=== PATIENT | male | born 1950 | race Caucasian/White ===

== ENCOUNTER 2022-02-10 10:23 | Outpatient (RCR) | payer MEDICARE, BC, SELFPAY ==
--- NOTE | 2022-02-08 10:00 | ONC.NURNOTE ---
Authorization: User: Carmen Dalton Date: 07/07/21 15:19 Type: Eligibility Determination Note... Received request for Trastuzumab (J9355), Cisplatin (J9060), Pembrolizumab (J9271), Aloxi (J2469) and Emend (J1453). Pt has Medicare and [place]. Prior authorization is not required as services are based on medical necessity and follow Medicare guidelines.
[2022-02-10 10:31] VITALS: BP 123/61; PULSE 59; RESP 16; TEMP 36.5; O2SAT 100
[2022-02-10 10:53] LABS: Basophils Absolute Auto 0.02 K/uL (0.00-0.30); Basophils Percent Auto 0.3 % (0.0-3.0); Eosinophils Absolute Auto 0.16 K/uL (0.00-0.50); Eosinophils Percent Auto 2.4 % (0.0-7.0); Hematocrit 27.7 % (37.0-53.0); Hemoglobin* 9.4 gm/dL (13.5-17.5); Immature Granulocytes Abs Auto 0.04 K/uL (0.00-0.30); Lymphocytes Percent Auto 17.6 % (20-44); Mean Corpuscular HGB Conc 34 gm/dL (32-36); Mean Corpuscular Hemoglobin 37 pg (26-34); Mean Corpuscular Volume 110 fL (80-100); Monocytes Percent Auto 10.3 % (0.0-11.0); Neutrophils Absolute Auto 4.56 K/uL (1.7-7.0); Neutrophils Percent Auto 68.8 % (42.0-72.0); Platelet Count* 191 K/uL (140-440); RDW Coefficient of Variation % 15.5 % (11.5-15.5); Red Blood Count 2.52 m/uL (4.30-5.90); White Blood Count* 6.63 K/uL (4.50-11.00)
[2022-02-10 11:15] LABS: Slide Review Reflex No
[2022-02-10 11:16] LABS: Albumin* 3.5 g/dL (3.3-5.0); Chloride* 109 mmol/L (96-114); Potassium* 4.3 mmol/L (3.6-5.1); Sodium* 138 mmol/L (135-149)
[2022-02-10 11:18] LABS: Bilirubin Total* 1.1 mg/dL (0.1-1.5); Est. Creatinine Clearance* 65.79; Estimated Glomerular Filt Rate 79.47
[2022-02-10 11:19] LABS: Alanine Aminotransferase* 20 U/L (4-50); Alkaline Phosphatase* 87 U/L (40-150); Aspartate Amino Transferase* 31 U/L (12-35); Blood Urea Nitrogen* 21 mg/dL (7-30); Calcium* 8.4 mg/dL (8.4-10.6); Carbon Dioxide* 23 mmol/L (20-32); Glucose* 158 mg/dL (60-115); Total Protein* 5.7 g/dL (6.0-8.3)
[2022-02-10 13:21] LABS: Magnesium* 1.8 mg/dL (1.5-2.6)
--- NOTE | 2022-02-10 16:00 | ONC.NURNOTE ---
left message for pt to stop taking his magnesium at home. and we will recheck him in 3 weeks. per Gwendolyn Lee APRN
[2022-02-10] MEDS: HEPARIN 500 UNIT/5 ML SYRINGE IVF (16:09)
[2022-02-10] MEDS: 0.9 % SODIUM CHLORIDE 250 ml IV (16:09)
[2022-02-10] MEDS: SODIUM CHLORIDE 0.9 % (FLUSH) 10 ML SYRINGE IVF (16:10)
== END 2022-02-28 23:59 | disposition home or self-care (01) ==
LOC: CCIC 10:23
PROVIDERS: Visit Provider Clinical Nurse Specialist
DX: C16.0 Malignant neoplasm of cardia (principal); E87.1 Hypo-osmolality and hyponatremia; G62.89 Other specified polyneuropathies; Z92.21 Personal history of antineoplastic chemotherapy; L27.1 Localized skin eruption due to drugs and medicaments taken internally; E83.42 Hypomagnesemia; M21.371 Foot drop, right foot; E87.6 Hypokalemia; D64.81 Anemia due to antineoplastic chemotherapy; T45.1X5A Adverse effect of antineoplastic and immunosuppressive drugs, initial encounter
CPT/HCPCS: 36415; 36591; 80053; 83735; 85025; 96413; 99212; 99215; J1642; J7050; J9355

== ENCOUNTER 2022-02-17 14:39 | Outpatient (CLI) | payer MEDICARE, BC, SELFPAY | END 2022-02-17 14:40 | disposition home or self-care (01) | LOC: RAD 14:40 | PROVIDERS: Visit Provider Clinical Nurse Specialist | DX: Z51.81 Encounter for therapeutic drug level monitoring (principal); I51.7 Cardiomegaly; I34.0 Nonrheumatic mitral (valve) insufficiency; Z79.899 Other long term (current) drug therapy; Z92.21 Personal history of antineoplastic chemotherapy | CPT/HCPCS: 93306 ==

== ENCOUNTER 2022-03-18 08:30 | Outpatient (RCR) | payer MEDICARE, BC, SELFPAY ==
--- NOTE | 2022-02-25 16:49 | PT.OPEX ---
PT [place] Outpatient Eval PT [facility] Outpatient Eval Start: 02/25/22 08:35 Freq: Status: Active Protocol: Document 02/25/22 08:42 [facility] (Rec: 02/25/22 09:16 [facility] [id number]) E-Signed By Lenny Bautista, PT Physical Therapy Outpatient Evaluation Insurance Information Insurance Name Medicare B,Blue Cross/Blue Shield Medical Diagnosis Right foot drop Treating Diagnosis Muscle weakness Difficulty walking Referring MD Gwendolyn Allen APRN Subjective Subjective Patient comes in with right ankle weakness following chemotherapy treatment since 2019. Weakness started a couple months ago. He is unstable on uneven surfaces and foot clops. Both feet are numb. He currently gets chemo every three weeks and also takes pills. Pain Comments No pain Current Work Status [employer] Preferred Name works as a [employer] still Precautions Weight Bearing Status Full Weight Bearing Therapy Limitations/Systems Review Not Limited Objective Sensation/Reflexes Intact L/T bilateral LEs Other/Pertinent Objective Ankle: Left/ Right PF: heel raises 10x/ 10x DF: 5 / 3 Inversion: 5 / 4+ Eversion: 5 / 2- SLS: Left: 12 sec Right: 3 sec Ambulates with slightly less right foot clearance on swing through Functional Test Performed & Score SLS: Right: 3 seconds and increased wobble Left: 12 seconds Assessment Assessment/Impression 71 year old male with right ankle eversion and dorsiflexion weakness as a side effect of chemotherapy treatments in recent months. He reports feeling less stable when walking on uneven surfaces, which he does often in his work as a [employer]. Patient does have some antigravity DF and eversion strength so do not recommend a rigid AFO at this time, however, he would benefit from an ASO for medial/lateral ankle stability and for strengthening exercises to optimize the strength he does have. He will also benefit from balance exercises as well . Recommend a few more follow up visits with skilled PT to progress a HEP for ankle strength and balance. Primary Functional Limitations Ambulation, especially on uneven surfaces and work as a [employer] Plan of Care Rehabilitation Potential Good Physical Therapy Goals In 3-4 weeks, patient will: 1) Be able to ambulate [place] with ASO (or tall work boot) with improved stability right ankle /not afraid of falling 2) Ambulate short community distances in right ASL with good right foot clearance consistently 3) I with HEP to improve right ankle strength and balance Coordination/Communication With Referral Source Treatment Plan/Direct Interventions Neuromuscular Re-ed,Orthotics/ Braces,Self-Care/Home Management,Therapeutic Activities,Therapeutic Exercises Direct Interventions Clarification ASO right ankle recommended Comments Frequency/Duration ~1x/week for 3-4 visits Patient Will Be Discharged From Therapy Independent w/HEP, Independently Progressing Evaluation Billing Untimed Code Treatment Minutes 25 Complexity Low Certification Information Initial Certification Date 02/25/22 Ending Certification Date 04/28/22
== END 2022-05-12 14:19 | disposition home or self-care (01) ==
PROVIDERS: Visit Provider Clinical Nurse Specialist
DX: M62.81 Muscle weakness (generalized) (principal); Z51.89 Encounter for other specified aftercare
CPT/HCPCS: 97110; 97112; 97161; 97535

== ENCOUNTER 2022-05-21 07:56 | Outpatient (CLI) | payer MEDICARE, BC, SELFPAY | END 2022-05-21 07:57 | disposition home or self-care (01) | LOC: RAD 07:56 | PROVIDERS: PCP Physician Assistant Medical; Visit Provider Clinical Nurse Specialist | DX: I51.7 Cardiomegaly (principal); I35.1 Nonrheumatic aortic (valve) insufficiency; I34.0 Nonrheumatic mitral (valve) insufficiency; I07.1 Rheumatic tricuspid insufficiency; T45.1X5A Adverse effect of antineoplastic and immunosuppressive drugs, initial encounter | CPT/HCPCS: 93306 ==

== ENCOUNTER 2022-07-07 09:00 | Outpatient (RCR) | payer MEDICARE, BC, SELFPAY ==
[2022-03-03 08:30] VITALS: BP 123/67; PULSE 62; RESP 16; TEMP 36.8; O2SAT 99
[2022-03-03 08:46] LABS: Basophils Absolute Auto 0.02 K/uL (0.00-0.30); Basophils Percent Auto 0.3 % (0.0-3.0); Eosinophils Absolute Auto 0.19 K/uL (0.00-0.50); Eosinophils Percent Auto 2.8 % (0.0-7.0); Hematocrit 28.8 % (37.0-53.0); Hemoglobin* 9.8 gm/dL (13.5-17.5); Immature Granulocytes Abs Auto 0.02 K/uL (0.00-0.30); Lymphocytes Percent Auto 12.9 % (20-44); Mean Corpuscular HGB Conc 34 gm/dL (32-36); Mean Corpuscular Hemoglobin 38 pg (26-34); Mean Corpuscular Volume 111 fL (80-100); Monocytes Percent Auto 14.2 % (0.0-11.0); Neutrophils Absolute Auto 4.73 K/uL (1.7-7.0); Neutrophils Percent Auto 69.5 % (42.0-72.0); Platelet Count* 185 K/uL (140-440); RDW Coefficient of Variation % 15.3 % (11.5-15.5); Red Blood Count 2.59 m/uL (4.30-5.90); White Blood Count* 6.81 K/uL (4.50-11.00)
[2022-03-03 08:49] LABS: Slide Review Reflex No
[2022-03-03 08:57] LABS: Albumin* 3.6 g/dL (3.3-5.0); Chloride* 111 mmol/L (96-114)
[2022-03-03 08:58] LABS: Potassium* 4.3 mmol/L (3.6-5.1); Sodium* 138 mmol/L (135-149)
[2022-03-03 09:00] LABS: Alanine Aminotransferase* 17 U/L (4-50); Alkaline Phosphatase* 87 U/L (40-150); Aspartate Amino Transferase* 27 U/L (12-35); Bilirubin Total* 1.2 mg/dL (0.1-1.5); Blood Urea Nitrogen* 22 mg/dL (7-30); Carbon Dioxide* 22 mmol/L (20-32); Estimated Glomerular Filt Rate 79 ml/min; Total Protein* 6.4 g/dL (6.0-8.3)
[2022-03-03 09:01] LABS: Calcium* 8.7 mg/dL (8.4-10.6); Glucose* 75 mg/dL (60-115)
[2022-03-03] MEDS: HEPARIN 500 UNIT/5 ML SYRINGE IVF (12:07)
[2022-03-03] MEDS: SODIUM CHLORIDE 0.9 % (FLUSH) 10 ML SYRINGE IVF (12:07)
--- NOTE | 2022-03-11 15:53 | ONC.NURNOTE ---
Pt scheduled for PET scan at [facility] on Apr 09 at 1400. [employer] set up port access for pt in the [facility] to be done prior to the scan that day.
[2022-03-24 08:30] VITALS: BP 129/79; PULSE 55; RESP 16; TEMP 37; O2SAT 97
[2022-03-24 08:51] LABS: Basophils Absolute Auto 0.01 K/uL (0.00-0.30); Basophils Percent Auto 0.2 % (0.0-3.0); Eosinophils Absolute Auto 0.15 K/uL (0.00-0.50); Eosinophils Percent Auto 2.5 % (0.0-7.0); Hematocrit 27.7 % (37.0-53.0); Hemoglobin* 9.4 gm/dL (13.5-17.5); Immature Granulocytes Abs Auto 0.01 K/uL (0.00-0.30); Mean Corpuscular HGB Conc 34 gm/dL (32-36); Mean Corpuscular Hemoglobin 38 pg (26-34); Mean Corpuscular Volume 111 fL (80-100); Monocytes Percent Auto 12.3 % (0.0-11.0); Neutrophils Absolute Auto 4.28 K/uL (1.7-7.0); Neutrophils Percent Auto 69.8 % (42.0-72.0); Platelet Count* 192 K/uL (140-440); White Blood Count* 6.12 K/uL (4.50-11.00)
[2022-03-24 08:52] LABS: Slide Review Reflex No
[2022-03-24 09:07] LABS: Albumin* 3.5 g/dL (3.3-5.0); Chloride* 107 mmol/L (96-114); Potassium* 4.4 mmol/L (3.6-5.1); Sodium* 138 mmol/L (135-149)
--- NOTE | 2022-03-24 09:09 | ONC.NURNOTE ---
Patient stated that he went to his mechatronics technologist and she prescribed antibiotic gtts 2 weeks ago and patient has had a lot of improvement. No complaints on them today.
[2022-03-24 09:10] LABS: Alanine Aminotransferase* 16 U/L (4-50); Alkaline Phosphatase* 90 U/L (40-150); Aspartate Amino Transferase* 23 U/L (12-35); Bilirubin Total* 1.2 mg/dL (0.1-1.5); Blood Urea Nitrogen* 23 mg/dL (7-30); Calcium* 8.7 mg/dL (8.4-10.6); Carbon Dioxide* 23 mmol/L (20-32); Glucose* 104 mg/dL (60-115); Total Protein* 6.2 g/dL (6.0-8.3)
[2022-03-24] MEDS: SODIUM CHLORIDE 0.9 % (FLUSH) 10 ML SYRINGE IVF ×2 (09:12→10:46)
[2022-03-24] MEDS: 0.9 % SODIUM CHLORIDE 250 ml IV (09:12)
[2022-03-24 09:34] LABS: Estimated Glomerular Filt Rate 79 ml/min
[2022-03-24] MEDS: HEPARIN 500 UNIT/5 ML SYRINGE IVF (10:46)
[2022-04-14 08:23] LABS: Basophils Absolute Auto 0.02 K/uL (0.00-0.30); Basophils Percent Auto 0.3 % (0.0-3.0); Eosinophils Absolute Auto 0.29 K/uL (0.00-0.50); Eosinophils Percent Auto 4.2 % (0.0-7.0); Hematocrit 31.4 % (37.0-53.0); Hemoglobin* 10.6 gm/dL (13.5-17.5); Immature Granulocytes Abs Auto 0.02 K/uL (0.00-0.30); Lymphocytes Percent Auto 11.7 % (20-44); Mean Corpuscular HGB Conc 34 gm/dL (32-36); Mean Corpuscular Hemoglobin 38 pg (26-34); Mean Corpuscular Volume 112 fL (80-100); Monocytes Percent Auto 20.7 % (0.0-11.0); Neutrophils Absolute Auto 4.34 K/uL (1.7-7.0); Neutrophils Percent Auto 62.8 % (42.0-72.0); Platelet Count* 182 K/uL (140-440); RDW Coefficient of Variation % 14.4 % (11.5-15.5); Red Blood Count 2.81 m/uL (4.30-5.90); White Blood Count* 6.91 K/uL (4.50-11.00)
[2022-04-14 08:26] LABS: Slide Review Reflex No
[2022-04-14 08:45] LABS: Chloride* 107 mmol/L (96-114)
[2022-04-14 08:46] LABS: Potassium* 4.5 mmol/L (3.6-5.1); Sodium* 136 mmol/L (135-149)
[2022-04-14 08:48] LABS: Aspartate Amino Transferase* 25 U/L (12-35); Bilirubin Total* 1.1 mg/dL (0.1-1.5); Carbon Dioxide* 23 mmol/L (20-32); Creatinine* 1.2 mg/dL (0.5-1.5); Estimated Glomerular Filt Rate 64 ml/min
[2022-04-14 08:49] LABS: Alanine Aminotransferase* 17 U/L (4-50); Alkaline Phosphatase* 88 U/L (40-150); Blood Urea Nitrogen* 19 mg/dL (7-30); Calcium* 8.7 mg/dL (8.4-10.6); Glucose* 99 mg/dL (60-115); Total Protein* 6.7 g/dL (6.0-8.3)
[2022-04-14] MEDS: 0.9 % SODIUM CHLORIDE 250 ml IV (10:18)
[2022-04-14] MEDS: HEPARIN 500 UNIT/5 ML SYRINGE IVF (10:54)
[2022-04-14] MEDS: SODIUM CHLORIDE 0.9 % (FLUSH) 10 ML SYRINGE IVF (10:54)
[2022-05-05 08:25] VITALS: BP 139/77; PULSE 58; RESP 16; TEMP 36.3; O2SAT 100
[2022-05-05 08:50] LABS: Basophils Absolute Auto 0.01 K/uL (0.00-0.30); Basophils Percent Auto 0.2 % (0.0-3.0); Eosinophils Absolute Auto 0.17 K/uL (0.00-0.50); Eosinophils Percent Auto 2.8 % (0.0-7.0); Hematocrit 30.8 % (37.0-53.0); Hemoglobin* 10.4 gm/dL (13.5-17.5); Immature Granulocytes Abs Auto 0.01 K/uL (0.00-0.30); Mean Corpuscular HGB Conc 34 gm/dL (32-36); Mean Corpuscular Hemoglobin 37 pg (26-34); Mean Corpuscular Volume 111 fL (80-100); Neutrophils Percent Auto 66.8 % (42.0-72.0); Platelet Count* 199 K/uL (140-440); RDW Coefficient of Variation % 14.3 % (11.5-15.5); Red Blood Count 2.78 m/uL (4.30-5.90); White Blood Count* 6.13 K/uL (4.50-11.00)
[2022-05-05 08:51] LABS: Slide Review Reflex No
[2022-05-05 09:07] LABS: Chloride* 104 mmol/L (96-114); Potassium* 4.2 mmol/L (3.6-5.1); Sodium* 136 mmol/L (135-149)
[2022-05-05 09:09] LABS: Creatinine* 1.3 mg/dL (0.5-1.5); Estimated Glomerular Filt Rate 58 ml/min
[2022-05-05 09:10] LABS: Alanine Aminotransferase* 22 U/L (4-50); Alkaline Phosphatase* 93 U/L (40-150); Aspartate Amino Transferase* 30 U/L (12-35); Bilirubin Total* 1.3 mg/dL (0.1-1.5); Blood Urea Nitrogen* 27 mg/dL (7-30); Carbon Dioxide* 23 mmol/L (20-32); Glucose* 107 mg/dL (60-115); Total Protein* 6.4 g/dL (6.0-8.3)
[2022-05-05 09:11] LABS: Calcium* 8.9 mg/dL (8.4-10.6)
[2022-05-05] MEDS: SODIUM CHLORIDE 0.9 % (FLUSH) 10 ML SYRINGE IVF (09:48)
[2022-05-05] MEDS: 0.9 % SODIUM CHLORIDE 250 ml IV (09:49)
--- NOTE | 2022-05-18 14:44 | ONC.NURNOTE ---
Addendum entered by Renetta James RN 05/19/22 11:53: Pt called back stating his hands are better, no redness, no cracking of skin. Pt is using udder cream and aquaphor and wearing gloves when working. Pt did start his xeloda this am. Pt did mention he has been on his feet a lot this past week, averaging 13,000 steps/day. Pt feels that both feet are sore on the side of his foot, same area. His has examined his feet and there is no redness or sore in those areas. Pt will continue to monitor these spots, underwriter did recommend they could be pressure points from his shoes. Recommended having pt pad those areas with gauze for protection. Pt verbalized understanding of recommendations. Pt will call if symptoms worsen. Original Note: Left message with pt to call [facility] with update on how his hands are doing since seeing Dr. Quinteros yestday.
[2022-05-26 08:39] VITALS: BP 116/59; PULSE 63; RESP 16; O2SAT 97
[2022-05-26 08:55] LABS: Basophils Absolute Auto 0.01 K/uL (0.00-0.30); Basophils Percent Auto 0.2 % (0.0-3.0); Eosinophils Absolute Auto 0.13 K/uL (0.00-0.50); Eosinophils Percent Auto 2.3 % (0.0-7.0); Hematocrit 32.4 % (37.0-53.0); Hemoglobin* 10.8 gm/dL (13.5-17.5); Lymphocytes Percent Auto 16.3 % (20-44); Mean Corpuscular HGB Conc 33 gm/dL (32-36); Mean Corpuscular Hemoglobin 37 pg (26-34); Mean Corpuscular Volume 111 fL (80-100); Monocytes Percent Auto 14.3 % (0.0-11.0); Neutrophils Absolute Auto 3.75 K/uL (1.7-7.0); Neutrophils Percent Auto 66.9 % (42.0-72.0); Platelet Count* 219 K/uL (140-440); RDW Coefficient of Variation % 14.4 % (11.5-15.5); Red Blood Count 2.91 m/uL (4.30-5.90)
[2022-05-26 08:58] LABS: Slide Review Reflex No
[2022-05-26 09:06] LABS: Albumin* 3.9 g/dL (3.3-5.0)
[2022-05-26 09:07] LABS: Chloride* 106 mmol/L (96-114); Potassium* 4.6 mmol/L (3.6-5.1); Sodium* 137 mmol/L (135-149)
[2022-05-26 09:09] LABS: Bilirubin Total* 1.1 mg/dL (0.1-1.5); Carbon Dioxide* 24 mmol/L (20-32); Creatinine* 1.1 mg/dL (0.5-1.5); Estimated Glomerular Filt Rate 71 ml/min
[2022-05-26 09:10] LABS: Alanine Aminotransferase* 26 U/L (4-50); Alkaline Phosphatase* 91 U/L (40-150); Aspartate Amino Transferase* 33 U/L (12-35); Blood Urea Nitrogen* 29 mg/dL (7-30); Calcium* 8.8 mg/dL (8.4-10.6); Glucose* 82 mg/dL (60-115); Total Protein* 6.4 g/dL (6.0-8.3)
[2022-05-26 10:00] VITALS: TEMP 36.9
[2022-06-14] MEDS: HEPARIN 500 UNIT/5 ML SYRINGE IVF (09:56)
[2022-06-14] MEDS: SODIUM CHLORIDE 0.9 % (FLUSH) 10 ML SYRINGE IVF (09:56)
[2022-06-16 08:39] LABS: Basophils Absolute Auto 0.02 K/uL (0.00-0.30); Basophils Percent Auto 0.3 % (0.0-3.0); Eosinophils Absolute Auto 0.22 K/uL (0.00-0.50); Eosinophils Percent Auto 2.9 % (0.0-7.0); Hematocrit 32.4 % (37.0-53.0); Hemoglobin* 10.9 gm/dL (13.5-17.5); Immature Granulocytes Abs Auto 0.02 K/uL (0.00-0.30); Immature Granulocytes Pct Auto 0.3 %; Lymphocytes Percent Auto 14.9 % (20-44); Mean Corpuscular HGB Conc 34 gm/dL (32-36); Mean Corpuscular Hemoglobin 37 pg (26-34); Mean Corpuscular Volume 111 fL (80-100); Neutrophils Absolute Auto 5.05 K/uL (1.7-7.0); Neutrophils Percent Auto 66.6 % (42.0-72.0); Platelet Count* 196 K/uL (140-440); RDW Coefficient of Variation % 15.1 % (11.5-15.5); Red Blood Count 2.92 m/uL (4.30-5.90); White Blood Count* 7.58 K/uL (4.50-11.00)
[2022-06-16 08:40] LABS: Slide Review Reflex No
[2022-06-16 08:53] LABS: Albumin* 3.8 g/dL (3.3-5.0); Chloride* 111 mmol/L (96-114); Sodium* 138 mmol/L (135-149)
[2022-06-16 08:54] LABS: Potassium* 4.5 mmol/L (3.6-5.1)
[2022-06-16 08:56] LABS: Alanine Aminotransferase* 23 U/L (4-50); Alkaline Phosphatase* 90 U/L (40-150); Aspartate Amino Transferase* 27 U/L (12-35); Bilirubin Total* 1.1 mg/dL (0.1-1.5); Blood Urea Nitrogen* 28 mg/dL (7-30); Carbon Dioxide* 22 mmol/L (20-32); Creatinine* 1.2 mg/dL (0.5-1.5); Estimated Glomerular Filt Rate 64 ml/min; Glucose* 97 mg/dL (60-115); Total Protein* 6.4 g/dL (6.0-8.3)
[2022-06-16 08:57] LABS: Calcium* 8.8 mg/dL (8.4-10.6)
[2022-06-16] MEDS: 0.9 % SODIUM CHLORIDE 250 ml IV (09:34)
[2022-06-16] MEDS: SODIUM CHLORIDE 0.9 % (FLUSH) 10 ML SYRINGE IVF (09:35)
--- NOTE | 2022-06-17 13:24 | ONC.NURNOTE ---
Per [employer] Patient [facility] Te continues to receive Xeloda via [employer] patient Foundation enrollment is current and active through the end of 2022 when the program will be discountinued
--- NOTE | 2022-06-28 14:23 | ONC.NURNOTE ---
Oncology transfer: Patient would like to stay at the [facility] in [place], he is fine switching to [place].
--- NOTE | 2022-07-05 14:50 | URNOTE ---
Request received for authorization for Herceptin ([id number]). Prior authorization is not required as services are based on medical necessity and follow Medicare guidelines.
[2022-07-07 09:08] LABS: Basophils Absolute Auto 0.02 K/uL (0.00-0.30); Basophils Percent Auto 0.4 % (0.0-3.0); Eosinophils Absolute Auto 0.14 K/uL (0.00-0.50); Eosinophils Percent Auto 2.5 % (0.0-7.0); Hematocrit 31.4 % (37.0-53.0); Hemoglobin* 10.5 gm/dL (13.5-17.5); Immature Granulocytes Abs Auto 0.01 K/uL (0.00-0.30); Immature Granulocytes Pct Auto 0.2 %; Lymphocytes Percent Auto 16.8 % (20-44); Mean Corpuscular HGB Conc 33 gm/dL (32-36); Mean Corpuscular Hemoglobin 37 pg (26-34); Mean Corpuscular Volume 111 fL (80-100); Neutrophils Percent Auto 66.1 % (42.0-72.0); Platelet Count* 207 K/uL (140-440); RDW Coefficient of Variation % 14.8 % (11.5-15.5); Red Blood Count 2.84 m/uL (4.30-5.90); White Blood Count* 5.59 K/uL (4.50-11.00)
[2022-07-07 09:21] LABS: Slide Review Reflex No
[2022-07-07 09:24] LABS: Albumin* 3.7 g/dL (3.3-5.0); Chloride* 107 mmol/L (96-114); Potassium* 4.4 mmol/L (3.6-5.1); Sodium* 137 mmol/L (135-149)
[2022-07-07 09:26] LABS: Bilirubin Total* 0.7 mg/dL (0.1-1.5); Estimated Glomerular Filt Rate 79 ml/min
[2022-07-07 09:27] LABS: Alanine Aminotransferase* 20 U/L (4-50); Alkaline Phosphatase* 88 U/L (40-150); Aspartate Amino Transferase* 23 U/L (12-35); Blood Urea Nitrogen* 23 mg/dL (7-30); Carbon Dioxide* 26 mmol/L (20-32); Glucose* 103 mg/dL (60-115); Total Protein* 6.3 g/dL (6.0-8.3)
[2022-07-07 09:28] LABS: Calcium* 8.8 mg/dL (8.4-10.6)
[2022-07-07] MEDS: SODIUM CHLORIDE 0.9 % (FLUSH) 10 ML SYRINGE IVF (10:00)
[2022-07-07] MEDS: 0.9 % SODIUM CHLORIDE 250 ml IV (10:00)
[2022-07-07] MEDS: HEPARIN 500 UNIT/5 ML SYRINGE IVF (10:00)
--- NOTE | 2022-07-07 15:54 | ONC.NURNOTE ---
hand skin a bit tight. states finger discomfort is improving . states buddhist monk is improving. dry pink botton of feet . with few cracks. none deep or anh or pussy looking. none bleeding . enc pt to keep them lotioned with a nonfrag. non alcohol lotion. enc pt when in [place] not to go barefoot and whyy.
== END 2022-08-30 23:59 | disposition home or self-care (01) ==
LOC: CCIC 09:00
PROVIDERS: Clinical Nurse Specialist; Visit Provider Internal Medicine Hematology & Oncology
DX: C16.0 Malignant neoplasm of cardia (principal); G62.89 Other specified polyneuropathies
CPT/HCPCS: 36415; 36591; 80053; 85025; 93005; 96413; 99212; 99213; 99214; 99215; J1642; J7050; J9355

== ENCOUNTER 2022-09-10 12:27 | Outpatient (CLI) | payer MEDICARE, BC, SELFPAY | END 2022-09-10 12:28 | disposition home or self-care (01) | PROVIDERS: PCP Physician Assistant Medical; Visit Provider Internal Medicine Hematology & Oncology | DX: I42.7 Cardiomyopathy due to drug and external agent (principal); Z51.11 Encounter for antineoplastic chemotherapy | CPT/HCPCS: 93306 ==

== ENCOUNTER 2023-03-10 09:19 | Outpatient (RCR) | payer MEDICARE, BC, SELFPAY ==
--- NOTE | 2022-09-03 10:46 | ONC.NURNOTE ---
Looking through chart it appears that patient was treated in [place] over the last couple of months. Request was made on Tuesday for records, and resent again today. Patient to be placed onto [employer]'s schedule to determine if able to treat. Last ECHO was completed in May per our records.
[2022-09-14 09:11] LABS: Basophils Absolute Auto 0.03 K/uL (0.00-0.30); Basophils Percent Auto 0.3 % (0.0-3.0); Eosinophils Absolute Auto 0.37 K/uL (0.00-0.50); Hemoglobin* 11.2 gm/dL (13.5-17.5); Immature Granulocytes Abs Auto 0.08 K/uL (0.00-0.30); Immature Granulocytes Pct Auto 0.9 %; Mean Corpuscular HGB Conc 34 gm/dL (32-36); Mean Corpuscular Hemoglobin 37 pg (26-34); Mean Corpuscular Volume 110 fL (80-100); Monocytes Percent Auto 15.4 % (0.0-11.0); Neutrophils Absolute Auto 6.18 K/uL (1.7-7.0); Neutrophils Percent Auto 66.4 % (42.0-72.0); Platelet Count* 229 K/uL (140-440); RDW Coefficient of Variation % 14.5 % (11.5-15.5); Red Blood Count 3.01 m/uL (4.30-5.90)
[2022-09-14 09:17] LABS: Slide Review Reflex No
[2022-09-14 09:28] LABS: Albumin* 3.5 g/dL (3.3-5.0); Chloride* 111 mmol/L (96-114); Potassium* 4.3 mmol/L (3.6-5.1); Sodium* 138 mmol/L (135-149)
[2022-09-14 09:30] LABS: Creatinine* 0.9 mg/dL (0.5-1.5); Estimated Glomerular Filt Rate 90 ml/min
[2022-09-14 09:31] LABS: Alanine Aminotransferase* 25 U/L (4-50); Alkaline Phosphatase* 79 U/L (40-150); Aspartate Amino Transferase* 26 U/L (12-35); Bilirubin Total* 0.9 mg/dL (0.1-1.5); Blood Urea Nitrogen* 26 mg/dL (7-30); Calcium* 8.6 mg/dL (8.4-10.6); Carbon Dioxide* 21 mmol/L (20-32); Glucose* 102 mg/dL (60-115); Total Protein* 6.2 g/dL (6.0-8.3)
[2022-09-14] MEDS: 0.9 % SODIUM CHLORIDE 250 ml IV (12:00)
[2022-09-14] MEDS: SODIUM CHLORIDE 0.9 % (FLUSH) 10 ML SYRINGE IVF (12:51)
[2022-09-14] MEDS: HEPARIN 500 UNIT/5 ML SYRINGE IVF (12:51)
[2022-09-20 08:33] VITALS: BP 135/78; PULSE 65; RESP 16; TEMP 36.2; O2SAT 100
[2022-10-04 08:23] LABS: Basophils Absolute Auto 0.02 K/uL (0.00-0.30); Basophils Percent Auto 0.2 % (0.0-3.0); Eosinophils Absolute Auto 0.23 K/uL (0.00-0.50); Eosinophils Percent Auto 2.7 % (0.0-7.0); Hematocrit 35.7 % (37.0-53.0); Hemoglobin* 11.8 gm/dL (13.5-17.5); Immature Granulocytes Abs Auto 0.02 K/uL (0.00-0.30); Immature Granulocytes Pct Auto 0.2 %; Lymphocytes Percent Auto 14.5 % (20-44); Mean Corpuscular HGB Conc 33 gm/dL (32-36); Mean Corpuscular Hemoglobin 36 pg (26-34); Mean Corpuscular Volume 110 fL (80-100); Monocytes Percent Auto 14.8 % (0.0-11.0); Neutrophils Absolute Auto 5.69 K/uL (1.7-7.0); Neutrophils Percent Auto 67.6 % (42.0-72.0); Platelet Count* 247 K/uL (140-440); RDW Coefficient of Variation % 13.6 % (11.5-15.5); Red Blood Count 3.26 m/uL (4.30-5.90); White Blood Count* 8.43 K/uL (4.50-11.00)
[2022-10-04 08:29] LABS: Slide Review Reflex No
[2022-10-04 08:40] LABS: Albumin* 3.8 g/dL (3.3-5.0)
[2022-10-04 08:41] LABS: Chloride* 107 mmol/L (96-114); Potassium* 4.2 mmol/L (3.6-5.1); Sodium* 137 mmol/L (135-149)
[2022-10-04 08:43] LABS: Bilirubin Total* 0.8 mg/dL (0.1-1.5); Carbon Dioxide* 24 mmol/L (20-32); Creatinine* 0.9 mg/dL (0.5-1.5); Estimated Glomerular Filt Rate 90 ml/min
[2022-10-04 08:44] LABS: Alanine Aminotransferase* 31 U/L (4-50); Alkaline Phosphatase* 85 U/L (40-150); Aspartate Amino Transferase* 34 U/L (12-35); Blood Urea Nitrogen* 22 mg/dL (7-30); Calcium* 8.9 mg/dL (8.4-10.6); Glucose* 86 mg/dL (60-115); Total Protein* 6.5 g/dL (6.0-8.3)
[2022-10-04] MEDS: 0.9 % SODIUM CHLORIDE 250 ml IV (10:36)
[2022-10-04] MEDS: SODIUM CHLORIDE 0.9 % (FLUSH) 10 ML SYRINGE IVF (11:12)
[2022-10-04] MEDS: HEPARIN 500 UNIT/5 ML SYRINGE IVF (11:12)
[2022-10-26 08:10] VITALS: BP 133/76; PULSE 63; RESP 16; TEMP 36.9; O2SAT 99
[2022-10-26 08:12] LABS: Basophils Absolute Auto 0.04 K/uL (0.00-0.30); Basophils Percent Auto 0.6 % (0.0-3.0); Eosinophils Absolute Auto 0.27 K/uL (0.00-0.50); Eosinophils Percent Auto 3.9 % (0.0-7.0); Hematocrit 37.1 % (37.0-53.0); Hemoglobin* 12.3 gm/dL (13.5-17.5); Immature Granulocytes Abs Auto 0.04 K/uL (0.00-0.30); Immature Granulocytes Pct Auto 0.6 %; Lymphocytes Percent Auto 16.8 % (20-44); Mean Corpuscular HGB Conc 33 gm/dL (32-36); Mean Corpuscular Hemoglobin 36 pg (26-34); Mean Corpuscular Volume 108 fL (80-100); Monocytes Percent Auto 13.2 % (0.0-11.0); Neutrophils Absolute Auto 4.54 K/uL (1.7-7.0); Neutrophils Percent Auto 64.9 % (42.0-72.0); Platelet Count* 240 K/uL (140-440); Red Blood Count 3.44 m/uL (4.30-5.90); White Blood Count* 6.98 K/uL (4.50-11.00)
[2022-10-26 08:17] LABS: Slide Review Reflex No
[2022-10-26 08:41] LABS: Albumin* 3.7 g/dL (3.3-5.0); Chloride* 109 mmol/L (96-114); Potassium* 4.4 mmol/L (3.6-5.1); Sodium* 137 mmol/L (135-149)
[2022-10-26 08:43] LABS: Bilirubin Total* 0.9 mg/dL (0.1-1.5); Creatinine* 1.2 mg/dL (0.5-1.5); Estimated Glomerular Filt Rate 64 ml/min
[2022-10-26 08:44] LABS: Alanine Aminotransferase* 31 U/L (4-50); Alkaline Phosphatase* 90 U/L (40-150); Aspartate Amino Transferase* 31 U/L (12-35); Blood Urea Nitrogen* 24 mg/dL (7-30); Calcium* 8.8 mg/dL (8.4-10.6); Carbon Dioxide* 25 mmol/L (20-32); Glucose* 85 mg/dL (60-115); Total Protein* 6.5 g/dL (6.0-8.3)
[2022-10-26] MEDS: SODIUM CHLORIDE 0.9 % (FLUSH) 10 ML SYRINGE IVF ×2 (09:16→09:56)
[2022-10-26] MEDS: 0.9 % SODIUM CHLORIDE 250 ml IV (09:16)
[2022-10-26] MEDS: HEPARIN 500 UNIT/5 ML SYRINGE IVF (09:56)
[2022-11-15 10:00] LABS: Basophils Absolute Auto 0.01 K/uL (0.00-0.30); Basophils Percent Auto 0.1 % (0.0-3.0); Eosinophils Absolute Auto 0.15 K/uL (0.00-0.50); Eosinophils Percent Auto 1.9 % (0.0-7.0); Hematocrit 37.6 % (37.0-53.0); Hemoglobin* 12.8 gm/dL (13.5-17.5); Immature Granulocytes Abs Auto 0.02 K/uL (0.00-0.30); Immature Granulocytes Pct Auto 0.3 %; Lymphocytes Percent Auto 12.9 % (20-44); Mean Corpuscular HGB Conc 34 gm/dL (32-36); Mean Corpuscular Hemoglobin 36 pg (26-34); Mean Corpuscular Volume 106 fL (80-100); Monocytes Percent Auto 9.4 % (0.0-11.0); Neutrophils Percent Auto 75.4 % (42.0-72.0); Platelet Count* 221 K/uL (140-440); RDW Coefficient of Variation % 12.9 % (11.5-15.5); Red Blood Count 3.55 m/uL (4.30-5.90); White Blood Count* 7.75 K/uL (4.50-11.00)
[2022-11-15 10:06] LABS: Slide Review Reflex No
[2022-11-15 10:20] LABS: Albumin* 3.9 g/dL (3.3-5.0); Chloride* 107 mmol/L (96-114); Potassium* 4.8 mmol/L (3.6-5.1); Sodium* 135 mmol/L (135-149)
[2022-11-15 10:22] LABS: Bilirubin Total* 0.7 mg/dL (0.1-1.5); Estimated Glomerular Filt Rate 79 ml/min
[2022-11-15 10:23] LABS: Alanine Aminotransferase* 28 U/L (4-50); Alkaline Phosphatase* 95 U/L (40-150); Aspartate Amino Transferase* 32 U/L (12-35); Blood Urea Nitrogen* 26 mg/dL (7-30); Calcium* 8.9 mg/dL (8.4-10.6); Carbon Dioxide* 25 mmol/L (20-32); Glucose* 112 mg/dL (60-115); Total Protein* 6.8 g/dL (6.0-8.3)
[2022-11-15] MEDS: SODIUM CHLORIDE 0.9 % (FLUSH) 10 ML SYRINGE IVF (11:39)
[2022-11-15] MEDS: HEPARIN 500 UNIT/5 ML SYRINGE IVF (11:39)
[2022-12-07 08:15] LABS: Basophils Absolute Auto 0.03 K/uL (0.00-0.30); Basophils Percent Auto 0.5 % (0.0-3.0); Eosinophils Absolute Auto 0.17 K/uL (0.00-0.50); Eosinophils Percent Auto 2.7 % (0.0-7.0); Hematocrit 37.7 % (37.0-53.0); Hemoglobin* 12.7 gm/dL (13.5-17.5); Immature Granulocytes Abs Auto 0.02 K/uL (0.00-0.30); Immature Granulocytes Pct Auto 0.3 %; Lymphocytes Percent Auto 14.9 % (20-44); Mean Corpuscular HGB Conc 34 gm/dL (32-36); Mean Corpuscular Hemoglobin 36 pg (26-34); Mean Corpuscular Volume 106 fL (80-100); Monocytes Percent Auto 13.8 % (0.0-11.0); Neutrophils Absolute Auto 4.31 K/uL (1.7-7.0); Neutrophils Percent Auto 67.8 % (42.0-72.0); Platelet Count* 229 K/uL (140-440); RDW Coefficient of Variation % 13.7 % (11.5-15.5); Red Blood Count 3.57 m/uL (4.30-5.90); White Blood Count* 6.36 K/uL (4.50-11.00)
[2022-12-07 08:16] LABS: Slide Review Reflex No
[2022-12-07 08:24] LABS: Chloride* 106 mmol/L (96-114)
[2022-12-07 08:25] LABS: Albumin* 3.8 g/dL (3.3-5.0); Potassium* 5.1 mmol/L (3.6-5.1); Sodium* 137 mmol/L (135-149)
[2022-12-07 08:28] LABS: Alanine Aminotransferase* 29 U/L (4-50); Alkaline Phosphatase* 93 U/L (40-150); Aspartate Amino Transferase* 34 U/L (12-35); Bilirubin Total* 0.8 mg/dL (0.1-1.5); Blood Urea Nitrogen* 31 mg/dL (7-30); Carbon Dioxide* 26 mmol/L (20-32); Creatinine* 1.1 mg/dL (0.5-1.5); Estimated Glomerular Filt Rate 70 ml/min; Glucose* 90 mg/dL (60-115); Total Protein* 6.6 g/dL (6.0-8.3)
[2022-12-07 08:29] VITALS: BP 127/68; PULSE 56; RESP 16; TEMP 36.3; O2SAT 96
[2022-12-07] MEDS: 0.9 % SODIUM CHLORIDE 250 ml IV (10:12)
[2022-12-07] MEDS: HEPARIN 500 UNIT/5 ML SYRINGE IVF (10:12)
[2022-12-07] MEDS: SODIUM CHLORIDE 0.9 % (FLUSH) 10 ML SYRINGE IVF (10:13)
[2022-12-29 07:59] VITALS: BP 127/84; PULSE 63; RESP 16; TEMP 36.6; O2SAT 97
[2022-12-29 08:10] LABS: Basophils Absolute Auto 0.02 K/uL (0.00-0.30); Basophils Percent Auto 0.3 % (0.0-3.0); Eosinophils Absolute Auto 0.21 K/uL (0.00-0.50); Eosinophils Percent Auto 2.9 % (0.0-7.0); Hematocrit 37.6 % (37.0-53.0); Hemoglobin* 12.6 gm/dL (13.5-17.5); Lymphocytes Percent Auto 15.3 % (20-44); Mean Corpuscular HGB Conc 34 gm/dL (32-36); Mean Corpuscular Hemoglobin 35 pg (26-34); Mean Corpuscular Volume 104 fL (80-100); Monocytes Percent Auto 14.8 % (0.0-11.0); Neutrophils Absolute Auto 4.87 K/uL (1.7-7.0); Neutrophils Percent Auto 66.7 % (42.0-72.0); Platelet Count* 222 K/uL (140-440)
[2022-12-29 08:12] LABS: Slide Review Reflex No
[2022-12-29 08:24] LABS: Albumin* 3.8 g/dL (3.3-5.0); Chloride* 105 mmol/L (96-114); Potassium* 4.5 mmol/L (3.6-5.1); Sodium* 138 mmol/L (135-149)
[2022-12-29 08:26] LABS: Bilirubin Total* 0.7 mg/dL (0.1-1.5); Estimated Glomerular Filt Rate 79 ml/min
[2022-12-29 08:27] LABS: Alanine Aminotransferase* 31 U/L (4-50); Alkaline Phosphatase* 94 U/L (40-150); Aspartate Amino Transferase* 32 U/L (12-35); Blood Urea Nitrogen* 20 mg/dL (7-30); Calcium* 8.8 mg/dL (8.4-10.6); Carbon Dioxide* 25 mmol/L (20-32); Glucose* 99 mg/dL (60-115); Total Protein* 6.5 g/dL (6.0-8.3)
[2022-12-29] MEDS: SODIUM CHLORIDE 0.9 % (FLUSH) 10 ML SYRINGE IVF (10:00)
[2022-12-29] MEDS: HEPARIN 500 UNIT/5 ML SYRINGE IVF (10:00)
[2023-01-20 12:58] LABS: Basophils Percent Auto 0.4 % (0.0-3.0); Eosinophils Percent Auto 1.7 % (0.0-7.0); Hematocrit 36.7 % (37.0-53.0); Hemoglobin* 12.4 gm/dL (13.5-17.5); Immature Granulocytes Pct Auto 0.1 %; Lymphocytes Percent Auto 13.7 % (20-44); Mean Corpuscular HGB Conc 34 gm/dL (32-36); Mean Corpuscular Hemoglobin 35 pg (26-34); Mean Corpuscular Volume 103 fL (80-100); Monocytes Percent Auto 10.7 % (0.0-11.0); Neutrophils Percent Auto 73.4 % (42.0-72.0); Platelet Count* 222 K/uL (140-440); RDW Coefficient of Variation % 14.3 % (11.5-15.5); Red Blood Count 3.58 m/uL (4.30-5.90)
[2023-01-20 13:12] LABS: Slide Review Reflex No
[2023-01-20 13:21] LABS: Albumin* 3.6 g/dL (3.3-5.0); Chloride* 104 mmol/L (96-114)
[2023-01-20 13:22] LABS: Sodium* 135 mmol/L (135-149)
[2023-01-20 13:24] LABS: Alkaline Phosphatase* 90 U/L (40-150); Aspartate Amino Transferase* 25 U/L (12-35); Bilirubin Total* 1.4 mg/dL (0.1-1.5); Blood Urea Nitrogen* 22 mg/dL (7-30); Carbon Dioxide* 25 mmol/L (20-32); Creatinine* 1.2 mg/dL (0.5-1.5); Estimated Glomerular Filt Rate 63 ml/min; Total Protein* 6.2 g/dL (6.0-8.3)
[2023-01-20 13:25] LABS: Alanine Aminotransferase* 26 U/L (4-50); Calcium* 8.8 mg/dL (8.4-10.6); Glucose* 107 mg/dL (60-115)
[2023-01-20] MEDS: SODIUM CHLORIDE 0.9 % (FLUSH) 10 ML SYRINGE IVF (15:00)
[2023-01-20] MEDS: HEPARIN 500 UNIT/5 ML SYRINGE IVF (15:00)
[2023-01-21 07:58] VITALS: BP 123/71; PULSE 62; RESP 18; TEMP 36.8; O2SAT 97
[2023-01-21] MEDS: SODIUM CHLORIDE 0.9 % (FLUSH) 10 ML SYRINGE IVF (09:22)
[2023-01-21] MEDS: 0.9 % SODIUM CHLORIDE 250 ml IV (09:22)
[2023-01-21] MEDS: HEPARIN 500 UNIT/5 ML SYRINGE IVF (09:22)
[2023-02-10 08:07] LABS: Hematocrit 38.1 % (37.0-53.0); Hemoglobin* 13.1 gm/dL (13.5-17.5); Mean Corpuscular HGB Conc 34 gm/dL (32-36); Mean Corpuscular Hemoglobin 36 pg (26-34); Mean Corpuscular Volume 104 fL (80-100); Neutrophils Percent Auto 68.7 % (42.0-72.0); Platelet Count* 218 K/uL (140-440); RDW Coefficient of Variation % 14.8 % (11.5-15.5); Red Blood Count 3.68 m/uL (4.30-5.90); White Blood Count* 8.23 K/uL (4.50-11.00)
[2023-02-10 08:08] LABS: Basophils Absolute Auto 0.03 K/uL (0.00-0.30); Basophils Percent Auto 0.4 % (0.0-3.0); Eosinophils Absolute Auto 0.27 K/uL (0.00-0.50); Eosinophils Percent Auto 3.3 % (0.0-7.0); Immature Granulocytes Abs Auto 0.02 K/uL (0.00-0.30); Immature Granulocytes Pct Auto 0.2 %; Lymphocytes Percent Auto 14.6 % (20-44); Monocytes Percent Auto 12.8 % (0.0-11.0); Neutrophils Absolute Auto 5.66 K/uL (1.7-7.0)
[2023-02-10 08:12] LABS: Slide Review Reflex No
[2023-02-10 08:22] LABS: Albumin* 3.8 g/dL (3.3-5.0); Chloride* 108 mmol/L (96-114); Sodium* 138 mmol/L (135-149)
[2023-02-10 08:24] LABS: Bilirubin Total* 1.2 mg/dL (0.1-1.5); Carbon Dioxide* 23 mmol/L (20-32); Creatinine* 0.9 mg/dL (0.5-1.5); Estimated Glomerular Filt Rate 90 ml/min
[2023-02-10 08:25] LABS: Alanine Aminotransferase* 29 U/L (4-50); Alkaline Phosphatase* 86 U/L (40-150); Aspartate Amino Transferase* 31 U/L (12-35); Blood Urea Nitrogen* 27 mg/dL (7-30); Glucose* 75 mg/dL (60-115); Total Protein* 6.7 g/dL (6.0-8.3)
[2023-02-10] MEDS: HEPARIN 500 UNIT/5 ML SYRINGE IVF (09:46)
[2023-02-10] MEDS: SODIUM CHLORIDE 0.9 % (FLUSH) 10 ML SYRINGE IVF (09:46)
[2023-03-04 08:05] LABS: Basophils Absolute Auto 0.03 K/uL (0.00-0.30); Basophils Percent Auto 0.4 % (0.0-3.0); Eosinophils Absolute Auto 0.18 K/uL (0.00-0.50); Eosinophils Percent Auto 2.6 % (0.0-7.0); Hematocrit 36.5 % (37.0-53.0); Hemoglobin* 12.2 gm/dL (13.5-17.5); Immature Granulocytes Abs Auto 0.01 K/uL (0.00-0.30); Immature Granulocytes Pct Auto 0.1 %; Lymphocytes Percent Auto 13.4 % (20-44); Mean Corpuscular HGB Conc 33 gm/dL (32-36); Mean Corpuscular Hemoglobin 35 pg (26-34); Mean Corpuscular Volume 105 fL (80-100); Monocytes Percent Auto 15.6 % (0.0-11.0); Neutrophils Absolute Auto 4.62 K/uL (1.7-7.0); Neutrophils Percent Auto 67.9 % (42.0-72.0); Platelet Count* 207 K/uL (140-440); RDW Coefficient of Variation % 14.9 % (11.5-15.5); Red Blood Count 3.47 m/uL (4.30-5.90); White Blood Count* 6.81 K/uL (4.50-11.00)
[2023-03-04 08:12] LABS: Slide Review Reflex No
[2023-03-04 08:17] LABS: Albumin* 3.7 g/dL (3.3-5.0); Chloride* 107 mmol/L (96-114); Sodium* 136 mmol/L (135-149)
[2023-03-04 08:20] LABS: Alanine Aminotransferase* 27 U/L (4-50); Alkaline Phosphatase* 71 U/L (40-150); Aspartate Amino Transferase* 36 U/L (12-35); Bilirubin Total* 1.4 mg/dL (0.1-1.5); Blood Urea Nitrogen* 24 mg/dL (7-30); Calcium* 8.5 mg/dL (8.4-10.6); Carbon Dioxide* 25 mmol/L (20-32); Creatinine* 1.1 mg/dL (0.5-1.5); Estimated Glomerular Filt Rate 70 ml/min; Glucose* 115 mg/dL (60-115); Total Protein* 6.4 g/dL (6.0-8.3)
[2023-03-04 08:45] VITALS: BP 119/70; PULSE 53; RESP 18; TEMP 36.7; O2SAT 96
[2023-03-04] MEDS: HEPARIN 500 UNIT/5 ML SYRINGE IVF (09:55)
[2023-03-04] MEDS: SODIUM CHLORIDE 0.9 % (FLUSH) 10 ML SYRINGE IVF (09:55)
== END 2023-03-13 23:59 | disposition home or self-care (01) ==
LOC: CCIC 09:19
PROVIDERS: PCP Physician Assistant Medical; Visit Provider Clinical Nurse Specialist
DX: C16.0 Malignant neoplasm of cardia (principal); C15.4 Malignant neoplasm of middle third of esophagus; L27.1 Localized skin eruption due to drugs and medicaments taken internally; Z51.81 Encounter for therapeutic drug level monitoring; Z79.899 Other long term (current) drug therapy; G62.89 Other specified polyneuropathies
CPT/HCPCS: 36415; 36591; 78815; 80053; 85025; 96413; 99211; 99212; 99213; 99214; 99215; A9552; J1642; J7050; J9355

== ENCOUNTER 2023-03-25 12:44 | Emergency (ER) | payer MEDICARE, BC, SELFPAY ==
[2023-03-25 13:49] VITALS: BP 105/63; PULSE 73; RESP 18; TEMP 36.4; O2SAT 97; BMI 27.5
--- NOTE | 2023-03-25 15:06 | ED.GENADULT ---
HPI - General Adult General Chief complaint: Unspecified Complaint, Adult Stated complaint: Post infusion diarrhea, shaking, dizzy Time Seen by Provider: 03/25/23 14:49 History of Present Illness HPI narrative: Patient had usual infusion today. When he got home he had headache and was feeling light headed, had moment where he zoned out per . He feels very tired and has been yawning and dowsing off . Headache has resolved at time of triage. 72-year-old man presenting to the emergency department with concern of altered mentation albeit brief. Has been hot day. He has been active. 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 He returned home and was feeling headache little lightheaded sounds like had a couple episodes where he was just stare. No history of seizures. Headache has resolved by the time I am seeing Mr. Archuleta. He has not had any fever. Did not have any chest pain or shortness of breath. No nausea. He feels quite good now in was actually disinclined to come to the emergency department but it sounds like is making his spouse happy. Related Data Home Medications Medication Instructions Recorded Confirmed atorvastatin 10 mg tablet 10 mg PO DAILY 02/08/22 03/10/23 diphenoxylate-atropine 2.5 2 tab PO Q6H PRN 02/08/22 03/10/23 mg-0.025 mg tablet ibuprofen 800 mg tablet 800 mg PO TID PRN 02/08/22 03/10/23 multivitamin 1 tab PO DAILY 02/08/22 03/10/23 potassium chloride 20 mEq 20 meq PO .Daily 02/08/22 03/10/23 tablet,extended release(part/cryst) sodium chloride 1 gram tablet 1,000 mg PO .Daily 02/08/22 03/10/23 magnesium oxide 400 mg (241.3 mg 400 mg PO DAILY 03/03/22 03/10/23 magnesium) tablet mecobalamin (vitamin B12) 1,000 1,000 mcg PO QDAY PRN 10/04/22 03/10/23 mcg chewable tablet (B12 Active) Previous Rx's Medication Instructions Recorded capecitabine 500 mg tablet 1,000 mg (2 x 500 mg) PO BID #56 01/27/23 tabs Allergies Allergy/AdvReac Type Severity Reaction Status Date / Time No Known Drug Allergies Allergy Verified 03/10/23 09:30 Review of Systems Status of ROS: Reports: 6 or more systems reviewed and unremarkable except as noted in History and below [facility] Medical History Mattery eye ?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.9 - Unspecified disorder of eye and adnexa (ICD-10) High prostate specific antigen (PSA) (10/27/15) ?R97.20 - Elevated prostate specific antigen [PSA] (ICD-10) GERD (gastroesophageal reflux disease) ?K21.9 - Gastro-esophageal reflux disease without esophagitis (ICD-10) Central venous catheter in place ?Z78.9 - Other specified health status (ICD-10) Hyperlipidemia ?E78.5 - Hyperlipidemia, unspecified (ICD-10) HTN (hypertension) ?I10 - Essential (primary) hypertension (ICD-10) Hypoalbuminemia ?E88.09 - Other disorders of plasma-protein metabolism, not elsewhere classified (ICD-10) Anemia associated with chemotherapy ?D64.81 - Anemia due to antineoplastic chemotherapy (ICD-10) ?T45.1X5A - Adverse effect of antineoplastic and immunosuppressive drugs, initial encounter (ICD-10) Hypomagnesemia ?E83.42 - Hypomagnesemia (ICD-10) Palmar plantar erythrodysaesthesia ?L27.1 - Localized skin eruption due to drugs and medicaments taken internally (ICD-10) Malignant neoplasm of colon (02/10/11) ?C18.9 - Malignant neoplasm of colon, unspecified (ICD-10) Hyponatremia ?E87.1 - Hypo-osmolality and hyponatremia (ICD-10) Hypokalemia due to excessive gastrointestinal loss of potassium ?E87.6 - Hypokalemia (ICD-10) Febrile neutropenia ?D70.9 - Neutropenia, unspecified (ICD-10) ?R50.81 - Fever presenting with conditions classified elsewhere (ICD-10) Encounter for counseling regarding advance directives (07/31/98) ?Z71.89 - Other specified counseling (ICD-10) Diarrhea ?R19.7 - Diarrhea, unspecified (ICD-10) Dehydration ?E86.0 - Dehydration (ICD-10) Adenocarcinoma of gastroesophageal junction ?C16.0 - Malignant neoplasm of cardia (ICD-10) Surgical History S/P vasectomy ?Z98.52 - Vasectomy status (ICD-10) H/O esophagectomy ?Z98.890 - Other specified postprocedural states (ICD-10) ?Z90.49 - Acquired absence of other specified parts of digestive tract (ICD-10) Social History Smoking Status: Former smoker Exam Narrative: Exam Narrative: Pleasant. NAD. Skin is warm and dry. Cranial nerves 2-12 intact. No nystagmus. Pupils are equal and briskly reactive. Breathing easily. Lungs are clear. Heart in a regular rate and rhythm. Abdomen is soft and nontender. Extremities are well perfused and without edema. Is moving all extremities easily, fluidly and with good strength. Conversing easily. Const: Vital Signs, click to edit/add: Vital Signs - 24 hr 03/25/23 13:49 Temperature 97.6 F Pulse Rate [Pulse Oximeter] 73 Respiratory Rate 18 Blood Pressure [Ri ght Upper Arm] 105/63 Pulse Oximetry 97 Oxygen Delivery Me thod Room Air Documenting provider has reviewed patient's vital signs: yes Course Vital Signs Vital signs: Initial Vital Signs Temperature 97.6 F 03/25/23 13:49 Temperature Source Temporal Artery Scan 03/25/23 13:49 Pulse Rate 73 03/25/23 13:49 Respiratory Rate 18 03/25/23 13:49 Blood Pressure 105/63 03/25/23 13:49 Blood Pressure Mean 77 03/25/23 13:49 Pulse Oximetry 97 03/25/23 13:49 Oxygen Delivery Method Room Air 03/25/23 13:49 Vital Signs Temperature 97.6 F 03/25/23 13:49 Pulse Rate 73 03/25/23 13:49 Respiratory Rate 18 03/25/23 13:49 Blood Pressure 105/63 03/25/23 13:49 Pulse Oximetry 97 03/25/23 13:49 Oxygen Delivery Method Room Air 03/25/23 13:49 Temperature 97.6 F 03/25/23 13:49 Pulse Rate 73 03/25/23 13:49 Respiratory Rate 18 03/25/23 13:49 Blood Pressure 105/63 03/25/23 13:49 Pulse Oximetry 97 03/25/23 13:49 Oxygen Delivery Method Room Air 03/25/23 13:49 Medical Decision Making MDM Narrative Medical decision making narrative: Does not seem to have any residual symptoms of any sort of TIA or stroke-like event. This does not seem to even rise to the level of transient global amnesia. Could have been cardiac dysrhythmia of some sort with hypoperfusion. Possible what sounds seizure but has not been demonstrating postictal state, furthermore has never had a seizure. Sounds to have just been an accumulation of factors. I have reviewed recent labs. Mr. Hever whyte is disinclined any further workup and feeling quite well would just like to return home. See patient discharge plan Medical Records Medical records reviewed: Yes I reviewed the patient's medical records Lab Data Lab results reviewed: Yes I reviewed the patient's lab results Discharge Plan Discharge Clinical Impression: Altered level of consciousness Patient Disposition: Home, Self-Care Condition: Improved Additional Instructions: As you know we have not done a workup beyond the labs that were drawn earlier today which do indeed look reassuring/at baseline. We have not evaluated her heart. I understand you have an echocardiogram coming up. Not evaluated you for a ?mini-stroke? either. Does not sound like you had a typical seizure. Perhaps it was more of a stress reaction partly complicated by your medication. I would rest and hydrate today like you said. Return as needed. Activity Level: No Restrictions Discharge Diet: Regular Prescriptions: No Action B12 Active 1,000 mcg tablet,chewable 1,000 mcg PO QDAY PRN capecitabine 500 mg tablet 1,000 mg PO BID Qty: 56 2RF Rx Instructions: Take 2 tabs (1000mg) in the am, and 2 tabs in the pm for 7 days. Off for 7 days. Then repeat. must administer with water 30 minutes after a meal magnesium oxide 400 mg (241.3 mg magnesium) tablet 400 mg PO DAILY Patient Comments: TAKE ONE TABLET BY MOUTH daily atorvastatin 10 mg tablet 10 mg PO DAILY Patient Comments: TAKE ONE TABLET BY MOUTH EVERY DAY diphenoxylate-atropine 2.5-0.025 mg tablet 2 tab PO Q6H PRN Hold Instructions: haven't used in in quite a while Patient Comments: TAKE 1-2 TABLETS BY MOUTH FOUR TIMES A DAY potassium chloride 20 mEq tablet,ER particles/crystals 20 meq PO .Daily Patient Comments: TAKE ONE TABLET BY MOUTH TWICE A DAY sodium chloride 1 gram tablet 1,000 mg PO .Daily ibuprofen 800 mg tablet 800 mg PO TID PRN multivitamin Tablet 1 tab PO DAILY Follow Up/Referrals: Nancy Perez PA-C [Primary Care Provider] - Stand Alone Forms: [employer] Info Instructions
== END 2023-03-25 15:39 | disposition home or self-care (01) ==
PROVIDERS: Emergency Provider Family Medicine; PCP Physician Assistant Medical
DX: R40.4 Transient alteration of awareness (principal)
CPT/HCPCS: 99282; 99283

== ENCOUNTER 2023-04-08 09:29 | Outpatient (CLI) | payer MEDICARE, BC, SELFPAY | END 2023-04-08 09:30 | disposition home or self-care (01) | LOC: RAD 09:30 | PROVIDERS: PCP Physician Assistant Medical; Referring Provider Physician Assistant Medical; Visit Provider Clinical Nurse Specialist | DX: C16.0 Malignant neoplasm of cardia (principal); I51.7 Cardiomegaly; I31.39 Other pericardial effusion (noninflammatory); Z51.81 Encounter for therapeutic drug level monitoring; Z79.899 Other long term (current) drug therapy | CPT/HCPCS: 93306 ==

== ENCOUNTER 2023-05-04 14:41 | Outpatient (CLI) | payer MEDICARE, BC, SELFPAY ==
--- OUTSIDE RECORDS SUMMARY | 2023-05-04 14:49 | XMS_ITS | Continuity of Care Document ---
Author Name Unknown Organization [facility] Address [address] [address] [place] [address] Phone Care Team Providers Care Sound Engineer Name Role Phone Joni Weeks MD Unavailable Unavailable Medications Medication Instructions Dosage Effective Dates (start - stop) Status Comments atenolol 25 mg Tab take 1 tablet (25MG) by oral route every day 25 MG - Active Bystolic 5 mg Tab take 1 tablet (5MG) by oral route every day 5 MG - Active Procedures Procedure Date Ugi Endo; W/balloon Dilat Esop 21 EGD W/submucosal Injection Ugi Endo; W/balloon Dilat Esop Ugi Endo; W/balloon Dilat Esop 19 EGD W/submucosal Injection Ugi Endo; W/balloon Dilat Esop 19 Cholangioscopy Colonoscopy Flex; W/remov Les- 11 Colonoscopy W/Submucosal Injection Level Iv-surg Path Gross/micro 11 Immunocytochemistry, Each Antibody Routine Serum Collection Advance Directives Directive Yes / No Effective Date File Name No Information Encounters Encounter Description Practice Location Reason(s) For Visit Diagnoses Date Provider Providers Copied on Encounter [facility], [address] [address], [place], [place], [id number], [place] tel:[phone] [facility] No Information 1 Desi Quinones. [address] [facility], [place], [place], [id number], [place]. tel:[phone] Referring Provider: Joni Weeks MD, [address] [facility] [address], [place], [address] . tel:[phone] [facility], [address] [address], [place], [place], [address], [place] tel:[phone] [facility] Esophageal stricture 1 Desi Quinones. [address] [facility], [address], [place], [place], [id number], [place]. tel:[phone] [facility], [address] [address], [place], [address], [place] tel:[phone] [facility] No Information 0 Desi Quinones. [address] [facility], [facility] [address], [place], [place], [id number], [place]. tel:[phone] Referring Provider: Nancy LESLIE, [address] [place] [address], [address]. tel:[phone] [facility], [address] [address], [place], [address], [place] tel:[phone] [facility] Esophageal dysphagia 0 Desi Quinones. [address] [facility], [facility] [address], [place], [place], [address], [place]. tel:[phone] [facility], [address] [address], [place], [address], [place] tel:[phone] [facility] No Information 9 Desi Quinones. [address] [facility], [address], [place], [place], [address], [place]. tel:[phone] Referring Provider: Nancy LESLIE, [address] [place] [address], [address]. tel:[phone] [facility], [address] [address], [place], [address], [place] tel:[phone] [facility] Esophageal stricture 9 Luli Dangelo. [address] [facility], [facility] [address], [place], [place], [address], [place]. tel:[phone] [facility], [address] [address], [place], [address], [place] tel:[phone] [facility] Esophageal stricture 9 Desi Quinones. [address] [facility], [facility] [address], [place], [address], [place]. tel:[phone] [facility], [address] [address], [place], [address], [place] tel:[phone] [facility] No Information 9 Desi Quinones. [address] [facility], [facility] [address], [place], [place], [address], [place]. tel:[phone] Referring Provider: Nancy LESLIE, [address] [place] [address], [address]. tel:[phone] [facility], [address] [address], [place], [address], [place] tel:[phone] [facility] No Information 9 Desi Quinones. [address] [facility], [facility] [address], [place], [place], [address], [place]. tel:[phone] [facility], [address] [address], [place], [address], [place] tel:[phone] [facility] Polyp-intes/r ect/stom-unc BehColon Cancer ScreeningDive rticulosis Of ColonRectal Polyp/BenignS igmoid Colon Cancer No Information Referring Provider: Referral Self. [facility], [address] [address], [place], [place], [address], [place] tel:[phone] [facility] Polyp-intes/r ect/stom-unc BehDiverticul osis Of Colon No Information Referring Provider: Referral Self. Family History Family Member Type Diagnosis Age At Onset No Information Immunizations Vaccine Date Status Comments SARS-COV-2 (COVID-19) vaccin e, mRNA, spike protein, LNP, preservative free, 100 mcg/0.5mL dose administered Note: [facility] bi-direct ional interface ; Source: Other Registry SARS-COV-2 (COVID-19) vaccin e, mRNA, spike protein, LNP, preservative free, 100 mcg/0.5mL dose administered Note: [facility] bi-direct ional interface ; Source: Other Registry influenza, high-dose seasona l, quadrivalent, .7mL dose, preservative free administered Note: [facility] bi-direct ional interface ; Source: Other Registry Seasonal trivalent influenza vaccine, adjuvanted, preservative free administered Note: [facility] bi-direct ional interface ; Source: Other Registry Seasonal trivalent influenza vaccine, adjuvanted, preservative free administered Note: [facility] bi-direct ional interface ; Source: Other Registry zoster vaccine recombinant administered N ote: [facility] bi-directional interface ; Source: Other Registry zoster vaccine recombinant administered N ote: [facility] bi-directional interface ; Source: Other Registry Seasonal trivalent influenza vaccine, adjuvanted, preservative free administered Note: [facility] bi-direct ional interface ; Source: Other Registry Pneumovax 23 administered Note: [facility] bi-d irectional interface ; Source: Other Registry influenza, high dose seasona l, preservative-free administered Note: [facility] bi-direct ional interface ; Source: Other Registry Prevnar 13 administered Note: [facility] bi-d irectional interface ; Source: Other Registry Afluria Qd administered Note: [facility] bi-directional interface ; Source: Other Registry Fluzone Quad 6mo or older administered Note: [facility] bi-direct ional interface ; Source: Other Registry Influenza, seasonal, injectable administe red Note: [facility] bi- directional interface ; Source: Other Registry Influenza, seasonal, injectable administe red Note: [facility] bi- directional interface ; Source: Other Registry Influenza, seasonal, injectable administe red Note: [facility] bi- directional interface ; Source: Other Registry Influenza, seasonal, injecta ble, preservative free administered Note: [facility] bi-direct ional interface ; Source: Other Registry Novel [id number], all formulations administered Note: [facility] bi-direct ional interface ; Source: Other Registry tetanus toxoid, reduced diphtheria toxoid, and acellular pertussis vaccine, adsorbed administered Note: [employer] b i-directional interface ; Source: Other Registry tetanus and diphtheria toxoi ds, adsorbed, preservative free, for adult use (2 Lf of tetanus toxoid and 2 Lf of diphtheria toxoid) administered Note: [facility] bi-direct ional interface ; Source: Other Registry tetanus and diphtheria toxoi ds, adsorbed, preservative free, for adult use (2 Lf of tetanus toxoid and 2 Lf of diphtheria toxoid) administered Note: [facility] bi-direct ional interface ; Source: Other Registry tetanus and diphtheria toxoi ds, adsorbed, preservative free, for adult use (2 Lf of tetanus toxoid and 2 Lf of diphtheria toxoid) administered Note: [employer] bi-direct ional interface ; Source: Other Registry Payers Payer name Insurance type Covered democrat ID Authoriza tion(s) Blue [employer] [place] [employer] [place] [id number] Social History Type Description Quantity Date Captured Comments Sex Male Smoking Status No Information Chief Complaint And Reason For Visit No Information Reason For Referral Reason For Referral No Information Plan Of Treatment Date Type Action Status Referral Ordered: EGD With Dilation Appointment date/timeframe: 07/06/2019 ordered History Of Present Illness Encounter Date Complaint History Of Prese nt Illness No Information Functional Status Date Functional Assessmen t No Information Instructions Date Instruction Additional Infor mation No Information Assessments Type Assessment Date No Information Patient Care Teams Name Effective Dates (start - stop) Status Members No Information
== END 2023-05-04 14:42 | disposition home or self-care (01) ==
PROVIDERS: PCP Physician Assistant Medical; Visit Provider Physician Assistant Medical
DX: I31.39 Other pericardial effusion (noninflammatory) (principal); C15.9 Malignant neoplasm of esophagus, unspecified
CPT/HCPCS: 36415; 36591; 82565; 93306

== ENCOUNTER 2023-06-01 14:00 | Outpatient (BNVA) | payer MEDICARE, BC, SELFPAY | END 2023-06-01 15:00 | disposition home or self-care (01) | PROVIDERS: PCP Physician Assistant Medical; Referring Provider Physician Assistant Medical; Visit Provider Internal Medicine Hematology & Oncology | DX: C16.0 Malignant neoplasm of cardia (principal); C15.4 Malignant neoplasm of middle third of esophagus; G62.89 Other specified polyneuropathies; D64.81 Anemia due to antineoplastic chemotherapy; T45.1X5A Adverse effect of antineoplastic and immunosuppressive drugs, initial encounter; Z92.21 Personal history of antineoplastic chemotherapy; M21.371 Foot drop, right foot; Z78.9 Other specified health status; L27.1 Localized skin eruption due to drugs and medicaments taken internally; I10 Essential (primary) hypertension; E88.09 Other disorders of plasma-protein metabolism, not elsewhere classified | CPT/HCPCS: 80053; 85025 ==

== ENCOUNTER 2023-06-24 10:39 | Outpatient (CLI) | payer MEDICARE, BC, SELFPAY ==
--- NOTE | 2023-06-24 11:00 | CRLHL7_ITS ---
For Patients: As a result of the Century Cures Act, medical imaging exams and procedure reports are released immediately into your electronic medical record. You may view this report before your referring provider. If you have questions, please contact your health care provider. Indication: Malignant neoplasm of cardia Technique: CT Chest/Abd/Pelvis W ISOVUE 370 Please note that all CT scans at this facility use dose modulation, iterative reconstruction, and/or weight-based dosing when appropriate to reduce radiation dose to as low as reasonably achievable. Comparison: CT PET 01/20/2023 Findings: In the chest, postoperative changes of esophagectomy again noted. There the thyroid nodule. No adenopathy in the mediastinum, jeffrey or axilla. No pleural or pericardial effusion. Degenerative changes are present at both shoulders. Right-sided Port-A-Cath. Mild scarring is present within the periphery of the right lung. 4.3 millimeter nodule right lower lobe, series 3, image 75. No pleural effusion. No pneumothorax. No CHF. Stable appearance of the upper abdomen. In the abdomen, stable simple hepatic cysts. No suspicious intrahepatic lesion. The adrenal glands are normal. Multiple simple cysts are present regarding both kidneys. The spleen is within normal limits. Normal adrenal glands. Pancreas normal. Postop changes to the upper abdomen, as before. Gallbladder normal. No biliary duct dilation. In the pelvis, prostate calcifications are noted. Postoperative changes to the distal colon noted. No mechanical bowel obstruction. No inflammatory changes. No free air or abscess. No free fluid. No pelvic or inguinal adenopathy. Degenerative changes lower lumbar spine. No fracture. Impression: 4.3 millimeter nodule right lower lobe. Attention on follow-up imaging in 3 months recommended. Stable postop changes. No inflammatory changes or adenopathy. Please note that all CT scans at this facility use dose modulation, iterative reconstruction, and/or weight-based dosing when appropriate to reduce radiation dose to as low as reasonably achievable. Dictated by Rodger Romo MD @ 06/24/2023 3:35:33 PM (Electronically Signed)
== END 2023-06-24 10:40 | disposition home or self-care (01) ==
LOC: CT 10:42
PROVIDERS: PCP Physician Assistant Medical; Visit Provider Internal Medicine Hematology & Oncology
DX: C16.0 Malignant neoplasm of cardia (principal); R91.1 Solitary pulmonary nodule
CPT/HCPCS: 71260; 74177; Q9967

== ENCOUNTER 2023-09-16 09:00 | Outpatient (RCR) | payer MEDICARE, BC, SELFPAY ==
[2023-03-25 08:02] VITALS: BP 126/74; PULSE 62; RESP 16; TEMP 36.5; O2SAT 96
[2023-03-25 08:16] LABS: Basophils Absolute Auto 0.02 K/uL (0.00-0.30); Basophils Percent Auto 0.3 % (0.0-3.0); Eosinophils Absolute Auto 0.24 K/uL (0.00-0.50); Eosinophils Percent Auto 3.4 % (0.0-7.0); Hematocrit 38.6 % (37.0-53.0); Hemoglobin* 12.7 gm/dL (13.5-17.5); Immature Granulocytes Abs Auto 0.01 K/uL (0.00-0.30); Immature Granulocytes Pct Auto 0.1 %; Lymphocytes Percent Auto 15.9 % (20-44); Mean Corpuscular HGB Conc 33 gm/dL (32-36); Mean Corpuscular Hemoglobin 35 pg (26-34); Mean Corpuscular Volume 106 fL (80-100); Monocytes Percent Auto 12.7 % (0.0-11.0); Neutrophils Absolute Auto 4.75 K/uL (1.7-7.0); Neutrophils Percent Auto 67.6 % (42.0-72.0); Platelet Count* 236 K/uL (140-440); RDW Coefficient of Variation % 14.7 % (11.5-15.5); Red Blood Count 3.65 m/uL (4.30-5.90); White Blood Count* 7.03 K/uL (4.50-11.00)
[2023-03-25 08:19] LABS: Slide Review Acceptable Review (Acceptable); Slide Review Reflex Yes
[2023-03-25 08:34] LABS: Albumin* 3.8 g/dL (3.3-5.0)
[2023-03-25 08:35] LABS: Chloride* 107 mmol/L (96-114); Potassium* 4.5 mmol/L (3.6-5.1); Sodium* 137 mmol/L (135-149)
[2023-03-25 08:37] LABS: Anion Gap 5 mEq/L (7-15); Aspartate Amino Transferase* 34 U/L (12-35); Bilirubin Total* 0.8 mg/dL (0.1-1.5); Carbon Dioxide* 25 mmol/L (20-32); Estimated Glomerular Filt Rate 79 ml/min; Total Protein* 6.6 g/dL (6.0-8.3)
[2023-03-25 08:38] LABS: Alanine Aminotransferase* 30 U/L (4-50); Alkaline Phosphatase* 92 U/L (40-150); Blood Urea Nitrogen* 24 mg/dL (7-30); Glucose* 71 mg/dL (60-115)
[2023-03-25] MEDS: 0.9 % SODIUM CHLORIDE 250 ml IV (09:41)
[2023-03-25] MEDS: SODIUM CHLORIDE 0.9 % (FLUSH) 10 ML SYRINGE IVF (09:41)
[2023-03-25] MEDS: HEPARIN 500 UNIT/5 ML SYRINGE IVF (09:41)
--- NOTE | 2023-03-25 12:24 | ONC.NURNOTE ---
Received a call from patient's stating Bill had an episode describes episode as a loss of consciousness (about 5 seconds) shaking leg and arm/headache/hot feeling... Had 2 episodes per but patient refused 911 visit but did state he would go to Emergency room.
--- NOTE | 2023-04-15 08:30 | ONC.NURNOTE ---
Pt recently had an echo which showed a pericardial effusion, pt sent to Nancy Joelpt's primary care. Pt had a chest xray at [facility] which showed progression. Discussed results of chest xray with Dr. Romano, per Dr. Romano pt should not be treated on 04/15/23 with Herceptin and Capecitabine should be on hold until follow up after PET scan. PET scan date moved from 04/28/23 to 04/22/23. Pt updated and verbalized plan of care.
[2023-05-04 08:40] LABS: Creatinine* 0.8 mg/dL (0.5-1.5); Est. Creatinine Clearance* 64.81; Estimated Glomerular Filt Rate 93 ml/min
--- NOTE | 2023-05-05 13:31 | ONC.NURNOTE ---
Addendum entered by Fatou Bush RN 05/13/23 10:24: Patient let know plan Original Note: Discussed follow up for patient with Dr. Romano, she notes that patient was referred to radiation oncology and would come back to us to be seen three months following radiation with a PET scan.
--- NOTE | 2023-05-25 09:13 | ONC.NURNOTE ---
Received phone call from Radiation Oncology. They note that patient was in office and he received phone call from [facility] stating that patient is due for PET scan in August with follow-up. He is going to [place] for August and would like this pushed out. Per radiation oncology, Dr. Ackerman is comfortable pushing appointments out into September, nursing to discuss with Dr. Quinteros and her comfort with this change. Nursing to call patient with plan.
[2023-06-02] MEDS: SODIUM CHLORIDE 0.9 % (FLUSH) 10 ML SYRINGE IVF ×2 (14:19→15:23)
[2023-06-02] MEDS: 0.9 % SODIUM CHLORIDE 250 ml IV (14:19)
[2023-06-02] MEDS: HEPARIN 500 UNIT/5 ML SYRINGE IVF (15:24)
--- NOTE | 2023-06-06 14:42 | URNOTE ---
Request received for authorization for Trastuzumab (Herceptin) ([id number]). Prior authorization is not required as services are based on medical necessity and follow Medicare guidelines.
[2023-06-24 07:52] VITALS: BP 138/77; PULSE 94; RESP 16; TEMP 35.9; O2SAT 96
[2023-06-24 08:23] LABS: Albumin* 4.1 g/dL (3.3-5.0)
[2023-06-24 08:24] LABS: Chloride* 106 mmol/L (96-114); Potassium* 4.1 mmol/L (3.6-5.1); Sodium* 139 mmol/L (135-149)
[2023-06-24 08:26] LABS: Anion Gap 10 mEq/L (7-15); Aspartate Amino Transferase* 40 U/L (12-35); Bilirubin Total* 1.1 mg/dL (0.1-1.5); Carbon Dioxide* 23 mmol/L (20-32); Creatinine* 0.9 mg/dL (0.5-1.5); Est. Creatinine Clearance* 64.81; Estimated Glomerular Filt Rate 90 ml/min
[2023-06-24 08:27] LABS: Alanine Aminotransferase* 40 U/L (4-50); Alkaline Phosphatase* 95 U/L (40-150); Blood Urea Nitrogen* 20 mg/dL (7-30); Calcium* 9.2 mg/dL (8.4-10.6); Glucose* 140 mg/dL (60-115); Total Protein* 7.3 g/dL (6.0-8.3)
[2023-06-24 08:45] LABS: Basophils Absolute Auto 0.02 K/uL (0.00-0.30); Basophils Percent Auto 0.3 % (0.0-3.0); Eosinophils Absolute Auto 0.09 K/uL (0.00-0.50); Eosinophils Percent Auto 1.5 % (0.0-7.0); Hematocrit 43.2 % (37.0-53.0); Hemoglobin* 14.1 gm/dL (13.5-17.5); Immature Granulocytes Abs Auto 0.02 K/uL (0.00-0.30); Immature Granulocytes Pct Auto 0.3 %; Lymphocytes Percent Auto 12.6 % (20-44); Mean Corpuscular HGB Conc 33 gm/dL (32-36); Mean Corpuscular Hemoglobin 34 pg (26-34); Mean Corpuscular Volume 104 fL (80-100); Monocytes Percent Auto 9.5 % (0.0-11.0); Neutrophils Percent Auto 75.8 % (42.0-72.0); Platelet Count* 240 K/uL (140-440); RDW Coefficient of Variation % 14.4 % (11.5-15.5); Red Blood Count 4.17 m/uL (4.30-5.90); White Blood Count* 6.12 K/uL (4.50-11.00)
[2023-06-24 08:58] LABS: Slide Review Reflex No
[2023-06-24] MEDS: 0.9 % SODIUM CHLORIDE 250 ml IV (10:01)
[2023-06-24] MEDS: SODIUM CHLORIDE 0.9 % (FLUSH) 10 ML SYRINGE IVF (10:01)
--- NOTE | 2023-06-27 11:41 | ONC.NURNOTE ---
Patients Xeloda Patient Assist is being discontinued with [employer] discussed option of [employer]oss Cost Plus- written info provided Cost of one month supply will be about $30.00 with shipping encouraged to call with any questions will be setting up an account Dr Carrillo to submit an ERx
--- NOTE | 2023-09-09 09:47 | URNOTE ---
Pt has medicare/BC [place], prior auth is not required for Trastuzumab (J9355) or biosimilar. Services are based on medical necessity and follow medicare guidelines.
[2023-09-12 10:07] LABS: Basophils Absolute Auto 0.02 K/uL (0.00-0.30); Basophils Percent Auto 0.2 % (0.0-3.0); Eosinophils Absolute Auto 0.22 K/uL (0.00-0.50); Eosinophils Percent Auto 2.5 % (0.0-7.0); Hematocrit 41.4 % (37.0-53.0); Hemoglobin* 13.6 gm/dL (13.5-17.5); Immature Granulocytes Abs Auto 0.03 K/uL (0.00-0.30); Immature Granulocytes Pct Auto 0.3 %; Lymphocytes Percent Auto 13.6 % (20-44); Mean Corpuscular HGB Conc 33 gm/dL (32-36); Mean Corpuscular Hemoglobin 34 pg (26-34); Mean Corpuscular Volume 104 fL (80-100); Neutrophils Percent Auto 72.4 % (42.0-72.0); Platelet Count* 252 K/uL (140-440); RDW Coefficient of Variation % 15.3 % (11.5-15.5); Red Blood Count 3.97 m/uL (4.30-5.90); White Blood Count* 8.67 K/uL (4.50-11.00)
[2023-09-12 10:15] LABS: Slide Review Reflex No
[2023-09-12 10:16] LABS: Albumin* 4.1 g/dL (3.3-5.0); Chloride* 106 mmol/L (96-114)
[2023-09-12 10:17] LABS: Potassium* 4.6 mmol/L (3.6-5.1); Sodium* 138 mmol/L (135-149)
[2023-09-12 10:19] LABS: Alkaline Phosphatase* 92 U/L (40-150); Anion Gap 8 mEq/L (7-15); Aspartate Amino Transferase* 40 U/L (12-35); Bilirubin Total* 0.8 mg/dL (0.1-1.5); Carbon Dioxide* 24 mmol/L (20-32); Creatinine* 0.9 mg/dL (0.5-1.5); Est. Creatinine Clearance* 64.81; Estimated Glomerular Filt Rate 90 ml/min
[2023-09-12 10:20] LABS: Alanine Aminotransferase* 35 U/L (4-50); Blood Urea Nitrogen* 27 mg/dL (7-30); Calcium* 9.1 mg/dL (8.4-10.6); Glucose* 114 mg/dL (60-115)
[2023-09-16 08:44] VITALS: BP 155/79; PULSE 64; RESP 14; TEMP 36.2; O2SAT 97
[2023-09-16] MEDS: HEPARIN 500 UNIT/5 ML SYRINGE IVF (09:41)
[2023-09-16] MEDS: SODIUM CHLORIDE 0.9 % (FLUSH) 10 ML SYRINGE IVF (09:41)
[2023-09-16] MEDS: 0.9 % SODIUM CHLORIDE 250 ml IV (09:42)
== END 2023-09-21 23:59 | disposition home or self-care (01) ==
LOC: CCIC 09:00
PROVIDERS: Clinical Nurse Specialist; Internal Medicine Hematology & Oncology; PCP Physician Assistant Medical; Referring Provider Physician Assistant Medical; Visit Provider Internal Medicine Hematology & Oncology
DX: C15.4 Malignant neoplasm of middle third of esophagus (principal); C16.0 Malignant neoplasm of cardia
CPT/HCPCS: 36415; 36591; 71046; 71260; 74177; 80053; 82565; 83735; 85025; 96413; 99202; 99212; 99214; 99215; 99282; G0463; J1642; J7050; J9355; Q9967

== ENCOUNTER 2023-09-29 10:25 | Outpatient (CLI) | payer MEDICARE, BC, SELFPAY ==
--- NOTE | 2023-09-29 11:00 | PE_ITS ---
[facility] [address] [facility] [address] Phone:?[phone] Fax:[phone] Referring Physician Information: Na Romano M.D. [address] [facility] [address] Phone:[phone] Fax:?[phone] Patient:?Te Archuleta D.O.B:?1950 Sex:?Male Phone:?[phone] [facility] MRN:?[id number] Exam Date:?09/29/2023 EXAM: PET/CT EYES TO THIGHS, CANCER RESTAGING CLINICAL INFORMATION: Esophageal cancer, restaging. TECHNICAL INFORMATION: Helical acquisition of data was obtained from the orbits to the upper thighs with reconstruction of 3.75 mm thick images at 3.[address] data was used for attenuation correction. PET scanning was performed through the same anatomic range 60 minutes following administration of (see technologist notes for details) mCi of 18-FDG delivered intravenously. The patient's glucose at the time of the injection was (see technologist notes for details) mg/dL. PET, CT and PET/CT fusion images are interpreted using a computer viewing workstation. PET, CT and PET/CT fusion images were archived and saved in the patient's permanent medical record. COMPARISON: Chest CT from 06/24/2023, PET-CT from 04/22/2023. INTERPRETATION: Head and Neck: There are no abnormal hypermetabolic foci within the head or neck. There is physiologic uptake in the intracranial soft tissues. Chest: New right apical mass (Se 2 Im 72) measures 3.0 x 2.8 cm with a maximum SUV of 12.74 and possible central necrosis. New perihilar nodule in the left upper lobe (Se 2 Im 105) measures 0.8 x 0.8 cm with a maximum SUV of 8.17. Nonspecific opacity in the right lung base (Se 2 Im 139) has a maximum SUV of 4.56, previously 10.7. Right chest port catheter towards the right atrium, with a tiny amount FDG uptake in tip, likely related to injection technique. There are no other abnormal hypermetabolic foci within the chest. Background mediastinal blood pool uptake has a maximum SUV of 2.61. As before, the patient is status post esophagectomy with gastric pull-through, with expected postoperative appearance. Abdomen and Pelvis: There are no abnormal hypermetabolic foci within the abdomen or pelvis. Background hepatic parenchymal uptake has a maximum SUV of 3.10. There is physiologic excretion of radiotracer in the urine and bowel. Skeleton, Musculature, and Integument: No abnormal hypermetabolic foci within the skeleton. No ranjana osteoblastic or osteolytic disease. CONCLUSION: 1. 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 2. Nonspecific right basal opacity has modest FDG uptake, improved from before, possibly a treated metastasis or chronic inflammation. 3. No other sites of hypermetabolic disease at this time. Electronically signed on 09/30/2023 4:20:00 PM by Efrain Hicks M.D.
== END 2023-09-29 10:26 | disposition home or self-care (01) ==
LOC: RAD 10:26
PROVIDERS: PCP Physician Assistant Medical; Visit Provider Internal Medicine Hematology & Oncology
DX: C15.5 Malignant neoplasm of lower third of esophagus (principal); R91.8 Other nonspecific abnormal finding of lung field
CPT/HCPCS: 78815; 99211; A9552; J1642

== ENCOUNTER 2023-09-30 08:46 | Outpatient (CLI) | payer MEDICARE, BC, SELFPAY | END 2023-09-30 08:47 | disposition home or self-care (01) | LOC: RAD 08:47 | PROVIDERS: PCP Physician Assistant Medical; Visit Provider Internal Medicine Hematology & Oncology | DX: Z51.81 Encounter for therapeutic drug level monitoring (principal); I34.0 Nonrheumatic mitral (valve) insufficiency; I51.7 Cardiomegaly; Z79.899 Other long term (current) drug therapy | CPT/HCPCS: 93306 ==

== ENCOUNTER 2023-10-10 08:35 | Outpatient (CLI) | payer MEDICARE, BC, SELFPAY ==
[2023-10-10] MEDS: PERFLUTREN LIPID MICROSPHERES 2 ML VIAL IV (13:52)
== END 2023-10-10 08:36 | disposition home or self-care (01) ==
LOC: RAD 08:36
PROVIDERS: PCP Physician Assistant Medical; Visit Provider Internal Medicine Hematology & Oncology
DX: Z79.899 Other long term (current) drug therapy (principal); I51.7 Cardiomegaly; I34.0 Nonrheumatic mitral (valve) insufficiency; Z51.81 Encounter for therapeutic drug level monitoring
CPT/HCPCS: 93308; 93321; 93325; Q9957

== ENCOUNTER 2024-01-25 07:36 | Outpatient (CLI) | payer MEDICARE, BC, SELFPAY ==
--- OUTSIDE RECORDS SUMMARY | 2024-01-25 07:39 | XMS_ITS | Encounter Summary ---
Author Organization [facility] Address [address] [place] [address] Care Team Providers Care Mortgage Protection Sales Name Role Phone Unavailable Primary Care Provider Unavailabl e Encounter Details Date Type Department Care Team (Late st Contact Info) Description 01/19/2024 7:45 AM CDT Hospital Encounter Department of Radiation Oncology in [place], [place] [address] [place] [phone] Sulaiman Ackerman M.D. [address] [place] [address] Social History Tobacco Use Types Packs/Day Years Used Date Smoking Tobacco: Former Cigarettes 1 18 1 967 - 1984 Smokeless Tobacco: Never Alcohol Use Standard Drinks/Week Comments Yes 0 (1 standard drink = 0.6 oz pur e alcohol) [facility] Utilities Answer Date Recorded In the past 12 months has e [place], gas, oil, or water [employer] threatened to shut off services in your home? No 10/02/2023 PHQ-2 Answer Date Recorded PHQ-2 Score 0 02/22/2019 Exercise Vital Sign Answer Date Recorde d On average, how many days pe r week do you engage in moderate to strenuous exercise (like a brisk walk)? 5 days 10/02/2023 On average, how many minutes do you engage in exercise at this level? 30 min 10/02/2023 Hunger Vital Sign Answer Date Recorded Within the past 12 months, y ou worried that your food would run out before you got the money to buy more. Never true 10/02/19 24 Within the past 12 months, t he food you bought just didn't last and you didn't have money to get more. Never true 10/02/2023 PRAPARE - Transportation Answer Date Re corded In the past 12 months, has l ack of transportation kept you from medical appointments or from getting medications? No 09/2023 In the past 12 months, has l ack of transportation kept you from meetings, work, or from getting things needed for daily living? No 10/02/2023 Nutrition Answer Date Recorded Nutrition: EVOO Fat Source Unknown 10/01 On average, how many serving s of fruits and vegetables do you eat per day (serving size is equal to 1 cup or approximately the size of a tennis ball)? 0-2 10/02/2023 Dental Answer Date Recorded Dental: Regular Dentist Yes 10/02/19 Employment Answer Date Recorded Employment status Retired 10/02/2023 Housing Stability Answer Date Recorded What is your living situation today? I have a [facility] place to live 10/02/2023 Sex and Gender Information Value Date Recorded Sex Assigned at Male 10/02/2023 7:37 AM [employer] Gender Identity Male 10/02/2023 7:37 AM [employer] Sexual Orientation Straight 10/02/2023 7: 37 AM [employer]AL [employer] documented as of this encounter Plan of Treatment Upcoming Encounters Date Type Department Care Team (Late st Contact Info) Description 01/25/2024 9:30 AM CDT Appointment Department of Radiation Oncology in [place] [address] [place] [address] Sulaiman Ackerman M.D. [address] [place] [address] 01/26/2024 8:15 AM CDT Appointment Department of Radiation Oncology in [place] [address] [place] [address] Sulaiman Ackerman M.D. [address] [place] [address] 01/27/2024 8:45 AM CDT Appointment Department of Radiation Oncology in [address] [address] Sulaiman Ackerman M.D. [address] [place] [phone] 01/27/2024 9:00 AM CDT Appointment Department of Radiation Oncology in [place], [place] [address] [place] [address] Sulaiman Ackerman M.D. [address] [place] [phone] 01/30/2024 8:15 AM CDT Appointment Department of Radiation Oncology in [place], [place] [address] [place] [address] Sulaiman Ackerman M.D. [address] [place] [phone] 01/31/2024 8:45 AM CDT Appointment Department of Radiation Oncology in [place], [place] [address] [place] [phone] Sulaiman Ackerman M.D. [address] [place] [phone] 02/01/2024 8:15 AM CDT Appointment Department of Radiation Oncology in [place], [place] [address] [place] [address] Sulaiman Ackeramn M.D. [address] [place] [phone] 02/01/2024 8:45 AM CDT Appointment Department of Radiation Oncology in [place] [address] [place] [address] Corinne Aguillon M.D. [address] [place] [phone] documented as of this encounter Visit Diagnoses Not on filedocumented in this encounter
--- OUTSIDE RECORDS SUMMARY | 2024-01-25 07:39 | XMS_ITS | Encounter Summary ---
Author Organization [facility] Address [address] [place] [address] Care Team Providers Care Ichthyologist Name Role Phone Unavailable Primary Care Provider Unavailabl e Reason for Referral * Radiation Therapy (Routine) - Authorized Specialty Diagnoses / Procedures Referred By Contac t Referred To Contact Diagnoses Secondary Malignant Neoplasm Lung Right (HCC) Procedures Management Visit Sulaiman Ackerman M.D. [address] [place] [address] [facility] Region Referral ID Status Reason Start Date Expiration Date V isits Requested Visits Authorized [id number] Authorized 12/27/2023 12/26/2024 10 10 Reason for Visit * Radiation Therapy (Routine) - Authorized Specialty Diagnoses / Procedures Referred By Contac t Referred To Contact Diagnoses Secondary Malignant Neoplasm Lung Right (HCC) Procedures Management Visit Sulaiman Ackerman M.D. [address] [place] [address] [facility] Region Referral ID Status Reason Start Date Expiration Date V isits Requested Visits Authorized [id number] Authorized 12/27/2023 12/26/2024 10 10 Encounter Details Date Type Department Care Team (Latest Contact Info) Description 01/19/2024 7:45 AM CDT - 01/19/2024 10:25 AM CDT Hospital Encounter Department of Radiation Oncology in [place] [address] [place] [address] Sulaiman Ackerman M.D. [address] [place] [address] Secondary Malignant Neoplasm Lung Right (HCC) Social History Tobacco Use Types Packs/Day Years Used Date Smoking Tobacco: Former Cigarettes 1 18 1 967 - 1984 Smokeless Tobacco: Never Alcohol Use Standard Drinks/Week Comments Yes 0 (1 standard drink = 0.6 oz pur e alcohol) [facility] Utilities Answer Date Recorded In the past 12 months has th e electric, gas, oil, or water company threatened to shut off services in your [...] money to buy more. Never true 10/02/19 Within the past 12 months, t he [...] your living situation today? I have a [facility] place to live 10/02/2023 Sex and Gender Information Value Date Recorded Sex Assigned at Male 10/02/2023 7:37 AM MEDICAL MANAGER Gender Identity Male 10/02/2023 7:37 AM MEDICAL MANAGER Sexual Orientation Straight 10/02/2023 7: 37 AM MEDICAL MANAGER documented as of this encounter Last Filed Vital Signs Vital Sign Reading Time Taken Comments Blood Pressure 127/65 01/19/2024 8:10 AM CDT Pulse 56 01/19/2024 8:10 AM CDT Temperature 36.2 ??C (97.2 ??F) 01/19/2024 8:10 AM CD T Respiratory Rate - - Oxygen Saturation - - Inhaled Oxygen Concentration - - Weight 81.8 kg (180 lb 5.4 oz) 01/19/2024 8:10 A M CDT Height - - Body Mass Index 26.71 01/30/2019 9:45 AM CDT documented in this encounter Medications at Time of Discharge Medication Sig Dispensed Refills Start Date End Date atorvastatin (LIPITOR) 10 mg tablet Take 10 mg by mouth. 11/24/2018 dexAMETHasone (DECADRON) 4 mg tablet Take 1 tablet (4 mg total) by mouth 2 (two) times a day. 14 tablet 1 01/13/2024 gabapentin (NEURONTIN) 300 mg capsule Take 1 capsule (300 mg total) by mouth at bedtime for 3 days, THEN 1 capsule (300 mg total) 2 (two) times a day for 3 days, THEN 1 capsule (300 mg total) 3 (three) times a day for 21 days. 30 capsule 01/16/2024 02/12/2024 loratadine (CLARITIN) 10 mg tablet Take 10 mg by mouth daily. losartan (COZAAR) 25 mg tablet Take 25 mg by mouth daily. 4 11/25/2018 multivitamin tablet Take 1 tablet by mouth. 10/11/2011 omeprazole (PriLOSEC) [address] capsule Take 1 capsule (40 mg total) by mouth every morning before breakfast. Take while taking dexamethasone. Discontinue when discontinuing dexamethasone. 30 capsule 1 01/16/2024 predniSONE (DELTASONE) 5 mg tablet Take 5 mg by mouth. 01/25/2019 raNITIdine (ZANTAC) 150 mg tablet Take 150 mg by mouth. documented as of this encounter Progress Notes * Cyndie Kitchen APRN, C.N.P., D.N.P. - 01/19/2024 8:30 AM CDT SUBJECTIVE REASON FOR VISIT Evaluation for side effects while receiving radiation treatment for 1. Secondary Malignant Neoplasm Lung Right (HCC) SUPERVISED BY: Sulaiman Ackerman M.D. ([phone]) HISTORY OF PRESENT ILLNESS Mr. Te Archuleta is a 73 y.o. male with metastatic adenocarcinoma of the esophagus. He is undergoing radiation treatment for a persistent right apex lesion. Single Plan Treatment Course: [id number] Plan ID Fractions Dose / Fraction (cGy) Dose Treated (cGy) Dose Planned (cGy) First Treatment Last Treatment Elapsed Days [id number] 300 1800 4500 01/12/2024 01/19/2024 7 Course Summary 01/12/2024 01/19/2024 7 The patient was seen and examined today with Dr. Ackerman. Patient reports the pain in his right upper chest going down to his right elbow is now completely gone. He is experiencing moderate pain from his right elbow down to his right wrist, with the wrist being the worst pain. He currently is taking dexamethasone 4 mg twice daily. He has also started gabapentin and is slowly titrating this up. He denies any numbness or tingling going down his right arm.He denies a cough or any swallowing pain or discomfort. He has also noticed that his right elbow toright wrist is more cold compared to the rest of his body. He notices a slight increase in weaknessin the right arm. He is currently taking aspirin only at bedtime. PATIENT REPORTED SYMPTOM SCREEN FATIGUE (Scale: 0 = no fatigue; 10 = worst fatigue you can imagine): 7 PAIN (Scale: 0 = no pain; 10 = worst pain you can imagine): 5 OVERALL QUALITY OF LIFE (Scale: 0 = as bad as can be; 10 = as good as can be): 9 OBJECTIVE BP 127/65 (BP Location: Right arm, Patient Position: Sitting, Cuff Size: Regular) Pulse (!) 56 Temp 36.2 ??C (Temporal) Wt 81.8 kg BMI 26.71 kg/m?? PHYSICAL EXAM General: Alert and oriented in no apparent distress. 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 #2 Radiation therapy with concurrent chemotherapy to the lower esophagus and surrounding lymph nodes completed March 2019 #3 Total esophagectomy May 2019 #4 Progression of disease with right lower pleural masses biopsy-proven July 2021 #5 Initiated on Xeloda, cisplatin, Herceptin, and Keytruda July 2021; continued with Xeloda andHerceptin only as of December 2021 #6 Initial treatment response to right lower pleural masses with systemic therapy; additional progression noted on PET/CT April 22, 2023 #7 Stereotactic radiotherapy to right lower lobe pleura two lesions initiated on May 16, 2023; completed May 25, 2023 #8 PET/CT September 29, 2023 demonstrated progression with new metastases in the right apex and lefthilum #9 Intensity modulated radiotherapy to the right upper lobe initiated on January 12, 2024; anticipateddate of completion is on February 01, 2024 Patient will continue with current Dexamethasone prescription. We will plan to decrease dexamethasone to 4 mg in the morning and 2 mg in the afternoon starting early next week, once he has completelytitrated up on his gabapentin. I discussed taking pain medications more consistently to help with pain relief. I also discussed incorporating Tylenol, along with his aspirin for better pain relief. We will continue seeing him in weekly management visits. He will contact us with any questions or concerns. We will continue with radiation treatment as planned. Signed by: Cyndie Kitchen APRN, C.N.P., D.N.P. 01/19/2024 8:37 AM CDT Associated attestation - Sulaiman Ackerman M.D. - 01/19/2024 10:25 AM CDT I saw and evaluated the patient and participated in the greene portions of the service. I reviewed thedocumentation of Cyndie Kitchen C.N.P. and agree with the findings and plan. The patient appearswell on exam. His pain in his upper arm and chest is improved on gabapentin and dexamethasone. He has persistent pain and a cold sensation in his right wrist area. Hopefully this will improve as he increase his gabapentin. He will decrease to 4 mg of dexamethasone in the morning and 2 mg in the afternoon on Tuesday, January 23, 2024. He will continue with treatment as planned. Signed by: Sulaiman Ackerman M.D. 01/19/24 10:25 AM CDT [facility] [place] documented in this encounter Plan of Treatment Upcoming Encounters Date Type Department Care Team (Late st Contact Info) Description 01/25/2024 9:30 AM CDT Appointment Department of Radiation Oncology in [address] [address] Sulaiman Ackerman M.D. [address] [place] [phone] 01/26/2024 8:15 AM CDT Appointment Department of Radiation Oncology in [address] [address] Sulaiman Ackerman M.D. [address] [place] [phone] 01/27/2024 8:45 AM CDT Appointment Department of Radiation Oncology in [address] [address] Sulaiman Ackerman M.D. [address] [place] [phone] 01/27/2024 9:00 AM CDT Appointment Department of Radiation Oncology in [address] [address] Sulaiman Ackerman M.D. [address] [place] [phone] 01/30/2024 8:15 AM CDT Appointment Department of Radiation Oncology in [address] [address] Sulaiman Ackerman M.D. [address] [place] [phone] 01/31/2024 8:45 AM CDT Appointment Department of Radiation Oncology in [place], [place] [address] [place] [address] Sulaiman Ackerman M.D. [address] [place] [phone] 02/01/2024 8:15 AM CDT Appointment Department of Radiation Oncology in [place], [place] [address] [place] [address] Sulaiman Ackerman M.D. [address] [place] [phone] 02/01/2024 8:45 AM CDT Appointment Department of Radiation Oncology in [address] [phone] Corinne Aguillon M.D. [address] [place] [phone] Scheduled Orders Name Type Priority Associated Diagnoses Orde r Schedule Management Visit Radiation Oncology Routine Secondary Malignant Neoplasm Lung Right (HCC) Once for 1 Occurrences starting 01/19/2024 until 01/19/2024 documented as of this encounter Visit Diagnoses Diagnosis Secondary Malignant Neoplasm Lung Right (HCC) documented in this encounter
--- OUTSIDE RECORDS SUMMARY | 2024-01-25 07:39 | XMS_ITS | Encounter Summary ---
Author Organization [facility] Address [address] [place] [address] Care Team Providers Care Remote Pilot Operator Name Role Phone Unavailable Primary Care Provider Unavailabl e Encounter Details Date Type Department Care Team (Late st Contact Info) Description 01/23/2024 8:26 AM CDT Hospital Encounter Department of Radiation Oncology in [place], [place] [address] [place] [address] Sulaiman Ackerman M.D. [address] [place] [address] Social History Tobacco Use Types Packs/Day Years Used Date Smoking Tobacco: Former Cigarettes 1 18 1 967 - 1984 Smokeless Tobacco: Never Alcohol Use Standard Drinks/Week Comments Yes 0 (1 standard drink = 0.6 oz pur e alcohol) [facility] Utilities Answer Date Recorded In the past 12 months has e [employer], gas, oil, or water [employer] threatened to shut off services in your [...] your living situation today? I have a [facility] place to live 10/02/2023 Sex and Gender Information Value Date Recorded Sex Assigned at Male 10/02/2023 7:37 AM BRAN MIXER Gender Identity Male 10/02/2023 7:37 AM BRAN MIXER Sexual Orientation Straight 10/02/2023 7: 37 AM BRAN MIXER documented as of this encounter Plan of Treatment Upcoming Encounters Date Type Department Care Team (Late st Contact Info) Description 01/25/2024 9:30 AM CDT Appointment Department of Radiation Oncology in [place] [address] [place] [address] Sulaiman Ackerman M.D. [address] [place] [address] 01/26/2024 8:15 AM CDT Appointment Department of Radiation Oncology in [place] [address] [place] [address] Sulaiman Ackerman M.D. [address] [place] [address] 01/27/2024 8:45 AM CDT Appointment Department of Radiation Oncology in [address] [address] Sulaiman Ackerman M.D. [address] [place] [phone] 01/27/2024 9:00 AM CDT Appointment Department of Radiation Oncology in [place], [place] [address] [place] [address] Sulaiman Ackerman M.D. [address] [place] [phone] 01/30/2024 8:15 AM CDT Appointment Department of Radiation Oncology in [place], [place] [address] [place] [address] Sulaiman Ackerman M.D. [address] [place] [phone] 01/31/2024 8:45 AM CDT Appointment Department of Radiation Oncology in [place], [place] [address] [place] [address] Sulaiman Ackerman M.D. [address] [place] [phone] 02/01/2024 8:15 AM CDT Appointment Department of Radiation Oncology in [place], [place] [address] [place] [address] Sulaiman Ackerman M.D. [address] [place] [phone] 02/01/2024 8:45 AM CDT Appointment Department of Radiation Oncology in [place] [address] [place] [address] Corinne Aguillon M.D. [address] [place] [phone] documented as of this encounter Visit Diagnoses Not on filedocumented in this encounter
--- OUTSIDE RECORDS SUMMARY | 2024-01-25 07:39 | XMS_ITS | Encounter Summary ---
Author Organization [facility] Address [address] [place] [address] Care Team Providers Care [employer] Scout Name Role Phone Unavailable Primary Care Provider Unavailabl e Encounter Details Date Type Department Care Team (Late st Contact Info) Description 01/20/2024 7:51 AM CDT Hospital Encounter Department of Radiation Oncology in [place], [place] [address] [place] [address] Sulaiman Ackerman M.D. [address] [place] [address] Social History Tobacco Use Types Packs/Day Years Used Date Smoking Tobacco: Former Cigarettes 1 18 1 967 - 1984 Smokeless Tobacco: Never Alcohol Use Standard Drinks/Week Comments Yes 0 (1 standard drink = 0.6 oz pur e alcohol) [facility] Utilities Answer Date Recorded In the past 12 months has e [employer], gas, oil, or water [employer] threatened to shut off services in your [...] your living situation today? I have a [facility] place to live 10/02/2023 Sex and Gender Information Value Date Recorded Sex Assigned at Male 10/02/2023 7:37 AM SPINNER CONTINUOUS Gender Identity Male 10/02/2023 7:37 AM SPINNER CONTINUOUS Sexual Orientation Straight 10/02/2023 7: 37 AM SPINNER CONTINUOUS documented as of this encounter Plan of Treatment Upcoming Encounters Date Type Department Care Team (Late st Contact Info) Description 01/25/2024 9:30 AM CDT Appointment Department of Radiation Oncology in [place] [address] [place] [address] Sulaiman Ackerman M.D. [address] [place] [address] 01/26/2024 8:15 AM CDT Appointment Department of Radiation Oncology in [place] [address] [place] [address] Sulaiman Ackerman M.D. [address] [place] [address] 01/27/2024 8:45 AM CDT Appointment Department of Radiation Oncology in [address] [address] Sulaiman Ackerman M.D. [address] [place] [address] 01/27/2024 9:00 AM CDT Appointment Department of Radiation Oncology in [place], [place] [address] [place] [address] Sulaiman Ackerman M.D. [address] [place] [phone] 01/30/2024 8:15 AM CDT Appointment Department of Radiation Oncology in [place], [place] [address] [place] [address] Sulaiman Ackerman M.D. [address] [place] [phone] 01/31/2024 8:45 AM CDT Appointment Department of Radiation Oncology in [place], [place] [address] [place] [phone] Sulaiman Ackerman M.D. [address] [place] [phone] 02/01/2024 8:15 AM CDT Appointment Department of Radiation Oncology in [place], [place] [address] [place] [phone] Sulaiman Ackerman M.D. [address] [place] [phone] 02/01/2024 8:45 AM CDT Appointment Department of Radiation Oncology in [place] [address] [place] [address] Corinne Aguillon M.D. [address] [place] [phone] documented as of this encounter Visit Diagnoses Not on filedocumented in this encounter
--- OUTSIDE RECORDS SUMMARY | 2024-01-25 07:39 | XMS_ITS ---
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 on 01/29/2019 Current Oncology Plans No current plan information found. Past Plans No past plan information found. Radiation Treatments * Plan Last Treated On Elapsed Days Fractions Treated Prescribed Fraction Dose Prescribed Total Dose [id number] 01/24/2024 12 9 of 15 300 cGy 4,500 cG y [id number] 05/25/2023 9 5 of 5 1,000 cGy 5,000 c Gy F1 Esophagus 03/13/2019 34 25 of 25 200 cGy 5,000 c Gy Reference Point Last Treated On Elapsed Days Session Dose Total Dose [id number] 01/24/2024 12 300 cGy 2,700 cGy [id number] RLL 05/25/2023 9 1,000 cGy 5,000 cGy [id number] 03/13/2019 34 200 cGy 5,000 cGy
--- OUTSIDE RECORDS SUMMARY | 2024-01-25 07:39 | XMS_ITS | Encounter Summary ---
Author Organization [facility] Address [address] [place] [address] Care Team Providers Care Registered Midwife Name Role Phone Unavailable Primary Care Provider Unavailabl e Encounter Details Date Type Department Care Team (Late st Contact Info) Description 01/18/2024 7:49 AM CDT Hospital Encounter Department of Radiation Oncology in [place], [place] [address] [place] [address] Sulaiman Ackerman M.D. [address] [place] [address] Social History Tobacco Use Types Packs/Day Years Used Date Smoking Tobacco: Former Cigarettes 1 18 1 967 - 1985 Smokeless Tobacco: Never Alcohol Use Standard Drinks/Week Comments Yes 0 (1 standard drink = 0.6 oz pur e alcohol) [facility] Utilities Answer Date Recorded In the past 12 months has e [employer], gas, oil, or water [employer] threatened to shut off services in your [...] your living situation today? I have a [facility] place to live 10/02/2023 Sex and Gender Information Value Date Recorded Sex Assigned at Male 10/02/2023 7:37 AM SLUG PRESS OPERATOR Gender Identity Male 10/02/2023 7:37 AM SLUG PRESS OPERATOR Sexual Orientation Straight 10/02/2023 7: 37 AM SLUG PRESS OPERATOR documented as of this encounter Plan of Treatment Upcoming Encounters Date Type Department Care Team (Late st Contact Info) Description 01/25/2024 9:30 AM CDT Appointment Department of Radiation Oncology in [place] [address] [place] [address] Sulaiman Ackerman M.D. [address] [place] [address] 01/26/2024 8:15 AM CDT Appointment Department of Radiation Oncology in [place] [address] [place] [address] Sulaiman Ackerman M.D. [address] [place] [address] 01/27/2024 8:45 AM CDT Appointment Department of Radiation Oncology in [address] [address] Sulaiman Ackerman M.D. [address] [place] [phone] 01/27/2024 9:00 AM CDT Appointment Department of Radiation Oncology in [place], [place] [address] [place] [address] Sulaiman Ackerman M.D. [address] [place] [phone] 01/30/2024 8:15 AM CDT Appointment Department of Radiation Oncology in [place], [place] [address] [place] [address] Sulaiman Ackerman M.D. [address] [place] [phone] 01/31/2024 8:45 AM CDT Appointment Department of Radiation Oncology in [place], [place] [address] [place] [phone] Sulaiman Ackerman M.D. [address] [place] [phone] 02/01/2024 8:15 AM CDT Appointment Department of Radiation Oncology in [place], [place] [address] [place] [phone] Sulaiman Ackerman M.D. [address] [place] [phone] 02/01/2024 8:45 AM CDT Appointment Department of Radiation Oncology in [place] [address] [place] [address] Corinne Aguillon M.D. [address] [place] [phone] documented as of this encounter Visit Diagnoses Not on filedocumented in this encounter
--- OUTSIDE RECORDS SUMMARY | 2024-01-25 07:39 | XMS_ITS ---
Author Organization [facility] Address [address] [place] [address] Care Team Providers Care Solar Sales Rep Name Role Phone Unavailable Unavailable Unavailable Surgery Details Not on file Complications Check Surgery Details section. Procedure Estimated Blood Loss Check Surgery Details section. Procedure Findings Check Surgery Details section. Procedure Specimens Taken Check Surgery Details section.
--- OUTSIDE RECORDS SUMMARY | 2024-01-25 07:39 | XMS_ITS | Encounter Summary ---
Author Organization [facility] Address [address] [place] [address] Care Team Providers Care Workforce Planner Name Role Phone Unavailable Primary Care Provider Unavailabl e Encounter Details Date Type Department Care Team (Late st Contact Info) Description 01/24/2024 7:48 AM CDT Hospital Encounter Department of Radiation Oncology in [place], [place] [address] [place] [phone] Sulaiman Ackerman M.D. [address] [place] [address] Social History Tobacco Use Types Packs/Day Years Used Date Smoking Tobacco: Former Cigarettes 1 18 1 967 - 1984 Smokeless Tobacco: Never Alcohol Use Standard Drinks/Week Comments Yes 0 (1 standard drink = 0.6 oz pur e alcohol) [facility] Utilities Answer Date Recorded In the past 12 months has e [employer], gas, oil, or water [employer] threatened to shut off services in your [...] your living situation today? I have a [facility] place to live 10/02/2023 Sex and Gender Information Value Date Recorded Sex Assigned at Male 10/02/2023 7:37 AM CLIPPER MACHINE OPERATOR Gender Identity Male 10/02/2023 7:37 AM CLIPPER MACHINE OPERATOR Sexual Orientation Straight 10/02/2023 7: 37 AM CLIPPER MACHINE OPERATOR documented as of this encounter Plan of Treatment Upcoming Encounters Date Type Department Care Team (Late st Contact Info) Description 01/25/2024 9:30 AM CDT Appointment Department of Radiation Oncology in [place] [address] [place] [address] Sulaiman Ackerman M.D. 200 [place] [address] 01/26/2024 8:15 AM CDT Appointment Department of Radiation Oncology in [place] [address] [place] [address] Sulaiman Ackerman M.D. 200 [place] [address] 01/27/2024 8:45 AM CDT Appointment Department of Radiation Oncology in [address] [address] Sulaiman Ackerman M.D. [address] [place] [phone] 01/27/2024 9:00 AM CDT Appointment Department of Radiation Oncology in [place], [place] [address] [place] [address] Sulaiman Ackerman M.D. [address] [place] [phone] 01/30/2024 8:15 AM CDT Appointment Department of Radiation Oncology in [place], [place] [address] [place] [address] Sulaiman Ackerman M.D. [address] [place] [phone] 01/31/2024 8:45 AM CDT Appointment Department of Radiation Oncology in [place], [place] [address] [place] [phone] Sulaiman Ackerman M.D. [address] [place] [phone] 02/01/2024 8:15 AM CDT Appointment Department of Radiation Oncology in [place], [place] [address] [place] [address] Sulaiman Ackerman M.D. [address] [place] [phone] 02/01/2024 8:45 AM CDT Appointment Department of Radiation Oncology in [place] [address] [place] [address] Corinne Aguillon M.D. [address] [place] [phone] documented as of this encounter Visit Diagnoses Not on filedocumented in this encounter
--- OUTSIDE RECORDS SUMMARY | 2024-01-25 07:39 | XMS_ITS | Clinical Summary ---
Author Organization [facility] Address [address] [place] [address] Care Team Providers Care Wine Bottle Inspector Name Role Phone Unavailable Primary Care Provider Unavailabl e Source Comments Patient records contain information from all sites at [facility]. For routine questions regarding patient records, call [phone] during business hours, M-F 8:00 AM - 5:00 PM Central Time. Record requests for emergency care only can be directed to [phone] at any time.[facility] Allergies No known active allergies Medications Medication Sig Dispensed Refills Start Date End Date Status atorvastatin (LIPITOR) 10 mg tablet Take 10 mg by mouth. 11/24/2018 Active losartan (COZAAR) 25 mg tablet Take 25 mg by mouth daily. 4 11/25/2018 Active multivitamin tablet Take 1 tablet by mouth. 10/11/2011 Active predniSONE (DELTASONE) 5 mg tablet Take 5 mg by mouth. 01/25/2019 Activ e raNITIdine (ZANTAC) 150 mg tablet Take 150 mg by mouth. Active loratadine (CLARITIN) 10 mg tablet Take 10 mg by mouth daily. Active dexAMETHasone (DECADRON) 4 mg tablet Take 1 tablet (4 mg total) by mouth 2 (two) times a day. 14 tablet 1 01/13/2024 Active gabapentin (NEURONTIN) 300 mg capsule Take 1 capsule (300 mg total) by mouth at bedtime for 3 days, THEN 1 capsule (300 mg total) 2 (two) times a day for 3 days, THEN 1 capsule (300 mg total) 3 (three) times a day for 21 days. 30 capsule 01/16/2024 02/12/2024 Active omeprazole (PriLOSEC) [address] capsule Take 1 capsule (40 mg total) by mouth every morning before breakfast. Take while taking dexamethasone. Discontinue when discontinuing dexamethasone. 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 on 01/29/2019 Encounters Date Type Department Care Team Description 01/24/2024 7:48 AM CDT Hospital Encounter Department of Radiation Oncology in [address] [address] Corinne Aguillno M.D. Leenstra, James L, M.D. Secondary Malignant Neoplasm Lung Right (HCC) 01/24/2024 7:48 AM CDT Hospital Encounter Department of Radiation Oncology in [address] [address] Sulaiman Ackerman M.D. 01/23/2024 8:26 AM CDT Hospital Encounter Department of Radiation Oncology in [address] [address] Sulaiman Ackerman M.D. 01/20/2024 7:51 AM CDT Hospital Encounter Department of Radiation Oncology in [address] [address] Sulaiman Ackerman M.D. 01/19/2024 7:45 AM CDT - 01/19/2024 10:25 AM CDT Hospital Encounter Department of Radiation Oncology in [address] [address] Sulaiman Ackerman M.D. Secondary Malignant Neoplasm Lung Right (HCC) 01/19/2024 7:45 AM CDT Hospital Encounter Department of Radiation Oncology in [address] [address] Sulaiman Ackerman M.D. 01/18/2024 7:49 AM CDT Hospital Encounter Department of Radiation Oncology in [address] [address] Sulaiman Ackerman M.D. 01/17/2024 7:49 AM CDT Hospital Encounter Department of Radiation Oncology in [address] [address] Sulaiman Ackerman M.D. 01/16/2024 7:49 AM CDT - 01/18/2024 12:56 PM CDT Hospital Encounter Department of Radiation Oncology in [address] [address] Corinne Aguillon M.D. Leenstra, James L, M.D. Secondary Malignant Neoplasm Lung Right (HCC) 01/16/2024 7:49 AM CDT - 01/16/2024 9:32 AM CDT Hospital Encounter Department of Radiation Oncology in [address] [address] Sulaiman Ackerman M.D. Grieman, Kari A, R.N. Secondary Malignant Neoplasm Lung Right (HCC) Discharge Disposition: Home or Self Care 01/16/2024 7:48 AM CDT Hospital Encounter Department of Radiation Oncology in [address] [address] Sulaiman Ackerman M.D. 01/13/2024 7:48 AM CDT - 01/13/2024 9:52 AM CDT Hospital Encounter Department of Radiation Oncology in [address] [address] Sulaiman Ackerman M.D. Grieman, Kari A, R.N. Malignant Neoplasm Of Esophagus Lower Third (HCC) (Primary Dx) 01/13/2024 7:46 AM CDT Hospital Encounter Department of Radiation Oncology in [address] [address] Sulaiman Ackerman M.D. 01/12/2024 7:51 AM CDT Hospital Encounter Department of Radiation Oncology in [address] [address] Sulaiman Ackerman M.D. 01/09/2024 Clinical Communication Department of Radiation Oncology in [address] [address] Corinne Aguillon M.D. 01/09/2024 Orders Only Department of Radiation Oncology in [address] [address] Corinne Aguillon M.D. Secondary Malignant Neoplasm Lung Right (HCC) (Primary Dx) 01/03/2024 2:01 PM CDT - 01/03/2024 4:56 PM CDT Hospital Encounter Department of Radiation Oncology in [address] [address] Sulaiman Ackerman M.D. Secondary Malignant Neoplasm Lung Right (HCC) 01/03/2024 1:16 PM CDT - 01/03/2024 2:00 PM CDT Hospital Encounter Department of Radiation Oncology in [address] [address] Sulaiman Ackerman M.D. RetKatie mckinnon, R.NCindi Malignant Neoplasm Of Esophagus Lower Third (HCC) (Primary Dx); Secondary Malignant Neoplasm Lung Right (HCC) 01/03/2024 1:07 PM CDT - 01/06/2024 4:55 PM CDT Hospital Encounter Department of Radiation Oncology in [address] [address] Sulaiman Ackerman M.D. Secondary Malignant Neoplasm Lung Right (HCC) (Primary Dx); Malignant Neoplasm Of Esophagus Lower Third (HCC) 12/27/2023 Orders Only Department of Radiation Oncology in [address] [address] Sulaiman Ackerman M.D. Secondary Malignant Neoplasm Lung Right (HCC) (Primary Dx) from Last 3 Months Immunizations Name Administration Dates Next Due Influenza Split 09/02/2010 Tdap 08/01/2008 Family History Medical History Relation Name Comments Prostate cancer Father Prostate cancer Paternal Grandfather Relation Name Status Comments Father Paternal Grandfather Social History Tobacco Use Types Packs/Day Years Used Date Smoking Tobacco: Former Cigarettes 1 18 1 967 - 1985 Smokeless Tobacco: Never Alcohol Use Standard Drinks/Week Comments Yes 0 (1 standard drink = 0.6 oz pur e alcohol) [facility] Utilities Answer Date Recorded In the past [...] your living situation today? I have a [facility] place to live 10/02/2023 Sex and Gender Information Value Date Recorded Sex Assigned at Male 10/02/2023 7:37 AM SALES DEVELOPMENT COORDINATOR Gender Identity Male 10/02/2023 7:37 AM SALES DEVELOPMENT COORDINATOR Sexual Orientation Straight 10/02/2023 7: 37 AM SALES DEVELOPMENT COORDINATOR Last Filed Vital Signs Vital Sign Reading Time Taken Comments Blood Pressure 139/69 01/24/2024 8:46 AM CDT Pulse 57 01/24/2024 8:46 AM CDT Temperature 36.2 ??C (97.2 ??F) 01/19/2024 8:10 AM CD T Respiratory Rate - - Oxygen Saturation - - Inhaled Oxygen Concentration - - Weight 82.4 kg (181 lb 10.5 oz) 01/24/2024 8:46 AM CDT Height 175 cm (5' 8.9) 01/30/2019 9:45 AM CDT Body Mass Index 26.91 01/30/2019 9:45 AM CDT Plan of Treatment Upcoming Encounters Date Type Department Care Team (Late st Contact Info) Description 01/25/2024 9:30 AM CDT Appointment Department of Radiation Oncology in [address] [address] Sulaiman Ackerman M.D. [address] [place] [phone] 01/26/2024 8:15 AM CDT Appointment Department of Radiation Oncology in [address] [address] Sulaiman Ackerman M.D. [address] [place] [phone] 01/27/2024 8:45 AM CDT Appointment Department of Radiation Oncology in [address] [address] Sulaiman Ackerman M.D. [address] [place] [phone] 01/27/2024 9:00 AM CDT Appointment Department of Radiation Oncology in [address] [address] Sulaiman Ackerman M.D. [address] [place] [phone] 01/30/2024 8:15 AM CDT Appointment Department of Radiation Oncology in [address] [address] Sulaiman Ackerman M.D. [address] [place] [phone] 01/31/2024 8:45 AM CDT Appointment Department of Radiation Oncology in [address] [address] Sulaiman Ackreman M.D. [address] [place] [phone] 02/01/2024 8:15 AM CDT Appointment Department of Radiation Oncology in [address] [address] Sulaiman Ackerman M.D. [address] [place] [phone] 02/01/2024 8:45 AM CDT Appointment Department of Radiation Oncology in [address] [address] Corinne Aguillon M.D. [address] [place] [phone] Health Maintenance Due Date Last Done Comments CT Colonography 1950 Cologuard 1950 Hepatitis C Screening 1950 Influenza Vaccine (#1) 2023 2, 05/09/2021, 05/22/2020, Additional history exists Depression Screening (Annual PHQ-2) 08/01/2023 Creatinine Level (Kidney Function Test) 11/13/2023 11/12/2022, 06/22/2022, 10/08/2021, Additional history exists Potassium Level 11/13/2023 11/12/2022, 06/02, 10/08/2021, Additional history exists Sodium Level 11/13/2023 11/12/2022, 06/02, 10/08/2021, Additional history exists COVID-19 Vaccine ( season) 2023 10/27/2023, 05/06/2022, 11/10/2021, Additional history exists Colonoscopy 04/09/2025 04/09/2020, 01/25/2011 Colorectal Cancer Surveillance 04/09/2025 Fasting Glucose for Diabetes Screening 11/12/2025 11/12/2022, 06/22/2022, 10/08/2021, Additional history exists DTaP,Tdap,and Td Vaccines (3 - Td or Tdap) 02/15/2028 02/14/2018, 08/01/2008, 10/21/1998, Additional history exists Pneumococcal vaccine (65+ years) Completed 11/19/2016, 11/13/2014 Zoster Vaccines Completed 05/02/2018, 02/14/2018 Abdominal Aortic Aneurysm (AAA) Screen Completed 01/28/2020, 01/28/2020 Fall Risk Screen (Annual) Completed 01/16/2024 HPV Vaccines Aged Out No longer eligi ble based on patient's age to complete this topic Procedures Procedure Name Priority Date/Time Associated Diagnosis Comments ARIA DAILY TREATMENT INFORMATION Routine 01/24/2024 8:22 AM CDT ARIA DAILY TREATMENT INFORMATION Routine 01/23/2024 8:38 AM CDT ARIA DAILY TREATMENT INFORMATION Routine 01/20/2024 8:35 AM CDT ARIA DAILY TREATMENT INFORMATION Routine 01/19/2024 8:05 AM CDT ARIA DAILY TREATMENT INFORMATION Routine 01/18/2024 8:20 AM CDT ARIA DAILY TREATMENT INFORMATION Routine 01/17/2024 8:24 AM CDT ARIA DAILY TREATMENT INFORMATION Routine 01/16/2024 8:37 AM CDT ARIA DAILY TREATMENT INFORMATION Routine 01/13/2024 8:06 AM CDT ARIA DAILY TREATMENT INFORMATION Routine 01/12/2024 8:26 AM CDT INITIAL RAD ONC TREATMENT PLANNING CT SIMULATION Routine 01/03/2024 2:30 PM CDT Secondary Malignant Neoplasm Lung Right (HCC) OUTSIDE NM PET Routine 12/22/2023 2:30 PM CDT EXTI COMPREHENSIVE METABOLIC PANEL, S/P Routine 11/12/2022 8:[address] ABDOMEN PELVIS WITH IV CONTRAST RAD - Routine (most inpatients and all outpatients) 01/28/2020 11:02 AM CDT from Last 3 Months or Most Recently Relevant to Health Maintenance Results * Aria Daily Treatment Information (01/24/2024 8:22 AM CDT) Only the most recent of9 resultswithin the time period is included. Course ID [id number] r CARDONA ARIA Course Start Date 4 12:57 CDT CARDONA ARIA First Treatment Date 4 08:25 CDT CARDONA ARIA Last Treatment Date 4 08:22 CDT CARDONA ARIA Treatment Elapsed Days 12 CARDONA ARIA Reference Point [id number] RUL CARDONA ARIA Dosage Given to Date cGy 2700 CARDONA ARIA Session Dosage Given 300 CARDONA ARIA Plan ID [id number] rR CARDONA ARIA Fractions Treated to Date 9 CARDONA ARIA Planned Total Fractions 15 CARDONA ARIA Prescribed Dose Per Fraction 300 CARDONA ARIA Prescription Dose in cGy 4500 CARDONA ARIA Plan Primary Reference Point [id number] RUL CARDONA ARIA 01/24/2024 8:22 AM CDT Provider Not In System RADIATION ONCOLOG Y ORDERABLES Performing Organization Address [facility] de Phone Number BRENDAN GARCIA na * Initial Rad Onc Treatment Planning CT Simulation (01/03/2024 2:30 PM CDT) Narrative BRENDAN GARCIA - 01/03/2024 2:30 PM CDT Yana Pabon ? 01/03/2024 ??2:49 PM Initial Rad Onc Treatment Planning CT Simulation Performed by: Sulaiman Ackerman M.D. Authorized by: Sulaiman Ackerman M.D. ?? Sulaiman Ackerman M.D. RADIATION ONCOLOGY ORDERABLES Performing Organization Address [facility] de Phone Number BRENDAN louis * PET skull to mid thigh-Outside NM Pet (12/22/2023 2:30 PM CDT) 12/22/2023 2:30 PM CDT Narrative [facility] - 12/22/2023 5:43 PM CDT This order has been created and auto-finalized to support the import of outside images. If available, original interpretation can be found on the Media Tab in Chart Review, in Document Viewer, or as an image in QREADS. If a re-interpretation or overread is required please follow defined workflow. ?? Provider Not In System IMG NM PROCEDURES Performing Organization Address [facility] de Phone Number KERI NA from Last 3 Months or Most Recently Relevant to Health Maintenance
--- OUTSIDE RECORDS SUMMARY | 2024-01-25 07:39 | XMS_ITS | Encounter Summary ---
Author Organization [facility] Address [address] [place] [address] Care Team Providers Care Operating Room Assistant Name Role Phone Unavailable Primary Care Provider Unavailabl e Reason for Referral * Radiation Therapy (Routine) - Authorized Specialty Diagnoses / Procedures Referred By Contac t Referred To Contact Diagnoses Secondary Malignant Neoplasm Lung Right (HCC) Procedures Management Visit Sulaiman Ackerman M.D. [address] [place] [address] [facility] Region Referral ID Status Reason Start Date Expiration Date V isits Requested Visits Authorized [id number] Authorized 12/27/2023 12/26/2024 10 10 Reason for Visit * Radiation Therapy (Routine) - Authorized Specialty Diagnoses / Procedures Referred By Contac t Referred To Contact Diagnoses Secondary Malignant Neoplasm Lung Right (HCC) Procedures Management Visit Sulaiman Ackerman M.D. [address] [place] [address] [facility] Region Referral ID Status Reason Start Date Expiration Date V isits Requested Visits Authorized [id number] Authorized 12/27/2023 12/26/2024 10 10 Encounter Details Date Type Department Care Team (Latest Contact Info) Description 01/24/2024 7:48 AM CDT Hospital Encounter Department of Radiation Oncology in [place], [place] [address] [place] [phone] Corinne Aguillon M.D. [address] [place] [address] Sulaiman Ackerman M.D. [address] [place] [address] Secondary Malignant Neoplasm Lung Right (HCC) Social History Tobacco Use Types Packs/Day Years Used Date Smoking Tobacco: Former Cigarettes 1 18 1 967 - 1984 Smokeless Tobacco: Never Alcohol Use Standard Drinks/Week Comments Yes 0 (1 standard drink = 0.6 oz pur e alcohol) [facility] Utilities Answer Date Recorded In the past 12 months has e electric, gas, oil, or water company [...] your living situation today? I have a [facility] place to live 10/02/2023 Sex and Gender Information Value Date Recorded Sex Assigned at Male 10/02/2023 7:37 AM QUALITY REP Gender Identity Male 10/02/2023 7:37 AM QUALITY REP Sexual Orientation Straight 10/02/2023 7: 37 AM QUALITY REP documented as of this encounter Last Filed Vital Signs Vital Sign Reading Time Taken Comments Blood Pressure 139/69 01/24/2024 8:46 AM CDT Pulse 57 01/24/2024 8:46 AM CDT Temperature - - Respiratory Rate - - Oxygen Saturation - - Inhaled Oxygen Concentration - - Weight 82.4 kg (181 lb 10.5 oz) 01/24/2024 8:46 AM CDT Height - - Body Mass Index 26.91 01/30/2019 9:45 AM CDT documented in this encounter Plan of Treatment Upcoming Encounters Date Type Department Care Team (Late st Contact Info) Description 01/25/2024 9:30 AM CDT Appointment Department of Radiation Oncology in [address] [phone] Sulaiman Ackerman M.D. [address] [place] [phone] 01/26/2024 8:15 AM CDT Appointment Department of Radiation Oncology in [address] [address] Sulaiman Ackerman M.D. [address] [place] [phone] 01/27/2024 8:45 AM CDT Appointment Department of Radiation Oncology in [address] [address] Sulaiman Ackerman M.D. [address] [place] [phone] 01/27/2024 9:00 AM CDT Appointment Department of Radiation Oncology in [address] [place] [address] Sulaiman Ackerman M.D. [address] [place] [phone] 01/30/2024 8:15 AM CDT Appointment Department of Radiation Oncology in [address] [address] Sulaiman Ackerman M.D. [address] [place] [address] 01/31/2024 8:45 AM CDT Appointment Department of Radiation Oncology in [address] [address] Sulaiman Ackerman M.D. [address] [place] [address] 02/01/2024 8:15 AM CDT Appointment Department of Radiation Oncology in [address] [address] Sulaiman Ackerman M.D. [address] [place] [address] 02/01/2024 8:45 AM CDT Appointment Department of Radiation Oncology in [address] [address] Corinne Aguillon M.D. [address] [place] [phone] Scheduled Orders Name Type Priority Associated Diagnoses Orde r Schedule Management Visit Radiation Oncology Routine Secondary Malignant Neoplasm Lung Right (HCC) Once for 1 Occurrences starting 01/24/2024 until 01/24/2024 documented as of this encounter Visit Diagnoses Diagnosis Secondary Malignant Neoplasm Lung Right (HCC) documented in this encounter
--- OUTSIDE RECORDS SUMMARY | 2024-01-25 07:39 | XMS_ITS | Referral Summary ---
Author Organization [facility] Address [address] [place] [address] Care Team Providers Care Photofinishing Laboratory Worker Name Role Phone Unavailable Primary Care Provider Unavailabl e Source Comments Patient records contain information from all sites at [facility]. For routine questions regarding patient records, call [phone] during business hours, M-F 8:00 AM - 5:00 PM Central Time. Record requests for emergency care only can be directed to [phone] at any time.[facility] Encounters Date Type Department Care Team Description 01/24/2024 7:48 AM CDT Hospital Encounter Department of Radiation Oncology in [address] [address] Corinne Aguillon M.D. Leenstra, James L, M.D. Secondary Malignant Neoplasm Lung Right (HCC) 01/24/2024 7:48 AM CDT Hospital Encounter Department of Radiation Oncology in [address] [address] Sulaiman Ackerman M.D. 01/23/2024 8:26 AM CDT Hospital Encounter Department of Radiation Oncology in [address] [address] Sulaiman Ackerman M.D. 01/20/2024 7:51 AM CDT Hospital Encounter Department of Radiation Oncology in [address] [address] Sulaiman Ackerman M.D. 01/19/2024 7:45 AM CDT - 01/19/2024 10:25 AM CDT Hospital Encounter Department of Radiation Oncology in [address] [address] Sulaiman Ackerman M.D. Secondary Malignant Neoplasm Lung Right (HCC) 01/19/2024 7:45 AM CDT Hospital Encounter Department of Radiation Oncology in [address] [address] Sulaiman Ackerman M.D. 01/18/2024 7:49 AM CDT Hospital Encounter Department of Radiation Oncology in [address] [address] Sulaiman Ackerman M.D. 01/16/2024 7:49 AM CDT - 01/18/2024 12:56 PM CDT Hospital Encounter Department of Radiation Oncology in [address] [address] Corinne Aguillon M.D. Leenstra, James L, M.D. Secondary Malignant Neoplasm Lung Right (HCC) 01/17/2024 7:49 AM CDT Hospital Encounter Department of Radiation Oncology in [address] [address] Sulaiman Ackerman M.D. 01/16/2024 7:49 AM CDT - 01/16/2024 9:32 AM CDT Hospital Encounter Department of Radiation Oncology in [address] [address] Sulaiman Ackerman M.D. Grieman, Kari A, R.N. Secondary Malignant Neoplasm Lung Right (HCC) Discharge Disposition: Home or Self Care 01/16/2024 7:48 AM CDT Hospital Encounter Department of Radiation Oncology in [address] [address] Sulaiman Ackerman M.D. 01/13/2024 7:48 AM CDT - 01/13/2024 9:52 AM CDT Hospital Encounter Department of Radiation Oncology in [address] [address] Sulaiman Ackerman M.D. Grieman, Kari A RCindiNCindi Malignant Neoplasm Of Esophagus Lower Third (HCC) (Primary Dx) 01/13/2024 7:46 AM CDT Hospital Encounter Department of Radiation Oncology in [address] [address] Sulaiman Ackerman M.D. 01/12/2024 7:51 AM CDT Hospital Encounter Department of Radiation Oncology in [address] [address] Sulaiman Ackerman M.D. 01/09/2024 Clinical Communication Department of Radiation Oncology in [address] [address] Corinne Aguillon M.D. 01/09/2024 Orders Only Department of Radiation Oncology in [address] [address] Corinne Aguillon M.D. Secondary Malignant Neoplasm Lung Right (HCC) (Primary Dx) 01/03/2024 1:07 PM CDT - 01/06/2024 4:55 PM CDT Hospital Encounter Department of Radiation Oncology in [address] [address] Sulaiman Ackerman M.D. Secondary Malignant Neoplasm Lung Right (HCC) (Primary Dx); Malignant Neoplasm Of Esophagus Lower Third (HCC) 01/03/2024 1:16 PM CDT - 01/03/2024 2:00 PM CDT Hospital Encounter Department of Radiation Oncology in [address] [address] Sulaiman Ackerman M.D. Retterath, Chelsey A, R.NCindi Malignant Neoplasm Of Esophagus Lower Third (HCC) (Primary Dx); Secondary Malignant Neoplasm Lung Right (HCC) 01/03/2024 2:01 PM CDT - 01/03/2024 4:56 PM CDT Hospital Encounter Department of Radiation Oncology in [place], [place] [address] [place] [address] Sulaiman Ackerman M.D. Secondary Malignant Neoplasm Lung Right (HCC) 12/27/2023 Orders Only Department of Radiation Oncology in [place], [place] [address] [place] [address] Sulaiman Ackerman M.D. Secondary Malignant Neoplasm Lung Right (HCC) (Primary Dx) from Last 3 Months Allergies No known active allergies Medications Medication [...] Signed by Aamir Cam M.D. on 01/29/2019 Immunizations Name Administration Dates Next Due Influenza Split 09/02/2010 Tdap 08/01/2008 Social History Tobacco Use Types Packs/Day Years Used Date Smoking Tobacco: Former Cigarettes 1 18 1 967 - 1985 Smokeless Tobacco: Never Alcohol Use Standard Drinks/Week Comments Yes 0 (1 standard drink = 0.6 oz pur e alcohol) [facility] Utilities Answer Date Recorded In the past 12 months has th e [employer], gas, oil, or water [employer] threatened to shut off services in your [...] your living situation today? I have a [facility] place to live 10/02/2023 Sex and Gender Information Value Date Recorded Sex Assigned at Male 10/02/2023 7:37 AM SIDING MECHANIC Gender Identity Male 10/02/2023 7:37 AM SIDING MECHANIC Sexual Orientation Straight 10/02/2023 7: 37 AM SIDING MECHANIC Last Filed Vital Signs Vital Sign Reading [...] CDT Appointment Department of Radiation Oncology in [address] [address] Sulaiman Ackerman M.D. [address] [place] [phone] 01/26/2024 8:15 AM CDT Appointment Department of Radiation Oncology in [address] [address] Sulaiman Ackerman M.D. [address] [place] [phone] 01/27/2024 8:45 AM CDT Appointment Department of Radiation Oncology in [address] [address] Sulaiman Ackerman M.D. [address] [place] [phone] 01/27/2024 9:00 AM CDT Appointment Department of Radiation Oncology in [address] [address] Sulaiman Ackerman M.D. [address] [place] [phone] 01/30/2024 8:15 AM CDT Appointment Department of Radiation Oncology in [place], [place] [address] [place] [phone] Sulaiman Ackerman M.D. [address] [place] [phone] 01/31/2024 8:45 AM CDT Appointment Department of Radiation Oncology in [place], [place] [address] [place] [phone] Sulaiman Ackerman M.D. [address] [place] [phone] 02/01/2024 8:15 AM CDT Appointment Department of Radiation Oncology in [place], [place] [address] [place] [phone] Sulaiman Ackerman M.D. [address] [place] [phone] 02/01/2024 8:45 AM CDT Appointment Department of Radiation Oncology in [place], [place] [address] [place] [phone] Corinne Aguillon M.D. [address] [place] [phone] Procedures Procedure Name Priority Date/Time Associated Diagnosis [...] ARIA Course Start Date 4 12:57 CDT [place] ARIA First Treatment Date 4 08:25 CDT CARDONA ARIA Last Treatment Date 4 08:22 CDT CARDONA ARIA Treatment Elapsed Days 12 CARDONA ARIA Reference Point [id number] RUL CARDONA ARIA Dosage Given to Date cGy 2700 [facility] ARIA Session D[facility]age [facility] 300 [facility] Plan ID [id number] CARDONA ARIA Fractions Treated to Date 9 [facility] Planned Total Fractions 15 [facility] Prescribed Dose Per Fraction 300 [facility] Prescription Dose in cGy 4500 [facility] Plan Primary Reference Point [id number] RUL [facility] 01/24/2024 8:22 AM CDT Provider Not In System RADIATION ONCOLOG Y ORDERABLES Performing Organization Address City/[facility] Co de Phone Number BRENDAN GARCIA na * Initial Rad Onc Treatment Planning CT Simulation (01/03/2024 2:30 PM CDT) Narrative [facility] - 01/03/2024 2:30 PM CDT Yana Pabon ? 01/03/2024 ??2:49 PM Initial Rad Onc Treatment Planning CT Simulation Performed by: Sulaiman Ackerman M.D. Authorized by: Sulaiman Ackerman M.D. ?? Sulaiman Ackerman M.D. RADIATION ONCOLOGY ORDERABLES Performing Organization Address [facility] [[email or web address]] de Phone Number BRENDAN GARCIA na * PET skull to mid thigh-Outside NM [...] System IMG NM PROCEDURES Performing Organization Address City/[facility] Co de Phone Number II NA from Last 3 Months or Most Recently Relevant to Health Maintenance
--- OUTSIDE RECORDS SUMMARY | 2024-01-25 07:40 | XMS_ITS | Encounter Summary ---
Author Organization [facility] Address [address] [place] [address] Care Team Providers Care Head Mva Reactor Operator Name Role Phone Unavailable Primary Care Provider Unavailabl e Reason for Referral * Outpatient (Routine) - Authorized Specialty Diagnoses / Procedures Referred By Contac t Referred To Contact Radiation Oncology Sulaiman Ackerman M.D. [address] [place] [address] [facility] Region Referral ID Status Reason Start Date Expiration Date V isits Requested Visits Authorized [id number] Authorized 12/27/2023 06/27/2025 10 10 * Specialty Diagnoses / Procedures Referred By Contac t Referred To Contact Sulaiman Ackerman M.D. [address] [place] [address] [facility] Region Referral ID Status Reason Start Date Expiration Date Visits Re quested Visits Authorized * Radiation Therapy (Routine) - Authorized Specialty Diagnoses / Procedures Referred By Contac t Referred To Contact Diagnoses Secondary Malignant Neoplasm Lung Right (HCC) Procedures Management Visit Sulaiman Ackerman M.D. [address] [place] [address] [facility] Region Referral ID Status Reason Start Date Expiration Date V isits Requested Visits Authorized [id number] Authorized 12/27/2023 12/26/2024 10 10 * Radiation Therapy (Routine) - Authorized Specialty Diagnoses / Procedures Referred By Contac t Referred To Contact Diagnoses Secondary Malignant Neoplasm Lung Right (HCC) Procedures Prior Auth Rad Tx Sulaiman Ackerman M.D. [address] [place] [address] [facility] Referral ID Status Reason Start Date Expiration Date V isits Requested Visits Authorized [id number] Authorized 12/27/2023 12/26/2024 1 1 * Radiation Therapy (Routine) - Closed Specialty Diagnoses / Procedures Referred By Contac t Referred To Contact Diagnoses Secondary Malignant Neoplasm Lung Right (HCC) Procedures Initial Rad Onc Treatment Planning CT Simulation Sulaiman Ackerman M.D. [address] [place] [address] [facility] Referral ID Status Reason Start Date Expiration Date Visits Re quested Visits Authorized [id number] Closed 12/27/2023 12/26/2024 1 1 Encounter Details Date Type Department Care Team (Late st Contact Info) Description 12/27/2023 Orders Only Department of Radiation Oncology in [place], [place] [address] [place] [phone] Sulaiman Ackerman M.D. [address] [place] [phone] Secondary Malignant Neoplasm Lung Right (HCC) (Primary Dx) Social History Tobacco Use Types Packs/Day Years Used Date Smoking Tobacco: Former Cigarettes 1 18 1 967 - 1984 Smokeless Tobacco: Never Alcohol Use Standard Drinks/Week Comments Yes 0 (1 standard drink = 0.6 oz pur e alcohol) [facility] Utilities Answer Date Recorded In the [...] your living situation today? I have a [facility] place to live 10/02/2023 Sex and Gender Information Value Date Recorded Sex Assigned at Male 10/02/2023 7:37 AM INSTRUMENTATION FITTER Gender Identity Male 10/02/2023 7:37 AM INSTRUMENTATION FITTER Sexual Orientation Straight 10/02/2023 7: 37 AM INSTRUMENTATION FITTER documented as of this encounter Plan of Treatment Upcoming Encounters Date Type Department Care Team (Late st Contact Info) Description 01/25/2024 9:30 AM CDT Appointment Department of Radiation Oncology in [place], [place] [address] [place] [address] Sulaiman Ackerman M.D. [address] [place] [phone] 01/26/2024 8:15 AM CDT Appointment Department of Radiation Oncology in [address] [address] Sulaiman Ackerman M.D. [address] [place] [phone] 01/27/2024 8:45 AM CDT Appointment Department of Radiation Oncology in [address] [address] Sulaiman Ackerman M.D. [address] [place] [phone] 01/27/2024 9:00 AM CDT Appointment Department of Radiation Oncology in [address] [phone] Sulaiman Ackerman M.D. [address] [place] [phone] 01/30/2024 8:15 AM CDT Appointment Department of Radiation Oncology in [address] [phone] Sulaiman Ackerman M.D. [address] [place] [phone] 01/31/2024 8:45 AM CDT Appointment Department of Radiation Oncology in [address] [address] Sulaiman Ackerman M.D. [address] [place] [phone] 02/01/2024 8:15 AM CDT Appointment Department of Radiation Oncology in [place], [place] [address] [place] [address] Sulaiman Ackerman M.D. [address] [place] [address] 02/01/2024 8:45 AM CDT Appointment Department of Radiation Oncology in [place], [place] [address] [place] [address] Corinne Aguillon M.D. [address] [place] [address] Scheduled Orders Name Type Priority Associated Diagnoses Order Schedule Prior Auth Rad Tx Radiation Oncology Routine Secondary Malignant Neoplasm Lung Right (HCC) Ordered: 12/27/2023 Management Visit Radiation Oncology Routine Secondary Malignant Neoplasm Lung Right (HCC) 10 Occurrences starting 12/27/2023 until 12/26/2024 Scheduled Referrals Name Type Priority Associated Diagnoses Order Schedule Radiation Oncology - Nurse education visit (clinic) Outpatient Referral Routine Secondary Malignant Neoplasm Lung Right (HCC) Expected: 12/27/2023 (Approximate), Expires: 12/26/2024 Radiation Oncology nurse visit (clinic) Outpatient Referral Routine 10 Occurrenc es starting 12/27/2023 until 12/26/2026 documented as of this encounter Results * Initial Rad Onc Treatment Planning CT Simulation (01/03/2024 2:30 PM CDT) Narrative BRENDAN GARCIA - 01/03/2024 2:30 PM CDT Yana Pabon ? 01/03/2024 ??2:49 PM Initial Rad Onc Treatment Planning CT Simulation Performed by: Sulaiman Ackerman M.D. Authorized by: Sulaiman Ackerman M.D. ?? Sulaiman Ackerman M.D. RADIATION ONCOLOGY ORDERABLES BRENDAN GARCIA na documented in this encounter Visit Diagnoses Diagnosis Secondary Malignant Neoplasm Lung Right (HCC)- Primary Secondary Malignant Neoplasm Lung Right (HCC) documented in this encounter
--- OUTSIDE RECORDS SUMMARY | 2024-01-25 07:40 | XMS_ITS | Encounter Summary ---
Author Organization [facility] Address [address] [place] [address] Care Team Providers Care Binder Cutter Hand Name Role Phone Unavailable Primary Care Provider Unavailabl e Reason for Referral * Radiation Therapy (Routine) - Authorized Specialty Diagnoses / Procedures Referred By Contac t Referred To Contact Diagnoses Secondary Malignant Neoplasm Lung Right (HCC) Procedures Management Visit Sulaiman Ackerman M.D. [address] [place] [address] [facility] Region Referral ID Status Reason Start Date Expiration Date V isits Requested Visits Authorized [id number] Authorized 12/27/2023 12/26/2024 10 10 Reason for Visit * Radiation Therapy (Routine) - Authorized Specialty Diagnoses / Procedures Referred By Contac t Referred To Contact Diagnoses Secondary Malignant Neoplasm Lung Right (HCC) Procedures Management Visit Sulaiman Ackerman M.D. [address] [place] [address] [facility] Region Referral ID Status Reason Start Date Expiration Date V isits Requested Visits Authorized [id number] Authorized 12/27/2023 12/26/2024 10 10 Encounter Details Date Type Department Care Team (Latest Contact Info) Description 01/16/2024 7:49 AM CDT - 01/18/2024 12:56 PM CDT Hospital Encounter Department of Radiation Oncology in [address] [phone] Corinne Aguillon M.D. [address] [place] [address] Sulaiman Ackerman M.D. [address] [place] [phone] Secondary Malignant Neoplasm Lung Right (HCC) Social History Tobacco Use Types Packs/Day Years Used Date Smoking Tobacco: Former Cigarettes 1 18 1 967 - 1984 Smokeless Tobacco: Never Alcohol Use Standard Drinks/Week Comments Yes 0 (1 standard drink = 0.6 oz pur e alcohol) [facility] Utilities Answer Date Recorded In the past 12 months has e electric, gas, oil, or water [email or web address] threatened to shut off services in your [...] your living situation today? I have a [facility] place to live 10/02/2023 Sex and Gender Information Value Date Recorded Sex Assigned at Male 10/02/2023 7:37 AM DATA POWER CONSULTANT Gender Identity Male 10/02/2023 7:37 AM DATA POWER CONSULTANT Sexual Orientation Straight 10/02/2023 7: 37 AM DATA POWER CONSULTANT documented as of this encounter Last Filed Vital Signs Vital Sign Reading Time Taken Comments Blood Pressure 159/62 01/16/2024 8:45 AM CDT Pulse 56 01/16/2024 8:45 AM CDT Temperature 36.2 ??C (97.1 ??F) 01/16/2024 8:45 AM CD T Respiratory Rate - - Oxygen Saturation - - Inhaled Oxygen Concentration - - Weight 83.1 kg (183 lb 3.2 oz) 01/16/2024 8:45 A M CDT Height - - Body Mass Index 27.13 01/30/2019 9:45 AM CDT documented in this [...] as of this encounter Progress Notes * Sulaiman Ackerman M.D. - 01/16/2024 8:30 AM CDT SUBJECTIVE REASON FOR VISIT Evaluation for side effects while receiving radiation treatment for 1. Secondary Malignant Neoplasm Lung Right (HCC) SUPERVISED BY: Sulaiman Ackerman M.D. ([id number]) HISTORY OF PRESENT ILLNESS Mr. Te Archuleta is a 73 y.o. male with metastatic adenocarcinoma of the esophagus. His most recent PET-CT which demonstrated 2 new pulmonary metastases suspected (one in the right apex and onein the left hilum) with no other sites of hypermetabolic disease at this time. Single Plan Treatment Course: [id number] Plan ID Fractions Dose / Fraction (cGy) Dose Treated (cGy) Dose Planned (cGy) First Treatment Last Treatment Elapsed Days [id number] 01/12/2024 01/16/2024 4 Course Summary 01/12/2024 01/16/2024 4 The patient was seen and examined today with Dr. Ackerman. The patient reports that his pain has calmed down to a 2 out of 10. He is no longer experiencing pain flare. He is taking 4 mg of Dexamethasone twice a day. He has no pain if he is laying down and laying on his right side. He describes the pain as positional and most notable to right wrist/forearm area. Pain to right shoulder and right upper chest is under better control. He states that pain has been a 2 out of 10 all weekend and today. He denies fevers, chills, shortness of breath, dysphagia or shortness of breath. Cough is minimal. PATIENT REPORTED SYMPTOM SCREEN FATIGUE (Scale: 0 = no fatigue; 10 = worst fatigue you can imagine): 1 PAIN (Scale: 0 = no pain; 10 = worst pain you can imagine): 2 OVERALL QUALITY OF LIFE (Scale: 0 = as bad as can be; 10 = as good as can be): 9 OBJECTIVE BP 159/62 (BP Location: Right arm, Patient Position: Sitting, Cuff Size: Regular) Pulse (!) 56 Temp 36.2 ??C (Temporal) Wt 83.1 kg BMI 27.13 kg/m?? PHYSICAL EXAM General: Alert and oriented [...] Patient will continue with current Dexamethasone prescription. Dexamethasone does have 2 refill attached to prescription. Patient will take Dexamethasone with food. Dr. Ackerman provided patient withprescription for Prilosec today while on Dexamethasone. We will see patient in management visit again this coming . We will reassess Dexamethasone prescription at 's visit. We also sent in a prescription for Gabapentin today to help further manage patient's nerve pain. Gabapentin will be titrated up every 3 days until he is taking 300 mg 3 times a day for maintenance. Nurse education visit was completed today. He will contact us with any questions or concerns. We will continue with radiation treatment as planned. Signed by: Reva Sahu R.N. 01/16/2024 9:08 AM CDT I saw and evaluated the patient and participated in the greene portions of the service. I reviewed thedocumentation of Reva Sahu R.N. and agree with the findings and plan. The patient appears well on exam. He is experiencing increased right arm pain with treatment likely due to swelling around and irritation of the brachial plexus. Dexamethasone is helping. He will be sure to take Dexamethasonewith food. I prescribed Prilosec to avoid a steroid-induced ulcer. I also started him on gabapentinas above. We will see him again later this week to check on his pain control. He will continue withtreatment as planned. Signed by: Sulaiman Ackerman M.D. 01/18/2024 12:56 PM CDT [facility] [address] [place] [phone] documented in this encounter Plan of Treatment Upcoming Encounters Date Type Department Care Team (Late st Contact Info) Description 01/25/2024 9:30 AM CDT Appointment Department of Radiation Oncology in [address] [phone] Sulaiman Ackerman M.D. [address] [place] [phone] 01/26/2024 8:15 AM CDT Appointment Department of Radiation Oncology in [address] [address] Sulaiman Ackerman M.D. [address] [place] [phone] 01/27/2024 8:45 AM CDT Appointment Department of Radiation Oncology in [address] [phone] Sulaiman Ackerman M.D. [address] [place] [phone] 01/27/2024 9:00 AM CDT Appointment Department of Radiation Oncology in [address] [phone] Sulaiman Ackerman M.D. [address] [place] [phone] 01/30/2024 8:15 AM CDT Appointment Department of Radiation Oncology in [address] [place] [address] Sulaiman Ackerman M.D. [address] [place] [phone] 01/31/2024 8:45 AM CDT Appointment Department of Radiation Oncology in [address] [phone] Sulaiman Ackerman M.D. [address] [place] [address] 02/01/2024 8:15 AM CDT Appointment Department of Radiation Oncology in [address] [phone] Sulaiman Ackerman M.D. [address] [place] [phone] 02/01/2024 8:45 AM CDT Appointment Department of Radiation Oncology in [address] [phone] Corinne Aguillon M.D. [address] [place] [phone] Scheduled Orders Name Type Priority Associated Diagnoses Orde r Schedule Management Visit Radiation Oncology Routine Secondary Malignant Neoplasm Lung Right (HCC) Once for 1 Occurrences starting 01/16/2024 until 01/16/2024 documented as of this encounter Visit Diagnoses Diagnosis Secondary Malignant Neoplasm Lung Right (HCC) documented in this encounter
--- OUTSIDE RECORDS SUMMARY | 2024-01-25 07:40 | XMS_ITS | Encounter Summary ---
Author Organization [facility] Address [address] [place] [address] Care Team Providers Care Skidder Name Role Phone Unavailable Primary Care Provider Unavailabl e Reason for Referral * Specialty Diagnoses / Procedures Referred By Contgabbie t Referred To Contact Sulaiman Ackerman M.D. [address] [place] [address] [facility] Referral ID Status Reason Start Date Expiration Date Visits Re quested Visits Authorized Encounter Details Date Type Department Care Team (Latest Contact Info) Description 01/16/2024 7:49 AM CDT - 01/16/2024 9:32 AM CDT Hospital Encounter Department of Radiation Oncology in [place], [place] [address] [place] [phone] Sulaiman Ackerman M.D. [address] [place] [phone] Reva Sahu R.N. [address] [place] [phone] Secondary Malignant Neoplasm Lung Right (HCC) Discharge Disposition: Home or Self Care Social History Tobacco Use Types Packs/Day Years Used Date Smoking Tobacco: Former Cigarettes 1 18 1 967 - 1984 Smokeless Tobacco: Never Alcohol Use Standard Drinks/Week Comments Yes 0 (1 standard drink = 0.6 oz pur e alcohol) [facility] Utilities Answer Date Recorded In the [...] Sex Assigned at Male 10/02/2023 7:37 AM CALL CENTER COORDINATOR Gender Identity Male 10/02/2023 7:37 AM CALL CENTER COORDINATOR Sexual Orientation Straight 10/02/2023 7: 37 AM CALL CENTER COORDINATOR documented as of this encounter Last Filed Vital Signs Vital Sign Reading Time Taken Comments Blood Pressure - - Pulse - - Temperature - - Respiratory Rate - - Oxygen Saturation - - Inhaled Oxygen Concentration - - Weight 83.1 kg (183 lb 3.2 oz) 01/16/2024 9:00 A M CDT Height - - Body [...] as of this encounter Progress Notes * Reva Sahu RJohn. - 01/16/2024 8:30 AM CDT Patient was educated on side effects of radiation therapy. Their questions were answered to the best of my ability. The patient was encouraged to contact the team at any point, with questions or concerns. documented in this encounter Plan of Treatment Upcoming Encounters Date Type Department Care Team (Late st Contact Info) Description 01/25/2024 9:30 AM CDT Appointment Department of Radiation Oncology in [address] [phone] Sulaiman Ackerman M.D. [address] [place] [phone] 01/26/2024 8:15 AM CDT Appointment Department of Radiation Oncology in [place], [place] [address] [place] [phone] Sulaiman Ackerman M.D. [address] [place] [phone] 01/27/2024 8:45 AM CDT Appointment Department of Radiation Oncology in [address] [phone] Sulaiman Ackerman M.D. [address] [place] [phone] 01/27/2024 9:00 AM CDT Appointment Department of Radiation Oncology in [address] [phone] Sulaiman Ackerman M.D. [address] [place] [phone] 01/30/2024 8:15 AM CDT Appointment Department of Radiation Oncology in [address] [phone] Sulaiman Ackerman M.D. [address] [place] [phone] 01/31/2024 8:45 AM CDT Appointment Department of Radiation Oncology in [address] [phone] Sulaiman Ackerman M.D. [address] [place] [phone] 02/01/2024 8:15 AM CDT Appointment Department of Radiation Oncology in [place], [place] [address] [place] [address] Sulaiman Ackerman M.D. [address] [place] [phone] 02/01/2024 8:45 AM CDT Appointment Department of Radiation Oncology in [place], [place] [address] [place] [address] Corinne Aguillon M.D. [address] [place] [phone] Scheduled Referrals Name Type Priority Associated Diagnoses Order Schedule Radiation Oncology - Nurse education visit (clinic) Outpatient Referral Routine Secondary Malignant Neoplasm Lung Right (HCC) Once for 1 Occurrences starting 01/16/2024 until 01/16/2024 documented as of this encounter Visit Diagnoses Diagnosis Secondary Malignant Neoplasm Lung Right (HCC) documented in this encounter
--- OUTSIDE RECORDS SUMMARY | 2024-01-25 07:40 | XMS_ITS | Encounter Summary ---
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 [address] [place] [phone] Sulaiman Ackerman M.D. [address] [place] [phone] Referral ID Status Reason Start Date Expiration Date Visits Re quested Visits Authorized [id number] Closed 10/06/2023 04/06/2025 1 1 Scheduling Instructions After imaging completed at [facility] ordered by Dr. Quinteros in roughly 6-8 weeks. Reason for Visit * Outpatient (Routine) - Closed Specialty Diagnoses / Procedures Referred By Contac t Referred To Contact Radiation Oncology Cyndie Kitchen APRN C.N.PCindi, D.N.P. [address] [place] [phone] Sulaiman Ackerman M.D. [address] [place] [phone] Referral ID Status Reason Start Date Expiration Date Visits Re quested Visits Authorized [id number] Closed 10/06/2023 04/06/2025 1 1 Encounter Details Date Type Department Care Team (Latest Contact Info) Description 01/03/2024 1:07 PM CDT - 01/06/2024 4:55 PM CDT Hospital Encounter Department of Radiation Oncology in [place], [place] [address] [place] [phone] Sulaiman Ackerman M.D. 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 Gender Identity Male 10/02/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 Sexual Orientation Straight 10/02/2023 7: 37 AM BRAZER ASSEMBLER documented as of this encounter Last Filed Vital Signs Vital Sign Reading Time Taken Comments Blood Pressure 138/66 01/03/2024 1:24 PM CDT Pulse 63 01/03/2024 1:24 PM CDT Temperature 36.9 ??C (98.4 ??F) 01/03/2024 1:24 PM CD T Respiratory Rate - - Oxygen Saturation - - Inhaled Oxygen Concentration - - Weight 81.5 kg (179 lb 10.8 oz) 01/03/2024 1:24 PM CDT Height - - Body Mass Index 26.61 01/30/2019 9:45 AM CDT documented in this encounter Medications at Time of Discharge Medication Sig Dispensed Refills Start Date End Date atorvastatin (LIPITOR) 10 mg tablet Take 10 mg by mouth. 11/24/2018 loratadine (CLARITIN) 10 mg tablet Take 10 mg by mouth daily. losartan (COZAAR) 25 mg tablet Take 25 mg by mouth daily. 4 11/25/2018 multivitamin tablet Take 1 tablet by mouth. 10/11/2011 predniSONE (DELTASONE) 5 mg tablet Take 5 mg by mouth. 01/25/2019 raNITIdine (ZANTAC) 150 mg tablet Take 150 mg by mouth. documented as of this encounter Progress Notes * Cyndie Kitchen APRN, C.N.P., D.N.P. - 01/03/2024 1:30 PM CDT SUBJECTIVE REQUESTING PROVIDER Cyndie Kitchen APRN, C.N.P., D.N.P. REASON FOR CONSULT 1. Secondary Malignant Neoplasm Lung Right (HCC) 2. Malignant Neoplasm Of Esophagus Lower Third (HCC) SUPERVISED BY: Sulaiman Ackerman M.D. [phone]) HISTORY OF PRESENT ILLNESS Mr. Te Archuleta is a 73 y.o. 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 He completed SBRT to the two lesions in the right lower lobe pleura on May 25, 2023. He returns to undergo SBRT to a persistent lesion in his right apex. His oncologic history is as follows: Oncology History Malignant Neoplasm Of Esophagus Lower Third (HCC) 12/08/2018 Other 1. December 08, 2018: The patient called his primary provider with a chief complaint of trouble swallowing. The patient was scheduled for an EGD. 2. January 10, 2019: Upper GI Endoscopy was performed by Dr. Segundo Menendez and demonstrated many mucosal nodules found in the distal esophagus, 38 cm from the incisors. The Z-line was irregular and was found 38 cm from the incisors. A 2 cm hiatal hernia was present. The entire examined stomach and duodenum was normal. Pathology of the distal esophagus nodules demonstrated poorly differentiated adenocarcinoma. HER2 analysis by IHC was positive (3+). 3. January 15, 2019: CT scan of the chest, abdomen, and pelvis demonstrated segmental wall thickening of the distal esophagus at the gastroesophageal junction extending over a length of 3.5 cm. The wallmeasured up to 7 mm. A small adjacent lymph node was present within the left paraesophageal soft tissues, measuring 5 mm. Mild distention of the midesophagus was present with air and fluid. No upper mediastinal or hilar adenopathy. No axillary adenopathy or destructive osseous lesion. Indeterminatesubcentimeter hypodensities scattered throughout the liver. Postoperative changes of low anterior colonic resection. Multiple bilateral simple renal cyst measuring up to 3.3 cm. Prostatomegaly. 4. January 16, 2019: PET-CT scan demonstrated focal eccentric thickening within the distal esophagus compatible with the patient's known biopsy-proven malignancy with SUV max of 2.3. There was a tiny adjacent 5 mm lymph node with low-level activity with SUV max of 1.3, potentially metastatic in nature. Examination was otherwise negative. 5. January 22, 2019: Upper EUS was performed by Dr. Keven Hammonds, from [facility]. Barretts and tumor was seen in the distal esophagus with a top margin at 35 cm. The Z-line was at 37 cm and the bottom of the tumor was at 39 cm. The diaphragmatic pinch was at 41 cm. On ultrasound, a hypoechoic mass was found in the gastroesophageal junction. The mass was encountered at 35 cm from the incisors and extended to 39 cm. The lesion was circumferential. The endosonographic borders were irregular. The mass measured up to 10 mm in thickness. There was sonographic evidence suggesting invasion into the adventitia (layer 5). There was no sign of significant endosonographic abnormality in the ampulla. There was no sign of significant endosonographic abnormality in the common bile duct, the common hepatic duct, and in the gallbladder. The maximum diameter of the ducts were 3 mm. Anechoic lesions suggestive of a few cysts were identified in the left lobe of the liver. There was no sign of significant endosonographic abnormality in the entire pancreas. Two abnormal lymph nodes were visualized in the gastrohepatic ligament. The largest measured 8 mm x 6 mm. The nodes were oval,hypoechoic, and had well- defined margins. T3, N0 vs 1, M0 Siewart 2 GE junction adenocarcinoma by EUS criteria. Fine-needle aspiration for cytology of abnormal appearing gastrohepatic lymph node was performed. Cytology of the gastrohepatic lymph node demonstrated atypical cells suspicious for metastatic carcinoma. Stage III ( T3 N1 M0). 6. January 23, 2019: Consultation with Dr. Mary Tafoya who discussed treatment options. She recommended neoadjuvant chemoradiation followed by repeat imaging. Repeat PET scan and CT scan about 6 weeks following radiation to be arranged by Brenda Maza RN who is a member of Dr. Tafoya???s team. If he has no evidence for metastatic disease at that point, then a transhiatal robotic esophagectomy would be offered with a J-tube. 7. January 23, 2019: Medical Oncology consultation with Dr. Xavier Brown at [facility] who discussed weekly Taxol and carboplatin chemotherapy concurrent with radiation as an initial strategy. Referral to Radiation Oncology. 8. January 29, 2019: Port placement performed at [facility]. 9. February 07, 2019 through March 13, 2019: Intensity modulated radiotherapy to the lower esophageal tumor and nearby lymph nodes with a margin delivering 4500 cGy in 25 fractions with a simultaneous boost to 5000 cGy in 25 fractions to the gross tumor. The patient received concurrent chemotherapy with weekly Taxol and Carboplatin under the care of Dr. Brown on Tuesdays at the [facility]. 04/16/2019 Critical Imaging PET/CT IMPRESSION: 1. Overall relatively stable appearing PET-CT. 2. Area of mild hypermetabolic activity is identified in the lower esophagus near the GE junction. SUV max is 4.0 versus 2.4 on the prior study. The size and distribution of activity is similar to the prior study. This could conceivably represent physiologic uptake or post treatment changes. 3. No suspicious findings for metastatic disease. The previous left periaortic lymph node is no longer identified. 4. Other PET-CT findings as detailed above. CT Chest abdomen pelvis IMPRESSION: Persistent mild circumferential thickening distal esophagus. This is presumably the primary site ofcancer. No local or distant metastatic disease. Previous tiny periesophageal lymph node is significantly diminished and indistinct. 05/07/2019 Surgery and Procedures Robotic assisted transhiatal total esophagectomy with partial gastrectomy with jejunostomy tube placement Pathology: 1. Negative for residual neoplasm: -Status post radiation and chemotherapy for esophageal adenocarcinoma -Scarring present consistent with treated tumor in the esophagus and 2 lymph nodes -18 lymph nodes, negative for neoplasm -See synoptic report for additional details 2. Background esophagus with single 1 mm leiomyoma; negative for Gonzales's esophagus 3. Normal stomach 4. Proximal (squamous esophagus) and distal (gastric body) margins free of tumor B) STOMACH AND ESOPHAGUS, ANASTOMOTIC RINGS, EXCISION: 1. Normal gastric body and normal squamous esophagus C) STOMACH, PROXIMAL, PARTIAL GASTRECTOMY: 1. Normal gastric body 10/01/[address] chest abdomen and pelvis demonstrated postoperative changes of total esophagectomy with colonic interposition. No evidence of metastatic disease 12/31/[address] chest abdomen and pelvis demonstrated stable postoperative changes of total esophagectomy with no evidence of metastatic disease 03/31/[address] chest abdomen and pelvis demonstrated stable postoperative changes of total esophagectomy with no evidence of metastatic disease 07/01/[address] chest abdomen and pelvis demonstrated solitary 3 mm pulmonary nodule in the right lung base thatappears very slightly more prominent on today's exam, indeterminate. No other signs of acute or metastatic disease in the chest abdomen or pelvis. Launch changes from prior exam 10/08/[address] chest abdomen and pelvis demonstrated stable 3 mm nodule in the right lower lobe with no other evidence of metastatic disease 02/09/[address] chest abdomen and pelvis demonstrated no evidence of metastatic disease 06/19/[address] chest abdomen and pelvis demonstrated interval development of multiple right hemithorax pleural-based masses measuring up to 3.3 cm, suspicious for metastatic lesions. Recommended biopsies. Stablepostoperative changes of total esophagectomy and distal colonic resection 07/01/2021 Biopsy/Pathology Final Diagnosis A) RIGHT PLEURA, IMAGE GUIDED NEEDLE CORE BIOPSY WITH CYTOLOGIC TOUCH IMPRINTS: 1. Adenocarcinoma consistent with metastasis from esophageal primary 2. See comment 07/22/2021 - 04/2023 Chemotherapy Under the care of Dr. Na Romano, [facility] July 2021: Initiated Xeloda, cisplatin, Herceptin, and Keytruda. August 2021: Continued with Xeloda, cisplatin, and Herceptin only. Removed Keytruda after reviewing NextGen sequencing results December 2021: continued with Xeloda and Herceptin only. Discontinued all systemic treatment in April 2023. 09/28/[address] chest abdomen and pelvis demonstrated stable postoperative esophagectomy. Previously noted pleural-based masses have greatly diminished in size, now measuring up to 1.3 cm. No other suspicious pulmonary nodules or pleural effusion. No mediastinal, hilar, or axillary adenopathy. Unchanged left hepatic lobe simple cyst measuring 1.0 cm. Unchanged benign cyst in the right hepatic lobe measuring 1.4 cm 10/15/2021 Critical Imaging PET-CT impression: 1. Largely resolved or nearly resolved multiple pleural-based metastatic lesions in the right chestwith 2 smaller though persistent right lateral chest pleural lesions overall with decreased uptake compatible with response to therapy. No new hypermetabolic mediastinal lymphadenopathy or abnormal uptake in the left lung. 2. Postoperative changes related to total esophagectomy and partial gastrectomy. No abnormal uptake. Portions of air/stool filled colon extend into the diaphragmatic hiatus 3. Otherwise no tracer avid sites of distant metastatic disease in the neck, abdomen/pelvis, or bony structures 12/24/2021 Critical Imaging PET-CT Impression: 1. Overall relatively stable appearing PET-CT. 2. Persistent pleural-based small residual hypermetabolic nodules on the right are identified. Somelesions are slightly more hypermetabolic and others are slightly less hypermetabolic. Three small residual pleural-based nodules are noted. Other small pleural based nodules are identified without significant hypermetabolic activity. 3. Stable postsurgical changes are identified from esophagectomy. Herniation of the colon into a hiatal hernia is again identified. This is unchanged. 4. Small left-sided adrenal nodule is identified and should be followed by CT or PET-CT. 5. Small focus of subcutaneous activity lateral to left shoulder/deltoid, likely benign. 04/09/2022 Critical Imaging PET-CT Impression: 1. Prior esophagectomy and partial gastrectomy with intact with an intact yuridia esophagus. No asymmetric wall thickening or avid esophageal nodularity. Mild uptake near the distal anastomotic margin demonstrates no noncontrast CT abnormality considered indeterminate, possibly reactive/inflammatory. Attention on follow-up. 2. Resolved/nearly resolved right chest pleural nodules with uptake as detailed in the findings. Nonew areas of abnormal pleural uptake. No new tracer avid lung nodules. 3. Mildly increased left perihilar ramez uptake is considered nonspecific. No progressive upper mediastinal, right hilar or axillary lymphadenopathy. 4. No new tracer avid sites of disease in the solid organs of the abdomen/pelvis or osseous structures. 5. Similar small low-density lesions in each lobe of the liver not significantly changed and without significant uptake above background liver. 6. Other nonacute findings as detailed in the body report. 06/14/[address] chest abdomen and pelvis demonstrated no significant interval changes or evidence of metastatic disease. Stable intrahepatic cysts. 09/16/2022 Critical Imaging PET-CT demonstrated no evidence of residual, recurrent, or metastatic disease 01/20/2023 Critical Imaging PET-CT impression: 1. Cluster of centrilobular and tree-in-bud opacities in the left upper lobe with associated mild uptake, likely infectious/inflammatory bronchiolitis 2. Otherwise no evidence of tracer avid metastases 04/12/2023 Other Patient fell in tomato garden and developed ongoing pain. He was evaluated by his PCP and a chest x-ray was performed to evaluate for fracture where new right-sided pleural masses were identified. Right chest/ribs Xray Impression: Bilateral effusions, right greater than left, with fluid tracking along the right lateral pleura. Lobular masslike areas present within the right lung base measuring 5.6 cm extending to the lateral pleura. Additional density along the lateral minor fissure. No acute rib fracture. 04/22/2023 Critical Imaging PET/CT Impression: 1. Esophagectomy with a gastric pull-through. 2. New right lower lateral pleural thickening with 2 masslike areas of increased activity representing new pleural metastases; 3.8 x 1.5 cm in the posterior aspect, 1.3 x 0.8 cm in the midportion 05/16/2023 - 05/25/2023 Radiation Therapy Stereotactic radiotherapy to the right lower lobe pleura to a total dose of 5000 cGy in 5 fractions; treatment administered every other day 06/24/[address] chest abdomen and pelvis Impression: - 4.3 mm nodule right lower lobe. Attention on follow-up imaging in 3 months recommended. - Stable postop changes. - No inflammatory changes or adenopathy. 09/29/2023 Critical Imaging PET/CT 1. 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 2. Nonspecific right basal opacity has modest FDG uptake, improved from before, possibly a treated metastasis or chronic inflammation. 3. No other sites of hypermetabolic disease at this time 10/07/2023 - Chemotherapy Xeloda, Herceptin, and Oxaliplatin initiated with Dr. Quinteros, [facility] 12/31/23 - 01/20/24: oxaliplatin held while receiving RT to persistent right apical lesion, Xeloda reduced 12/22/2023 Critical Imaging PET/CT CONCLUSION: 1. Significant decrease size of right apical pulmonary metastasis, currently measuring 14 x 10 mm, previously 30 x 28 mm, currently SUV max 4.79, previously 12.74. 2. Interval resolution of 8mm left perihilar nodule since prior study. 3. Stable appearance of nonspecific right lung base FDG uptake. 4. No new FDG uptake is identified. INTERVAL HISTORY The patient was seen and examined today with Dr. Ackerman. The patient reports feeling well overall. He reports significant fatigue with chemotherapy. He reports the pain in his right shoulder is still present, but has overall improved compared to prior to receiving his recent systemic therapy. He now rates his pain a 2/10 most of the time with occasionally increasing to 4/10. He takes intermittent aspirin which he finds helpful with pain relief. The pain continues to radiate down to his right elbow. He denies any numbness or tingling radiating down his right arm. He denies any shortness of breath or difficulty breathing. He denies any swallowing pain or difficulty. His ECOG performance status is 0. REVIEW OF SYSTEMS Review of systems was negative except as documented above. PATIENT REPORTED SYMPTOM SCREEN FATIGUE (Scale: 0 = no fatigue; 10 = worst fatigue you can imagine): 8 PAIN (Scale: 0 = no pain; 10 = worst pain you can imagine): 2 OVERALL QUALITY OF LIFE (Scale: 0 = as bad as can be; 10 = as good as can be): 9 OBJECTIVE BP 138/66 (BP Location: Left arm, Patient Position: Sitting, Cuff Size: Regular) Pulse 63 Temp 36.9 ??C (Temporal) Wt 81.5 kg BMI 26.61 kg/m?? PHYSICAL EXAM General: Alert and oriented in no apparent distress. Lymph: No palpable cervical, supraclavicular, infraclavicular, or axillary adenopathy. Lungs: Non-labored breathing. Clear to auscultation bilaterally. Heart: Regular rate and rhythm. Normal S1 and S2. ASSESSMENT / PLAN #1 Stage III (cT3, [...] with Xeloda andHerceptin only as of December 2021; discontinued all systemic therapy April 2023 #6 Initial treatment response to right lower pleural masses with systemic therapy; additional progression noted on PET/CT April 22, 2023 #7 Stereotactic radiotherapy to right lower lobe pleura two lesions initiated on May 16, 2023; completed May 25, 2023 #8 PET/CT September 29, 2023 demonstrated progression with new metastases in the right apex and lefthilum #9 Reinitiated systemic therapy with Dr. Quinteros on October 07, 2023 #10 PET/CT December 22, 2023 demonstrated complete resolution of left hilum lesion with decreased avidity of right apex lesion It was a pleasure to meet with Te today. His PET/CT imaging demonstrated a good treatment response since his re-initiation of systemic therapy with complete resolution of the left hilum lesion and significant decrease in the right apex lesion. We discussed moving forward with radiation treatment to the persistent lesion in the right apex. We had a detailed discussion regarding the risks, benefits, and alternatives of radiotherapy in this setting. We discussed the recommendation for radiation treatment in 5 or 8 fractions. I discussed the logistics as well as the acute and chronic side effects of radiotherapy. The acute side effects may include, but are not limited to, fatigue, shortness of breath, skin irritation, cough, and pain and/or difficulty with swallowing with a rare need for hospitalization. A delayed side effect could include radiation pneumonitis or chest wall pain. Long-term side effects can be rare and may include, but not limited to, ulceration or narrowing of the esophagus, broken rib, hemorrhage of a blood vessel that could be fatal, spinal cord damage, chronic shortness of breath or bronchial collapse, chronic chest wall pain, or secondary malignancy. The patient was provided with a written s ummary of recommendations. His questions were answered to his verbalized satisfaction. After discussion, the patient verbally stated that he would like to proceed with treatment. He willundergo CT simulation today. We anticipate starting radiation therapy in the next 1-2 weeks. Patient seen in collaboration with Dr. Ackerman, please review his attestation for additional information.The patient was provided with our contact information. He was asked to contact us with questions orconcerns. He verbally expressed his understanding of the plan. EDUCATION Ready to learn, no apparent learning barriers were identified; learning preferences include listening. Explained diagnosis and treatment plan; patient expressed understanding of the content. CONSENT Discussed the risks, benefits, alternatives, and the necessity of other members of the healthcare team participating in the procedure. All questions answered and consent given. I personally spent 30 minutes in care of the patient today. Time includes both non face to face andface to face patient care. Signed by: Cyndie Kitchen APRN, C.N.P., D.N.P. 01/03/2024 1:58 PM CDT [facility] [address] [place] [address] Associated attestation - Sulaiman Ackerman M.D. - 01/06/2024 4:55 PM CDT I saw and evaluated the patient and participated in the greene portions of the service. I reviewed thedocumentation of Cyndie Kitchen C.N.P. and agree with the findings and plan. Mr. Te Archuleta is a 73 y.o. 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 He completed SBRT to the two lesions in the right lower lobe pleura on May 25, 2023. He returns to undergo SBRT to a persistent lesion in his right apex. He has been on Xeloda, Herceptin, and oxaliplatin since I last saw him. PET/CT imaging on December 22, 2023 reveals a good response with much smaller but residual disease in the right apex with resolution of an 8 mm left perihilar nodule. Oxaliplatin will be held while the patient received radiotherapy and Xeloda will be reduced. He reports that he is feeling fatigued. Pain in his right shoulder is reduced down to 2 to 4/10. The pain does radiate to his right elbow. He denies any weakness, numbness, or tingling. ECOG performance status is 0. The patient appears well on exam. Right hand certified pathology assistant is normal. His right upper extremity range of motion is normal. I recommend stereotactic body radiotherapy or fractionated stereotactic radiotherapy to a dose of 45-50 Gy in 5 fractions or 40-60 Gy in 8 fractions. We discussed the acute and chronic side effects of treatment in detail. My main concern is of brachial plexopathy because of the close approximation of the right apical mass to the brachial plexus. I explained that even with treatment that is done carefully and well he could experience pain, weakness, numbness, and/or tingling in the right arm andshoulder which could even lead to paralysis of that limb. After this discussion, the patient's questions were answered to his verbalized satisfaction. He stated that he would like to proceed with treatment and signed the consent form. He will undergo CT simulation today with IV contrast. We will endeavor to begin treatment next week. The patient verbalized satisfaction with this plan. I have spent 25 minutes caring for this patient including [id number] and [id number]-face time. Signed by: Sulaiman Ackerman M.D. 01/06/24 4:55 PM CDT [facility] [place] documented in this encounter Miscellaneous Notes * Addendum Note - Christiane Walters C.NMacario - 01/03/2024 1:30 PM CDTEncounter addended by: Christiane Walters C.NMacario on: 01/09/2024 7:52 AM Actions taken: Letter saved documented in this encounter Plan of Treatment Upcoming Encounters Date Type Department Care Team (Late st Contact Info) Description 01/25/2024 9:30 AM CDT Appointment Department of Radiation Oncology in [address] [address] Sulaiman Ackerman M.D. [address] [place] [phone] 01/26/2024 8:15 AM CDT Appointment Department of Radiation Oncology in [address] [address] Sulaiman Ackerman M.D. [address] [place] [phone] 01/27/2024 8:45 AM CDT Appointment Department of Radiation Oncology in [address] [address] Sulaiman Ackerman M.D. [address] [place] [phone] 01/27/2024 9:00 AM CDT Appointment Department of Radiation Oncology in [address] [address] Sulaiman Ackerman M.D. [address] [place] [phone] 01/30/2024 8:15 AM CDT Appointment Department of Radiation Oncology in [place] [id number] [place] [phone] Sulaiman Ackerman M.D. [address] [place] [phone] 01/31/2024 8:45 AM CDT Appointment Department of Radiation Oncology in [address] [address] Sulaiman Ackerman M.D. 200 [place] [address] 02/01/2024 8:15 AM CDT Appointment Department of Radiation Oncology in [address] [address] Sulaiman Ackerman M.D. 200 [place] [address] 02/01/2024 8:45 AM CDT Appointment Department of Radiation Oncology in [address] [phone] Corinne Aguillon M.D. 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
--- OUTSIDE RECORDS SUMMARY | 2024-01-25 07:40 | XMS_ITS | Encounter Summary ---
Author Organization [facility] Address [address] [place] [address] Care Team Providers Care E Learning Specialist Name Role Phone Unavailable Primary Care Provider Unavailabl e Encounter Details Date Type Department Care Team (Late st Contact Info) Description 01/16/2024 7:48 AM CDT Hospital Encounter Department of Radiation Oncology in [place], [place] [address] [place] [phone] Sulaiman Ackerman M.D. [address] [place] [address] Social History Tobacco Use Types Packs/Day Years Used Date Smoking Tobacco: Former Cigarettes 1 18 1 967 - 1984 Smokeless Tobacco: Never Alcohol Use Standard Drinks/Week Comments Yes 0 (1 standard drink = 0.6 oz pur e alcohol) [facility] Utilities Answer Date Recorded In the past 12 months has e [employer], gas, oil, or water [employer] threatened to shut off services in your [...] your living situation today? I have a [employer] place to live 10/02/2023 Sex and Gender Information Value Date Recorded Sex Assigned at Male 10/02/2023 7:37 AM MEETING FACILITATOR Gender Identity Male 10/02/2023 7:37 AM MEETING FACILITATOR Sexual Orientation Straight 10/02/2023 7: 37 AM MEETING FACILITATOR documented as of this encounter Plan of Treatment Upcoming Encounters Date Type Department Care Team (Late st Contact Info) Description 01/25/2024 9:30 AM CDT Appointment Department of Radiation Oncology in [place] [address] [place] [address] Sulaiman Ackerman M.D. 200 [place] [address] 01/26/2024 8:15 AM CDT Appointment Department of Radiation Oncology in [place] [address] [place] [address] Sulaiman Ackerman M.D. 200 [place] [address] 01/27/2024 8:45 AM CDT Appointment Department of Radiation Oncology in [address] [phone] Sulaiman Ackerman M.D. [address] [place] [phone] 01/27/2024 9:00 AM CDT Appointment Department of Radiation Oncology in [place], [place] [address] [place] [address] Sulaiman Ackerman M.D. [address] [place] [phone] 01/30/2024 8:15 AM CDT Appointment Department of Radiation Oncology in [place], [place] [address] [place] [address] Sulaiman Ackerman M.D. [address] [place] [phone] 01/31/2024 8:45 AM CDT Appointment Department of Radiation Oncology in [place], [place] [address] [place] [phone] Sulaiman Ackerman M.D. [address] [place] [phone] 02/01/2024 8:15 AM CDT Appointment Department of Radiation Oncology in [place], [place] [address] [phone] Sulaiman Ackerman M.D. [address] [place] [phone] 02/01/2024 8:45 AM CDT Appointment Department of Radiation Oncology in [place] [address] [place] [address] Corinne Aguillon M.D. [address] [place] [phone] documented as of this encounter Visit Diagnoses Not on filedocumented in this encounter
--- OUTSIDE RECORDS SUMMARY | 2024-01-25 07:40 | XMS_ITS | Encounter Summary ---
Author Organization [facility] Address [address] [place] [address] Care Team Providers Care Carbonation Tester Name Role Phone Unavailable Primary Care Provider Unavailabl e Encounter Details Date Type Department Care Team (Late st Contact Info) Description 01/17/2024 7:49 AM CDT Hospital Encounter Department of Radiation Oncology in [place], [place] [address] [place] [phone] Sulaiman Ackerman M.D. [address] [place] [address] Social History Tobacco Use Types Packs/Day Years Used Date Smoking Tobacco: Former Cigarettes 1 18 1 967 - 1984 Smokeless Tobacco: Never Alcohol Use Standard Drinks/Week Comments Yes 0 (1 standard drink = 0.6 oz pur e alcohol) [facility] Utilities Answer Date Recorded In the past 12 months has e [employer], gas, oil, or water [employer] threatened to shut off services in your [...] your living situation today? I have a [facility] place to live 10/02/2023 Sex and Gender Information Value Date Recorded Sex Assigned at Male 10/02/2023 7:37 AM MILLER HELPER DISTILLERY Gender Identity Male 10/02/2023 7:37 AM MILLER HELPER DISTILLERY Sexual Orientation Straight 10/02/2023 7: 37 AM MILLER HELPER DISTILLERY documented as of this encounter Plan of Treatment Upcoming Encounters Date Type Department Care Team (Late st Contact Info) Description 01/25/2024 9:30 AM CDT Appointment Department of Radiation Oncology in [place] [address] [place] [address] Sulaiman Ackerman M.D. 200 [place] [address] 01/26/2024 8:15 AM CDT Appointment Department of Radiation Oncology in [place] [address] [place] [address] Sulaiman Ackerman M.D. 200 [place] [address] 01/27/2024 8:45 AM CDT Appointment Department of Radiation Oncology in [address] [address] Sulaiman Ackerman M.D. [address] [place] [phone] 01/27/2024 9:00 AM CDT Appointment Department of Radiation Oncology in [place], [place] [address] [place] [address] Sulaiman Ackerman M.D. [address] [place] [phone] 01/30/2024 8:15 AM CDT Appointment Department of Radiation Oncology in [place], [place] [address] [place] [address] Sulaiman Ackerman M.D. [address] [place] [phone] 01/31/2024 8:45 AM CDT Appointment Department of Radiation Oncology in [place], [place] [address] [place] [phone] Sulaiman Ackerman M.D. [address] [place] [phone] 02/01/2024 8:15 AM CDT Appointment Department of Radiation Oncology in [place], [place] [address] [place] [phone] Sulaiman Ackerman M.D. [address] [place] [phone] 02/01/2024 8:45 AM CDT Appointment Department of Radiation Oncology in [place] [address] [place] [address] Corinne Aguillon M.D. [address] [place] [phone] documented as of this encounter Visit Diagnoses Not on filedocumented in this encounter
--- OUTSIDE RECORDS SUMMARY | 2024-01-25 07:40 | XMS_ITS | Encounter Summary ---
Author Organization [facility] Address [address] [place] [address] Care Team Providers Care Electric Car Operator Name Role Phone Unavailable Primary Care Provider Unavailabl e Reason for Referral * Outpatient (Routine) - Authorized Specialty Diagnoses / Procedures Referred By Delisaac t Referred To Contact Radiation Oncology Sulaiman Ackerman M.D. 200 [place] [address] [facility] Referral ID Status Reason Start Date Expiration Date V isits Requested Visits Authorized [id number] Authorized 12/27/2023 06/27/2025 10 10 Reason for Visit * Outpatient (Routine) - Authorized Specialty Diagnoses / Procedures Referred By Alex vergara Referred To Contact Radiation Oncology Sulaiman Ackerman M.D. 200 [place] [address] [facility] Region Referral ID Status Reason Start Date Expiration Date V isits Requested Visits Authorized [id number] Authorized 12/27/2023 06/27/2025 10 10 Encounter Details Date Type Department Care Team (Latest Contact Info) Description 01/13/2024 7:48 AM CDT - 01/13/2024 9:52 AM CDT Hospital Encounter Department of Radiation Oncology in [place], [place] [address] [place] [phone] Sulaiman Ackerman M.D. 200 [place] [address] Reva Sahu R.N. 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 I have a [facility] place to live 10/02/2023 Sex and Gender Information Value Date Recorded Sex Assigned at Male 10/02/2023 7:37 AM FULL STACK ENGINEER Gender Identity Male 10/02/2023 7:37 AM FULL STACK ENGINEER Sexual Orientation Straight 10/02/2023 7: 37 AM FULL STACK ENGINEER documented as of this encounter Medications at Time of Discharge Medication Sig Dispensed Refills Start Date End Date atorvastatin (LIPITOR) 10 mg tablet Take 10 mg by mouth. 11/24/2018 dexAMETHasone (DECADRON) 4 mg tablet Take 1 tablet (4 mg total) by mouth 2 (two) times a day. 14 tablet 1 01/13/2024 loratadine (CLARITIN) 10 mg tablet Take 10 mg by mouth daily. losartan (COZAAR) 25 mg tablet Take 25 mg by mouth daily. 4 11/25/2018 multivitamin tablet Take 1 tablet by mouth. 10/11/2011 predniSONE (DELTASONE) 5 mg tablet Take 5 mg by mouth. 01/25/2019 raNITIdine (ZANTAC) 150 mg tablet Take 150 mg by mouth. documented as of this encounter Progress Notes * Reva Sahu R.N. - 01/13/2024 8:15 AM CDT SUBJECTIVE REASON FOR VISIT Evaluation for side effects while receiving radiation treatment Nurse visit HISTORY OF PRESENT ILLNESS Mr. Te Archuleta is a 73 y.o. 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 Patient reports that 2 weeks ago the right shoulder pain became more intermittent and noticeable. He states that the last 4-5 days the pain is now constant. He reports pain flare last night around 0100 despite Tylenoland Aspirin. Pain is positional, tender and sharp in nature. Pain radiates from right shoulder downto right elbow and pain also present to right mid ribcage region. He also reports numbness to rightforearm area. Patient rates his pain at a 4-5 out of 10 last night. Patient rates his pain at a 2-3out of 10 right now. Patient denies shortness of breath, cough, fevers, chills or other new symptoms. OBJECTIVE There were no vitals taken for this visit. PHYSICAL EXAM General: Alert and oriented in no apparent distress. ASSESSMENT / PLAN I have reviewed Dr. Ackerman's documentation from consult on January 06, 2024. I have reviewed symptomswith Cyndie Kitchen CNP today. We also discussed with Dr. Hanson today as well. We will send in prescription for 4 mg of Dexamethasone twice a day. I will see patient this coming Tuesday to reassess. Patient will also be seen in management visit on Tuesday to discuss Dexamethasone prescription/potential taper. I have provided patient with our geographic information systems analyst contact card today. Patient is to take second dose of Dexamethasone around 4/430 pm to therefore not interfere with sleep. He will contact us with any questions or concerns. We will continue with radiation treatment as planned. Signed by: Reva Sahu R.N. 01/13/2024 9:29 AM CDT documented in this encounter Plan of Treatment Upcoming Encounters Date Type Department Care Team (Late st Contact Info) Description 01/25/2024 9:30 AM CDT Appointment Department of Radiation Oncology in [address] [address] Sulaiman Ackerman M.D. 200 [place] [address] 01/26/2024 8:15 AM CDT Appointment Department of Radiation Oncology in [address] [address] Sulaiman Ackerman M.D. [address] [place] [phone] 01/27/2024 8:45 AM CDT Appointment Department of Radiation Oncology in [address] [address] Sulaiman Ackerman M.D. [address] [place] [phone] 01/27/2024 9:00 AM CDT Appointment Department of Radiation Oncology in [address] [address] Sulaiman Ackerman M.D. [address] [place] [phone] 01/30/2024 8:15 AM CDT Appointment Department of Radiation Oncology in [address] [address] Sulaiman Ackerman M.D. [address] [place] [phone] 01/31/2024 8:45 AM CDT Appointment Department of Radiation Oncology in [address] [address] Sulaiman Ackerman M.D. [address] [place] [phone] 02/01/2024 8:15 AM CDT Appointment Department of Radiation Oncology in [address] [address] Sulaiman Ackerman M.D. [address] [place] [phone] 02/01/2024 8:45 AM CDT Appointment Department of Radiation Oncology in [address] [address] Corinne Aguillon M.D. 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
--- OUTSIDE RECORDS SUMMARY | 2024-01-25 07:40 | XMS_ITS | Encounter Summary ---
Author Organization [facility] Address [address] [place] [address] Care Team Providers Care Film Cutter Name Role Phone Unavailable Primary Care Provider Unavailabl e Reason for Referral * Radiation Therapy (Routine) - Closed Specialty Diagnoses / Procedures Referred By Alex vergara Referred To Contact Diagnoses Secondary Malignant Neoplasm Lung Right (HCC) Procedures Initial Rad Onc Treatment Planning CT Simulation Sulaiman Ackerman M.D. 200 [place] [address] [facility] Region Referral ID Status Reason Start Date Expiration Date Visits Re quested Visits Authorized [id number] Closed 12/27/2023 12/26/2024 1 1 Reason for Visit * Radiation Therapy (Routine) - Closed Specialty Diagnoses / Procedures Referred By Alex vergara Referred To Contact Diagnoses Secondary Malignant Neoplasm Lung Right (HCC) Procedures Initial Rad Onc Treatment Planning CT Simulation Sulaiman Ackerman M.D. [address] [place] [address] [facility] Region Referral ID Status Reason Start Date Expiration Date Visits Re quested Visits Authorized [id number] Closed 12/27/2023 12/26/2024 1 1 Encounter Details Date Type Department Care Team (Latest Contact Info) Description 01/03/2024 2:01 PM CDT - 01/03/2024 4:56 PM CDT Hospital Encounter Department of Radiation Oncology in [address] [address] Sulaiman Ackerman M.D. [address] [place] [address] Secondary Malignant Neoplasm Lung Right (HCC) Social History Tobacco Use Types Packs/Day Years Used Date Smoking Tobacco: Former Cigarettes 1 18 1 967 - 1984 Smokeless Tobacco: Never Alcohol Use Standard Drinks/Week Comments Yes 0 (1 standard drink = 0.6 oz pur e alcohol) [facility] Utilities Answer Date Recorded In the past [...] your living situation today? I have a [facility] place to live 10/02/2023 Sex and Gender Information Value Date Recorded Sex Assigned at Male 10/02/2023 7:37 AM MICROBIOLOGY COORDINATOR Gender Identity Male 10/02/2023 7:37 AM MICROBIOLOGY COORDINATOR Sexual Orientation Straight 10/02/2023 7: 37 AM MICROBIOLOGY COORDINATOR documented as of this encounter Medications at [...] by mouth. documented as of this encounter Procedure Notes * Yana Pabon - 01/03/2024 2:30 PM CDTAssociated Order(s): Initial Rad Onc Treatment Planning CT Simulation Pre-Procedure Diagnose(s): Secondary Malignant Neoplasm Lung Right (HCC) Post-Procedure Diagnose(s): Secondary Malignant Neoplasm Lung Right (HCC) Initial Rad Onc Treatment Planning CT Simulation Performed by: Sulaiman Ackerman M.D. Authorized by: Sulaiman Ackerman M.D. Simulation was performed under physician supervision based on physician order in preparation for radiation therapy. Physician was immediately available to provide assistance and direction throughout the procedure. Written consent for treatment was completed or confirmed. The patient was appropriately identified and placed in the treatment position using the necessary immobilization to ensure a reproducible treatment position. Reference alexandra were placed to facilitate marking of isocenter. Area scanned:Chest Contrast used for the simulation procedure: IV Patient position: Head first supine Custom immobilization: 5 point mask and Custom neck rest Motion management: 4D CT scan Bolus: No CT guidance: Following positioning of the patient, a series of slices was obtained to be utilized in treatment planning. CT images were transferred to the [employer] treatment planning system, after a reference isocenter was determined and marked. Segmentation and treatment planning will take place prior to treatment delivery. Patient set up and imaging was appropriate and completed without incident. Crepe Machine Operator use:No Associated attestation - Sulaiman Ackerman M.D. - 01/03/2024 4:56 PM CDT I was available for the entirety of the procedure but only present for image review. Signed by: Sulaiman Ackerman M.D. 01/03/24 4:56 PM CDT [facility] documented in this encounter Plan of Treatment Upcoming Encounters Date Type Department Care Team (Late st Contact Info) Description 01/25/2024 9:30 AM CDT Appointment Department of Radiation Oncology in [address] [address] Sulaiman Ackerman M.D. [address] [place] [phone] 01/26/2024 8:15 AM CDT Appointment Department of Radiation Oncology in [address] [address] Sulaiman Ackerman M.D. [address] [place] [phone] 01/27/2024 8:45 AM CDT Appointment Department of Radiation Oncology in [address] [address] Sulaiman Ackerman M.D. [address] [place] [phone] 01/27/2024 9:00 AM CDT Appointment Department of Radiation Oncology in [address] [address] Sulaiman Ackerman M.D. [address] [place] [phone] 01/30/2024 8:15 AM CDT Appointment Department of Radiation Oncology in [place] [address] [place] [phone] Sulaiman Ackerman M.D. [address] [place] [phone] 01/31/2024 8:45 AM CDT Appointment Department of Radiation Oncology in [place], [place] [address] [place] [phone] Sulaiman Ackerman M.D. [address] [place] [phone] 02/01/2024 8:15 AM CDT Appointment Department of Radiation Oncology in [address] [address] Sulaiman Ackerman M.D. [address] [place] [phone] 02/01/2024 8:45 AM CDT Appointment Department of Radiation Oncology in [address] [address] Corinne Aguillon M.D. [address] [place] [phone] documented as of this encounter Procedures Procedure Name Priority Date/Time Associated Diagnosis Comments INITIAL RAD ONC TREATMENT PLANNING CT SIMULATION Routine 01/03/2024 2:30 PM CDT Secondary Malignant Neoplasm Lung Right (HCC) documented in this encounter Results * Initial Rad Onc Treatment Planning CT Simulation (01/03/2024 2:30 PM CDT) Narrative BRENDAN GARCIA - 01/03/2024 2:30 PM CDT Yana Pabon ? 01/03/2024 ??2:49 PM Initial Rad Onc Treatment Planning CT Simulation Performed by: Sulaiman Ackerman M.D. Authorized by: Sulaiman Ackerman M.D. ?? Sulaiman Ackerman M.D. RADIATION ONCOLOGY ORDERABLES Performing Organization Address City/State/[facility] Co de Phone Number CARDONA JOSE documented in this encounter Visit Diagnoses Diagnosis Secondary Malignant Neoplasm Lung Right (HCC) documented in this encounter
--- OUTSIDE RECORDS SUMMARY | 2024-01-25 07:40 | XMS_ITS | Clinical Summary ---
Author Organization [facility] Address [place], [place] [address] Care Team Providers Care Oil Rag Washer Name Role Phone Nancy Perez Primary Care Provider Mary Tafoya MD Unavailable Jackyi Keven Rojas MD Unavailable [phone] Liz Quinteros MD Unavailable [phone] Allergies No known active allergies Medications Medication Sig Dispensed Refills Start Date End Date Status multivitamin capsule Take 1 Capsule by mouth once daily. Active magnesium oxide (MAG-OX 400) 400 mg tablet Take 400 mg by mouth 2 times daily. 09/17/2021 Active sodium chloride 1 gram tablet Daily 08/05/2021 Active potassium chloride (KLOR-CON M20) 20 mEq Extended-Release tablet Take 1 tab daily 09/16/2021 Active capecitabine (XELODA) 500 mg tablet Twice A Day 07/07/2021 Active atorvastatin (LIPITOR) 10 mg tabletIndications:Hyp ercholesteremia Take 1 Tablet (10 mg) by mouth once daily. 90 Tablet 3 11/12/2022 Active cyanocobalamin (Vitamin B-12) 1,000 mcg tablet Take 1 Tablet (1,000 mcg) by mouth once daily. 90 Tablet 3 04/12/2023 Active trimethoprim-polymyxi n b (POLYTRIM) ophthalmic solutionIndications:A cute bacterial conjunctivitis of both eyes Place 1 Drop into both eyes every 4 hours for 7 days. 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 [address] [place] [address] Paula Smith NP Eye Problem 12/22/2023 Orders Only [facility] Scanner 1 scan: (1-Ord) [facility], PET SKULL TO MID THIGH, 12/22/2023 12/22/2023 Travel 12/22/2023 Nurse Triage [facility] [address] [place] [address] Nancy Perez PA Eye Problem from Last 3 Months Immunizations Name Administration Dates Next Due AMB INFLUENZA IIV3 (AGE 65+ YRS) PF (Flu Clinic Only) 05/15/2018,05/15/2018 AMB Influenza, IIV4 PF (=>6 mos Flulaval,Fluzone Fluarix)(Flu Clinic Only) 04/23/2014 COVID-19 vaccine (Moderna 100mcg/0.5mL) PF, MDV 09/21/2020,08/24/2020 Influenza A (H1N1), Inactivated 08/05/2009 Influenza Virus, Unspecified 09/02/2010 Influenza, High-dose Inactivated 04/28/2016 Influenza, High-dose Quadriv alent Inactivated 05/22/2020 Influenza, IIV3 (Age 6-35 mos) 09/02/2010 Influenza, IIV3 (Age >=3 years) 05/16/2013,04/26,09/18/2010 Influenza, IIV4 04/23/2014 Influenza, Inactivated AIIV4 (Age 65+ Years) Preserv Free 05/06/2022,05/09/2021 Influenza, Inactivated IIV3 (Age 65+ Years) Preserv Free 06/08/2019,05/04/2017 Pneumococcal Poly,23-Valent (Pneumovax) 11/19/2016 Pneumococcal conj 13-Valent (Prevnar 13) 11/13/2014 TD, UNSPECIFIED 02/14/2018 Td (Age >=7 Years) 02/14/2018, 9,01/20/1994,1985 Tdap 08/01/2008 Zoster (Shingrix-RZV, recombinant) 05/02/2018, Family History Medical History Relation Name Comments Cancer-prostate Father GI Disease Father colon polyps Stroke Mother Cancer-prostate Paternal Grandfather GI Disease Sister 4 Radha colon polyps GI Disease Sister 5 Tri colon polyps Good Health Son 3 Good Health Son 4 Relation Name Status Comments Brother Alive Father Alive Mother (Age 84) stroke Paternal Grandfather Sister 1 Alive Sister 2 Alive Sister 3 Alive Sister 4 Radha Sister 5 Tri Son 1 Alive Son 2 Alive Son 3 Son 4 Social History Tobacco Use Types Packs/Day Years Used Date Smoking Tobacco: Former Cigarettes 1 18 0 08/01/1966 - 08/01/1984 Smokeless Tobacco: Never Tobacco Cessation:Counseling Given: Yes Alcohol Use Standard Drinks/Week Comments Yes 4 (1 standard drink = 0.6 oz pur e alcohol) couple stiff drinks/day PHQ-2 Answer Date Recorded PHQ-2 TOTAL SCORE 0 11/12/2022 Social Connections Answer Date Recorded Frequency of Communication with Friends and Fami ly Not on file 06/23/2023 Financial Resource Strain Answer Date R ecorded Difficulty of Paying Living Expenses 3 06/22/2022 Difficulty of Paying Living Expenses Not on file 06/22/2022 Food Insecurity Answer Date Recorded Worried About Running Out of Food in the Last Ye ar 1 06/22/2022 Transportation Needs Answer Date Record ed Lack of Transportation (Medical) 1 06/22/2022 Housing Stability Answer Date Recorded Unable to Pay for Housing in the Last Year 1 06/22/2022 Sex and Gender Information Value Date Recorded Sex Assigned at Not on file Gender Identity Not on file Sexual Orientation Not on file Obstetrics History Last Filed Vital Signs Vital Sign Reading Time Taken Comments Blood Pressure 148/67 12/23/2023 12:44 PM CDT Pulse 60 12/23/2023 12:44 PM CDT Temperature 36.4 ??C (97.5 ??F) 12/23/2023 12:44 PM C DT Respiratory Rate 14 12/23/2023 12:44 PM CDT Oxygen Saturation 98% 12/23/2023 12:44 PM CDT Inhaled Oxygen Concentration - - Weight 80.6 kg (177 lb 9.6 oz) 12/23/2023 12:44 PM CDT Height 176 cm (5' 9.29) 11/12/2022 8:00 AM CDT Body Mass Index 26.01 11/12/2022 8:00 AM CDT Plan of Treatment Upcoming Encounters Date Type Department Care Team (Late st Contact Info) Description 01/25/2024 8:00 AM CDT Ancillary Procedure [facility] [address] [place] [address] Health Maintenance Due Date Last Done Comments COVID-19 vaccine series ( season) 2023 05/06/2022, 11/10/2021, 05/28/2021, Additional history exists BMI (ht and wt on same day) for age 18+ 11/13/2023 11/12/2022, 03/04/2021, 11/10/2020, Additional history exists Depression screening for age 12+ 11/13/2023 11/12/2022, 11/10/2020, 02/04/2020, Additional history exists Medicare Wellness for age 65+ 11/13/2023, 11/10/2020, 11/24/2018, Additional history exists Influenza for age 65+ 04/01/2024 05/06/2022 , 05/09/2021, 05/22/2020, Additional history exists Colonoscopy through age 75 04/09/202504/09, 04/09/2020, 01/25/2017, Additional history exists Lipids for age 45-75 06/22/2027 06/22/2022, 11/07/2020, 02/04/2020, Additional history exists Tetanus booster 02/15/2028 02/14/2018, 01/29, 08/01/2008, Additional history exists Tdap Completed 08/01/2008 Hepatitis C screening for ag e 18-79 Completed 11/18/2015 Pneumococcal series for age 65+ Completed 7, 11/13/2014 Zoster (shingles) series for age 50+ Completed 05/02/2018, 02/14/2018 Procedures Procedure Name Priority Date/Time Associated Diagnosis Comments SCAN-PET SCAN 12/22/2023 12:00 AM CDT LIPID PANEL W REFLEX MEASURED LDL Routine 06/22/2022 9:18 AM PLASTIC SURGERY TECHNICIAN Screening cholesterol level COLONOSCOPY 04/09/2020 9:19 AM CDT History of colon polyps Polyp of colon, unspecified part of colon, unspecified type Personal history of colon cancer ANTI HCV Routine 11/18/2015 9:17 AM CDT Need for hepatitis C screening test from Last 3 Months or Most Recently Relevant to Health Maintenance Results * SCAN-PET SCAN (12/22/2023 12:00 AM CDT) Anatomical Region Laterality Modality Other Scanner OTHER * LIPID PANEL W REFLEX MEASURED LDL (06/22/2022 9:18 AM PLASTIC SURGERY TECHNICIAN) CHOLESTEROL,TOTAL 144 100 - 199 mg/dL 06/23/2022 4:20 PM PLASTIC SURGERY TECHNICIAN [facility] LAB[facility]AT[facility] TRAL LABORATORY TRIGLYCERIDES 117 <150 mg/dL 06/23/2022 4:20 PM PLASTIC SURGERY TECHNICIAN [facility] HDL CHOLESTEROL 57 >40 mg/dL 4:20 PM PLASTIC SURGERY TECHNICIAN [facility] NON-HDL CHOLESTEROL 87 <145 mg/dl 06/23/2022 4:20 PM PLASTIC SURGERY TECHNICIAN [facility] TRAL LABORATORY CHOL/HDL RATIO 2.53 <4.50 06/23/2022 4:20 PM PLASTIC SURGERY TECHNICIAN [facility] LDL CHOLESTEROL 64 <=130 mg/dL 06/23/2022 4:20 PM PLASTIC SURGERY TECHNICIAN [facility] TRAL LAB[facility]ATORY VLDL CHOLESTEROL 23 <=30 mg/dL 06/23/2022 4:20 PM PLASTIC SURGERY TECHNICIAN [facility] TRAL LABORAT[facility] PROVIDER ORDERED STATUS RANDOM 06/23/2022 4:20 PM PLASTIC SURGERY TECHNICIAN [facility] Blood BLOOD SPECIMEN / Unknown Venipuncture / Unknown 06/22/2022 9:18 AM PLASTIC SURGERY TECHNICIAN 06/22/2022 9:20 AM PLASTIC SURGERY TECHNICIAN Nancy LESLIE CHEMISTRY [facility] [address] [place] [address], * COLONOSCOPY (04/09/2020 9:19 AM CDT) 04/09/2020 9:19 AM CDT Narrative Transcriptions Segundo Menendez MD - 04/09/2020 10:16 AM CDT Patient Name: Te Archuleta Procedure Date: 04/09/2020 Gender: Male Date of : 1950 Admit Type: Outpatient Procedure: Colonoscopy Proceduralist: Segundo Menendez MD , Gwendolyn Crump (Nurse) Indications/Pre-Op Diagnosis: Surveillance: Personal history ofadenomatous polyps on last colonoscopy 3 years ago, High risk colon cancer surveillance: Personal history of colon cancer, Last colonoscopy:December 2016 Medications: Fentanyl 100 micrograms IV, Midazolam 2 mgIV, The level of sedation administered wasmoderate Procedure Description: The patient had risks, benefits and alternatives explained to andgave informed consent. The patient had a stable cardiopulmonary status and judged an adequate candidate for conscious sedation. The colonoscope was passed through the anus and advanced to thececum, identified by appendiceal orifice and ileocecal valve. Thecolonoscopy was performed without difficulty. The patient tolerated the procedure well. The quality of the bowel preparation was good. The ileocecal valve, appendiceal orifice, and rectum were photographed. Complications: No immediate complications. Estimated Blood Loss & Specimen: Estimated blood loss: none. Specimen collected - Yes and sent to Laboratory Findings: The perianal and digital rectal examinations were normal. A 4 mm polyp was found in the transverse colon. The polyp wassessile. The polyp was removed with a cold snare. Resection and retrieval were complete. There was evidence of a prior end-to-end colo-colonic anastomosis inthe sigmoid colon. This was patent and was characterized by healthy appearing mucosa. The exam was otherwise without abnormality on direct and retroflexion views. Impressions/Post-Op Diagnosis: - One 4 mm polyp in the transverse colon, removed with a cold snare. Resected and retrieved. - Patent end-to-end colo-colonic anastomosis, characterized byhealthy appearing mucosa. - The examination was otherwise normal on direct and retroflexionviews. Recommendation: - Patient has a contact number available for emergencies. The signsand symptoms of potential delayed complications were discussed with the patient. Return to normal activities tomorrow. Written discharge instructions were provided to the patient. - Resume previous diet. - Continue present medications. - Await pathology results. - Repeat colonoscopy in 5 years for surveillance. Moderate Sedation: Moderate (conscious) sedation was administered by the endoscopy nurse and supervised by the endoscopist. The following parameters were monitored: oxygen saturation, heart rate, respiratory rate, blood pressure, adequacy of pulmonary ventilation and reponse to care. [facility] flow[facility]ets and nursing notes for moderate sedation details. Total physician intraservice time was 21 minutes. Segundo Menendez MD 04/09/2020 10:15:58 AM This report has been signed electronically. Note Initiated On: 04/09/2020 9:19 AM Procedure Code(s): --- Professional --- 75828, Colonoscopy, flexible; with removalof tumor(s), polyp(s), or other lesion(s) bysnare technique Diagnosis Code(s): --- Professional --- Z86.010, Personal history of colonicpolyps Z85.038, Personal history of other malignant neoplasm of large intestine K63.5, Polyp of colon Z98.0, Intestinal bypass and anastomosisstatus CPT copyright 2019 [employer]. All rights reserved. The codes documented in this report are preliminary and upon drywall taper helper reviewmay be revised to meet current compliance requirements. Scope In: 9:50:19 AM Scope Withdrawal Time 0 hours 13 minutes 47 seconds Scope Out: 10:09:58 AM Segundo Menendez MD PROCEDURE ORD * ANTI HCV [16314.2] (11/18/2015 9:17 AM CDT) HEPATITIS C ANTIBODY Non-Reacti ve Non-Reacti ve 11/18/2015 3:34 PM CDT [facility] Blood specimen (specimen) BLOOD SPECIMEN / Unknown Venipuncture / Unknown 11/18/2015 9:17 AM CDT 11/18/2015 9:17 AM CDT Narrative [facility] - 11/18/2015 3:34 PM CDT Antibodies to HCV not detected; does not exclude the possibility of exposure to HCV. Nancy LESLIE SEND OUTS [facility] 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 Healthcare Directive 02/25/2020 020 Healthcare Directive 02/16/2011 * Full Code (Latest Code Status on File) Date Activated Date Inactivated Comments 03/17/2021 9:41 AM 03/18/2021 2:34 AM Question Answer Comments Code Status Discussion: Not Discussed * Full Code Date Activated Date Inactivated Comments 09/18/2019 8:38 AM 09/18/2019 1:49 PM * Full Code Date Activated Date Inactivated Comments 07/20/2019 11:12 AM 07/20/2019 6:06 PM * Full Code Date Activated Date Inactivated Comments 07/06/2019 7:38 AM 07/06/2019 12:16 PM * Full Code Date Activated Date Inactivated Comments 06/15/2019 11:12 AM 06/15/2019 5:23 PM Care Teams Oil Rag Washer Relationship Specialty Start Date End Date Nancy Perez PA [address] [place] [address] PCP - General Family Practice 06/09/15 Mary Tafoya MD [address] [place] [address] General Surgery Surgery - Oncology 01/12/19 Keven Hammonds MD [address] [place] [address] Gastroenterology Gastroenterology 01/17/19 Liz Quinteros MD [address] [place] [address] Oncology 11/12/22
--- OUTSIDE RECORDS SUMMARY | 2024-01-25 07:40 | XMS_ITS | Encounter Summary ---
Author Organization [facility] Address [address] [place] [address] Care Team Providers Care Instructor Dancing Name Role Phone Unavailable Primary Care Provider Unavailabl e Reason for Referral * Radiation Therapy (Routine) - Authorized Specialty Diagnoses / Procedures Referred By Alex t Referred To Contact Diagnoses Secondary Malignant Neoplasm Lung Right (HCC) Procedures Prior Auth Rad Tx Corinne Aguillon M.D. [address] [place] [address] [facility] Referral ID Status Reason Start Date Expiration Date V isits Requested Visits Authorized [id number] Authorized 01/09/2024 01/08/2025 1 1 Encounter Details Date Type Department Care Team (Late st Contact Info) Description 01/09/2024 Orders Only Department of Radiation Oncology in [place], [place] [address] [place] [address] Corinne Aguillon M.D. [address] [place] [address] Secondary Malignant Neoplasm Lung Right (HCC) (Primary Dx) Social History Tobacco Use Types Packs/Day Years Used Date Smoking Tobacco: Former Cigarettes 1 18 1 967 - 1984 Smokeless Tobacco: Never Alcohol Use Standard Drinks/Week Comments Yes 0 (1 standard drink = 0.6 oz pur e alcohol) [facility] Utilities Answer Date Recorded In the [...] your living situation today? I have a [facility] place to live 10/02/2023 Sex and Gender Information Value Date Recorded Sex Assigned at Male 10/02/2023 7:37 AM FIREARMS INSPECTOR Gender Identity Male 10/02/2023 7:37 AM FIREARMS INSPECTOR Sexual Orientation Straight 10/02/2023 7: 37 AM FIREARMS INSPECTOR documented as of this encounter Plan of Treatment Upcoming Encounters Date Type Department Care Team (Late st Contact Info) Description 01/25/2024 9:30 AM CDT Appointment Department of Radiation Oncology in [place] [address] [place] [phone] Sulaiman Ackerman M.D. [address] [place] [phone] 01/26/2024 8:15 AM CDT Appointment Department of Radiation Oncology in [address] [address] Sulaiman Ackerman M.D. [address] [place] [phone] 01/27/2024 8:45 AM CDT Appointment Department of Radiation Oncology in [address] [address] Sulaiman Ackerman M.D. [address] [place] [address] 01/27/2024 9:00 AM CDT Appointment Department of Radiation Oncology in [address] [address] Sulaiman Ackerman M.D. [address] [place] [phone] 01/30/2024 8:15 AM CDT Appointment Department of Radiation Oncology in [address] [address] Sulaiman Ackerman M.D. [address] [place] [address] 01/31/2024 8:45 AM CDT Appointment Department of Radiation Oncology in [address] [address] Sulaiman Ackerman M.D. [address] [place] [phone] 02/01/2024 8:15 AM CDT Appointment Department of Radiation Oncology in [address] [place] [address] Sulaiman Ackerman M.D. [address] [place] [phone] 02/01/2024 8:45 AM CDT Appointment Department of Radiation Oncology in [place], [place] [address] [place] [address] Corinne Aguillon M.D. [address] [place] [address] Scheduled Orders Name Type Priority Associated Diagnoses Orde r Schedule Prior Auth Rad Tx Radiation Oncology Routine Secondary Malignant Neoplasm Lung Right (HCC) Ordered: 01/09/2024 documented as of this encounter Visit Diagnoses Diagnosis Secondary Malignant Neoplasm Lung Right (HCC)- Primary documented in this encounter
--- OUTSIDE RECORDS SUMMARY | 2024-01-25 07:40 | XMS_ITS | Continuity of Care Document ---
Author Organization [facility] Address [address] [address] [place] [address] Phone Care Team Providers Care Alpaca Farmer Name Role Phone Joni Weeks MD Unavailable [...] Encounter [facility], [address] [address], [place], [place], [id number], [place] tel:[phone] [facility] No Information 1 Desi Quinones. [address] [facility], [place], [place], [id number], [place]. tel:[phone] Referring Provider: Joni Weeks MD, [address] [facility] [address], [place], [address] . tel:[phone] [facility], [address] [address], [place], [id number], [place] tel:[phone] [facility] Esophageal stricture 1 Desi Quinones. [address] [facility], [place], [place], [id number], [place]. [phone] [facility], [address] [address], [place], [address], [place] tel:[phone] [facility] No Information 0 Desi Quinones. [address] [facility], [facility] [address], [place], [place], [id number], [place]. tel:[phone] Referring Provider: Nancy LESLIE, [address] [place] [address], [address]. tel:[phone] [facility], [address] [address], [place], [id number], [place] tel:[phone] [facility] Esophageal dysphagia 0 Desi Quinones. [address] [facility], [facility] [address], [place], [place], [id number], [place]. tel:[phone] [facility], [address] [address], [place], [id number], [place] tel:[phone] [facility] No Information 9 Desi Quinones. [address] [facility], [place], [place], [id number], [place]. tel:[phone] Referring Provider: Nancy LESLIE, [address] [place] [address], [address]. tel:[phone] [facility], [address] [address], [place], [place], [id number], [place] tel:[phone] [facility] Esophageal stricture 9 Luli Dangelo. [address] [facility], [place], [place], [address], [place]. tel:[phone] [facility], [address] [address], [place], [id number], [place] tel:[phone] [facility] Esophageal stricture 9 Desi Quinones. [address] [facility], [facility] [address], [place], [place], [id number], [place]. tel:[phone] [facility], [address] [address], [place], [id number], [place] tel:[phone] [facility] No Information 9 Desi Quinones. [address] [facility], [facility] [address], [place], [place], [id number], [place]. tel:[phone] Referring Provider: Nancy LESLIE, [address] [place] [address], [address]. tel:[phone] [facility], [address] [address], [place], [id number], [place] tel:[phone] [facility] No Information 9 Desi Quinones. [address] [facility], [facility] [address], [place], [place], [id number], [place]. tel:[phone] [facility], [address] [address], [place], [address], [place] tel:[phone] [facility] Polyp-intes/r ect/stom-unc BehColon Cancer ScreeningDive rticulosis Of ColonRectal Polyp/BenignS igmoid Colon Cancer 1 No Information Referring Provider: Referral Self, USE FOR SELF REFERRALS. [facility], [address] [address], [place], [id number], [place] tel:[phone] [facility] Polyp-intes/r ect/stom-unc BehDiverticul osis Of Colon 1 No Information Referring Provider: Referral Self, USE FOR SELF REFERRALS. Family History Family Member Type Diagnosis Age [...] ional interface ; Source: Other Registry Novel [id number], all formulations administered Note: [facility] bi-direct ional interface ; Source: Other Registry tetanus toxoid, reduced diphtheria toxoid, and acellular pertussis vaccine, adsorbed administered Note: [facility] b i-directional interface ; Source: Other Registry [...] Covered democrat ID Authoriza tion(s) [employer] [place] [employer] BL [id number] Social History Type Description Quantity Date Captured [...]
--- OUTSIDE RECORDS SUMMARY | 2024-01-25 07:40 | XMS_ITS | Encounter Summary ---
Author Organization [facility] Address [address] [place] [address] Care Team Providers Care Dye Range Operator Name Role Phone Unavailable Primary Care Provider Unavailabl e Encounter Details Date Type Department Care Team (Late st Contact Info) Description 01/12/2024 7:51 AM CDT Hospital Encounter Department of Radiation Oncology in [place], [place] [address] [place] [phone] Sulaiman Ackerman M.D. [address] [place] [address] Social History Tobacco Use Types Packs/Day Years Used Date Smoking Tobacco: Former Cigarettes 1 18 1 967 - 1984 Smokeless Tobacco: Never Alcohol Use Standard Drinks/Week Comments Yes 0 (1 standard drink = 0.6 oz pur e alcohol) [facility] Utilities Answer Date Recorded In the past 12 months has e [employer], gas, oil, or water [employer] threatened to shut off services in your [...] your living situation today? [facility] to live 10/02/2023 Sex and Gender Information Value Date Recorded Sex Assigned at Male 10/02/2023 7:37 AM POULTRY BONER Gender Identity Male 10/02/2023 7:37 AM POULTRY BONER Sexual Orientation Straight 10/02/2023 7: 37 AM POULTRY BONER documented as of this encounter Plan of Treatment Upcoming Encounters Date Type Department Care Team (Late st Contact Info) Description 01/25/2024 9:30 AM CDT Appointment Department of Radiation Oncology in [place] [address] [place] [address] Sulaiman Ackerman M.D. [address] [place] [address] 01/26/2024 8:15 AM CDT Appointment Department of Radiation Oncology in [place] [address] [place] [address] Sulaiman Ackerman M.D. [address] [place] [address] 01/27/2024 8:45 AM CDT Appointment Department of Radiation Oncology in [address] [address] Sulaiman Ackerman M.D. [address] [place] [phone] 01/27/2024 9:00 AM CDT Appointment Department of Radiation Oncology in [place], [place] [address] [place] [address] Sulaiman Ackerman M.D. [address] [place] [phone] 01/30/2024 8:15 AM CDT Appointment Department of Radiation Oncology in [place], [place] [address] [place] [address] Sulaiman Ackerman M.D. [address] [place] [phone] 01/31/2024 8:45 AM CDT Appointment Department of Radiation Oncology in [place], [place] [address] [place] [phone] Sulaiman Ackerman M.D. [address] [place] [phone] 02/01/2024 8:15 AM CDT Appointment Department of Radiation Oncology in [place], [place] [address] [place] [phone] Sulaiman Ackerman M.D. [address] [place] [phone] 02/01/2024 8:45 AM CDT Appointment Department of Radiation Oncology in [place] [address] [place] [address] Corinne Aguillon M.D. [address] [place] [phone] documented as of this encounter Visit Diagnoses Not on filedocumented in this encounter
--- OUTSIDE RECORDS SUMMARY | 2024-01-25 07:40 | XMS_ITS | Encounter Summary ---
Author Organization [facility] Address [address] [place] [address] Care Team Providers Care Transverse Abdominal Muscle Surgeon Name Role Phone Unavailable Primary Care Provider Unavailabl e Encounter Details Date Type Department Care Team (Late st Contact Info) Description 01/09/2024 Clinical Communication Department of Radiation Oncology in [place], [place] [address] [place] [address] Corinne Aguillon M.D. [address] [place] [address] Social History Tobacco Use Types Packs/Day Years Used Date Smoking Tobacco: Former Cigarettes 1 18 1 967 - 1984 Smokeless Tobacco: Never Alcohol Use Standard Drinks/Week Comments Yes 0 (1 standard drink = 0.6 oz pur e alcohol) [facility] Utilities Answer Date Recorded In the past 12 months has [facility] [employer], gas, oil, or water [employer] threatened to shut off services in your [...] your living situation today? 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 - 01/09/2024 1:38 PM CDT I called Mr. Archuleta today. I shared with him that after doing his contouring his target volumes that Dr. Ackerman and I would favor a 15 fraction regimen to 45 Gy. I shared with him that we will be able to get a higher dose to his tumor and still respect the brachial plexus constraints better thanwith SBRT. I also spoke with Dr. Romano who is covering for Dr. Quinteros and that we will hold his oralXeloda for the treatments. He knows that they will be daily treatments for 3 weeks now. We are hoping to start him either this Tuesday or . Our desk will call back with his start time. He can continue with the Herceptin. He is also aware that I did also communicate with Dr. Ackerman. His questions were answered; he was comfortable with this plan. documented in this encounter Plan of Treatment Upcoming Encounters Date Type Department Care Team (Late st Contact Info) Description 01/25/2024 9:30 AM CDT Appointment Department of Radiation Oncology in [address] [address] Sulaiman Ackerman M.D. [address] [place] [phone] 01/26/2024 8:15 AM CDT Appointment Department of Radiation Oncology in [address] [phone] Sulaiman Ackerman M.D. [address] [place] [phone] 01/27/2024 8:45 AM CDT Appointment Department of Radiation Oncology in [address] [address] Sulaiman Ackerman M.D. [address] [place] [phone] 01/27/2024 9:00 AM CDT Appointment Department of Radiation Oncology in [address] [address] Sulaiman Ackerman M.D. [address] [place] [phone] 01/30/2024 8:15 AM CDT Appointment Department of Radiation Oncology in [address] [address] Sulaiman Ackerman M.D. [address] [place] [phone] 01/31/2024 8:45 AM CDT Appointment Department of Radiation Oncology in [place], [place] [address] [place] [address] Sulaiman Ackerman M.D. [address] [place] [phone] 02/01/2024 8:15 AM CDT Appointment Department of Radiation Oncology in [place], [place] [address] [place] [address] Sulaiman Ackerman M.D. [address] [place] [phone] 02/01/2024 8:45 AM CDT Appointment Department of Radiation Oncology in [place] [address] [place] [address] Corinne Aguillon M.D. [address] [place] [phone] documented as of this encounter Visit Diagnoses Not on filedocumented in this encounter
--- OUTSIDE RECORDS SUMMARY | 2024-01-25 07:40 | XMS_ITS | Encounter Summary ---
Author Organization [facility] Address [address] [place] [address] Care Team Providers Care Restorative Aide Name Role Phone Unavailable Primary Care Provider Unavailabl e Reason for Visit * Radiation Therapy (Routine) - Closed Specialty Diagnoses / Procedures Referred By Alex vergara Referred To Contact Diagnoses Secondary Malignant Neoplasm Lung Right (HCC) Procedures Initial Rad Onc Treatment Planning CT Simulation Sulaiman Ackerman M.D. [address] [place] [address] [facility] Region Referral ID Status Reason Start Date Expiration Date Visits Re quested Visits Authorized [id number] Closed 12/27/2023 12/26/2024 1 1 Encounter Details Date Type Department Care Team (Latest Contact Info) Description 01/03/2024 1:16 PM CDT - 01/03/2024 2:00 PM CDT Hospital Encounter Department of Radiation Oncology in [place], [place] [address] [place] [phone] Sulaiman Ackerman M.D. [address] [place] [phone] Katie Mitchell R.N. [address] [place] [phone] Malignant Neoplasm Of Esophagus Lower Third (HCC) (Primary Dx); Secondary Malignant Neoplasm Lung Right (HCC) Social History Tobacco Use Types Packs/Day Years Used Date Smoking Tobacco: Former Cigarettes 1 18 1 967 - 1984 Smokeless Tobacco: Never Alcohol Use Standard Drinks/Week Comments Yes 0 (1 standard drink = 0.6 oz pur e alcohol) [facility] Utilities Answer Date Recorded In the [...] Date Recorded Dental: Regular Dentist Yes 10/02/19 24 Employment Answer Date Recorded Employment status Retired 10/02/2023 Housing Stability Answer Date Recorded What is your living situation today? [facility] 10/02/2023 Sex and Gender Information Value Date Recorded Sex Assigned at Male 10/02/2023 7:37 AM FINANCIAL ANALYST ACCOUNTANT Gender Identity Male 10/02/2023 7:37 AM FINANCIAL ANALYST ACCOUNTANT Sexual Orientation Straight 10/02/2023 7: 37 AM FINANCIAL ANALYST ACCOUNTANT documented as of this encounter Last Filed Vital Signs Vital Sign Reading Time Taken Comments Blood Pressure - - Pulse - - Temperature - - Respiratory Rate - - Oxygen Saturation - - Inhaled Oxygen Concentration - - Weight 81.5 kg (179 lb 10.8 oz) 01/03/2024 3:12 PM CDT Height - - Body Mass [...] by mouth. documented as of this encounter Plan of Treatment Upcoming Encounters Date Type Department Care Team (Late st Contact Info) Description 01/25/2024 9:30 AM CDT Appointment Department of Radiation Oncology in [address] [address] Sulaiman Ackerman M.D. [address] [place] [phone] 01/26/2024 8:15 AM CDT Appointment Department of Radiation Oncology in [address] [address] Sulaiman Ackerman M.D. [address] [place] [phone] 01/27/2024 8:45 AM CDT Appointment Department of Radiation Oncology in [address] [phone] Sulaiman Ackerman M.D. [address] [place] [phone] 01/27/2024 9:00 AM CDT Appointment Department of Radiation Oncology in [address] [address] Sulaiman Ackerman M.D. [address] [place] [phone] 01/30/2024 8:15 AM CDT Appointment Department of Radiation Oncology in [address] [address] Sulaiman Ackerman M.D. [address] [place] [phone] 01/31/2024 8:45 AM CDT Appointment Department of Radiation Oncology in [address] [address] Sulaiman Ackerman M.D. [address] [place] [phone] 02/01/2024 8:15 AM CDT Appointment Department of Radiation Oncology in [address] [address] Sulaiman Ackerman M.D. [address] [place] [phone] 02/01/2024 8:45 AM CDT Appointment Department of Radiation Oncology in [address] [address] Corinne Aguillon M.D. [address] [place] [phone] documented as of this encounter Visit Diagnoses Diagnosis Malignant Neoplasm Of Esophagus Lower Third (HCC)- Primary Secondary Malignant Neoplasm Lung Right (HCC) documented in this encounter Administered Medications Inactive Administered Medications - up to 3 most recent administrations Medication Order MAR Action Action Date Dose Rate Site heparin flush 500-1,000 Units 500-1,000 Units, intra-catheter, During hospitalization, line care, Prior to discharge, Starting on Tue01/03/24 at 1512, For 1 dose, Implanted Vascular Access Device (IVAD) Venous Non-Valved: flush 5 mL (500 units) per port/lumen following saline flush prior to discharge. Given 01/03/2024 3:07 PM CDT 500 Units iohexoL 300 mg iodine/mL solution 80 mL (OMNIPAQUE) 80 mL, intravenous, Once in imaging, contrast, Starting on Tue01/03/24 at 1414, For 1 dose Given 01/03/2024 2:55 PM CDT 80 mL sodium chloride 0.9 % injection 10 mL 10 mL, intravenous, As needed, line care, Peripheral Intravenous Catheter and Rapid Infusion Catheter, Starting on Tue01/03/24 at 1414, Prior to blood sampling, post blood transfusion or post blood sampling. Given 01/03/2024 2:56 PM CDT 10 mL Given 01/03/2024 2:55 PM CDT 10 mL documented in this encounter
--- OUTSIDE RECORDS SUMMARY | 2024-01-25 07:40 | XMS_ITS | Encounter Summary ---
Author Organization [facility] Address [address] [place] [address] Care Team Providers Care Laborer/Grade Check Name Role Phone Unavailable Primary Care Provider Unavailabl e Encounter Details Date Type Department Care Team (Late st Contact Info) Description 01/13/2024 7:46 AM CDT Hospital Encounter Department of Radiation Oncology in [place], [place] [address] [place] [phone] Sulaiman Ackerman M.D. 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 [address] [place] [address] 01/26/2024 8:15 AM CDT Appointment Department of Radiation Oncology in [place] [address] [place] [address] Sulaiman Ackerman M.D. [address] [place] [address] 01/27/2024 8:45 AM CDT Appointment Department of Radiation Oncology in [address] [address] Sulaiman Ackerman M.D. [address] [place] [phone] 01/27/2024 9:00 AM CDT Appointment Department of Radiation Oncology in [place], [place] [address] [place] [address] Sulaiman Ackerman M.D. [address] [place] [phone] 01/30/2024 8:15 AM CDT Appointment Department of Radiation Oncology in [place], [place] [address] [place] [address] Sulaiman Ackerman M.D. [address] [place] [phone] 01/31/2024 8:45 AM CDT Appointment Department of Radiation Oncology in [place], [place] [address] [place] [phone] Sulaiman Ackerman M.D. [address] [place] [phone] 02/01/2024 8:15 AM CDT Appointment Department of Radiation Oncology in [place], [place] [address] [place] [phone] Sulaiman Ackerman M.D. [address] [place] [phone] 02/01/2024 8:45 AM CDT Appointment Department of Radiation Oncology in [place] [address] [place] [address] Corinne Aguillon M.D. [address] [place] [phone] documented as of this encounter Visit Diagnoses Not on filedocumented in this encounter
== END 2024-01-25 07:37 | disposition home or self-care (01) ==
LOC: RAD 07:37
PROVIDERS: PCP Physician Assistant Medical; Visit Provider Internal Medicine Hematology & Oncology
DX: Z79.899 Other long term (current) drug therapy (principal); I51.7 Cardiomegaly; Z51.81 Encounter for therapeutic drug level monitoring
CPT/HCPCS: 93306

== ENCOUNTER 2024-03-16 08:00 | Outpatient (RCR) | payer MEDICARE, BC, SELFPAY ==
[2023-09-29] MEDS: HEPARIN 500 UNIT/5 ML SYRINGE IVF (12:20)
[2023-09-29] MEDS: SODIUM CHLORIDE 0.9 % (FLUSH) 10 ML SYRINGE IVF (12:20)
--- NOTE | 2023-10-05 09:55 | URNOTE ---
Request received for authorization for Oxaliplatin (J9263), Palonosetron ([id number]). Prior authorization is not required as services are based on medical necessity and follow Medicare guidelines.
[2023-10-07 08:51] VITALS: BP 158/79; PULSE 68; RESP 18; TEMP 36.8; O2SAT 98
[2023-10-07] MEDS: SODIUM CHLORIDE 0.9 % (FLUSH) 10 ML SYRINGE IVF ×2 (09:00→13:10)
[2023-10-07 09:13] LABS: Basophils Absolute Auto 0.03 K/uL (0.00-0.30); Basophils Percent Auto 0.4 % (0.0-3.0); Eosinophils Absolute Auto 0.29 K/uL (0.00-0.50); Eosinophils Percent Auto 3.9 % (0.0-7.0); Hematocrit 38.9 % (37.0-53.0); Hemoglobin* 12.8 gm/dL (13.5-17.5); Immature Granulocytes Abs Auto 0.03 K/uL (0.00-0.30); Immature Granulocytes Pct Auto 0.4 %; Lymphocytes Percent Auto 13.2 % (20-44); Mean Corpuscular HGB Conc 33 gm/dL (32-36); Mean Corpuscular Hemoglobin 35 pg (26-34); Mean Corpuscular Volume 106 fL (80-100); Monocytes Percent Auto 14.2 % (0.0-11.0); Neutrophils Percent Auto 67.9 % (42.0-72.0); Platelet Count* 244 K/uL (140-440); RDW Coefficient of Variation % 14.7 % (11.5-15.5); Red Blood Count 3.68 m/uL (4.30-5.90); White Blood Count* 7.51 K/uL (4.50-11.00)
[2023-10-07 09:19] LABS: Slide Review Reflex No
[2023-10-07 09:27] LABS: Albumin* 3.9 g/dL (3.3-5.0); Chloride* 109 mmol/L (96-114)
[2023-10-07 09:28] LABS: Potassium* 4.5 mmol/L (3.6-5.1); Sodium* 137 mmol/L (135-149)
[2023-10-07 09:30] LABS: Creatinine* 0.8 mg/dL (0.5-1.5); Est. Creatinine Clearance* 64.81; Estimated Glomerular Filt Rate 93 ml/min
[2023-10-07 09:31] LABS: Alanine Aminotransferase* 26 U/L (4-50); Alkaline Phosphatase* 86 U/L (40-150); Anion Gap 4 mEq/L (7-15); Aspartate Amino Transferase* 34 U/L (12-35); Bilirubin Total* 1.2 mg/dL (0.1-1.5); Blood Urea Nitrogen* 24 mg/dL (7-30); Calcium* 9.5 mg/dL (8.4-10.6); Carbon Dioxide* 24 mmol/L (20-32); Glucose* 68 mg/dL (60-115); Total Protein* 6.9 g/dL (6.0-8.3)
[2023-10-07] MEDS: 5 % DEXTROSE 250 ML IV (10:10)
[2023-10-07] MEDS: dexAMETHasone 20 MG in 0.9 % SODIUM CHLORIDE 100 ml 100 ML 420 MG IVPB (10:30)
[2023-10-07] MEDS: PALONOSETRON 0.25 MG/5 ML inj IV (10:30)
--- NOTE | 2023-10-07 10:32 | ONC.NURNOTE ---
teaching for new start of oxaliplatin reviewed treatment plan with capecitabine dosing (7 d on/7 d off) and oxaliplatin schedule (Q3 weeks) reviewed possible side effects, self care at home, after hours management and ER if fever over 100.4, fatigue management- patient very active cold sensitivity, peripheral neuropathy, importance of taking antiemetics at home questions addressed denied SS or dietitian referral consents/JANEY reviewed and signed
--- NOTE | 2023-10-07 10:36 | ONC.NURNOTE ---
PSDS =[address] [facility] and denies need for SS consult
[2023-10-07] MEDS: HEPARIN 500 UNIT/5 ML SYRINGE IVF (13:10)
[2023-10-26 09:39] LABS: Basophils Absolute Auto 0.03 K/uL (0.00-0.30); Basophils Percent Auto 0.4 % (0.0-3.0); Eosinophils Percent Auto 5.8 % (0.0-7.0); Hematocrit 37.6 % (37.0-53.0); Hemoglobin* 12.7 gm/dL (13.5-17.5); Immature Granulocytes Abs Auto 0.01 K/uL (0.00-0.30); Immature Granulocytes Pct Auto 0.1 %; Lymphocytes Percent Auto 17.5 % (20-44); Mean Corpuscular HGB Conc 34 gm/dL (32-36); Mean Corpuscular Hemoglobin 36 pg (26-34); Mean Corpuscular Volume 106 fL (80-100); Monocytes Percent Auto 16.1 % (0.0-11.0); Neutrophils Absolute Auto 4.11 K/uL (1.7-7.0); Neutrophils Percent Auto 60.1 % (42.0-72.0); Platelet Count* 229 K/uL (140-440); RDW Coefficient of Variation % 14.5 % (11.5-15.5); Red Blood Count 3.55 m/uL (4.30-5.90); White Blood Count* 6.85 K/uL (4.50-11.00)
[2023-10-26 09:41] LABS: Slide Review Reflex No
[2023-10-26 10:03] LABS: Albumin* 3.6 g/dL (3.3-5.0); Chloride* 105 mmol/L (96-114); Sodium* 136 mmol/L (135-149)
[2023-10-26 10:04] LABS: Potassium* 4.6 mmol/L (3.6-5.1)
[2023-10-26 10:06] LABS: Alanine Aminotransferase* 27 U/L (4-50); Alkaline Phosphatase* 79 U/L (40-150); Anion Gap 4 mEq/L (7-15); Aspartate Amino Transferase* 33 U/L (12-35); Bilirubin Total* 0.9 mg/dL (0.1-1.5); Blood Urea Nitrogen* 21 mg/dL (7-30); Carbon Dioxide* 27 mmol/L (20-32); Creatinine* 0.9 mg/dL (0.5-1.5); Est. Creatinine Clearance* 64.81; Estimated Glomerular Filt Rate 90 ml/min; Glucose* 99 mg/dL (60-115); Total Protein* 6.5 g/dL (6.0-8.3)
[2023-10-26 10:07] LABS: Calcium* 9.2 mg/dL (8.4-10.6)
[2023-10-28 07:55] VITALS: BP 156/78; PULSE 71; RESP 16; TEMP 36.6; O2SAT 99
[2023-10-28] MEDS: dexAMETHasone 20 MG in 0.9 % SODIUM CHLORIDE 100 ml 100 ML 408 MG IVPB (09:08)
[2023-10-28] MEDS: PALONOSETRON 0.25 MG/5 ML inj IV (09:08)
[2023-10-28] MEDS: 5 % DEXTROSE 250 ML IV (10:00)
[2023-10-28] MEDS: SODIUM CHLORIDE 0.9 % (FLUSH) 10 ML SYRINGE IVF (15:50)
[2023-10-28] MEDS: HEPARIN 500 UNIT/5 ML SYRINGE IVF (15:50)
[2023-11-17 09:53] LABS: Basophils Absolute Auto 0.03 K/uL (0.00-0.30); Basophils Percent Auto 0.5 % (0.0-3.0); Eosinophils Absolute Auto 0.27 K/uL (0.00-0.50); Eosinophils Percent Auto 4.8 % (0.0-7.0); Hematocrit 37.1 % (37.0-53.0); Hemoglobin* 12.6 gm/dL (13.5-17.5); Immature Granulocytes Abs Auto 0.02 K/uL (0.00-0.30); Immature Granulocytes Pct Auto 0.4 %; Lymphocytes Percent Auto 18.4 % (20-44); Mean Corpuscular HGB Conc 34 gm/dL (32-36); Mean Corpuscular Hemoglobin 36 pg (26-34); Mean Corpuscular Volume 107 fL (80-100); Monocytes Percent Auto 18.9 % (0.0-11.0); Platelet Count* 223 K/uL (140-440); RDW Coefficient of Variation % 15.2 % (11.5-15.5); Red Blood Count 3.46 m/uL (4.30-5.90); White Blood Count* 5.61 K/uL (4.50-11.00)
[2023-11-17 10:02] LABS: Albumin* 3.9 g/dL (3.3-5.0); Chloride* 110 mmol/L (96-114); Sodium* 136 mmol/L (135-149)
[2023-11-17 10:03] LABS: Potassium* 4.4 mmol/L (3.6-5.1)
[2023-11-17 10:04] LABS: Slide Review Reflex No
[2023-11-17 10:05] LABS: Alanine Aminotransferase* 30 U/L (4-50); Alkaline Phosphatase* 92 U/L (40-150); Anion Gap 3 mEq/L (7-15); Aspartate Amino Transferase* 34 U/L (12-35); Bilirubin Total* 1.4 mg/dL (0.1-1.5); Blood Urea Nitrogen* 22 mg/dL (7-30); Carbon Dioxide* 23 mmol/L (20-32); Creatinine* 0.8 mg/dL (0.5-1.5); Est. Creatinine Clearance* 64.81; Estimated Glomerular Filt Rate 93 ml/min
[2023-11-17 10:06] LABS: Calcium* 8.9 mg/dL (8.4-10.6); Glucose* 94 mg/dL (60-115)
[2023-11-18 07:48] VITALS: BP 132/74; PULSE 66; RESP 16; TEMP 35.9; O2SAT 100
[2023-11-18] MEDS: dexAMETHasone 20 MG in 0.9 % SODIUM CHLORIDE 100 ml 100 ML 408 MG IVPB (09:13)
[2023-11-18] MEDS: PALONOSETRON 0.25 MG/5 ML inj IV (09:13)
[2023-12-07] MEDS: HEPARIN 500 UNIT/5 ML SYRINGE IVF (08:43)
[2023-12-07] MEDS: SODIUM CHLORIDE 0.9 % (FLUSH) 10 ML SYRINGE IVF (08:43)
[2023-12-07 08:54] LABS: Basophils Absolute Auto 0.04 K/uL (0.00-0.30); Basophils Percent Auto 0.6 % (0.0-3.0); Eosinophils Absolute Auto 0.23 K/uL (0.00-0.50); Eosinophils Percent Auto 3.5 % (0.0-7.0); Hematocrit 35.9 % (37.0-53.0); Hemoglobin* 12.1 gm/dL (13.5-17.5); Immature Granulocytes Abs Auto 0.02 K/uL (0.00-0.30); Immature Granulocytes Pct Auto 0.3 %; Lymphocytes Percent Auto 13.9 % (20-44); Mean Corpuscular HGB Conc 34 gm/dL (32-36); Mean Corpuscular Hemoglobin 37 pg (26-34); Mean Corpuscular Volume 109 fL (80-100); Monocytes Percent Auto 19.6 % (0.0-11.0); Neutrophils Absolute Auto 4.05 K/uL (1.7-7.0); Neutrophils Percent Auto 62.1 % (42.0-72.0); Platelet Count* 225 K/uL (140-440); RDW Coefficient of Variation % 16.4 % (11.5-15.5); Red Blood Count 3.31 m/uL (4.30-5.90); White Blood Count* 6.53 K/uL (4.50-11.00)
[2023-12-07 09:02] LABS: Slide Review Reflex Yes
[2023-12-07 09:03] LABS: Slide Review Acceptable Review (Acceptable)
[2023-12-07 09:18] LABS: Albumin* 3.8 g/dL (3.3-5.0)
[2023-12-07 09:19] LABS: Chloride* 107 mmol/L (96-114); Potassium* 4.2 mmol/L (3.6-5.1); Sodium* 138 mmol/L (135-149)
[2023-12-07 09:21] LABS: Anion Gap 3 mEq/L (7-15); Aspartate Amino Transferase* 34 U/L (12-35); Carbon Dioxide* 28 mmol/L (20-32); Creatinine* 0.9 mg/dL (0.5-1.5); Est. Creatinine Clearance* 61.75; Estimated Glomerular Filt Rate 89 ml/min; Total Protein* 6.8 g/dL (6.0-8.3)
[2023-12-07 09:22] LABS: Alanine Aminotransferase* 27 U/L (4-50); Alkaline Phosphatase* 86 U/L (40-150); Blood Urea Nitrogen* 27 mg/dL (7-30); Calcium* 9.1 mg/dL (8.4-10.6); Glucose* 74 mg/dL (60-115)
[2023-12-09 07:50] VITALS: BP 143/85; PULSE 58; RESP 18; TEMP 36.7; O2SAT 98
[2023-12-09] MEDS: 0.9 % SODIUM CHLORIDE 250 ml IV (09:00)
[2023-12-09] MEDS: dexAMETHasone 20 MG in 0.9 % SODIUM CHLORIDE 100 ml 100 ML 420 MG IVPB (09:36)
[2023-12-09] MEDS: PALONOSETRON 0.25 MG/5 ML inj IV (09:37)
[2023-12-09] MEDS: 5 % DEXTROSE 250 ML IV (10:03)
[2023-12-09] MEDS: SODIUM CHLORIDE 0.9 % (FLUSH) 10 ML SYRINGE IVF ×2 (10:03→11:58)
[2023-12-09] MEDS: HEPARIN 500 UNIT/5 ML SYRINGE IVF (11:58)
[2023-12-22] MEDS: SODIUM CHLORIDE 0.9 % (FLUSH) 10 ML SYRINGE IVF (13:03)
[2023-12-28] MEDS: HEPARIN 500 UNIT/5 ML SYRINGE IVF (07:50)
[2023-12-28] MEDS: SODIUM CHLORIDE 0.9 % (FLUSH) 10 ML SYRINGE IVF (07:50)
[2023-12-28 08:08] LABS: Basophils Absolute Auto 0.02 K/uL (0.00-0.30); Basophils Percent Auto 0.3 % (0.0-3.0); Hematocrit 34.6 % (37.0-53.0); Hemoglobin* 11.8 gm/dL (13.5-17.5); Immature Granulocytes Abs Auto 0.02 K/uL (0.00-0.30); Immature Granulocytes Pct Auto 0.3 %; Mean Corpuscular HGB Conc 34 gm/dL (32-36); Mean Corpuscular Hemoglobin 37 pg (26-34); Mean Corpuscular Volume 110 fL (80-100); Monocytes Percent Auto 24.3 % (0.0-11.0); Neutrophils Percent Auto 55.1 % (42.0-72.0); Platelet Count* 177 K/uL (140-440); RDW Coefficient of Variation % 16.4 % (11.5-15.5); Red Blood Count 3.16 m/uL (4.30-5.90)
[2023-12-28 08:15] LABS: Slide Review Reflex No
[2023-12-28 08:21] LABS: Chloride* 108 mmol/L (96-114)
[2023-12-28 08:22] LABS: Albumin* 3.8 g/dL (3.3-5.0); Potassium* 4.3 mmol/L (3.6-5.1); Sodium* 136 mmol/L (135-149)
[2023-12-28 08:24] LABS: Creatinine* 0.9 mg/dL (0.5-1.5); Est. Creatinine Clearance* 61.75; Estimated Glomerular Filt Rate 89 ml/min
[2023-12-28 08:25] LABS: Alanine Aminotransferase* 26 U/L (4-50); Alkaline Phosphatase* 96 U/L (40-150); Anion Gap 2 mEq/L (7-15); Aspartate Amino Transferase* 34 U/L (12-35); Bilirubin Total* 1.3 mg/dL (0.1-1.5); Blood Urea Nitrogen* 20 mg/dL (7-30); Carbon Dioxide* 26 mmol/L (20-32); Glucose* 81 mg/dL (60-115); Total Protein* 7.1 g/dL (6.0-8.3)
[2023-12-28 08:26] LABS: Calcium* 8.9 mg/dL (8.4-10.6)
[2023-12-30 08:04] VITALS: BP 136/70; PULSE 61; RESP 18; TEMP 36.1; O2SAT 98
[2023-12-30] MEDS: 0.9 % SODIUM CHLORIDE 250 ml IV (08:33)
[2023-12-30] MEDS: SODIUM CHLORIDE 0.9 % (FLUSH) 10 ML SYRINGE IVF (08:34)
[2024-01-03] MEDS: HEPARIN 500 UNIT/5 ML SYRINGE IVF (13:00)
[2024-01-03] MEDS: SODIUM CHLORIDE 0.9 % (FLUSH) 10 ML SYRINGE IVF (13:00)
--- NOTE | 2024-01-10 13:28 | ONC.NURNOTE ---
Patient to hold capecitabine until radiation completed per radiation. Patient understands and was told on 01/09/2024 He will start radiation on January 11 and and have 15 treatments Tuesday-
[2024-01-19 12:54] LABS: Hematocrit 35.8 % (37.0-53.0); Hemoglobin* 12.1 gm/dL (13.5-17.5); Immature Granulocytes Abs Auto 0.16 K/uL (0.00-0.30); Immature Granulocytes Pct Auto 1.7 %; Mean Corpuscular HGB Conc 34 gm/dL (32-36); Mean Corpuscular Hemoglobin 38 pg (26-34); Mean Corpuscular Volume 112 fL (80-100); Monocytes Percent Auto 11.5 % (0.0-11.0); Neutrophils Percent Auto 81.8 % (42.0-72.0); Platelet Count* 233 K/uL (140-440); RDW Coefficient of Variation % 16.7 % (11.5-15.5); White Blood Count* 9.55 K/uL (4.50-11.00)
[2024-01-19 13:00] LABS: Slide Review Reflex No
[2024-01-19 13:18] LABS: Albumin* 3.6 g/dL (3.3-5.0)
[2024-01-19 13:19] LABS: Chloride* 106 mmol/L (96-114); Potassium* 4.5 mmol/L (3.6-5.1); Sodium* 136 mmol/L (135-149)
[2024-01-19 13:21] LABS: Anion Gap 6 mEq/L (7-15); Aspartate Amino Transferase* 52 U/L (12-35); Bilirubin Total* 1.1 mg/dL (0.1-1.5); Carbon Dioxide* 24 mmol/L (20-32); Creatinine* 0.9 mg/dL (0.5-1.5); Est. Creatinine Clearance* 61.75; Estimated Glomerular Filt Rate 89 ml/min; Total Protein* 6.3 g/dL (6.0-8.3)
[2024-01-19 13:22] LABS: Alanine Aminotransferase* 57 U/L (4-50); Alkaline Phosphatase* 81 U/L (40-150); Blood Urea Nitrogen* 32 mg/dL (7-30); Calcium* 8.9 mg/dL (8.4-10.6); Glucose* 108 mg/dL (60-115)
[2024-01-20] MEDS: SODIUM CHLORIDE 0.9 % (FLUSH) 10 ML SYRINGE IVF ×2 (09:46→10:20)
[2024-01-20] MEDS: 0.9 % SODIUM CHLORIDE 250 ml IV (09:46)
[2024-01-20] MEDS: HEPARIN 500 UNIT/5 ML SYRINGE IVF (10:20)
[2024-01-25] MEDS: HEPARIN 500 UNIT/5 ML SYRINGE IVF (09:22)
[2024-01-25] MEDS: SODIUM CHLORIDE 0.9 % (FLUSH) 10 ML SYRINGE IVF (09:22)
--- NOTE | 2024-02-03 09:05 | ONC.NURNOTE ---
Patients spouse called office stating that when they went to [facility] prednisolone, the acetate formulation was available and cost was 49.58, which is prohibitive to patient. They asked provider or sodium phosphate 1% formulation on Tuesday, and were told that is fine. Prescription was changed per verbal order from oncologist, pharmacy will attempt to run this through for the cost. Patient made aware.
[2024-02-10 08:19] LABS: Basophils Absolute Auto 0.01 K/uL (0.00-0.30); Basophils Percent Auto 0.1 % (0.0-3.0); Eosinophils Absolute Auto 0.17 K/uL (0.00-0.50); Eosinophils Percent Auto 2.3 % (0.0-7.0); Hematocrit 38.2 % (37.0-53.0); Hemoglobin* 12.8 gm/dL (13.5-17.5); Immature Granulocytes Pct Auto 6.9 %; Mean Corpuscular HGB Conc 34 gm/dL (32-36); Mean Corpuscular Hemoglobin 38 pg (26-34); Mean Corpuscular Volume 113 fL (80-100); Monocytes Percent Auto 10.6 % (0.0-11.0); Neutrophils Percent Auto 72.1 % (42.0-72.0); Platelet Count* 169 K/uL (140-440); RDW Coefficient of Variation % 15.3 % (11.5-15.5); Red Blood Count 3.39 m/uL (4.30-5.90); White Blood Count* 7.26 K/uL (4.50-11.00)
[2024-02-10 08:22] LABS: Slide Review Reflex No
[2024-02-10 08:31] LABS: Albumin* 3.5 g/dL (3.3-5.0); Chloride* 105 mmol/L (96-114); Sodium* 135 mmol/L (135-149)
[2024-02-10 08:32] LABS: Potassium* 4.6 mmol/L (3.6-5.1)
[2024-02-10 08:34] LABS: Alanine Aminotransferase* 128 U/L (4-50); Alkaline Phosphatase* 82 U/L (40-150); Anion Gap 4 mEq/L (7-15); Aspartate Amino Transferase* 61 U/L (12-35); Bilirubin Total* 0.7 mg/dL (0.1-1.5); Blood Urea Nitrogen* 26 mg/dL (7-30); Carbon Dioxide* 26 mmol/L (20-32); Creatinine* 0.8 mg/dL (0.5-1.5); Est. Creatinine Clearance* 61.75; Estimated Glomerular Filt Rate 92 ml/min; Glucose* 111 mg/dL (60-115); Total Protein* 6.1 g/dL (6.0-8.3)
[2024-02-10 08:37] LABS: Calcium* 8.9 mg/dL (8.4-10.6)
[2024-02-10 09:41] VITALS: BP 138/75; PULSE 52; RESP 16; TEMP 36.6; O2SAT 97
[2024-02-10] MEDS: HEPARIN 500 UNIT/5 ML SYRINGE IVF (09:42)
[2024-02-10] MEDS: SODIUM CHLORIDE 0.9 % (FLUSH) 10 ML SYRINGE IVF (09:42)
--- NOTE | 2024-02-10 10:33 | ONC.NURNOTE ---
Addendum entered by Citlalli Calderon RN 02/10/24 15:45: Called [facility] this afternoon to follow up after his appt with his PCP. He reports that she is unsure what the spot on his chin is but she did start him on Bactrim. 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 Rescheduled today's appt to 02/15 at 8 am. Will call [facility] Tuesday to check in and see how the area on his chin is doing and to remind him of his appt. He verbalized understanding and was agreeable to the plan. Original Note: Patient in clinic today for Herceptin and Oxaliplatin. On assessment overall patient doesn't feel great. He just finished 15 sessions of radiation and is dealing with side effects related to that. His biggest concerns today are pain in his R) arm related to radiation and a red, hard lump in the lower right side of his chin. In appearance it looks like an ingrown hair. Patient reports is has been there for a couple of weeks and is getting larger and more painful. Denies any drainage from the area and denies any fevers at home. Lump is as large as a quarter, is hard, and painful to touch. On review of his labs his ALT and AST are both elevated. RN spoke with Gwendolyn Thurman APRN and asked her to review patient's labs and look at the area on his chin. Per Gwendolyn we will hold patient's treatment today and [facility] needs to be seen by PCP LATONIA. RN called [facility] and they are able to see patient today at 2pm. RN updated [facility] and Gwendolyn with appt time.
--- NOTE | 2024-02-14 13:38 | PC.NURSE ---
Received a call from Afshan at 's PCP [facility] stating that [facility] was seen and started on antibiotics. She reported that Humble was wondering about whether or not he would be getting treated with chemo on of this week. RN discussed case with Gwendolyn Thurman APRN who said as long as Humble is tolerating abx and the spot on his face is improving, we will proceed. Called [facility] with this update. He is tolerating antibiotics fine. He has 10 days and has only taken 4 so far. He notes that the spot on his chin still looks ugly but that it's smaller and softer. He definitely feels it's improved. Will see [facility]ble on at 8:00 AM.
[2024-02-16 08:01] VITALS: BP 136/73; PULSE 68; RESP 16; TEMP 36.1; O2SAT 97
[2024-02-16 08:15] VITALS: BP 136/73; PULSE 68; RESP 16; TEMP 36.1; O2SAT 100
[2024-02-16 08:28] VITALS: BP 121/86; PULSE 57; RESP 16; TEMP 35.9; O2SAT 96
--- NOTE | 2024-02-16 09:29 | ONC.NURNOTE ---
Addendum entered by Crystal Michael RN 02/16/24 10:10: states has not been taking aspirin. and limiting his beer to one occ. for his liver. Original Note: Ok to treat today per Gwendolyn Lee APRN. Pt states chin lesion is a bit better. rt chin lesion is warm, red, scabbed over. Pt is 1/2 way done with his Bactrim medication. No drainage. Pt is going to see Kati Gonzalez at [facility] today at 205pm re. lesion. Pt also states the 4 percent lidocaine is helping his rt arm nerve pain.
[2024-02-16] MEDS: dexAMETHasone 20 MG in 0.9 % SODIUM CHLORIDE 100 ml 100 ML 408 MG IVPB (09:53)
[2024-02-16] MEDS: HEPARIN 500 UNIT/5 ML SYRINGE IVF (09:53)
[2024-02-16] MEDS: PALONOSETRON 0.25 MG/5 ML inj IV (09:53)
[2024-02-16] MEDS: SODIUM CHLORIDE 0.9 % (FLUSH) 10 ML SYRINGE IVF (09:53)
[2024-02-16] MEDS: 0.9 % SODIUM CHLORIDE 250 ml IV (09:53)
[2024-02-16] MEDS: 5 % DEXTROSE 250 ML IV (09:54)
[2024-03-07 08:05] LABS: Basophils Absolute Auto 0.03 K/uL (0.00-0.30); Basophils Percent Auto 0.5 % (0.0-3.0); Eosinophils Absolute Auto 0.15 K/uL (0.00-0.50); Eosinophils Percent Auto 2.4 % (0.0-7.0); Hematocrit 37.1 % (37.0-53.0); Hemoglobin* 12.4 gm/dL (13.5-17.5); Immature Granulocytes Abs Auto 0.05 K/uL (0.00-0.30); Immature Granulocytes Pct Auto 0.8 %; Lymphocytes Percent Auto 12.4 % (20-44); Mean Corpuscular HGB Conc 33 gm/dL (32-36); Mean Corpuscular Hemoglobin 37 pg (26-34); Mean Corpuscular Volume 110 fL (80-100); Monocytes Percent Auto 19.1 % (0.0-11.0); Neutrophils Absolute Auto 4.03 K/uL (1.7-7.0); Neutrophils Percent Auto 64.8 % (42.0-72.0); Platelet Count* 203 K/uL (140-440); RDW Coefficient of Variation % 13.5 % (11.5-15.5); Red Blood Count 3.38 m/uL (4.30-5.90); White Blood Count* 6.22 K/uL (4.50-11.00)
[2024-03-07 08:09] LABS: Slide Review Reflex No
[2024-03-07 08:20] LABS: Albumin* 3.7 g/dL (3.3-5.0); Chloride* 107 mmol/L (96-114)
[2024-03-07 08:21] LABS: Potassium* 4.3 mmol/L (3.6-5.1); Sodium* 138 mmol/L (135-149)
[2024-03-07 08:23] LABS: Alkaline Phosphatase* 84 U/L (40-150); Anion Gap 4 mEq/L (7-15); Aspartate Amino Transferase* 38 U/L (12-35); Bilirubin Total* 0.8 mg/dL (0.1-1.5); Blood Urea Nitrogen* 23 mg/dL (7-30); Carbon Dioxide* 27 mmol/L (20-32); Creatinine* 0.9 mg/dL (0.5-1.5); Est. Creatinine Clearance* 61.75; Estimated Glomerular Filt Rate 89 ml/min; Total Protein* 6.5 g/dL (6.0-8.3)
[2024-03-07 08:24] LABS: Alanine Aminotransferase* 29 U/L (4-50); Calcium* 9.1 mg/dL (8.4-10.6); Glucose* 79 mg/dL (60-115)
[2024-03-16 08:13] LABS: Basophils Absolute Auto 0.02 K/uL (0.00-0.30); Basophils Percent Auto 0.3 % (0.0-3.0); Eosinophils Absolute Auto 0.23 K/uL (0.00-0.50); Hemoglobin* 11.9 gm/dL (13.5-17.5); Immature Granulocytes Abs Auto 0.02 K/uL (0.00-0.30); Immature Granulocytes Pct Auto 0.3 %; Lymphocytes Percent Auto 12.7 % (20-44); Mean Corpuscular HGB Conc 33 gm/dL (32-36); Mean Corpuscular Hemoglobin 36 pg (26-34); Mean Corpuscular Volume 110 fL (80-100); Monocytes Percent Auto 24.8 % (0.0-11.0); Neutrophils Absolute Auto 3.34 K/uL (1.7-7.0); Neutrophils Percent Auto 57.9 % (42.0-72.0); Platelet Count* 186 K/uL (140-440); RDW Coefficient of Variation % 14.2 % (11.5-15.5); Red Blood Count 3.27 m/uL (4.30-5.90); White Blood Count* 5.77 K/uL (4.50-11.00)
[2024-03-16 08:14] LABS: Slide Review Reflex No
[2024-03-16 08:31] LABS: Albumin* 3.7 g/dL (3.3-5.0); Chloride* 107 mmol/L (96-114)
[2024-03-16 08:32] LABS: Potassium* 4.2 mmol/L (3.6-5.1); Sodium* 137 mmol/L (135-149)
[2024-03-16 08:34] LABS: Alkaline Phosphatase* 88 U/L (40-150); Anion Gap 4 mEq/L (7-15); Aspartate Amino Transferase* 39 U/L (12-35); Bilirubin Total* 0.9 mg/dL (0.1-1.5); Carbon Dioxide* 26 mmol/L (20-32); Creatinine* 0.9 mg/dL (0.5-1.5); Est. Creatinine Clearance* 61.75; Estimated Glomerular Filt Rate 89 ml/min; Total Protein* 6.3 g/dL (6.0-8.3)
[2024-03-16 08:35] LABS: Alanine Aminotransferase* 27 U/L (4-50); Blood Urea Nitrogen* 17 mg/dL (7-30); Calcium* 8.9 mg/dL (8.4-10.6); Glucose* 97 mg/dL (60-115)
[2024-03-16] MEDS: 0.9 % SODIUM CHLORIDE 250 ml IV (09:07)
[2024-03-16] MEDS: SODIUM CHLORIDE 0.9 % (FLUSH) 10 ML SYRINGE IVF ×2 (09:07→12:22)
[2024-03-16] MEDS: PALONOSETRON 0.25 MG/5 ML inj IV (09:09)
[2024-03-16] MEDS: dexAMETHasone 20 MG in 0.9 % SODIUM CHLORIDE 100 ml 100 ML 408 MG IVPB (09:10)
[2024-03-16] MEDS: 5 % DEXTROSE 250 ML IV (10:16)
[2024-03-16] MEDS: HEPARIN 500 UNIT/5 ML SYRINGE IVF (12:22)
== END 2024-03-27 23:59 | disposition home or self-care (01) ==
LOC: CCIC 08:00
PROVIDERS: Clinical Nurse Specialist; Physician Assistant; PCP Physician Assistant Medical; Referring Provider Physician Assistant Medical; Visit Provider Internal Medicine Hematology & Oncology
DX: Z51.11 Encounter for antineoplastic chemotherapy (principal); C16.0 Malignant neoplasm of cardia; C15.4 Malignant neoplasm of middle third of esophagus; C34.11 Malignant neoplasm of upper lobe, right bronchus or lung
CPT/HCPCS: 36415; 36591; 78815; 80053; 85025; 96368; 96376; 96413; 96415; 96417; 99211; 99214; 99215; G0463; A9552; J1100; J1642; J2469; J7050; J9263; J9355; Q5114

== ENCOUNTER 2024-05-07 13:11 | Outpatient (CLI) | payer MEDICARE, BC, SELFPAY ==
--- OUTSIDE RECORDS SUMMARY | 2024-05-07 13:13 | XMS_ITS | Clinical Summary ---
Author Organization [facility] Address [address] [place] [address] Care Team Providers Care Assistant Winemaker Name Role Phone Unavailable Primary Care Provider Unavailabl e Source Comments Patient records contain information from all sites at [facility]. For routine questions regarding patient records, call [phone] during business hours, M-F 8:00 AM - 5:00 PM Central Time. Record requests for emergency care only can be directed to [phone] at any time.[facility] Allergies No known active allergies Medications Medication Sig Dispensed Refills Start Date End Date Status atorvastatin (LIPITOR) 10 mg tablet Take 10 mg by mouth. 11/24/2018 Active multivitamin tablet Take 1 tablet by mouth. 10/11/2011 Active acetaminophen (TylenoL) 500 mg capsule Take 500 mg by mouth every 6 (six) hours as needed for pain. Active losartan (COZAAR) 25 mg tablet Take 25 mg by mouth daily. 4 11/25/2018 4 Discontinue d(Therapy completed) predniSONE (DELTASONE) 5 mg tablet Take 5 mg by mouth. 01/25/2019 4 Discontinue d(Therapy completed) raNITIdine (ZANTAC) 150 mg tablet Take 150 mg by mouth. 4 Discontinue d(Therapy completed) loratadine (CLARITIN) 10 mg tablet Take 10 mg by mouth daily. 4 Discontinue d(Therapy completed) dexAMETHasone (DECADRON) 4 mg tablet Take 1 tablet (4 mg total) by mouth 2 (two) times a day. 14 tablet 1 01/13/2024 4 Discontinue d(Therapy completed) omeprazole (PriLOSEC) [address] capsule Take 1 capsule (40 mg total) by mouth every morning before breakfast. Take while taking dexamethasone. Discontinue when discontinuing dexamethasone. 30 capsule 1 01/16/2024 4 Discontinue d(Therapy completed) gabapentin (Neurontin) 300 mg capsule Take 1 capsule (300 mg total) by mouth as directed. 1 capsule at breakfast, 1 at lunch and 2 at bedtime 01/27/2024 4 Discontinue d(Therapy completed) capecitabine (Xeloda) 500 mg tablet Take 3 tablets by mouth. 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 on 01/29/2019 Encounters Date Type Department Care Team Description 05/07/2024 12:01 PM T Hospital Encounter Department of Radiation Oncology in [address] [address] Sulaiman Ackerman M.D. 05/07/2024 11:28 AM T Hospital Encounter Department of Radiation Oncology in [address] [address] Sulaiman Ackerman M.D. Secondary Malignant Neoplasm Bone (HCC) 05/04/2024 12:22 PM CDT Hospital Encounter Department of Radiation Oncology in [address] [address] Sulaiman Ackerman M.D. 05/03/2024 1:47 PM T Hospital Encounter Department of Radiation Oncology in [address] [address] Sulaiman Ackerman M.D. 05/01/2024 10:32 AM CDT Hospital Encounter Department of Radiation Oncology in [address] [address] Sulaiamn Ackerman M.D. Secondary Malignant Neoplasm Bone (HCC) 05/01/2024 9:33 AM CDT - 05/02/2024 10:31 AM CDT Hospital Encounter Department of Radiation Oncology in [address] [address] Sulaiman Ackerman M.D. Secondary Malignant Neoplasm Bone (HCC) (Primary Dx); Malignant Neoplasm Of Esophagus Lower Third (HCC) 04/30/2024 Orders Only Department of Radiation Oncology in [address] [address] Sulaiman Ackerman M.D. Secondary Malignant Neoplasm Bone (HCC) (Primary Dx) 03/16/2024 Clinical Communication Department of Radiation Oncology in [address] [address] Corinne Aguillon M.D. 03/09/2024 7:50 AM CDT - 03/09/2024 11:59 PM CDT Hospital Encounter Department of Radiation Oncology in [address] [address] Corinne Aguillon M.D. Discharge Disposition: Home or Self Care 03/09/2024 Documentation Department of Radiation Oncology in [address] [address] Corinne Aguillon M.D. 03/08/2024 2:13 PM CDT - 03/08/2024 11:59 PM CDT Hospital Encounter Department of Radiation Oncology in [address] [address] Corinne Aguillon M.D. Discharge Disposition: Home or Self Care 03/07/2024 10:15 AM CDT - 03/07/2024 11:59 PM CDT Hospital Encounter Department of Radiation Oncology in [address] [address] Corinne Aguillon M.D. Discharge Disposition: Home or Self Care 03/07/2024 9:48 AM CDT - 03/07/2024 10:14 AM CDT Hospital Encounter Department of Radiation Oncology in [address] [address] Corinne Aguillon M.D. Secondary Malignant Neoplasm Skin Face (HCC) 03/06/2024 7:54 AM CDT - 03/06/2024 11:59 PM CDT Hospital Encounter Department of Radiation Oncology in [address] [address] Corinne Aguillon M.D. Discharge Disposition: Home or Self Care 03/05/2024 12:15 PM CDT - 03/05/2024 11:59 PM CDT Hospital Encounter Department of Radiation Oncology in [address] [address] Corinne Aguillon M.D. Discharge Disposition: Home or Self Care 03/02/2024 8:25 AM CDT - 03/02/2024 4:14 PM CDT Hospital Encounter Department of Radiation Oncology in [address] [address] Corinne Aguillon M.D. Secondary Malignant Neoplasm Skin Face (HCC) 03/02/2024 7:47 AM CDT - 03/02/2024 8:24 AM CDT Hospital Encounter Department of Radiation Oncology in [address] [address] Corinne Aguillon M.D. Secondary Malignant Neoplasm Skin Face (HCC) (Primary Dx); Malignant Neoplasm Of Esophagus Lower Third (HCC) 02/29/2024 Orders Only Department of Radiation Oncology in [address] [address] Corinne Aguillon M.D. Secondary Malignant Neoplasm Skin Face (HCC) (Primary Dx) 02/24/2024 8:43 AM CDT - 02/24/2024 11:59 PM CDT Hospital Encounter Department of Radiation Oncology in [address] [address] Sulaiman Ackerman M.D. Grieman, Kari A, R.N. Malignant Neoplasm Of Esophagus Lower Third (HCC) Discharge Disposition: Home or Self Care 02/07/2024 10:00 AM CDT - 02/07/2024 11:32 AM CDT Hospital Encounter Department of Radiation Oncology in [address] [address] Sulaiman Ackerman M.D. Grieman, Kari A, R.N. Malignant Neoplasm Of Esophagus Lower Third (HCC) 01/24/2024 7:48 AM CDT - 02/07/2024 9:59 AM CDT Hospital Encounter Department of Radiation Oncology in [address] [address] Corinne Aguillon M.D. Leenstra, James L, M.D. Secondary Malignant Neoplasm Lung Right (HCC) from Last 3 Months Immunizations Name Administration [...] drink = 0.6 oz pur e alcohol) [facility] Utilities Answer Date Recorded In the past 12 months has [employer], gas, oil, or water company threatened to [...] living? No 10/02/2023 Nutrition Answer Date Recorded On average, how many serving s of fruits and vegetables do you eat per day (serving size is equal to 1 cup or approximately the size of a tennis ball)? 0-2 10/02/2023 Dental Answer Date Recorded Dental: Regular Dentist Yes 10/02/19 Employment Answer Date Recorded Employment status Retired 10/02/2023 Housing Stability Answer Date Recorded What is your living situation today? [facility] 10/02/2023 Sex and Gender Information Value Date Recorded Sex Assigned at Male 10/02/2023 7:37 AM PATIENT ACCOUNT ANALYST Gender Identity Male 10/02/2023 7:37 AM PATIENT ACCOUNT ANALYST Sexual Orientation Straight 10/02/2023 7: 37 AM PATIENT ACCOUNT ANALYST Last Filed Vital Signs Vital Sign Reading Time Taken Comments Blood Pressure 140/63 05/07/2024 11:34 AM CDT Pulse 59 05/07/2024 11:34 AM CDT Temperature 35.9 ??C (96.7 ??F) 05/07/2024 11:34 AM C DT Respiratory Rate - - Oxygen Saturation - - Inhaled Oxygen Concentration - - Weight 79.5 kg (175 lb 4.3 oz) 05/07/2024 11:34 AM CDT Height 175 cm (5' 8.9) 01/30/2019 9:45 AM CDT Body Mass Index 25.96 01/30/2019 9:45 AM CDT Plan of Treatment Health Maintenance Due Date Last Done Comments CT Colonography 1950 Cologuard 1950 Hepatitis C Screening 1950 Depression Screening (Annual PHQ-2) 08/01/2023 COVID-19 Vaccine ( season) 2024 10/27/2023, 05/06/2022, 11/10/2021, Additional history exists Influenza Vaccine (#1) 2024 , 05/09/2021, 05/22/2020, Additional history exists Colonoscopy 04/09/2025 04/09/2020, 01/25/2011 Colorectal Cancer Surveillance 04/09/2025 Fasting Glucose for Diabetes Screening 11/12/2025 11/12/2022, 06/22/2022, 10/08/2021, Additional history exists DTaP,Tdap,and Td Vaccines (3 - Td or Tdap) 02/15/2028 02/14/2018, 08/01/2008, 10/21/1998, Additional history exists Pneumococcal vaccine (65+ years) Completed 11/19/2016, 11/13/2014 Zoster Vaccines Completed 05/02/2018, 02/14/2018 Abdominal Aortic Aneurysm (AAA) Screen Completed 01/28/2020, 01/28/2020 RSV vaccine - (32-36 weeks) or 60+ years Completed 06/13/2023 Fall Risk Screen (Annual) Completed 01/16/2024 HPV Vaccines Aged Out No longer eligi ble based on patient's age to complete this topic Procedures Procedure Name Priority Date/Time Associated Diagnosis Comments ARIA DAILY TREATMENT INFORMATION Routine 05/07/2024 12:32 PM CDT ARIA DAILY TREATMENT INFORMATION Routine 05/04/2024 12:57 PM CDT ARIA DAILY TREATMENT INFORMATION Routine 05/03/2024 2:27 PM CDT ARIA COURSE COMPLETE TREATMENT INFORMATION Routine 05/02/2024 11:54 AM CDT INITIAL RAD ONC TREATMENT PLANNING CT SIMULATION Routine 05/01/2024 11:00 AM CDT Secondary Malignant Neoplasm Bone (HCC) OUTSIDE NM PET Routine 04/26/2024 2:45 PM CDT ARIA COURSE COMPLETE TREATMENT INFORMATION Routine 03/09/2024 8:24 AM CDT ARIA COURSE COMPLETE TREATMENT INFORMATION Routine 03/09/2024 8:24 AM CDT ARIA DAILY TREATMENT INFORMATION Routine 03/09/2024 8:24 AM CDT ARIA DAILY TREATMENT INFORMATION Routine 03/08/2024 2:38 PM CDT ARIA DAILY TREATMENT INFORMATION Routine 03/07/2024 10:49 AM CDT ARIA DAILY TREATMENT INFORMATION Routine 03/06/2024 8:37 AM CDT ARIA DAILY TREATMENT INFORMATION Routine 03/05/2024 12:46 PM CDT ARIA COURSE COMPLETE TREATMENT INFORMATION Routine 03/02/2024 12:31 PM CDT INITIAL RAD ONC TREATMENT PLANNING CT SIMULATION Routine 03/02/2024 8:00 AM CDT Secondary Malignant Neoplasm Skin Face (HCC) OUTSIDE CT NEURO Routine 02/22/2024 3:30 PM CDT OUTSIDE US NEURO Routine 02/22/2024 12:0 0 AM CDT from Last 3 Months Results * Aria Daily Treatment Information (05/07/2024 12:32 PM CDT) Only the most recent of8 resultswithin the time period is included. Course ID [id number] SBRT [facility] Course Start Date 4 14:51 CDT [facility] First Treatment Date 4 14:26 CDT [facility] Last Treatment Date 4 12:32 CDT [facility] Treatment Elapsed Days 4 [facility] Reference Point [id number] [facility] Dosage Given to Date cGy 3000 [facility] Session Dosage Given 1000 [facility] Plan ID [id number] [facility] Fractions Treated to Date 3 [facility] Planned Total Fractions 3 [facility] Prescribed Dose Per Fraction 1000 [facility] Prescription Dose in cGy 3000 [facility] Plan Primary Reference Point [id number] [facility] 05/07/2024 12:3 2 PM CDT Provider Not In System RADIATION ONCOLOG Y ORDERABLES BRENDAN GARCIA na * Aria Course Complete Treatment Information (05/02/2024 11:54 AM CDT) Only the most recent of4 resultswithin the time period is included. Course ID Planning [facility] Course Start Date 01/30/2019 16:02 CDT [facility] Course End Date 05/02/2024 11:54 CDT [facility] Reference Point [id number] [facility] Dosage Given to Date cGy 0 [facility] Plan ID [id number] [facility] Fractions Treated to Date 0 [facility] Planned Total Fractions 5 [facility] Prescribed Dose Per Fraction 500 [facility] Prescription Dose in cGy 2500 [facility] Plan Primary Reference Point [id number] [facility] Plan ID [id number] [facility] Fractions Treated to Date 0 [facility] Planned Total Fractions 5 [facility] Prescribed Dose Per Fraction 500 [facility] Prescription Dose in cGy 2500 [facility] Plan Primary Reference Point [id number] [facility] Plan ID [id number] [facility] Fractions Treated to Date 0 [facility] Planned Total Fractions 0 [facility] 05/02/2024 11:5 4 AM CDT Provider Not In System RADIATION ONCOLOG Y ORDERABLES BRENDAN GARCIA na * PET skull to mid thigh-Outside NM Pet (04/26/2024 2:45 PM CDT) 04/26/2024 2:42 PM CDT Narrative IIMS - 04/26/2024 6:22 PM CDT This order has been created and auto-finalized to support the import of outside images. If available, original interpretation can be found on the Media Tab in Chart Review, in Document Viewer, as an image in QREADS or as an Addendum. If a re-interpretation or overread is required please follow defined workflow.?? Provider Not In System IMG NM PROCEDURES Performing Organization Address [facility] Co de Phone Number KERI NA * Initial Rad Onc Treatment Planning CT Simulation without IV Contrast (03/02/2024 8:00 AM CDT) Narrative BRENDAN GARCIA - 03/02/2024 8:00 AM CDT Sheridan Benson, RTT ? 03/02/2024 ??9:16 AM Initial Rad Onc Treatment Planning CT Simulation without IV Contrast Performed by: Corinne Aguillon M.D. Authorized by: Corinne Aguillon M.D. ?? Corinne Aguillon M.D. RADIATION ONCOLOG Y ORDERABLES Performing Organization Address [facility] de Phone Number BRENDAN GARCIA na * Outside CT Neuro (02/22/2024 3:30 PM CDT) 02/22/2024 3:54 PM CDT Addenda Addendum by [employer], Outside on 02/22/2024 3:54 PM CDT BELOW REPORT RECEIVED BY [facility] ON 03/01/2024 07:43:01 [id number] For Patients: ??As a result of the 21st Century Cures Act, medical imaging exams and procedure reports are released immediately into your electronic medical record. ??You may view this report before your referring provider. ?? If you have questions, please contact your health care provider. Indication: Facial abscess, adenocarcinoma of the esophagus Technique: CT NECK SOFT TISSUE W Omnipaque 350 100 ML Please note that all CT scans at this facility use dose modulation, iterative reconstruction, and/or weight-based dosing when appropriate to reduce radiation dose to as low as reasonably achievable. Comparison: Ultrasound same day, CT PET 04/22/2023 Findings: Postop changes of esophagogastrectomy with gastric pull up noted. No enlarged lymph nodes within the visualized thorax. Stable small right thyroid lobe nodule measuring 1.1 cm. Scarring in the right lung apex is present. The salivary glands are normal. Subcutaneous circumscribed lesion is present in the right lower face at the level of the mandible measuring 1.8 cm corresponding with the clinical area of concern and corresponding with the ultrasound. No surrounding adenopathy. The pharynx and larynx are similar to the prior study. Visualized brain parenchyma is unremarkable. Sinuses are clear. 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 No fracture. Impression: Circumscribed 1.8 cm lesion located just beneath the skin within the right lower face superficial to the mandible. This is likely infectious and percutaneous biopsy will be performed by Dr. Garcia. Discussed with Dr. Garcia 1553 02.22.24. Please note that all CT scans at this facility use dose modulation, iterative reconstruction, and/or weight-based dosing when appropriate to reduce radiation dose to as low as reasonably achievable. Dictated by Rodger Romo MD @ 02/22/2024 3:54:16 PM (Electronically Signed) 14 READ BY Rodger Romo RELEASED BY VANITA Addendum by [employer], Outside on 02/22/2024 3:54 PM CDT BELOW REPORT RECEIVED BY [facility] ON 03/01/2024 07:42:00 [id number] For Patients: ??As a result of the 21st Century Cures Act, medical imaging exams and procedure reports are released immediately into your electronic medical record. ??You may view this report before your referring provider. ?? If you have questions, please contact your health care provider. Indication: Facial abscess, adenocarcinoma of the esophagus Technique: CT NECK SOFT TISSUE W Omnipaque 350 100 ML Please note that all CT scans at this facility use dose modulation, iterative reconstruction, and/or weight-based dosing when appropriate to reduce radiation dose to as low as reasonably achievable. Comparison: Ultrasound same day, CT PET 04/22/2023 Findings: Postop changes of esophagogastrectomy with gastric pull up noted. No enlarged lymph nodes within the visualized thorax. Stable small right thyroid lobe nodule measuring 1.1 cm. Scarring in the right lung apex is present. The salivary glands are normal. Subcutaneous circumscribed lesion is present in the right lower face at the level of the mandible measuring 1.8 cm corresponding with the clinical area of concern and corresponding with the ultrasound. No surrounding adenopathy. The pharynx and larynx are similar to the prior study. Visualized brain parenchyma is unremarkable. Sinuses are clear. 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 No fracture. Impression: Circumscribed 1.8 cm lesion located just beneath the skin within the right lower face superficial to the mandible. This is likely infectious and percutaneous biopsy will be performed by Dr. Garcia. Discussed with Dr. Garcia 1553 02.22.24. Please note that all CT scans at this facility use dose modulation, iterative reconstruction, and/or weight-based dosing when appropriate to reduce radiation dose to as low as reasonably achievable. Dictated by Rodger Romo MD @ 02/22/2024 3:54:16 PM (Electronically Signed) 14 READ BY Rodger Romo RELEASED BY VANITA Narrative IMAGING - 03/01/2024 7:57 AM CDT This order has been created and auto-finalized to support the import of outside images. If available, original interpretation can be found on the Media Tab in Chart Review, in Document Viewer, as an image in QREADS or as an Addendum. If a re-interpretation or overread is required please follow defined workflow.?? Procedure Note [employer], Outside - 03/01/2024 This order has been created and auto-finalized to support the import ofoutside images. If available, original interpretation can be found on theMedia Tab in Chart Review, in Document Viewer, as an image in QREADS or asan Addendum. If a re-interpretation or overread is required please follow definedworkflow.?? Provider Not In System IMG CT PROCEDURES IMAGING NA * Outside US Neuro (02/22/2024 12:00 AM CDT) 02/22/2024 3:48 PM CDT Addenda Addendum by [employer], Outside on 02/22/2024 3:48 PM CDT BELOW REPORT RECEIVED BY [facility] ON 03/01/2024 07:41:00 [id number] For Patients: ??As a result of the Cures Act, medical imaging exams and procedure reports are released immediately into your electronic medical record. ??You may view this report before your referring provider. ?? If you have questions, please contact your health care provider. Indication: Facial abscess Technique: Grayscale and color Doppler ultrasound of the right side of lower face. Comparison: CT PET 04/22/2023 Findings: There is a complex solid and cystic mass within the subcutaneous tissues of the right lower face at the level of the mandible measuring 1.8 x 1.5 x 1.9 cm. Central hypoechoic fluid noted. No internal vascularity. Impression: Subcutaneous solid/cystic mass measuring 1.8 x 1.5 x 1.9 cm with central fluid or necrosis. CT will be performed subsequently. Dictated by Rodger Romo MD @ 02/22/2024 3:48:52 PM (Electronically Signed) READ BY Rodger Romo RELEASED BY VANITA Addendum by [employer], Outside on 02/22/2024 3:48 PM CDT BELOW REPORT RECEIVED BY [facility] ON 03/01/2024 07:40:30 [id number] For Patients: ??As a result of the Cures Act, medical imaging exams and procedure reports are released immediately into your electronic medical record. ??You may view this report before your referring provider. ?? If you have questions, please contact your health care provider. Indication: Facial abscess Technique: Grayscale and color Doppler ultrasound of the right side of lower face. Comparison: CT PET 04/22/2023 Findings: There is a complex solid and cystic mass within the subcutaneous tissues of the right lower face at the level of the mandible measuring 1.8 x 1.5 x 1.9 cm. Central hypoechoic fluid noted. No internal vascularity. Impression: Subcutaneous solid/cystic mass measuring 1.8 x 1.5 x 1.9 cm with central fluid or necrosis. CT will be performed subsequently. Dictated by Rodger Romo MD @ 02/22/2024 3:48:52 PM (Electronically Signed) READ BY Rodger Romo RELEASED BY VANITA Addendum by [employer], Outside on 02/22/2024 3:48 PM CDT BELOW REPORT RECEIVED BY [facility] ON 03/01/2024 07:40:20 [id number] For Patients: ??As a result of the Century Cures Act, medical imaging exams and procedure reports are released immediately into your electronic medical record. ??You may view this report before your referring provider. ?? If you have questions, please contact your health care provider. Indication: Facial abscess Technique: Grayscale and color Doppler ultrasound of the right side of lower face. Comparison: CT PET 04/22/2023 Findings: There is a complex solid and cystic mass within the subcutaneous tissues of the right lower face at the level of the mandible measuring 1.8 x 1.5 x 1.9 cm. Central hypoechoic fluid noted. No internal vascularity. Impression: Subcutaneous solid/cystic mass measuring 1.8 x 1.5 x 1.9 cm with central fluid or necrosis. CT will be performed subsequently. Dictated by Rodger Romo MD @ 02/22/2024 3:48:52 PM (Electronically Signed) READ BY Rodger Romo RELEASED BY VANITA Narrative IMAGING - 03/01/2024 7:54 AM CDT This order has been created and auto-finalized to support the import of outside images. If available, original interpretation can be found on the Media Tab in Chart Review, in Document Viewer, as an image in QREADS or as an Addendum. If a re-interpretation or overread is required please follow defined workflow.?? Procedure Note Digital Media, Outside - 03/01/2024 This order has been created and auto-finalized to support the import ofoutside images. If available, original interpretation can be found on theMedia Tab in Chart Review, in Document Viewer, as an image in QREADS or asan Addendum. If a re-interpretation or overread is required please follow definedworkflow.?? Provider Not In System IMG US PROCEDURES IMAGING NA from Last 3 Months Additional Health Concerns Infection Onset Date Last Indicated Protective Environment 03/02/2024 08/02/202 4
--- OUTSIDE RECORDS SUMMARY | 2024-05-07 13:14 | XMS_ITS | Referral Summary ---
Author Organization [facility] Address [address] [place] [address] Care Team Providers Care Flight Communications Operator Name Role Phone Unavailable Primary Care Provider Unavailabl e Source Comments Patient records contain information from all sites at [facility]. For routine questions regarding patient records, call [phone] during business hours, M-F 8:00 AM - 5:00 PM Central Time. Record requests for emergency care only can be directed to [phone] at any time.[facility] Encounters Date Type Department Care Team Description 05/07/2024 11:28 AM CDT Hospital Encounter Department of Radiation Oncology in [address] [address] Sulaiman Ackerman M.D. Secondary Malignant Neoplasm Bone (HCC) 05/07/2024 12:01 PM CDT Hospital Encounter Department of Radiation Oncology in [address] [address] Sulaiman Ackerman M.D. 05/04/2024 12:22 PM CDT Hospital Encounter Department of Radiation Oncology in [address] [address] Sulaiman Ackerman M.D. 05/03/2024 1:47 PM CDT Hospital Encounter Department of Radiation Oncology in [address] [address] Sulaiman Ackerman M.D. 05/01/2024 9:33 AM CDT - 05/02/2024 10:31 AM CDT Hospital Encounter Department of Radiation Oncology in [address] [address] Sulaiman Ackerman M.D. Secondary Malignant Neoplasm Bone (HCC) (Primary Dx); Malignant Neoplasm Of Esophagus Lower Third (HCC) 05/01/2024 10:32 AM CDT Hospital Encounter Department of Radiation Oncology in [address] [address] Sulaiman Ackerman M.D. Secondary Malignant Neoplasm Bone (HCC) 04/30/2024 Orders Only Department of Radiation Oncology in [address] [address] Sulaiman Ackerman M.D. Secondary Malignant Neoplasm Bone (HCC) (Primary Dx) 03/16/2024 Clinical Communication Department of Radiation Oncology in [address] [address] Corinne Aguillon M.D. 03/09/2024 Documentation Department of Radiation Oncology in [address] [address] Corinne Aguillon M.D. 03/09/2024 7:50 AM CDT - 03/09/2024 11:59 PM CDT Hospital Encounter Department of Radiation Oncology in [address] [address] Corinne Aguillon M.D. Discharge Disposition: Home or Self Care 03/08/2024 2:13 PM CDT - 03/08/2024 11:59 PM CDT Hospital Encounter Department of Radiation Oncology in [address] [address] Corinne Aguillon M.D. Discharge Disposition: Home or Self Care 03/07/2024 9:48 AM CDT - 03/07/2024 10:14 AM CDT Hospital Encounter Department of Radiation Oncology in [address] [address] Corinne Aguillon M.D. Secondary Malignant Neoplasm Skin Face (HCC) 03/07/2024 10:15 AM CDT - 03/07/2024 11:59 PM CDT Hospital Encounter Department of Radiation Oncology in [address] [address] Corinne Aguillon M.D. Discharge Disposition: Home or Self Care 03/06/2024 7:54 AM CDT - 03/06/2024 11:59 PM CDT Hospital Encounter Department of Radiation Oncology in [address] [address] Corinne Aguillon M.D. Discharge Disposition: Home or Self Care 03/05/2024 12:15 PM CDT - 03/05/2024 11:59 PM CDT Hospital Encounter Department of Radiation Oncology in [address] [address] Corinne Aguillon M.D. Discharge Disposition: Home or Self Care 03/02/2024 7:47 AM CDT - 03/02/2024 8:24 AM CDT Hospital Encounter Department of Radiation Oncology in [address] [address] Corinne Aguillon M.D. Secondary Malignant Neoplasm Skin Face (HCC) (Primary Dx); Malignant Neoplasm Of Esophagus Lower Third (HCC) 03/02/2024 8:25 AM CDT - 03/02/2024 4:14 PM CDT Hospital Encounter Department of Radiation Oncology in [address] [address] Corinne Aguillon M.D. Secondary Malignant Neoplasm Skin Face (HCC) 02/29/2024 Orders Only Department of Radiation Oncology in [address] [address] Henna, Corinne I., M.D. Secondary Malignant Neoplasm Skin Face (HCC) (Primary Dx) 02/24/2024 8:43 AM CDT - 02/24/2024 11:59 PM CDT Hospital Encounter Department of Radiation Oncology in [address] [address] Sulaiman Ackerman M.D. Grieman, Kari A, R.N. Malignant Neoplasm Of Esophagus Lower Third (HCC) Discharge Disposition: Home or Self Care 02/07/2024 10:00 AM CDT - 02/07/2024 11:32 AM CDT Hospital Encounter Department of Radiation Oncology in [address] [address] Sulaiman Ackerman M.D. Grieman, Kari A, R.N. Malignant Neoplasm Of Esophagus Lower Third (HCC) 01/24/2024 7:48 AM CDT - 02/07/2024 9:59 AM CDT Hospital Encounter Department of Radiation Oncology in [address] [address] Corinne Aguillon M.D. Leenstra, James L, M.D. Secondary Malignant Neoplasm Lung Right (HCC) from Last 3 Months Allergies No known [...] Bone 04/30/2024 Secondary Malignant Neoplasm Skin Face 4 Secondary Malignant Neoplasm Lung Right 12/27/19 24 [...] drink = 0.6 oz pur e alcohol) [facility] Utilities Answer Date Recorded In the past 12 months has [employer], gas, oil, or water [employer] threatened to shut off services in your [...] your living situation today? I have a [facility] place to live 10/02/2023 Sex and Gender Information Value Date Recorded Sex Assigned at Male 10/02/2023 7:37 AM ENVIRONMENTAL REMEDIATION CONSULTANT Gender Identity Male 10/02/2023 7:37 AM ENVIRONMENTAL REMEDIATION CONSULTANT Sexual Orientation Straight 10/02/2023 7: 37 AM ENVIRONMENTAL REMEDIATION CONSULTANT Last Filed Vital Signs Vital Sign Reading [...] 01/30/2019 9:45 AM CDT Plan of Treatment Not on file Procedures Procedure Name Priority Date/Time Associated Diagnosis [...] ARIA Course Start Date 4 14:51 CDT CARDONA ARIA First Treatment Date 4 14:26 CDT CARDONA ARIA Last Treatment Date 4 12:32 CDT CARDONA ARIA Treatment Elapsed Days 4 CARDONA ARIA Reference Point [id number] CARDONA ARIA Dosage Given to Date cGy 3000 CARDONA ARIA Session Dosage Given 1000 CARDONA ARIA Plan ID [id number] CARDONA ARIA Fractions Treated to Date 3 CARDONA ARIA Planned Total Fractions 3 CARDONA ARIA Prescribed Dose Per Fraction 1000 CARDONA ARIA Prescription Dose in cGy 3000 CARDONA ARIA Plan Primary Reference Point [id number] CARDONA ARIA 05/07/2024 12:3 2 PM CDT Provider Not In System RADIATION ONCOLOG Y ORDERABLES CARDONA ARIA na * Aria Course Complete Treatment Information (05/02/2024 11:54 AM CDT) Only the most recent of4 resultswithin the time period is included. Course ID Planning CARDONA ARIA Course Start Date 01/30/2019 16:02 CDT CARDONA ARIA Course End Date 05/02/2024 11:54 CDT CARDONA ARIA Reference Point [id number] CARDONA ARIA Dosage Given to Date cGy 0 CARDONA ARIA Plan ID [id number] CARDONA ARIA Fractions Treated to Date 0 CARDONA ARIA Planned Total Fractions 5 CARDONA ARIA Prescribed Dose Per Fraction 500 CARDONA ARIA Prescription Dose in cGy 2500 CARDONA ARIA Plan Primary Reference Point [id number] CARDONA ARIA Plan ID [id number] CARDONA ARIA Fractions Treated to Date 0 CARDONA ARIA Planned Total Fractions 5 CARDONA ARIA Prescribed Dose Per Fraction 500 CARDONA ARIA Prescription Dose in cGy 2500 CARDONA ARIA Plan Primary Reference Point [id number] CARDONA ARIA Plan ID [id number] CARDONA ARIA Fractions Treated to Date 0 CARDONA ARIA Planned Total Fractions 0 CARDONA ARIA 05/02/2024 11:5 4 AM CDT Provider Not In System RADIATION ONCOLOG Y ORDERABLES Performing Organization Address [facility] Co de Phone Number BRENDAN louis * PET [...] System IMG NM PROCEDURES Performing Organization Address [facility] de Phone Number KERI NA * Initial [...] RADIATION ONCOLOG Y ORDERABLES Performing Organization Address [facility] de Phone Number BRENDAN louis * Outside CT Neuro (02/22/2024 3:30 PM CDT) 02/22/2024 3:54 PM CDT Addenda Addendum by Anagran, Outside on 02/22/2024 3:54 PM CDT BELOW REPORT RECEIVED BY [facility] 03/01/2024 07:43:01 [id number] For Patients: ??As a result of the [...] Rodger Romo RELEASED BY VANITA Addendum by Anagran, Outside on 02/22/2024 3:54 PM CDT BELOW REPORT RECEIVED BY [facility] 03/01/2024 07:42:00 [id number] For Patients: ??As a result of the [...] 02/22/2024 3:48 PM CDT Addenda Addendum by Anagran, Outside on 02/22/2024 3:48 PM CDT BELOW REPORT RECEIVED BY [facility] 03/01/2024 07:41:00 [id number] For Patients: ??As a result of the [...] Rodger Romo RELEASED BY VANITA Addendum by Anagran, Outside on 02/22/2024 3:48 PM CDT BELOW REPORT RECEIVED BY [facility] 03/01/2024 07:40:30 [id number] For Patients: ??As a result of the [...] 3:48:52 PM (Electronically Signed) READ BY Rodger ERWIN BY VANITA Addendum by Anagran, Outside on 02/22/2024 3:48 PM CDT BELOW REPORT RECEIVED BY [facility] 03/01/2024 07:40:20 [id number] For Patients: ??As a result of the [...] 3:48:52 PM (Electronically Signed) READ BY Rodger ERWIN BY VANITA Narrative IMAGING - 03/01/2024 7:54 AM CDT This order has been created and auto-finalized to support the import of outside images. If available, original interpretation can be found on the Media Tab in Chart Review, in Document Viewer, as an image in QREADS or as an Addendum. If a re-interpretation or overread is required please follow defined workflow.?? Procedure Note Anagran, Outside - 03/01/2024 This order has been [...]
--- OUTSIDE RECORDS SUMMARY | 2024-05-07 13:14 | XMS_ITS | Encounter Summary ---
Author Organization [facility] Address [address] [place] [address] Care Team Providers Care Linter Drier Operator Name Role Phone Unavailable Primary Care Provider Unavailabl e Reason for Referral * Radiation Therapy (Routine) - Authorized Specialty Diagnoses / Procedures Referred By Contac t Referred To Contact Diagnoses Secondary Malignant Neoplasm Skin Face (HCC) Procedures Prior Auth Rad Tx Corinne Aguillon M.D. [address] [place] [address] [facility] Referral ID Status Reason Start Date Expiration Date V isits Requested Visits Authorized [id number] Authorized 03/02/2024 03/02/2025 1 1 * Outpatient (Routine) - Closed Specialty Diagnoses / Procedures Referred By Contac t Referred To Contact Radiation Oncology Corinne Aguillon M.D. [address] [place] [address] [facility] Referral ID Status Reason Start Date Expiration Date Visits Re quested Visits Authorized [id number] Closed 02/29/2024 08/30/2025 1 1 Reason for Visit * Outpatient (Routine) - Closed Specialty Diagnoses / Procedures Referred By Contac t Referred To Contact Radiation Oncology Corinne Aguillon M.D. [address] [place] [address] [facility] Region Referral ID Status Reason Start Date Expiration Date Visits Re quested Visits Authorized [id number] Closed 02/29/2024 08/30/2025 1 1 Encounter Details Date Type Department Care Team (Latest Contact Info) Description 03/02/2024 7:47 AM CDT - 03/02/2024 8:24 AM CDT Hospital Encounter Department of Radiation Oncology in [place], [place] [address] [place] [phone] Corinne Aguillon M.D. [address] [place] [phone] Secondary Malignant Neoplasm Skin Face (HCC) (Primary Dx); Malignant Neoplasm Of Esophagus Lower Third (HCC) Social History Tobacco Use Types Packs/Day Years Used Date Smoking Tobacco: Former Cigarettes 1 18 1 967 - 1984 Smokeless Tobacco: Never Alcohol Use Standard Drinks/Week Comments Yes 0 (1 standard drink = 0.6 oz pur e alcohol) [facility] Utilities Answer Date Recorded In the [...] your living situation today? I have a [facility] place to live 10/02/2023 Sex and Gender Information Value Date Recorded Sex Assigned at Male 10/02/2023 7:37 AM ROSS CARRIER DRIVER Gender Identity Male 10/02/2023 7:37 AM ROSS CARRIER DRIVER Sexual Orientation Straight 10/02/2023 7: 37 AM ROSS CARRIER DRIVER documented as of this encounter Last Filed Vital Signs Vital Sign Reading Time Taken Comments Blood Pressure 129/67 03/02/2024 7:54 AM CDT Pulse 57 03/02/2024 7:54 AM CDT Temperature 36.3 ??C (97.4 ??F) 03/02/2024 7:54 AM CD T Respiratory Rate - - Oxygen Saturation - - Inhaled Oxygen Concentration - - Weight 82.1 kg (181 lb) 03/02/2024 7:54 AM CDT Height - - Body Mass Index 26.81 01/30/2019 9:45 AM CDT documented in this encounter Medications at Time of Discharge Medication Sig Dispensed Refills Start Date End Date atorvastatin (LIPITOR) 10 mg tablet Take 10 mg by mouth. 11/24/2018 multivitamin tablet Take 1 tablet by mouth. 10/11/2011 capecitabine (Xeloda) 500 mg tablet Take 3 tablets by mouth. 07/07/2021 05/07/2024 dexAMETHasone (DECADRON) 4 mg tablet Take 1 tablet (4 mg total) by mouth 2 (two) times a day. 14 tablet 1 01/13/2024 05/07/2024 gabapentin (Neurontin) 300 mg capsule Take 1 capsule (300 mg total) by mouth as directed. 1 capsule at breakfast, 1 at lunch and 2 at bedtime 01/27/2024 05/07/2024 loratadine (CLARITIN) 10 mg tablet Take 10 mg by mouth daily. 05/07/2024 losartan (COZAAR) 25 mg tablet Take 25 mg by mouth daily. 4 11/25/2018 05/07/2024 omeprazole (PriLOSEC) [address] capsule Take 1 capsule (40 mg total) by mouth every morning before breakfast. Take while taking dexamethasone. Discontinue when discontinuing dexamethasone. 30 capsule 1 01/16/2024 05/07/2024 predniSONE (DELTASONE) 5 mg tablet Take 5 mg by mouth. 01/25/2019 05/07/20 raNITIdine (ZANTAC) 150 mg tablet Take 150 mg by mouth. 05/07 documented as of this encounter Progress Notes * Cyndie Kitchen APRN, C.N.P., D.N.P. - 03/02/2024 8:00 AM CDT SUBJECTIVE REASON FOR CONSULT 1. Secondary Malignant Neoplasm Skin Face (HCC) 2. Malignant Neoplasm Of Esophagus Lower Third (HCC) SUPERVISED BY: Corinne Aguillon M.D. HISTORY OF PRESENT ILLNESS Mr. Te Archuleta is a 73 y.o. male with metastatic adenocarcinoma of the esophagus. He recently completed radiation treatment to a persistent right apex lesion on February 01, 2024. He returns to discuss the role of radiation treatment to a new lesion on his right chin that was biopsy-proven metastatic adenocarcinoma. His oncologic history is as follows: Oncology [...] was performed by Dr. Keven Hammonds, from [facility]. Barretts and tumor was seen in [...] Oncology consultation with Dr. Xavier Brown at [facility] who discussed weekly Taxol and carboplatin chemotherapy concurrent with radiation as an initial strategy. Referral to Radiation Oncology. 8. January 29, 2019: Port placement performed at [facility]. 9. February 07, 2019 through March 13, 2019: Intensity modulated radiotherapy to the lower esophageal tumor and nearby lymph nodes with a margin delivering 4500 cGy in 25 fractions with a simultaneous boost to 5000 cGy in 25 fractions to the gross tumor. The patient received concurrent chemotherapy with weekly Taxol and Carboplatin under the care of Dr. Brown on Tuesdays at the [facility]. 04/16/2019 Critical Imaging PET/CT IMPRESSION: 1. Overall [...] Under the care of Dr. Na Romano, [facility] July 2021: Initiated Xeloda, cisplatin, Herceptin, and [...] Herceptin, and Oxaliplatin initiated with Dr. Quinteros, [facility] 12/31/23 - 01/20/24: oxaliplatin held while receiving [...] 4. No new FDG uptake is identified. 01/12/2024 - 02/01/2024 Radiation Therapy 4500 cGy in 15 fractions to right apex 02/22/2024 Critical Imaging Ultrasound neck/head Impression: Subcutaneous solid/cystic mass measuring 1.8 x 1.5 x 1.9 cm with central fluid or necrosis. CT willbe performed subsequently. CT neck soft tissue Impression: Circumscribed 1.8 cm lesion located just beneath the skin within the right lower face superficial to the mandible. This is likely infectious and percutaneous biopsy will be performed 02/22/2024 Biopsy/Pathology Final Diagnosis SKIN, RIGHT CHIN, BIOPSY: Moderately differentiated adenocarcinoma with necrosis, forming a subcutaneous mass extending to tissue margins See comment -Ancillary testing added 02/29/2024 -DNA mismatch repair enzymes show loss of MLH1 and PMS2; see comment regarding potential genetic testing -Gastric/Gastroesophageal PD-L1 Combined Positive Score (CPS): 0 (negative) 02/29/24 -DNA mismatch repair enzyme immunohistochemistry shows lack of staining for MLH1 and PMS2 and intact staining with MSH2 and MSH6. 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 Given the history of both esophageal and colonic adenocarcinomas, consideration for genetic counseling and germline testing to evaluate for potential Patrick syndrome is reasonable INTERVAL HISTORY The patient was seen and examined today with Dr. Aguillon. The patient reports feeling well overall. He has noticed continued improvement in his right forearmpain following his most recent radiation treatment. He continues using lidocaine cream and continues to find this helpful. He 1st noticed the lump on his right chin when he was going through his mostrecent radiation treatment. Initially he and his primary care provider thought it was a cyst. It continued to grow so they started him on antibiotics. The antibiotics did help decrease the lesion some, but it remained present which is when they decided to move through with a biopsy. He reports a discomfort and sensation at times but denies overall pain. It does not affect his eating or drinking. He does not report regular drainage except for the healing wound from his biopsy site. He denies any other new lumps or bumps. His ECOG performance status is 0. REVIEW OF SYSTEMS Review of systems was negative except as documented above. OBJECTIVE BP 129/67 (BP Location: Right arm, Patient Position: Sitting, Cuff Size: Regular) Pulse (!) 57 Temp 36.3 ??C (Temporal) Wt 82.1 kg BMI 26.81 kg/m?? PHYSICAL EXAM General: Patient is alert and oriented in no apparent distress. Skin: 2 x 1.8 cm erythematous nodule on right chin with healing biopsy site central to the nodule Lymph: No palpable cervical, submandibular, submental, supraclavicular, or axillary adenopathy ASSESSMENT / PLAN #1 Stage III (cT3, [...] upper lobe initiated on January 12, 2024; completed on February 01, 2024 #[address] of the head/neck demonstrated cystic mass on the right chin; biopsy-proven metastatic adenocarcinoma on February 22, 2024 It was a pleasure to meet with Bill today. He continues healing well following his most recent radiation treatment to his right apex. This new lesion on his right chin has been present for approximately 6 weeks and continues to grow. Antibiotics did initially help decrease it some, but the nodule remains present. It was biopsied and unfortunately came back with metastatic adenocarcinoma. We discussed the risks, benefits, and alternatives of radiotherapy in this setting. We discussed the recommendation for radiation treatment to his right chin lesion in 5 fractions. We discussed the acute as well as intermediate frame tender risks, including, but not limited to fatigue, skin erythema, possibly mucositis, bone health, and risk of bone fracture in the future His questions were answered to their verbalized satisfaction. After discussion, the patient verbally stated that he would like to proceed with treatment. He willundergo CT simulation today. We anticipate starting radiation therapy in the next 1-2 weeks. Patient seen in collaboration with Dr. Aguillon, please review her attestation for additional information. The patient was provided with our contact information. He was asked to contact us with questions or concerns. He verbally expressed his understanding of the plan. EDUCATION Ready to learn, no apparent learning barriers were identified; learning preferences include listening. Explained diagnosis and treatment plan; patient expressed understanding of the content. I personally spent 20 minutes in care of the patient today. Time includes both non face to face andface to face patient care. Signed by: Cyndie Kitchen APRN, C.N.P., D.N.P. 03/01/2024 4:15 PM CDT [facility] [address] [place] [address] Associated attestation - Corinne Aguillon M.D. - 03/02/2024 3:53 PM CDT RADIATION ONCOLOGY CONSULT I saw and evaluated the patient and participated in the greene portions of the service. I reviewed thedocumentation of Ms. Cyndie Kitchen APRN and agree with the findings and plan. Please see Ms. Kitchen's detailed note for the patient's initial presentation and work-up. Briefly, Mr. Te Archuleta is a 73 y.o. male with metastatic adenocarcinoma of the esophagus. He recently completed radiation treatment to a persistent right apex lesion on February 01, 2024. He returns to discuss the role of radiation treatment to a new lesion on his right chin that was biopsy-proven metastatic adenocarcinoma. . I have independently reviewed her imaging, operative and pathology reports. On exam, he appears well. He has about a 2cm round firm red mass on the right side of the skin of his mandible. It is not tender and the biopsy site is evident. No adenopathy. We discussed the findings above and below in this note with the patient. We discussed his treatmentalternatives. We discussed the rationale, risks, side effects and palliative goals of radiation therapy. We discussed the acute as well as assisted risks, including, but not limited to fatigue, skinerythema, mucositis (if we would include his mouth which is unlikely as we will likely use tangential garcia), bone health, and risk of bone fracture in the future. He understood and his questions were answered. He wished to proceed with treatment. We tentatively plan on delivering 2500 cGy in 5 fractions starting Tuesday, March 05, 2024 . My thanks to Drs. Romano and Ana for the opportunity to participate in this patient's care. EDUCATION Ready to learn, no apparent learning barriers were identified; learning preferences include listening. Explained diagnosis and treatment plan; patient expressed understanding of the content. CONSENT Discussed the risks, benefits, alternatives, and the necessity of other members of the healthcare team participating in the procedure. All questions answered and consent given. DIAGNOSIS #1 Stage III (cT3, cN1, cM0, G3) [...] upper lobe initiated on January 12, 2024; completed on February 01, 2024 #[address] of the head/neck demonstrated cystic mass on the right chin; biopsy-proven metastatic adenocarcinoma on February 22, 2024 Corinne Aguillon M.D., 03/02/2024 documented in this encounter Procedure Notes * Sheridan Benson, RTT - 03/02/2024 8:00 AM CDTAssociated Order(s): Initial Rad Onc Treatment Planning CT Simulation without IV Contrast Pre-Procedure Diagnose(s): Secondary Malignant Neoplasm Skin Face (HCC) Initial Rad Onc Treatment Planning CT Simulation without IV Contrast Performed by: Corinne Aguillon M.D. Authorized by: Corinne Aguillon M.D. Simulation was performed under physician supervision [...] placed to facilitate marking of isocenter. Area scanned:Head and Neck Contrast used for the simulation procedure: None Patient position:head first supine Custom immobilization: 3 point mask and Custom neck rest Motion management: None Bolus: Yes CT guidance: Following positioning of the patient, a series of slices was obtained to be utilized in treatment planning. CT images were transferred to the [employer] treatment planning system, after a reference isocenter was determined and marked. Segmentation and treatment planning will take place prior to treatment delivery. Patient set up and imaging was appropriate and completed without incident. Airways Operations Specialist use:No Associated attestation - Corinne Aguillon M.D. - 03/02/2024 4:13 PM CDT I was present during all critical and greene portions of the procedure(s) and [facility]. See note for details. documented in this encounter Miscellaneous Notes * Addendum Note - Corinne Aguillon M.D. - 03/02/2024 8:00 AM CDTEncounter addended by: Corinne Aguillon M.D. on: 03/02/2024 4:13 PM Actions taken: Cosign clinical note with attestation documented in this encounter Plan of Treatment Scheduled Orders Name Type Priority Associated Diagnoses Orde r Schedule Prior Auth Rad Tx Radiation Oncology Routine Secondary Malignant Neoplasm Skin Face (HCC) Ordered: 03/02/2024 Scheduled Referrals Name Type Priority Associated Diagnoses Order Schedule Radiation Oncology office visit (clinic) Outpatient Referral Routine Once for 1 Occurrences starting 03/02/2024 until 03/02/2024 documented as of this encounter Procedures Procedure Name Priority Date/Time Associated Diagnosis Comments INITIAL RAD ONC TREATMENT PLANNING CT SIMULATION Routine 03/02/2024 8:00 AM CDT Secondary Malignant Neoplasm Skin Face (HCC) documented in this encounter Visit Diagnoses Diagnosis Secondary Malignant Neoplasm Skin Face (HCC)- Primary Malignant Neoplasm Of Esophagus Lower Third (HCC) documented in this encounter
--- OUTSIDE RECORDS SUMMARY | 2024-05-07 13:14 | XMS_ITS ---
Author Organization [facility] Address [address] [place] [address] Care Team Providers Care Station Worker Name Role Phone Unavailable Primary Care [...] Treated Prescribed Fraction Dose Prescribed Total Dose [id number] 05/07/2024 4 3 of 3 1,000 cGy 3,000 cGy [id number] 03/09/2024 4 5 of 5 500 cGy 2,500 cGy [id number] 02/01/2024 20 15 of 15 300 cGy 4,500 cG y [id number] 05/25/2023 9 5 of 5 1,000 cGy 5,000 c Gy F1 Esophagus 03/13/2019 34 25 of 25 200 cGy 5,000 c Gy Reference Point Last Treated On Elapsed Days Session Dose Total Dose [id number] 05/07/2024 4 1,000 cGy 3,000 cGy [id number] 03/09/2024 4 500 cGy 2,500 cGy [id number] RUL 02/01/2024 20 300 cGy 4,500 cGy [id number] RLL 05/25/2023 9 1,000 cGy 5,000 cGy [id number] 03/13/2019 34 200 cGy 5,000 cGy
--- OUTSIDE RECORDS SUMMARY | 2024-05-07 13:14 | XMS_ITS | Encounter Summary ---
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 [address] [place] [address] [facility] Region Referral ID Status Reason Start Date Expiration Date V isits Requested Visits Authorized [id number] Authorized 04/30/2024 04/30/2025 10 10 Reason for Visit * Radiation Therapy (Routine) - Authorized Specialty Diagnoses / Procedures Referred By Contac t Referred To Contact Diagnoses Secondary Malignant Neoplasm Bone (HCC) Procedures Management Visit Sulaiman Ackerman M.D. [address] [place] [address] [facility] Region Referral ID Status Reason Start Date Expiration Date V isits Requested Visits Authorized [id number] Authorized 04/30/2024 04/30/2025 10 10 Encounter Details Date Type Department Care Team (Latest Contact Info) Description 05/07/2024 11:28 AM CDT Hospital Encounter Department of Radiation Oncology in [place], [place] [address] [place] [phone] Sulaiman Ackerman M.D. [address] [place] [address] Secondary Malignant Neoplasm Bone (HCC) Social History Tobacco Use Types Packs/Day Years Used Date Smoking Tobacco: Former Cigarettes 1 18 1 967 - 1984 Smokeless Tobacco: Never Alcohol Use Standard Drinks/Week Comments Yes 0 (1 standard drink = 0.6 oz pur e alcohol) [facility] Utilities Answer Date Recorded In the past 12 months has e [employer], gas, oil, or water [employer] threatened to shut off services in your [...] your living situation today? I have a [facility] place to live 10/02/2023 Sex and Gender Information Value Date Recorded Sex Assigned at Male 10/02/2023 7:37 AM MANAGER ER Gender Identity Male 10/02/2023 7:37 AM MANAGER ER Sexual Orientation Straight 10/02/2023 7: 37 AM MANAGER ER documented as of this encounter Last Filed Vital Signs Vital Sign Reading Time Taken Comments Blood Pressure 140/63 05/07/2024 11:34 AM CDT Pulse 59 05/07/2024 11:34 AM CDT Temperature 35.9 ??C (96.7 ??F) 05/07/2024 11:34 AM C DT Respiratory Rate - - Oxygen Saturation - - Inhaled Oxygen Concentration - - Weight 79.5 kg (175 lb 4.3 oz) 05/07/2024 11:34 AM CDT Height - - Body Mass Index 25.96 01/30/2019 9:45 AM CDT documented in this encounter Plan of Treatment Scheduled Orders Name Type Priority Associated Diagnoses Orde r Schedule Management Visit Radiation Oncology Routine Secondary Malignant Neoplasm Bone (HCC) Once for 1 Occurrences starting 05/07/2024 until 05/07/2024 documented as of this encounter Visit Diagnoses Diagnosis Secondary Malignant Neoplasm Bone (HCC) documented in this encounter Additional Health Concerns Infection Onset Date Last Indicated Resolved Time Protective Environment 03/02/2024 03/02/2024 documented as of this encounter
--- OUTSIDE RECORDS SUMMARY | 2024-05-07 13:14 | XMS_ITS | Encounter Summary ---
Author Organization [facility] Address [address] [place] [address] Care Team Providers Care Manager Art Name Role Phone Unavailable Primary Care Provider Unavailabl e Reason for Referral * Radiation Therapy (Routine) - Authorized Specialty Diagnoses / Procedures Referred By Contac t Referred To Contact Diagnoses Secondary Malignant Neoplasm Skin Face (HCC) Procedures Management Visit Corinne Aguillon M.D. [address] [place] [address] [facility] Region Referral ID Status Reason Start Date Expiration Date V isits Requested Visits Authorized [id number] Authorized 02/29/2024 02/28/2025 10 10 Reason for Visit * Radiation Therapy (Routine) - Authorized Specialty Diagnoses / Procedures Referred By Alex vergara Referred To Contact Diagnoses Secondary Malignant Neoplasm Skin Face (HCC) Procedures Management Visit Corinne Aguillon M.D. [address] [place] [address] [facility] Region Referral ID Status Reason Start Date Expiration Date V isits Requested Visits Authorized [id number] Authorized 02/29/2024 02/28/2025 10 10 Encounter Details Date Type Department Care Team (Latest Contact Info) Description 03/07/2024 9:48 AM CDT - 03/07/2024 10:14 AM CDT Hospital Encounter Department of Radiation Oncology in [place] [address] [place] [address] Corinne Aguillon M.D. 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 - 03/07/2024 10:00 AM CDT ATTESTATION FOR MANAGEMENT VISIT I saw and evaluated the patient and participated in the greene portions of the service as noted below.I reviewed the documentation of Ms. Katie Mitchell RN and agree with the findings and plan. Thepatient appears well on exam. We will continue with radiation as planned and we anticipate that he will complete treatments this week. We anticipate that Mr. Te Archuleta will complete radiation treatment as planned without interruptions. The course of treatment was tolerated well. The patient experienced toxicities of grade 1pain during radiation treatment. He has noticed that the tumor is decreasing in size. I agree that it looks flatter. Follow-up will be with Dr. Quinteros. I will see him again as needed. I did let him know that we are reviewing his care at our tumor board tomorrow. Corinne Aguillon M.D., 03/07/2024 SUBJECTIVE CHIEF COMPLAINT/REASON FOR VISIT Evaluation for side effects while receiving radiation treatment for 1. Secondary Malignant Neoplasm Skin Face (HCC) SUPERVISED BY: Corinne Aguillon M.D. HISTORY OF PRESENT ILLNESS Mr. Te Archuleta is a 73 y.o. 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 Treatment Course: 4xFace Plan ID Fractions Dose / Fraction (cGy) Dose Treated (cGy) Dose Planned (cGy) First Treatment Last Treatment Elapsed Days [id number] 10/03 500 1000 2500 03/05/2024 03/07/2024 2 Course Summary 03/05/2024 03/07/2024 2 The patient was seen and examined today with Dr. Aguillon. The patient reports to be feeling well overall. He does not intermittent pain to right chin. Last night he woke up with pain and rated it a 7 out of 10. He took Aspirin and reports that it was helpful. He rates his pain now a 3 out of 10. He denies mouth sore or mouth pain. He is doing warm water soaks twice daily to site as recommended by Dr. Garcia and also applying Mupirocin cream twice daily. He denies any other issues or concerns at this time. PATIENT REPORTED SYMPTOM SCREEN: FATIGUE (Scale: 0 = no fatigue; 10 = worst fatigue you can imagine): 5 PAIN (Scale: 0 = no pain; 10 = worst pain you can imagine): 3 OVERALL QUALITY OF LIFE (Scale: 0 = as bad as can be; 10 = as good as can be): 7 OBJECTIVE BP 122/64 (BP Location: Right arm, Patient Position: Sitting, Cuff Size: Regular) Pulse (!) 59 Temp 36.5 ??C (Temporal) Wt 82 kg BMI 26.78 kg/m?? PHYSICAL EXAMINATION General: Alert and oriented, in no apparent distress. Skin: firm red mass on chin, scab in center of mass. No desquamation, drainage or infection noted. ASSESSMENT / PLAN #1 Stage III (cT3, [...] biopsy-proven metastatic adenocarcinoma on February 22, 2024 #11 Radiation therapy to right chin initiated on March 05, 2024; anticipated date of completion March 09, 2024. The patient is tolerating radiation treatment well overall. Discussed with patient that he should take Tylenol instead of Aspirin for discomfort while he is undergoing chemotherapy. He can continue to warm compresses and Mupirocin application. Recommended Aquaphor application as well twice daily. Reviewed Moist Skin Reaction education with patient. Understanding was verbalized and he had no further questions. Per patient chemotherapy was held this week and he will receive it next week instead. Patient will have ongoing follow up with Dr. Quinteros. Follow up with Dr. Aguillon will be as needed. Hewill continue with radiation treatment as planned. He can contact our care team with any questions or concerns. Signed by: Katie Mitcehll R.N. 03/07/2024 10:38 AM CDT documented in this encounter Plan of Treatment Scheduled Orders Name Type Priority Associated Diagnoses Orde r Schedule Management Visit Radiation Oncology Routine Secondary Malignant Neoplasm Skin Face (HCC) Once for 1 Occurrences starting 03/07/2024 until 03/07/2024 documented as of this encounter Visit Diagnoses Diagnosis Secondary Malignant Neoplasm Skin Face (HCC) documented in this encounter Additional Health Concerns Infection Onset Date Last Indicated Resolved Time Protective Environment 03/02/2024 03/02/2024 documented as of this encounter
--- OUTSIDE RECORDS SUMMARY | 2024-05-07 13:14 | XMS_ITS | Encounter Summary ---
Author Organization [facility] Address [address] [place] [address] Care Team Providers Care Head Strength And Conditioning Coach Name Role Phone Unavailable Primary Care Provider Unavailabl e Reason for Referral * Radiation Therapy (Routine) - Authorized Specialty Diagnoses / Procedures Referred By Alex t Referred To Contact Diagnoses Secondary Malignant Neoplasm Bone (HCC) Procedures Prior Auth Rad Tx Sulaiman Ackerman M.D. [address] [place] [address] [facility] Referral ID Status Reason Start Date Expiration Date V isits Requested Visits Authorized [id number] Authorized 05/02/2024 05/02/2025 1 1 Reason for Visit * Appointment Request (Routine) - Closed Specialty Diagnoses / Procedures Referred By Alex vergara Referred To Contact Radiation Oncology Diagnoses Malignant Neoplasm Of Gastroesophageal Junction (HCC) Liz Quinteros M.D. [address] [place] [address] Referral ID Status Reason Start Date Expiration Date Visits Re quested Visits Authorized [id number] Closed 04/30/2024 04/30/2025 1 1 Encounter Details Date Type Department Care Team (Latest Contact Info) Description 05/01/2024 9:33 AM CDT - 05/02/2024 10:31 AM CDT Hospital Encounter Department of Radiation Oncology in [place], [place] [address] [place] [phone] Sulaiman Ackerman M.D. [address] [place] [address] Secondary Malignant Neoplasm Bone (HCC) (Primary Dx); Malignant Neoplasm Of Esophagus Lower Third (HCC) Social History Tobacco Use Types Packs/Day Years Used Date Smoking Tobacco: Former Cigarettes 1 18 1 967 - 1984 Smokeless Tobacco: Never Alcohol Use Standard Drinks/Week Comments Yes 0 (1 standard drink = 0.6 oz pur e alcohol) [facility] Utilities Answer Date Recorded In the [...] your living situation today? I have a [facility] place to live 10/02/2023 Sex and Gender Information Value Date Recorded Sex Assigned at Male 10/02/2023 7:37 AM DEPARTMENT HELPER Gender Identity Male 10/02/2023 7:37 AM DEPARTMENT HELPER Sexual Orientation Straight 10/02/2023 7: 37 AM DEPARTMENT HELPER documented as of this encounter Last Filed Vital Signs Vital Sign Reading Time Taken Comments Blood Pressure 136/71 05/01/2024 9:52 AM CDT Pulse 59 05/01/2024 9:52 AM CDT Temperature 36.8 ??C (98.3 ??F) 05/01/2024 9:52 AM CD T Respiratory Rate - - Oxygen Saturation - - Inhaled Oxygen Concentration - - Weight 80.4 kg (177 lb 4 oz) 05/01/2024 9:52 AM CDT Height - - Body Mass Index 26.25 01/30/2019 9:45 AM CDT documented in this [...] mg tablet Take 150 mg by mouth. 10/07 /2024 documented as of this encounter Consult Notes * Imtiaz Cyndierudi Marrufo APRN, C.N.P., D.N.P. - 05/01/2024 10:00 AM CDT SUBJECTIVE REQUESTING PROVIDER Liz Quinteros M.D. REASON FOR CONSULT 1. Secondary Malignant Neoplasm Bone (HCC) 2. Malignant Neoplasm Of Esophagus Lower Third (HCC) SUPERVISED BY: Sulaiman Ackerman M.D. ([phone]) HISTORY OF PRESENT ILLNESS Mr. Te Archuleta is a 73 y.o. 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 He returns to discuss the role of radiation treatment to an additional site of painful metastasis in his right humerus. His oncologic history is as follows: Oncology [...] was performed by Dr. Keven Hammonds, from [facility]. [place] and tumor was seen in [...] Oncology consultation with Dr. Xavier Brown at [facility] who discussed weekly Taxol and carboplatin chemotherapy concurrent with radiation as an initial strategy. Referral to Radiation Oncology. 8. January 29, 2019: Port placement performed at [facility]. 9. February 07, 2019 through March 13, 2019: Intensity modulated radiotherapy to the lower esophageal tumor and nearby lymph nodes with a margin delivering 4500 cGy in 25 fractions with a simultaneous boost to 5000 cGy in 25 fractions to the gross tumor. The patient received concurrent chemotherapy with weekly Taxol and Carboplatin under the care of Dr. Brown on Tuesdays at the [facility]. 04/16/2019 Critical Imaging PET/CT IMPRESSION: 1. Overall [...] Under the care of Dr. Na Romano, [facility] July 2021: Initiated Xeloda, cisplatin, Herceptin, and [...] hypermetabolic disease at this time 10/07/2023 - 04/30/2024 Chemotherapy Xeloda, Herceptin, and Oxaliplatin initiated with Dr. Quinteros, [facility] 12/31/23 - 01/20/24: oxaliplatin held while receiving RT to persistent right apical lesion, Xeloda reduced Discontinued April 2024 due to progression of disease 12/22/2023 Critical Imaging PET/CT CONCLUSION: 1. Significant [...] evaluate for potential Patrick syndrome is reasonable 03/05/2024 - 03/09/2024 Radiation Therapy Radiation therapy to right chin to a total dose of 2500 cGy in 5 fractions 04/09/[address] CAP IMPRESSION: 1. No acute findings. 2. Previously demonstrated right lower lobe nodule is not seen on today`s exam, but there is a new lingular nodule measuring up to 4 mm. Interval disappearance and appearance of these nodules is mostsuggestive of inflammatory change, but follow-up CT in 12 months could be considered if this patient is considered high risk for the development of lung cancer. 04/26/2024 Critical Imaging PET-CT CONCLUSION: 1. When compared to the PET-CT from November 2023, multiple new metastatic implants have developed. Thisincludes at least three new musculoskeletal lesions (right 1st rib, right humeral head, and left intramuscular gluteal region) and a new and centrally necrotic right inguinal lymph node. 2. A new cutaneous lesion overlying the right mandibular body is indeterminate, potentially malignant versus infectious/inflammatory. This should be amenable to direct visual inspection. An ipsilateral submandibular node is markedly hypermetabolic and is almost certainly related (whether the cutaneous lesion proves to be inflammatory, infectious, or malignant). 3. A new pleural or pulmonary implant is suspected in the right lung base. Recommend diagnostic chest CT for further evaluation. 4. New hypermetabolic right thyroid nodule. Recommend dedicated ultrasound. 05/2024 - Chemotherapy Initiated Enhertu with Dr. Quinteros INTERVAL HISTORY The patient was seen and examined today with Dr. Ackerman. The patient reports feeling okay overall. He was experiencing pain in his right shoulder, right chest, and right back associated with his previous metastatic disease in his right apex that did completely resolve. About 10 days ago he developed new pain in his right shoulder that radiates down his right arm, into his right chest, and right back. He has longstanding numbness in his right wrist which he feels is slightly worse with this new onset of pain. He reports subtle numbness throughout his right arm that is not bothersome. He denies any weakness to his right arm. He currently takes Tylenol typically at night to help him sleep. Throughout the day, as long as he is busy, he forgets about the pain. During the day he rates his pain anywhere from 1-3/10. At night, without medication his pain can get up to a 7-8/10. The Tylenol does help completely resolve the pain and help him sleep. He endorses mild pain in his right chin and has chronic bilateral hip pain without any recent changes. He denies any other new or progressive pain. The patient does have a history of prior radiation therapy, as detailed above. The patient denies a history of connective tissue disorders, or inflammatorybowel disease. The patient denies any implanted electronic devices. His ECOG performance status is 0. REVIEW OF SYSTEMS Review of systems was negative except as documented above. PATIENT REPORTED SYMPTOM SCREEN FATIGUE (Scale: 0 = no fatigue; 10 = worst fatigue you can imagine): 6 PAIN (Scale: 0 = no pain; 10 = worst pain you can imagine): 3 OVERALL QUALITY OF LIFE (Scale: 0 = as bad as can be; 10 = as good as can be): 8 PAST MEDICAL HISTORY Past Medical History: Diagnosis Date Cancer Colon Sigmoid Personal History Following resection of a low-grade malignant polyp in the sigmoid colon, he underwent laparoscopic low anterior resection on February 12, 2011. Pathology showed no residual malignancy. Eighteen lymph nodes were negative. 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 Gastroesophageal Reflux Disease Hyperlipidemia Hypertension Essential Primary Malignant Neoplasm Of Esophagus Lower Third (HCC) Polymyalgia Rheumatica (HCC) PAST SURGICAL HISTORY Past Surgical History: Procedure Laterality Date DIAPHRAGMATIC HERNIA REPAIR ESOPHAGECTOMY TRANSHIATAL WITH JEJUNOSTOMY FEEDING TUBE 05/07/2019 LAPAROSCOPIC SIGMOID COLECTOMY LOW ANTERIOR RESECTION 2011 VASECTOMY FAMILY HISTORY Family History Problem Relation Name Age of Onset Prostate cancer Father Prostate cancer Paternal Grandfather SOCIAL HISTORY Social History Socioeconomic History Marital status: Tobacco Use Smoking status: Former Current packs/day: 0.00 Average packs/day: 1 pack/day for 18.0 years (18.0 ttl pk-yrs) Types: Cigarettes Start date: 1966 Quit date: 1984 Years since quittin.7 Smokeless tobacco: Never Substance and Sexual Activity Alcohol use: Yes Social Determinants of Health Food Insecurity: No Food Insecurity (10/02/2023) Hunger Vital Sign Worried About Running Out of Food in the Last Year: Never true Ran Out of Food in the Last Year: Never true Transportation Needs: No Transportation Needs (10/02/2023) PRAPARE - Transportation Lack of Transportation (Medical): No Lack of Transportation (Non-Medical): No Physical Activity: Sufficiently Active (10/02/2023) Exercise Vital Sign Days of Exercise per Week: 5 days Minutes of Exercise per Session: 30 min Housing Stability: Low Risk (10/02/2023) Housing Stability Housing: Living Situation: I have a steady place to live OBJECTIVE BP 136/71 (BP Location: Right arm, Patient Position: Sitting, Cuff Size: Regular) Pulse (!) 59 Temp 36.8 ??C (Temporal) Wt 80.4 kg BMI 26.25 kg/m?? PHYSICAL EXAM General: Patient is alert and oriented in no apparent distress. Lymph: Right submandibular palpable adenopathy. No other palpable cervical, supraclavicular, infraclavicular, axillary adenopathy. Skin: Right chin has erythema and hard immobile lesion with underlying edema Lungs: Clear to auscultation bilaterally. Heart: Regular rate and rhythm. Normal S1 and S2. Extremities: Upper extremities without edema. Strength intact and equal bilateral upper extremities. Sensation intact left upper extremity. Right wrist slightly numb, no tingling. No increase in tenderness/pain to palpation of right upper extremity ASSESSMENT / PLAN #1 Stage III (cT3, [...] andHerceptin only as of December 2021; discontinued entirely April 2024 #6 Initial treatment response to right lower pleural masses with systemic therapy; additional progression noted on PET/CT April 22, 2023 #7 Stereotactic radiotherapy to right lower lobe pleura two lesions initiated on May 16, 2023; completed May 25, 2023 #8 PET/CT September 29, 2023 demonstrated progression with new metastases in the right apex and lefthilum #9 Intensity modulated radiotherapy to the right upper lobe/apex initiated on January 12, 2024; completed on February 01, 2024 #[address] of the head/neck demonstrated cystic mass on the right chin; biopsy-proven metastatic adenocarcinoma on February 22, 2024 #11 Radiation therapy to right chin initiated on March 05, 2024; completed March 09, 2024 #12 PET-CT April 26, 2024 demonstrated progression of disease to right humeral head #13 Initiated Enhertu May 2024 It was a pleasure to meet with Bill today. We reviewed the oncologic history as detailed above. Unfortunately, he has developed progression of disease throughout his body, specifically with a painfulmetastasis to his right humeral head. We discussed the risks, benefits, and alternatives of radiotherapy in this setting. We discussed the recommendation for radiation treatment to his right humeral head in [address] Quinteros plans on changing his systemic therapy to Enhertu. I discussed utilizing tramadol, along with Tylenol, for pain relief and to alternate every 3 hours. I discussed the logistics, as well as, the acute and chronic side effects of treatment in detail. The acute side effects may include, but are not limited to, possible pain flare, skin redness with possible blistering and peeling, loss of right axillary hair, and fatigue. Long-term side effects can be rare and may include, but are not limited to, possible right shoulder arthritis and risk of developing chronic right arm lymphedema. The patient was provided with a written summary of recommendations. His questions were answered to their verbalized [...] answered and consent given. I personally spent 35 minutes in care of the patient today. Time includes both non face to face andface to face patient care. Signed by: Cyndie Kitchen APRN, C.N.P., GinoN.P. 05/01/2024 10:26 AM CDT [facility] [address] [place] [address] Associated attestation - Sulaiman Ackerman M.D. - 05/02/2024 10:31 AM CDT I saw and evaluated the [...] right lower lobe pleura on May 25, 2023 to a dose of 50 Gy in 5 fractions. He completed radiotherapy to a persistent lesion in his right apex on February 01, 2024 to a dose of 45 Gy in 15 fractions. Soon after he had biopsy-proven disease in the right chin area that was treated with dose of 25 Gy in 5 fractions finishing on March 09, 2024. A PET/CT scan on April 26, 2024 revealed multiple new areas of hypermetabolic activity including a right first rib, the right humeral head, in the left intramuscular gluteal region along with a new centrally necrotic right inguinal lymph node he also has persistent uptake overlying the right mandibular body in an ipsilateral submandibular lymph node. A new pleural implant was also seen in the right lung base along with a new hypermetabolic right thyroid nodule. He will be initiatingEnhertu next week. We are asked by Dr. Quinteros to again evaluate the patient for radiotherapy. His oncologic history is well-detailed in Ms. Kitchen's note. The patient reports pain in his right shoulder that began a week and a half ago. Currently he ratesit at 1 to 3/10. It can be as severe as 7 to 8/10. He is taking Tylenol for this with benefit. He also has discomfort in his right chin that is mild. His ECOG performance status is 0. OBJECTIVE BP 136/71 (BP Location: Right arm, Patient Position: Sitting, Cuff Size: Regular) Pulse (!) 59 Temp 36.8 ??C (Temporal) Wt 80.4 kg BMI 26.25 kg/m?? PHYSICAL EXAM General: Patient is awake, alert, and oriented to person, place, and time. No apparent distress. The patient is here today by himself. ENT: There is an ulcerated erythematous lesion in the lower right chin. DIAGNOSTICS I independently reviewed the patient's PET/CT scan from April 26, 2024. ASSESSMENT / PLAN #1 Stage III (cT3, [...] andHerceptin only as of December 2021; discontinued entirely April 2024 #6 Initial treatment response to right lower pleural masses with systemic therapy; additional progression noted on PET/CT April 22, 2023 #7 Stereotactic radiotherapy to right lower lobe pleura two lesions initiated on May 16, 2023; completed May 25, 2023 #8 PET/CT September 29, 2023 demonstrated progression with new metastases in the right apex and lefthilum #9 Intensity modulated radiotherapy to the right upper lobe/apex initiated on January 12, 2024; completed on February 01, 2024 #[address] of the head/neck demonstrated cystic mass on the right chin; biopsy-proven metastatic adenocarcinoma on February 22, 2024 #11 Radiation therapy to right chin initiated on March 05, 2024; completed March 09, 2024 #12 PET/CT April 26, 2024 demonstrated progression of disease in the right humeral head along with multiple other areas of hypermetabolic activity #13 Enhertu to be initiated on May 08, 2024 I had a detailed discussion with the patient and spouse regarding the risks, benefits, and alternatives of radiotherapy in this setting. I went over these with the patient. I recommend treatment to the right humeral head to a dose of 25 Gy in 5 fractions or more likely to a dose of 30 Gy in 3 fractions with SBRT because of the dose overlap with his prior treatment to the right lung apex and because the chin area did not really respond well to 25 Gy in 5 fractions. I asked him to limit lifting with his right arm to under 20-25 pounds. He agreed to do so. Unfortunately, though there is some progression in his right chin area and a level IA lymph node this was just treated about 2 months ago. I recommend that we observe that for now. I also recommend observation of the hypermetabolic area in the left gluteal region. Hopefully these areas will respondto Enhertu. I discussed the logistics as well as the acute and chronic side effects of treatment in detail. Fora complete listing of these, please see Ms. Kitchen's note. After this discussion, I provided the patient with a written summary of my recommendations. His questions were answered to his verbalized satisfaction. The patient verbally stated that he would like to proceed with treatment. He will undergo CT simulation today. Because of his pain, will endeavor to begin treatment urgently on May. My thanks to Drs. Quinteros and Ms. Mederos for the opportunity to participate in this patient's care. I have spent 30 minutes caring for this patient including [id number] and vpa-wssi-qj-face time. Signed by: Sulaiman Ackerman M.D. 05/02/24 10:31 AM CDT [facility] [place] documented in this encounter Miscellaneous Notes * Addendum Note - Christiane Anderson C.N.A. - 05/01/2024 10:00 AM CDTEncounter addended by: Christiane Anderson C.N.ACindi on: 05/02/2024 10:34 AM Actions taken: Letter saved documented in this encounter Plan of Treatment Scheduled Orders Name Type Priority Associated Diagnoses Orde r Schedule Prior Auth Rad Tx Radiation Oncology Routine Secondary Malignant Neoplasm Bone (HCC) Ordered: 05/02/2024 documented as of this encounter Visit Diagnoses Diagnosis Secondary Malignant Neoplasm Bone (HCC)- Primary Malignant Neoplasm Of Esophagus Lower Third (HCC) documented in this encounter Additional Health Concerns Infection Onset Date Last Indicated Resolved Time Protective Environment 03/02/2024 03/02/2024 documented as of this encounter
--- OUTSIDE RECORDS SUMMARY | 2024-05-07 13:14 | XMS_ITS | Encounter Summary ---
Author Organization [facility] Address [address] [place] [address] Care Team Providers Care Sports Psychologist Name Role Phone Unavailable Primary Care Provider Unavailabl e Encounter Details Date Type Department Care Team (Late st Contact Info) Description 05/03/2024 1:47 PM CDT Hospital Encounter Department of Radiation Oncology in [place], [place] [address] [place] [phone] Sulaiman Ackerman M.D. [address] [place] [address] Social History Tobacco Use Types Packs/Day Years Used Date Smoking Tobacco: Former Cigarettes 1 18 1 967 - 1985 Smokeless Tobacco: Never Alcohol Use Standard Drinks/Week Comments Yes 0 (1 standard drink = 0.6 oz pur e alcohol) [facility] Utilities Answer Date Recorded In the past 12 months has e [employer], gas, oil, or water [employer] threatened to shut off services in your [...] your living situation today? I have a [facility] place to live 10/02/2023 Sex and Gender Information Value Date Recorded Sex Assigned at Male 10/02/2023 7:37 AM DENTAL INSTRUMENT MAKER Gender Identity Male 10/02/2023 7:37 AM DENTAL INSTRUMENT MAKER Sexual Orientation Straight 10/02/2023 7: 37 AM DENTAL INSTRUMENT MAKER documented as of this encounter Plan of Treatment Not on file documented as of this encounter Visit Diagnoses Not on filedocumented in this encounter Additional Health Concerns Infection Onset Date Last Indicated Resolved Time Protective Environment 03/02/2024 03/02/2024 documented as of this encounter
--- OUTSIDE RECORDS SUMMARY | 2024-05-07 13:14 | XMS_ITS | Encounter Summary ---
Author Organization [facility] Address [address] [place] [address] Care Team Providers Care Supervisor [place] Name Role Phone Unavailable Primary Care Provider Unavailabl e Encounter Details Date Type Department Care Team (Latest Contact Info) Description 03/09/2024 7:50 AM CDT - 03/09/2024 11:59 PM CDT Hospital Encounter Department of Radiation Oncology in [place], [place] [address] [place] [address] Corinne Aguillon M.D. [address] [place] [address] Discharge Disposition: Home or Self Care Social History Tobacco Use Types Packs/Day Years Used Date Smoking Tobacco: Former Cigarettes 1 18 1 967 - 1985 Smokeless Tobacco: Never Alcohol Use Standard Drinks/Week Comments Yes 0 (1 standard drink = 0.6 oz pur e alcohol) [facility] Utilities Answer Date Recorded In the past 12 months has [employer], gas, oil, or water [employer] threatened to shut off services in your [...] your living situation today? I have a [facility] place to live 10/02/2023 Sex and Gender Information Value Date Recorded Sex Assigned at Male 10/02/2023 7:37 AM TRANSFER WORKER Gender Identity Male 10/02/2023 7:37 AM TRANSFER WORKER Sexual Orientation Straight 10/02/2023 7: 37 AM TRANSFER WORKER documented as of this encounter Medications at [...] mouth. 05/07 documented as of this encounter Plan of Treatment Not on file documented as of this encounter Visit Diagnoses Not on filedocumented in this encounter Additional Health Concerns Infection Onset Date Last Indicated Resolved Time Protective Environment 03/02/2024 03/02/2024 documented as of this encounter
--- OUTSIDE RECORDS SUMMARY | 2024-05-07 13:14 | XMS_ITS | Encounter Summary ---
Author Organization [facility] Address [address] [place] [address] Care Team Providers Care Certified Mortician Name Role Phone Unavailable Primary Care Provider Unavailabl e Reason for Referral * Radiation Therapy (Routine) - Authorized Specialty Diagnoses / Procedures Referred By Alex vergara Referred To Contact Diagnoses Secondary Malignant Neoplasm Bone (HCC) Procedures Management Visit Sulaiman Ackerman M.D. [address] [place] [address] [facility] Region Referral ID Status Reason Start Date Expiration Date V isits Requested Visits Authorized [id number] Authorized 04/30/2024 04/30/2025 10 10 * Radiation Therapy (Routine) - Closed Specialty Diagnoses / Procedures Referred By Alex vergara Referred To Contact Diagnoses Secondary Malignant Neoplasm Bone (HCC) Procedures Initial Rad Onc Treatment Planning CT Simulation without IV Contrast Sulaiman Ackerman M.D. [address] [place] [address] [facility] Region Referral ID Status Reason Start Date Expiration Date Visits Re quested Visits Authorized [id number] Closed 04/30/2024 04/30/2025 1 1 * Radiation Therapy (Routine) - Authorized Specialty Diagnoses / Procedures Referred By Contac t Referred To Contact Diagnoses Secondary Malignant Neoplasm Bone (HCC) Procedures Prior Auth Rad Tx Sulaiman Ackerman M.D. [address] [place] [address] [place] [facility] Referral ID Status Reason Start Date Expiration Date V isits Requested Visits Authorized [id number] Authorized 04/30/2024 04/30/2025 1 1 Encounter Details Date Type Department Care Team (Late st Contact Info) Description 04/30/2024 Orders Only Department of Radiation Oncology in [place], [place] [address] [place] [address] Sulaiman Ackerman M.D. [address] [place] [phone] Secondary Malignant Neoplasm Bone (HCC) (Primary Dx) Social History Tobacco Use Types Packs/Day Years Used Date Smoking Tobacco: Former Cigarettes 1 18 1 967 - 1984 Smokeless Tobacco: Never Alcohol Use Standard Drinks/Week Comments Yes 0 (1 standard drink = 0.6 oz pur e alcohol) [facility] Utilities Answer Date Recorded In the past 12 months has e electric, gas, oil, or water [employer] threatened to shut off services in your [...] your living situation today? I have a [facility] place to live 10/02/2023 Sex and Gender Information Value Date Recorded Sex Assigned at Male 10/02/2023 7:37 AM RUGBY UNION FOOTBALLER Gender Identity Male 10/02/2023 7:37 AM RUGBY UNION FOOTBALLER Sexual Orientation Straight 10/02/2023 7: 37 AM RUGBY UNION FOOTBALLER documented as of this encounter Plan of Treatment Pending Results Name Type Priority Associated Diagnoses Date/Time Initial Rad Onc Treatment Planning CT Simulation without IV Contrast Procedural Imaging Routine Secondary Malignant Neoplasm Bone (HCC) 05/01/2024 11:00 AM CDT Scheduled Orders Name Type Priority Associated Diagnoses Order Schedule Prior Auth Rad Tx Radiation Oncology Routine Secondary Malignant Neoplasm Bone (HCC) Ordered: 04/30/2024 Management Visit Radiation Oncology Routine Secondary Malignant Neoplasm Bone (HCC) 10 Occurrences starting 04/30/2024 until 07/30/2025 documented as of this encounter Visit Diagnoses Diagnosis Secondary Malignant Neoplasm Bone (HCC)- Primary documented in this encounter Additional Health Concerns Infection Onset Date Last Indicated Resolved Time Protective Environment 03/02/2024 03/02/2024 documented as of this encounter
--- OUTSIDE RECORDS SUMMARY | 2024-05-07 13:14 | XMS_ITS | Encounter Summary ---
Author Organization [facility] Address [address] [place] [address] Care Team Providers Care Outside Sales Account Executive Name Role Phone Unavailable Primary Care Provider Unavailabl e Encounter Details Date Type Department Care Team (Latest Contact Info) Description 03/05/2024 12:15 PM CDT - 03/05/2024 11:59 PM CDT Hospital Encounter Department of Radiation Oncology in [place], [place] [address] [place] [phone] Corinne Aguillon M.D. [address] [place] [address] Discharge Disposition: Home or Self Care Social History Tobacco Use Types Packs/Day Years Used Date Smoking Tobacco: Former Cigarettes 1 18 1 967 - 1985 Smokeless Tobacco: Never Alcohol Use Standard Drinks/Week Comments Yes 0 (1 standard drink = 0.6 oz pur e alcohol) [facility] Utilities Answer Date Recorded In the past 12 months has [employer], gas, oil, or water [employer] threatened to shut off services in your [...] your living situation today? I have a [facility] place to live 10/02/2023 Sex and Gender Information Value Date Recorded Sex Assigned at Male 10/02/2023 7:37 AM SURGICAL ASSISTANT CERTIFIED Gender Identity Male 10/02/2023 7:37 AM SURGICAL ASSISTANT CERTIFIED Sexual Orientation Straight 10/02/2023 7: 37 AM SURGICAL ASSISTANT CERTIFIED documented as of this encounter Medications at [...]
--- OUTSIDE RECORDS SUMMARY | 2024-05-07 13:14 | XMS_ITS | Encounter Summary ---
Author Organization [facility] Address [address] [place] [address] Care Team Providers Care Duco Polisher Name Role Phone Unavailable Primary Care Provider Unavailabl e Encounter Details Date Type Department Care Team (Late st Contact Info) Description 05/04/2024 12:22 PM CDT Hospital Encounter Department of Radiation Oncology in [place], [place] [address] [place] [address] Sulaiman Ackerman M.D. [address] [place] [address] Social History Tobacco Use Types Packs/Day Years Used Date Smoking Tobacco: Former Cigarettes 1 18 1 967 - 1984 Smokeless Tobacco: Never Alcohol Use Standard Drinks/Week Comments Yes 0 (1 standard drink = 0.6 oz pur e alcohol) [facility] Utilities Answer Date Recorded In the past 12 months has e [employer], gas, oil, or water [employer] threatened to shut off services in your [...] your living situation today? I have a [facility] place to live 10/02/2023 Sex and Gender Information Value Date Recorded Sex Assigned at Male 10/02/2023 7:37 AM BUTTING SAW OPERATOR Gender Identity Male 10/02/2023 7:37 AM BUTTING SAW OPERATOR Sexual Orientation Straight 10/02/2023 7: 37 AM BUTTING SAW OPERATOR documented as of this encounter Plan of Treatment Not on file documented as of this encounter Visit Diagnoses Not on filedocumented in this encounter Additional Health Concerns Infection Onset Date Last Indicated Resolved Time Protective Environment 03/02/2024 03/02/2024 documented as of this encounter
--- OUTSIDE RECORDS SUMMARY | 2024-05-07 13:14 | XMS_ITS | Encounter Summary ---
Author Organization [facility] Address [address] [place] [address] Care Team Providers Care Facilities Director Name Role Phone Unavailable Primary Care Provider Unavailabl e Encounter Details Date Type Department Care Team (Late st Contact Info) Description 03/16/2024 Clinical Communication Department of Radiation Oncology in [place], [place] [address] [place] [phone] Corinne Aguillon M.D. [address] [place] [address] Social History Tobacco Use Types Packs/Day Years Used Date Smoking Tobacco: Former Cigarettes 1 18 1 967 - 1984 Smokeless Tobacco: Never Alcohol Use Standard Drinks/Week Comments Yes 0 (1 standard drink = 0.6 oz pur e alcohol) [facility] Utilities Answer Date Recorded In the past 12 months has [facility] [employer], gas, oil, or water [employer] threatened to shut off services in your [...] living situation today? I have a [facility] place to live 10/02/2023 Sex and Gender Information Value Date Recorded Sex Assigned at Male 10/02/2023 7:37 AM BURGLAR ALARM ASSEMBLER Gender Identity Male 10/02/2023 7:37 AM BURGLAR ALARM ASSEMBLER Sexual Orientation Straight 10/02/2023 7: 37 AM BURGLAR ALARM ASSEMBLER documented as of this encounter Miscellaneous Notes * Telephone Encounter - Reva Sahu R.N. - 03/16/2024 12:59 PM CDT Information Discussed Patient is asking for clarification on follow up plan. Patient states he will complete imaging at [facility] on April 26, 2024. I discussed with patient that Dr. Ackerman will see patient in follow up soon after imaging has been completed in April. Patient states that Tylenol helpsto manage chin pain. PLAN I discussed with patient that it can take 2 weeks after radiation therapy completes to note furtherpain improvement from radiation therapy. Radiation Oncology [facility] can be contacted at anytime for any questions or concerns. Dr. Quinteros saw patient in follow up last week. Disposition/Recommendation: self-care - appropriate at this time, patient encouraged to call back with questions Information/Education: patient/caller able to teach back Caller agreeable to plan of care: yes The following references were used: previous plan of care date: 02/01/24 * Telephone Encounter - Magali Delgado - 03/16/2024 8:19 AM CDT Other Reason for Call Caller: Humble Relationships to patient: Self Reason for call: Humble called questioning why he does not have a follow up scheduled yet with Dr. Aguillon. I let him know that I only saw an order for a follow up with [facility] at the end of Apr. He said he would like to see VANDA sooner than that. I let Humble know that I would send a message to the care team with his concerns and we would get back to him. documented in this encounter Plan of Treatment Not on file documented as of this encounter Visit Diagnoses Not on filedocumented in this encounter Additional Health Concerns Infection Onset Date Last Indicated Resolved Time Protective Environment 03/02/2024 03/02/2024 documented as of this encounter
--- OUTSIDE RECORDS SUMMARY | 2024-05-07 13:14 | XMS_ITS | Encounter Summary ---
Author Organization [facility] Address [address] [place] [address] Care Team Providers Care Machine Hamper Maker Name Role Phone Unavailable Primary Care Provider Unavailabl e Encounter Details Date Type Department Care Team (Latest Contact Info) Description 03/08/2024 2:13 PM CDT - 03/08/2024 11:59 PM CDT Hospital Encounter Department of Radiation Oncology in [place], [place] [address] [place] [phone] Corinne Aguillon M.D. [address] [place] [address] Discharge Disposition: Home or Self Care Social History Tobacco Use Types Packs/Day Years Used Date Smoking Tobacco: Former Cigarettes 1 18 1 967 - 1985 Smokeless Tobacco: Never Alcohol Use Standard Drinks/Week Comments Yes 0 (1 standard drink = 0.6 oz pur e alcohol) [facility] Utilities Answer Date Recorded In the past 12 months has [employer], gas, oil, or water [employer] threatened to shut off services in your [...] your living situation today? I have a [facility] place to live 10/02/2023 Sex and Gender Information Value Date Recorded Sex Assigned at Male 10/02/2023 7:37 AM APPLICATION DESIGNER Gender Identity Male 10/02/2023 7:37 AM APPLICATION DESIGNER Sexual Orientation Straight 10/02/2023 7: 37 AM APPLICATION DESIGNER documented as of this encounter Medications at [...]
--- OUTSIDE RECORDS SUMMARY | 2024-05-07 13:14 | XMS_ITS ---
Author Organization [facility] Address [address] [place] [address] Care Team Providers Care Magnet Maker Name Role Phone Unavailable Unavailable Unavailable Surgery Details Not on file Complications Check Surgery Details section. Procedure Estimated Blood Loss Check Surgery Details section. Procedure Findings Check Surgery Details section. Procedure Specimens Taken Check Surgery Details section.
--- OUTSIDE RECORDS SUMMARY | 2024-05-07 13:14 | XMS_ITS | Encounter Summary ---
Author Organization [facility] Address [address] [place] [address] Care Team Providers Care Impersonator Character Name Role Phone Unavailable Primary Care Provider Unavailabl e Encounter Details Date Type Department Care Team (Latest Contact Info) Description 03/06/2024 7:54 AM CDT - 03/06/2024 11:59 PM CDT Hospital Encounter Department of Radiation Oncology in [place], [place] [address] [place] [address] Corinne Aguillon M.D. [address] [place] [address] Discharge Disposition: Home or Self Care Social History Tobacco Use Types Packs/Day Years Used Date Smoking Tobacco: Former Cigarettes 1 18 1 967 - 1985 Smokeless Tobacco: Never Alcohol Use Standard Drinks/Week Comments Yes 0 (1 standard drink = 0.6 oz pur e alcohol) [facility] Utilities Answer Date Recorded In the past 12 months has [employer], gas, oil, or water [employer] threatened to shut off services in your [...] living situation today? I have a [facility] place to live 10/02/2023 Sex and Gender Information Value Date Recorded Sex Assigned at Male 10/02/2023 7:37 AM GRAIN PICKER Gender Identity Male 10/02/2023 7:37 AM GRAIN PICKER Sexual Orientation Straight 10/02/2023 7: 37 AM GRAIN PICKER documented as of this encounter Medications at [...]
--- OUTSIDE RECORDS SUMMARY | 2024-05-07 13:14 | XMS_ITS | Encounter Summary ---
Author Organization [facility] Address [address] [place] [address] Care Team Providers Care Network Operations Center Engineer Name Role Phone Unavailable Primary Care Provider Unavailabl e Encounter Details Date Type Department Care Team (Latest Contact Info) Description 03/07/2024 10:15 AM CDT - 03/07/2024 11:59 PM CDT Hospital Encounter Department of Radiation Oncology in [place], [place] [address] [place] [address] Corinne Aguillon M.D. [address] [place] [address] Discharge Disposition: Home or Self Care Social History Tobacco Use Types Packs/Day Years Used Date Smoking Tobacco: Former Cigarettes 1 18 1 967 - 1985 Smokeless Tobacco: Never Alcohol Use Standard Drinks/Week Comments Yes 0 (1 standard drink = 0.6 oz pur e alcohol) [facility] Utilities Answer Date Recorded In the past 12 months has [employer], gas, oil, or water [employer] threatened to shut off services in your [...] your living situation today? I have a [facility] place to live 10/02/2023 Sex and Gender Information Value Date Recorded Sex Assigned at Male 10/02/2023 7:37 AM ELEMENTARY SCHOOL ART TEACHER Gender Identity Male 10/02/2023 7:37 AM ELEMENTARY SCHOOL ART TEACHER Sexual Orientation Straight 10/02/2023 7: 37 AM ELEMENTARY SCHOOL ART TEACHER documented as of this encounter Medications at [...]
--- OUTSIDE RECORDS SUMMARY | 2024-05-07 13:14 | XMS_ITS | Encounter Summary ---
Author Organization [facility] Address [address] [place] [address] Care Team Providers Care Well Tester Name Role Phone Unavailable Primary Care Provider Unavailabl e Encounter Details Date Type Department Care Team (Late st Contact Info) Description 03/09/2024 Documentation Department of Radiation Oncology in [place], [place] [address] [place] [phone] Corinne Aguillon M.D. [address] [place] [address] Social History Tobacco Use Types Packs/Day Years Used Date Smoking Tobacco: Former Cigarettes 1 18 1 967 - 1984 Smokeless Tobacco: Never Alcohol Use Standard Drinks/Week Comments Yes 0 (1 standard drink = 0.6 oz pur e alcohol) [facility] Utilities Answer Date Recorded In the past 12 months has [facility] [employer], gas, oil, or water [employer] threatened to shut off services in your [...] your living situation today? I have a [facility] place to live 10/02/2023 Sex and Gender Information Value Date Recorded Sex Assigned at Male 10/02/2023 7:37 AM TRAFFIC PERSONNEL SUPERVISOR Gender Identity Male 10/02/2023 7:37 AM TRAFFIC PERSONNEL SUPERVISOR Sexual Orientation Straight 10/02/2023 7: 37 AM TRAFFIC PERSONNEL SUPERVISOR documented as of this encounter Miscellaneous Notes * Radiation Completion Notes - Reva Sahu R.N. - 03/09/2024 12:17 PM CDT DIAGNOSIS: 1. 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 Treatment Intent: Palliative Concomitant Therapy: None Single Plan Treatment Course: 4xFace Plan ID Fractions Dose / Fraction (cGy) Dose Treated (cGy) Dose Planned (cGy) First Treatment Last Treatment Elapsed Days [id number] 500 2500 2500 03/05/2024 03/09/2024 4 Course Summary 03/05/2024 03/09/2024 4 Radiation Modality: Photons CLINICAL SUMMARY Mr. Te Archuleta completed radiation treatment as planned without interruptions. The course of treatment was tolerated well. The patient experienced toxicities of grade 1 pain during radiation treatment. TREATMENT RESPONSE: Response to treatment will be determined by post-treatment imaging and/or laboratory work. RECOMMENDED FOLLOW UP: Primary Medical Oncologist. 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
--- OUTSIDE RECORDS SUMMARY | 2024-05-07 13:14 | XMS_ITS | Encounter Summary ---
Author Organization [facility] Address [address] [place] [address] Care Team Providers Care Energy Efficient Site Manager Name Role Phone Unavailable Primary Care Provider Unavailabl e Reason for Referral * Radiation Therapy (Routine) - Closed Specialty Diagnoses / Procedures Referred By Alex vergara Referred To Contact Diagnoses Secondary Malignant Neoplasm Bone (HCC) Procedures Initial Rad Onc Treatment Planning CT Simulation without IV Contrast Sulaiman Ackerman M.D. [address] [place] [address] [facility] Region Referral ID Status Reason Start Date Expiration Date Visits Re quested Visits Authorized [id number] Closed 04/30/2024 04/30/2025 1 1 Reason for Visit * Radiation Therapy (Routine) - Closed Specialty Diagnoses / Procedures Referred By Alex vergara Referred To Contact Diagnoses Secondary Malignant Neoplasm Bone (HCC) Procedures Initial Rad Onc Treatment Planning CT Simulation without IV Contrast Sulaiman Ackerman M.D. [address] [place] [address] [facility] Region Referral ID Status Reason Start Date Expiration Date Visits Re quested Visits Authorized [id number] Closed 04/30/2024 04/30/2025 1 1 Encounter Details Date Type Department Care Team (Latest Contact Info) Description 05/01/2024 10:32 AM CDT Hospital Encounter Department of Radiation Oncology in [place] [id number] [place] [phone] Sulaiman Ackerman M.D. [address] [place] [address] Secondary Malignant Neoplasm Bone (HCC) Social History [...] your living situation today? I have a [facility] place to live 10/02/2023 Sex and Gender Information Value Date Recorded Sex Assigned at Male 10/02/2023 7:37 AM PATIENT CENTERED CARE SPECIALIST Gender Identity Male 10/02/2023 7:37 AM PATIENT CENTERED CARE SPECIALIST Sexual Orientation Straight 10/02/2023 7: 37 AM PATIENT CENTERED CARE SPECIALIST documented as of this encounter Plan of Treatment Pending Results Name Type Priority Associated Diagnoses Date/Time Initial Rad Onc Treatment Planning CT Simulation without IV Contrast Procedural Imaging Routine Secondary Malignant Neoplasm Bone (HCC) 05/01/2024 11:00 AM CDT documented as of this encounter Procedures Procedure Name Priority Date/Time Associated Diagnosis Comments INITIAL RAD ONC TREATMENT PLANNING CT SIMULATION Routine 05/01/2024 11:00 AM CDT Secondary Malignant Neoplasm Bone (HCC) documented in this encounter Visit Diagnoses Diagnosis Secondary Malignant Neoplasm Bone (HCC) documented in this encounter Additional Health Concerns Infection Onset Date Last Indicated Resolved Time Protective Environment 03/02/2024 03/02/2024 documented as of this encounter
--- OUTSIDE RECORDS SUMMARY | 2024-05-07 13:14 | XMS_ITS | Encounter Summary ---
Author Organization [facility] Address [address] [place] [address] Care Team Providers Care Air Conditioning Installer Supervisor Name Role Phone Unavailable Primary Care Provider Unavailabl e Encounter Details Date Type Department Care Team (Late st Contact Info) Description 05/07/2024 12:01 PM CDT Hospital Encounter Department of Radiation Oncology in [place], [place] [address] [place] [address] Sulaiman Ackerman M.D. [address] [place] [address] Social History Tobacco Use Types Packs/Day Years Used Date Smoking Tobacco: Former Cigarettes 1 18 1 967 - 1984 Smokeless Tobacco: Never Alcohol Use Standard Drinks/Week Comments Yes 0 (1 standard drink = 0.6 oz pur e alcohol) [facility] Utilities Answer Date Recorded In the past 12 months has e [employer], gas, oil, or water [employer] threatened to shut off services in your [...] your living situation today? I have a [facility] place to live 10/02/2023 Sex and Gender Information Value Date Recorded Sex Assigned at Male 10/02/2023 7:37 AM ANATOMIC PATHOLOGY MANAGER Gender Identity Male 10/02/2023 7:37 AM ANATOMIC PATHOLOGY MANAGER Sexual Orientation Straight 10/02/2023 7: 37 AM ANATOMIC PATHOLOGY MANAGER documented as of this encounter Plan of Treatment Not on file documented as of this encounter Visit Diagnoses Not on filedocumented in this encounter Additional Health Concerns Infection Onset Date Last Indicated Resolved Time Protective Environment 03/02/2024 03/02/2024 documented as of this encounter
--- OUTSIDE RECORDS SUMMARY | 2024-05-07 13:15 | XMS_ITS | Encounter Summary ---
Author Organization [facility] Address [address] [place] [address] Care Team Providers Care Shank Tapper Name Role Phone Unavailable Primary Care Provider Unavailabl e Encounter Details Date Type Department Care Team (Latest Contact Info) Description 01/30/2024 7:54 AM CDT - 01/30/2024 11:59 PM CDT Hospital Encounter Department of Radiation Oncology in [place], [place] [address] [place] [address] Sulaiman Ackerman M.D. [address] [place] [address] Discharge Disposition: Home or Self Care Social History Tobacco Use Types Packs/Day Years Used Date Smoking Tobacco: Former Cigarettes 1 18 1 967 - 1985 Smokeless Tobacco: Never Alcohol Use Standard Drinks/Week Comments Yes 0 (1 standard drink = 0.6 oz pur e alcohol) [facility] Utilities Answer Date Recorded In the past 12 months has [employer], gas, oil, or water [employer] threatened to shut off services in your [...] your living situation today? I have a [facility] place to live 10/02/2023 Sex and Gender Information Value Date Recorded Sex Assigned at Male 10/02/2023 7:37 AM NEONATOLOGIST Gender Identity Male 10/02/2023 7:37 AM NEONATOLOGIST Sexual Orientation Straight 10/02/2023 7: 37 AM NEONATOLOGIST documented as of this encounter Medications at Time of Discharge Medication Sig Dispensed Refills Start Date End Date atorvastatin (LIPITOR) 10 mg tablet Take 10 mg by mouth. 11/24/2018 multivitamin tablet Take 1 tablet by mouth. 10/11/2011 dexAMETHasone (Decadron) 1 mg tablet Take 1 tablet (1 mg total) by mouth daily for 5 days. 5 tablet 02/07/2024 02/12/2024 dexAMETHasone (Decadron) 2 mg tablet Take 1 tablet (2 mg total) by mouth 2 (two) times a day for 5 days, THEN 1 tablet (2 mg total) daily for 5 days. 15 tablet 01/28/2024 02/07/2024 capecitabine (Xeloda) 500 mg tablet Take 3 [...]
--- OUTSIDE RECORDS SUMMARY | 2024-05-07 13:15 | XMS_ITS | Encounter Summary ---
Author Organization [facility] Address [address] [place] [address] Care Team Providers Care Supervisor Printing Shop Name Role Phone Unavailable Primary Care Provider Unavailabl e Encounter Details Date Type Department Care Team (Latest Contact Info) Description 02/01/2024 7:50 AM CDT - 02/01/2024 11:59 PM CDT Hospital Encounter Department of Radiation Oncology in [place], [place] [address] [place] [phone] Sulaiman Ackerman M.D. [address] [place] [address] Discharge Disposition: Home or Self Care Social History Tobacco Use Types Packs/Day Years Used Date Smoking Tobacco: Former Cigarettes 1 18 1 967 - 1985 Smokeless Tobacco: Never Alcohol Use Standard Drinks/Week Comments Yes 0 (1 standard drink = 0.6 oz pur e alcohol) [facility] Utilities Answer Date Recorded In the past 12 months has [employer], gas, oil, or water [employer] threatened to shut off services in your [...] Sex Assigned at Male 10/02/2023 7:37 AM GOLF CLUB MANAGER Gender Identity Male 10/02/2023 7:37 AM GOLF CLUB MANAGER Sexual Orientation Straight 10/02/2023 7: 37 AM GOLF CLUB MANAGER documented as of this encounter Medications at [...]
--- OUTSIDE RECORDS SUMMARY | 2024-05-07 13:15 | XMS_ITS | Encounter Summary ---
Author Organization [facility] Address [address] [place] [address] Care Team Providers Care Factory Maintenance Manager Name Role Phone Unavailable Primary Care Provider Unavailabl e Reason for Referral * Radiation Therapy (Routine) - Closed Specialty Diagnoses / Procedures Referred By Alex vergara Referred To Contact Diagnoses Secondary Malignant Neoplasm Skin Face (HCC) Procedures Initial Rad Onc Treatment Planning CT Simulation without IV Contrast Corinne Aguillon M.D. [address] [place] [address] [facility] Region Referral ID Status Reason Start Date Expiration Date Visits Re quested Visits Authorized [id number] Closed 02/29/2024 02/28/2025 1 1 Reason for Visit * Radiation Therapy (Routine) - Closed Specialty Diagnoses / Procedures Referred By Alex vergara Referred To Contact Diagnoses Secondary Malignant Neoplasm Skin Face (HCC) Procedures Initial Rad Onc Treatment Planning CT Simulation without IV Contrast Corinne Aguillon M.D. [address] [place] [address] [facility] Region Referral ID Status Reason Start Date Expiration Date Visits Re quested Visits Authorized [id number] Closed 02/29/2024 02/28/2025 1 1 Encounter Details Date Type Department Care Team (Latest Contact Info) Description 03/02/2024 8:25 AM CDT - 03/02/2024 4:14 PM CDT Hospital Encounter Department of Radiation Oncology in [place], [place] [address] [place] [phone] Corinne Aguillon M.D. [address] [place] [address] Secondary Malignant Neoplasm Skin Face (HCC) Social History Tobacco Use Types Packs/Day Years Used Date Smoking Tobacco: Former Cigarettes 1 18 1 967 - 1984 Smokeless Tobacco: Never Alcohol Use Standard Drinks/Week Comments Yes 0 (1 standard drink = 0.6 oz pur e alcohol) [facility] Utilities Answer Date Recorded In the past [...] living situation today? I have a [facility] place to live 10/02/2023 Sex and Gender Information Value Date Recorded Sex Assigned at Male 10/02/2023 7:37 AM ACADEMIC COUNSELOR Gender Identity Male 10/02/2023 7:37 AM ACADEMIC COUNSELOR Sexual Orientation Straight 10/02/2023 7: 37 AM ACADEMIC COUNSELOR documented as of this encounter Medications at [...] mouth. 05/07 documented as of this encounter Procedure Notes * Corinne Aguillon M.D. - 03/02/2024 8:30 AM CDT See Procedure note in Subsequent Visit Encounter. I was present during all critical and greene portions of the procedure(s) and immediately available to furnish services the entire duration. See note for details. documented in this encounter Miscellaneous Notes * Addendum Note - Sheridan Benson RTT - 03/02/2024 8:30 AM CDTEncounter addended by: Sheridan Benson RTT on: 03/05/2024 8:04 AM Actions taken: Clinical Note Signed * Addendum Note - Sheridan Benson RTT - 03/02/2024 8:30 AM CDTEncounter addended by: Sheridan Benson RTT on: 03/05/2024 8:18 AM Actions taken: Delete clinical note documented in this encounter Plan of Treatment Not on file documented as of this encounter Procedures Procedure Name Priority Date/Time Associated Diagnosis Comments INITIAL RAD ONC TREATMENT PLANNING CT SIMULATION Routine 03/02/2024 8:00 AM CDT Secondary Malignant Neoplasm Skin Face (HCC) documented in this encounter Results * Initial Rad Onc Treatment Planning CT Simulation without IV Contrast (03/02/2024 8:00 AM CDT) Narrative BRENDAN GARCIA - 03/02/2024 8:00 AM CDT Sheridan Benson RTT ? 03/02/2024 ??9:16 AM Initial Rad Onc Treatment Planning CT Simulation without IV Contrast Performed by: Corinne Aguillon M.D. Authorized by: Corinne Aguillon M.D. ?? Corinne Aguillon M.D. RADIATION ONCOLOG Y ORDERABLES BRENDAN louis documented in this encounter Visit Diagnoses Diagnosis Secondary Malignant Neoplasm Skin Face (HCC) documented in this encounter Additional Health Concerns Infection Onset Date Last Indicated Resolved Time Protective Environment 03/02/2024 03/02/2024 documented as of this encounter
--- OUTSIDE RECORDS SUMMARY | 2024-05-07 13:15 | XMS_ITS | Encounter Summary ---
Author Organization [facility] Address [address] [place] [address] Care Team Providers Care Analyst Sales Name Role Phone Unavailable Primary Care Provider Unavailabl e Encounter Details Date Type Department Care Team (Late st Contact Info) Description 02/01/2024 Documentation Department of Radiation Oncology in [place], [place] [address] [place] [phone] Sulaiman Ackerman M.D. [address] [place] [address] Social History Tobacco Use Types Packs/Day Years Used Date Smoking Tobacco: Former Cigarettes 1 18 1 967 - 1984 Smokeless Tobacco: Never Alcohol Use Standard Drinks/Week Comments Yes 0 (1 standard drink = 0.6 oz pur e alcohol) [facility] Utilities Answer Date Recorded In the past 12 months has e [employer], gas, oil, or water [employer] threatened to shut off services in your [...] your living situation today? I have a [facility] place to live 10/02/2023 Sex and Gender Information Value Date Recorded Sex Assigned at Male 10/02/2023 7:37 AM ANSWERING SERVICE OPERATOR Gender Identity Male 10/02/2023 7:37 AM ANSWERING SERVICE OPERATOR Sexual Orientation Straight 10/02/2023 7: 37 AM ANSWERING SERVICE OPERATOR documented as of this encounter Miscellaneous Notes * Radiation Completion Notes - Delmy Woodson R.N. - 02/01/2024 11:59 PM CDT DIAGNOSIS: 1. Secondary Malignant Neoplasm Lung Right (HCC) Attending Physician: Sulaiman Ackerman M.D. Treatment Intent: Curative Concomitant Therapy: None Treatment Dates: 01/12/2024-02/01/2024 Treatment Plans: Course # 3xLungUppr Radiation Treatment Summary Treatment Course: 3xLungUppr Plan ID Fractions Dose / Fraction (cGy) Dose Treated (cGy) Dose Planned (cGy) First Treatment Last Treatment Elapsed Days [id number] 300 4500 4500 01/12/2024 02/01/2024 20 Course Summary 01/12/2024 02/01/2024 20 CLINICAL SUMMARY The course of treatment was tolerated well. Mr. Te Archuleta experienced toxicities of grade 1 pain, fatigue, esophagitis during radiation treatment which were managed with expected management. RECOMMENDED FOLLOW UP: Dr. Ackerman recommended that patient decrease to taking 2 mg of Dexamethasone daily for 5 days starting February 03, 2024. Will call Mr. Archuleta on February 07, 2024 to review further taper schedule. Dr. Ackerman will complete phone call follow up with patient soon after next PET scanhas completed. We will leaving the ordering of PET scan to Dr. Quinteros. Signed by: Delmy Woodson R.N., 02/29/2024 3:46 PM CDT documented in this encounter Plan of Treatment Not on file documented as of this encounter Visit Diagnoses Not on filedocumented in this encounter
--- OUTSIDE RECORDS SUMMARY | 2024-05-07 13:15 | XMS_ITS | Encounter Summary ---
Author Organization [facility] Address [address] [place] [address] Care Team Providers Care Extruder Operator Helper Name Role Phone Unavailable Primary Care Provider Unavailabl e Reason for Referral * Radiation Therapy (Routine) - Authorized Specialty Diagnoses / Procedures Referred By Contac t Referred To Contact Diagnoses Secondary Malignant Neoplasm Lung Right (HCC) Procedures Management Visit Sulaiman Ackerman M.D. [address] [place] [address] [facility] Region Referral ID Status Reason Start Date Expiration Date V isits Requested Visits Authorized [id number] Authorized 12/27/2023 12/26/2024 10 10 Reason for Visit * Radiation Therapy (Routine) - Authorized Specialty Diagnoses / Procedures Referred By Contac t Referred To Contact Diagnoses Secondary Malignant Neoplasm Lung Right (HCC) Procedures Management Visit Sulaiman Ackerman M.D. [address] [place] [address] [facility] Region Referral ID Status Reason Start Date Expiration Date V isits Requested Visits Authorized [id number] Authorized 12/27/2023 12/26/2024 10 10 Encounter Details Date Type Department Care Team (Latest Contact Info) Description 02/01/2024 7:50 AM CDT - 02/01/2024 11:05 AM CDT Hospital Encounter Department of Radiation Oncology in [place] [address] [place] [address] Corinne Aguillon M.D. [address] [place] [address] Secondary Malignant Neoplasm Lung Right (HCC) Social History Tobacco Use Types Packs/Day Years Used Date Smoking Tobacco: Former Cigarettes 1 18 1 967 - 1984 Smokeless Tobacco: Never Alcohol Use Standard Drinks/Week Comments Yes 0 (1 standard drink = 0.6 oz pur e alcohol) [facility] Utilities Answer Date Recorded In the past 12 months has th e electric, gas, oil, or water [employer] threatened to shut off services in your [...] your living situation today? I have a [facility] place to live 10/02/2023 Sex and Gender Information Value Date Recorded Sex Assigned at Male 10/02/2023 7:37 AM SUPPLY AND DISTRIBUTION MANAGER Gender Identity Male 10/02/2023 7:37 AM SUPPLY AND DISTRIBUTION MANAGER Sexual Orientation Straight 10/02/2023 7: 37 AM SUPPLY AND DISTRIBUTION MANAGER documented as of this encounter Last Filed Vital Signs Vital Sign Reading Time Taken Comments Blood Pressure 123/66 02/01/2024 8:36 AM CDT Pulse 52 02/01/2024 8:36 AM CDT Temperature 36.6 ??C (97.9 ??F) 02/01/2024 8:36 AM CD T Respiratory Rate - - Oxygen Saturation - - Inhaled Oxygen Concentration - - Weight 82.1 kg (181 lb) 02/01/2024 8:36 AM CDT Height - - Body Mass [...] as of this encounter Progress Notes * Corinne Aguillon M.D. - 02/01/2024 8:45 AM CDT ATTESTATION FOR MANAGEMENT VISIT I saw and evaluated the patient and participated in the greene portions of the service as noted below.I reviewed the documentation of Ms. Reva Sahu RN and agree with the findings and plan. The patient appears well on exam. I congratulated him on completing his treatments today. We anticipate that Mr. Te Archuleta will complete radiation treatment as planned without interruptions. The course of treatment was tolerated well. The patient experienced toxicities of grade 1pain, fatigue, esophagitis during radiation treatment. Follow-up will be with Dr. Quinteros and Dr. Ackerman. Corinne Aguillon M.D., 02/01/2024 SUBJECTIVE REASON FOR VISIT Evaluation for side effects while receiving radiation treatment for 1. Secondary Malignant Neoplasm Lung Right (HCC) SUPERVISED BY: Dr. Aguillon HISTORY OF PRESENT ILLNESS Mr. Te Archuleta is a 73 y.o. male with metastatic adenocarcinoma of the esophagus. He is undergoing radiation treatment for a persistent right apex lesion. Single Plan Treatment Course: 3xLungUppr Plan ID Fractions Dose / Fraction (cGy) Dose Treated (cGy) Dose Planned (cGy) First Treatment Last Treatment Elapsed Days [id number] 300 4500 4500 01/12/2024 02/01/2024 20 Course Summary 01/12/2024 02/01/2024 20 The patient was seen and examined today with Dr. Aguillon. Patient denies pain to his right upper chest has resolved. Pain to right forearm is better and positional in nature. Pain in right wrist he rates at 2 out of 10 and is also positional in nature. Patient reports fatigue with treatments. He is taking 300 mg Gabapentin in the morning, 300 mg at lunch and 600 mg at bedtime. Patient is aware that tomorrow he decreases to taking 2 mg of Dexamethasone da ry for 5 days. He knows that today is his last day of taking 2 mg of Dexamethasone twice a day. Hereports mild sore throat. He takes Aspirin on occasion. He denies cough, shortness of breath or anyother symptoms. PATIENT REPORTED SYMPTOM SCREEN FATIGUE (Scale: 0 = no fatigue; 10 = worst fatigue you can imagine): 8 PAIN (Scale: 0 = no pain; 10 = worst pain you can imagine): 2 OVERALL QUALITY OF LIFE (Scale: 0 = as bad as can be; 10 = as good as can be): 9 OBJECTIVE BP 123/66 (BP Location: Left arm, Patient Position: Sitting, Cuff Size: Regular) Pulse (!) 52 Temp 36.6 ??C (Temporal) Wt 82.1 kg BMI 26.81 kg/m?? PHYSICAL EXAM General: Alert and oriented [...] 12, 2024; completed on February 01, 2024 Dr. Ackerman recommended last week that patient decrease to taking 2 mg of Dexamethasone daily for 5 days starting tomorrow, February 03, 2024. I will call him on February 07, 2024 to review further taper schedule. I will call patient on February 06 to remind him of Dexamethasone taper instructions again. Dr. Quinteros will see patient in follow up on February 01, 2024. Dr. Ackerman will complete phone call follow upwith patient soon after next PET scan has completed. We will leaving the ordering of PET scan to Dr. Quinteros. I reviewed education on potential late term side effect of radiation pneumonitis 6 weeks to 6 months out from radiation therapy to the lung. He will contact us with any questions or concerns. Toxicities reviewed with Dr. Aguillon today. Signed by: Reva Sahu R.N. 02/01/2024 9:04 AM CDT documented in this encounter Plan of Treatment Scheduled Orders Name Type Priority Associated Diagnoses Orde r Schedule Management Visit Radiation Oncology Routine Secondary Malignant Neoplasm Lung Right (HCC) Once for 1 Occurrences starting 02/01/2024 until 02/01/2024 documented as of this encounter Visit Diagnoses Diagnosis Secondary Malignant Neoplasm Lung Right (HCC) documented in this encounter
--- OUTSIDE RECORDS SUMMARY | 2024-05-07 13:15 | XMS_ITS | Encounter Summary ---
Author Organization [facility] Address [address] [place] [address] Care Team Providers Care Sustainability Manager Name Role Phone Unavailable Primary Care Provider Unavailabl e Reason for Referral * Radiation Therapy (Routine) - Authorized Specialty Diagnoses / Procedures Referred By Contac t Referred To Contact Diagnoses Secondary Malignant Neoplasm Lung Right (HCC) Procedures Management Visit Sulaiman Ackerman M.D. [address] [place] [address] [facility] Region Referral ID Status Reason Start Date Expiration Date V isits Requested Visits Authorized [id number] Authorized 12/27/2023 12/26/2024 10 10 Reason for Visit * Radiation Therapy (Routine) - Authorized Specialty Diagnoses / Procedures Referred By Contac t Referred To Contact Diagnoses Secondary Malignant Neoplasm Lung Right (HCC) Procedures Management Visit Sulaiman Ackerman M.D. [address] [place] [address] [facility] Region Referral ID Status Reason Start Date Expiration Date V isits Requested Visits Authorized [id number] Authorized 12/27/2023 12/26/2024 10 10 Encounter Details Date Type Department Care Team (Latest Contact Info) Description 01/24/2024 7:48 AM CDT - 02/07/2024 9:59 AM CDT Hospital Encounter Department of Radiation Oncology in [address] [phone] Corinne Aguillon M.D. [address] [place] [address] Sulaiman Ackerman M.D. [address] [place] [address] Secondary Malignant Neoplasm Lung Right (HCC) Social History Tobacco Use Types Packs/Day Years Used Date Smoking Tobacco: Former Cigarettes 1 18 1 967 - 1984 Smokeless Tobacco: Never Alcohol Use Standard Drinks/Week Comments Yes 0 (1 standard drink = 0.6 oz pur e alcohol) [facility] Utilities Answer Date Recorded In the past 12 months has e electric, gas, oil, or water [employer] threatened to shut off services in your [...] your living situation today? I have a [place] place to live 10/02/2023 Sex and Gender Information Value Date Recorded Sex Assigned at Male 10/02/2023 7:37 AM CUSTOMER SALES CONSULTANT Gender Identity Male 10/02/2023 7:37 AM CUSTOMER SALES CONSULTANT Sexual Orientation Straight 10/02/2023 7: 37 AM CUSTOMER SALES CONSULTANT documented as of this encounter Last [...] Progress Notes * Sulaiman Ackerman M.D. - 01/24/2024 8:30 AM CDT SUBJECTIVE REASON FOR VISIT Evaluation for side effects while receiving radiation treatment for 1. Secondary Malignant Neoplasm Lung Right (HCC) SUPERVISED BY: Sulaiman Ackerman M.D. ([id number]) HISTORY OF PRESENT ILLNESS Mr. Te Archuleta is a 73 y.o. male with metastatic adenocarcinoma of the esophagus. He is undergoing radiation treatment for a persistent right apex lesion. Single Plan Treatment Course: 3xLungUppr Plan ID Fractions Dose / Fraction (cGy) Dose Treated (cGy) Dose Planned (cGy) First Treatment Last Treatment Elapsed Days [id number] 300 2700 4500 01/12/2024 01/24/2024 12 Course Summary 01/12/2024 01/24/2024 12 The patient was seen and examined today with Dr. Ackerman. Patient reports the pain in his right upper chest and right forearm have both improved. He does experience throbbing tenderness to his right wrist. Yesterday he increased to taking 300 mg of Gabapentin 3 times a day and noted pain improvement overall. He does take Tylenol and Aspirin on occasion. He rates his pain at a 3 out of 10. Patient reports areas of numbness and tinging in right upper extremity have also improved. He denies new symptoms or concerns today. He is currently taking 4 mg of Dexamethasone twice a day. He took morning dose already today. PATIENT REPORTED SYMPTOM SCREEN FATIGUE (Scale: 0 = no fatigue; 10 = worst fatigue you can imagine): 7 PAIN (Scale: 0 = no pain; 10 = worst pain you can imagine): 3 OVERALL QUALITY OF LIFE (Scale: 0 = as bad as can be; 10 = as good as can be): 8 OBJECTIVE BP 139/69 (BP Location: Right arm, Patient Position: Sitting, Cuff Size: Regular) Pulse (!) 57 Wt 82.4 kg BMI 26.91 kg/m?? PHYSICAL EXAM General: Alert and oriented [...] upper lobe initiated on January 12, 2024; anticipatedcompletion on February 01, 2024 Patient will now decrease to taking 4 mg of Dexamethasone in the morning and 2 mg of Dexamethasone in the late afternoon. Patient has 5 tablets left of 4 mg Dexamethasone tablets therefore will get him through to this coming Tuesday. We will reassess, adjust Dexamethasone taper and provide refill inmanagement visit this Tuesday. We will send in prescription refill for Gabapentin today. We will have patient continue taking 300 mg of Gabapentin 3 times a day. We will continue seeing him in weekly management visits. He will contact us with any questions or concerns. We will continue with radiation treatment as planned. Signed by: Reva Sahu R.N. 01/24/2024 10:37 AM CDT I saw and evaluated the patient and participated in the greene portions of the service. I reviewed thedocumentation of Reva Sahu R.N. and agree with the findings and plan. The patient appears well on exam. He is tolerating treatment well. He will taper dexamethasone as above. I will plan to see him after his next imaging ordered by Dr. Quinteros. He will continue with treatment as planned. Signed by: Sulaiman Ackerman M.D. 02/07/2024 6:32 PM CDT [facility] [address] [place] [address] documented in this encounter Plan of Treatment Scheduled Orders Name Type Priority Associated Diagnoses Orde r Schedule Management Visit Radiation Oncology Routine Secondary Malignant Neoplasm Lung Right (HCC) Once for 1 Occurrences starting 01/24/2024 until 01/24/2024 documented as of this encounter Visit Diagnoses Diagnosis Secondary Malignant Neoplasm Lung Right (HCC) documented in this encounter
--- OUTSIDE RECORDS SUMMARY | 2024-05-07 13:15 | XMS_ITS | Encounter Summary ---
Author Organization [facility] Address [address] [place] [address] Care Team Providers Care Director Prospect Name Role Phone Unavailable Primary Care Provider Unavailabl e Reason for Referral * Radiation Therapy (Routine) - Authorized Specialty Diagnoses / Procedures Referred By Contac t Referred To Contact Diagnoses Secondary Malignant Neoplasm Skin Face (HCC) Procedures Management Visit Corinne Aguillon M.D. [address] [place] [address] [facility] Referral ID Status Reason Start Date Expiration Date V isits Requested Visits Authorized [id number] Authorized 02/29/2024 02/28/2025 10 10 * Radiation Therapy (Routine) - Authorized Specialty Diagnoses / Procedures Referred By Contac t Referred To Contact Diagnoses Secondary Malignant Neoplasm Skin Face (HCC) Procedures Prior Auth Rad Tx Corinne Aguillon M.D. [address] [place] [address] [facility] Referral ID Status Reason Start Date Expiration Date V isits Requested Visits Authorized [id number] Authorized 02/29/2024 02/28/2025 1 1 * Radiation Therapy (Routine) - Authorized Specialty Diagnoses / Procedures Referred By Contac t Referred To Contact Diagnoses Secondary Malignant Neoplasm Skin Face (HCC) Procedures Management Visit Corinne Aguillon M.D. [address] [place] [address] [facility] Referral ID Status Reason Start Date Expiration Date V isits Requested Visits Authorized [id number] Authorized 02/29/2024 02/28/2025 10 10 * Radiation Therapy (Routine) - Closed Specialty Diagnoses / Procedures Referred By Contac t Referred To Contact Diagnoses Secondary Malignant Neoplasm Skin Face (HCC) Procedures Initial Rad Onc Treatment Planning CT Simulation without IV Contrast Corinne Aguillon M.D. [address] [place] [address] [facility] Referral ID Status Reason Start Date Expiration Date Visits Re quested Visits Authorized [id number] Closed 02/29/2024 02/28/2025 1 1 * Radiation Therapy (Routine) - Authorized Specialty Diagnoses / Procedures Referred By Contac t Referred To Contact Diagnoses Secondary Malignant Neoplasm Skin Face (HCC) Procedures Prior Auth Rad Tx Corinne Aguillon M.D. [address] [place] [address] [facility] Referral ID Status Reason Start Date Expiration Date V isits Requested Visits Authorized [id number] Authorized 02/29/2024 02/28/2025 1 1 * Outpatient (Routine) - Closed Specialty Diagnoses / Procedures Referred By Contac t Referred To Contact Radiation Oncology Corinne Aguillon M.D. [address] [place] [address] [facility] Referral ID Status Reason Start Date Expiration Date Visits Re quested Visits Authorized [id number] Closed 02/29/2024 08/30/2025 1 1 Encounter Details Date Type Department Care Team (Late st Contact Info) Description 02/29/2024 Orders Only Department of Radiation Oncology in [place], [place] [address] [place] [address] Corinne Aguillon M.D. [address] [place] [address] Secondary Malignant Neoplasm Skin Face (HCC) (Primary Dx) Social History Tobacco Use Types Packs/Day Years Used Date Smoking Tobacco: Former Cigarettes 1 18 1 967 - 1984 Smokeless Tobacco: Never Alcohol Use Standard Drinks/Week Comments Yes 0 (1 standard drink = 0.6 oz pur e alcohol) [facility] [employer] Answer Date Recorded In the past 12 months has [employer], gas, oil, or water [employer] threatened to shut off services in your [...] Sex Assigned at Male 10/02/2023 7:37 AM CLINIC RECEPTIONIST Gender Identity Male 10/02/2023 7:37 AM CLINIC RECEPTIONIST Sexual Orientation Straight 10/02/2023 7: 37 AM CLINIC RECEPTIONIST documented as of this encounter Plan of Treatment Scheduled Orders Name Type Priority Associated Diagnoses Order Schedule Prior Auth Rad Tx Radiation Oncology Routine Secondary Malignant Neoplasm Skin Face (HCC) Ordered: 02/29/2024 Management Visit Radiation Oncology Routine Secondary Malignant Neoplasm Skin Face (HCC) 10 Occurrences starting 02/29/2024 until 05/31/2025 Prior Auth Rad Tx Radiation Oncology Routine Secondary Malignant Neoplasm Skin Face (HCC) Ordered: 02/29/2024 Management Visit Radiation Oncology Routine Secondary Malignant Neoplasm Skin Face (HCC) 10 Occurrences starting 02/29/2024 until 02/28/2025 Scheduled Referrals Name Type Priority Associated Diagnoses Orde r Schedule Radiation Oncology office visit (clinic) Outpatient Referral Routine Expected: 03/07/2024 (Approximate), Expires: 02/28/2025 documented as of this encounter Results * [...] Aguillon M.D. RADIATION ONCOLOG Y ORDERABLES BRENDAN GARCIA na documented in this encounter Visit Diagnoses Diagnosis Secondary Malignant Neoplasm Skin Face (HCC)- Primary Secondary Malignant Neoplasm Skin Face (HCC) documented in this encounter
--- OUTSIDE RECORDS SUMMARY | 2024-05-07 13:15 | XMS_ITS | Encounter Summary ---
Author Organization [facility] Address [address] [place] [address] Care Team Providers Care Pt Escort Name Role Phone Unavailable Primary Care Provider Unavailabl e Reason for Referral * Outpatient (Routine) - Authorized Specialty Diagnoses / Procedures Referred By Alex vergara Referred To Contact Diagnoses Malignant Neoplasm Of Esophagus Lower Third (HCC) Sulaiman Ackerman M.D. [address] [place] [address] [facility] Referral ID Status Reason Start Date Expiration Date V isits Requested Visits Authorized [id number] Authorized 01/27/2024 07/28/2025 10 10 Reason for Visit * Outpatient (Routine) - Authorized Specialty Diagnoses / Procedures Referred By Alex vergara Referred To Contact Diagnoses Malignant Neoplasm Of Esophagus Lower Third (HCC) Sulaiman Ackerman M.D. [address] [place] [address] [facility] Referral ID Status Reason Start Date Expiration Date V isits Requested Visits Authorized [id number] Authorized 01/27/2024 07/28/2025 10 10 Encounter Details Date Type Department Care Team (Latest Contact Info) Description 02/07/2024 10:00 AM CDT - 02/07/2024 11:32 AM CDT Hospital Encounter Department of Radiation Oncology in [place], [place] [address] [place] [address] Sulaiman Ackerman M.D. [address] [place] [address] Reva Sahu R.N. [address] [place] [address] Malignant Neoplasm Of Esophagus Lower Third (HCC) Social History Tobacco Use Types Packs/Day Years Used Date Smoking Tobacco: Former Cigarettes 1 18 1 967 - 1984 Smokeless Tobacco: Never Alcohol Use Standard Drinks/Week Comments Yes 0 (1 standard drink = 0.6 oz pur e alcohol) [facility] Utilities Answer Date Recorded In the [...] your living situation today? 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 - 02/07/2024 10:00 AM CDT ASSESSMENT Patient reports that he did switch to taking 1 mg of Dexamethasone daily today. PLAN Patient knows that he takes 1 mg daily dose for 5 days and then done. When done with Dexamethasone then patient should stop Omeprazole. Patient is taking 600 mg of Gabapentin in the evening and 300 mg in the morning and at mid day. Patient states he feels his pain is well managed and no pain flares. I will call patient when he is nearing the end of current Gabapentin prescription. He is scheduled for chemotherapy under the care of Dr. Quinteros this coming Tuesday. Dr. Ackerman will follow up with patient after his next PET/CT scan. Radiation Oncology can be contacted at anytime for any questionsor concerns. Disposition/Recommendation: self-care - appropriate at this time, patient encouraged to call back with questions. Information/Education: patient/caller able to teach back. Caller agreeable to plan of care: yes. The following references were used: nursing clinical judgement and Dr. Ackerman. documented in this encounter Plan of Treatment Scheduled Referrals Name Type Priority Associated Diagnoses Orde r Schedule NonF2F phone visit Outpatient Referral Routine Malignant Neoplasm Of Esophagus Lower Third (HCC) Once for 1 Occurrences starting 02/07/2024 until 02/07/2024 documented as of this encounter Visit Diagnoses Diagnosis Malignant Neoplasm Of Esophagus Lower Third (HCC) documented in this encounter
--- OUTSIDE RECORDS SUMMARY | 2024-05-07 13:15 | XMS_ITS | Encounter Summary ---
Author Organization [facility] Address [address] [place] [address] Care Team Providers Care Inspector Fuel Hose Name Role Phone Unavailable Primary Care Provider Unavailabl e Encounter Details Date Type Department Care Team (Latest Contact Info) Description 01/31/2024 8:14 AM CDT - 01/31/2024 11:59 PM CDT Hospital Encounter Department of Radiation Oncology in [place], [place] [address] [place] [address] Sulaiman Ackerman M.D. [address] [place] [address] Discharge Disposition: Home or Self Care Social History Tobacco Use Types Packs/Day Years Used Date Smoking Tobacco: Former Cigarettes 1 18 1 967 - 1985 Smokeless Tobacco: Never Alcohol Use Standard Drinks/Week Comments Yes 0 (1 standard drink = 0.6 oz pur e alcohol) [facility] Utilities Answer Date Recorded In the past 12 months has [employer], gas, oil, or water [employer] threatened to shut off services in your [...] Sex Assigned at Male 10/02/2023 7:37 AM COMMUNICATION CONSULTANT Gender Identity Male 10/02/2023 7:37 AM COMMUNICATION CONSULTANT Sexual Orientation Straight 10/02/2023 7: 37 AM COMMUNICATION CONSULTANT documented as of this encounter Medications at [...]
--- OUTSIDE RECORDS SUMMARY | 2024-05-07 13:15 | XMS_ITS | Encounter Summary ---
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 [address] [place] [address] [facility] Referral ID Status Reason Start Date Expiration Date V isits Requested Visits Authorized [id number] Authorized 01/27/2024 07/28/2025 10 10 Reason for Visit * Outpatient (Routine) - Authorized Specialty Diagnoses / Procedures Referred By Alex vergara Referred To Contact Diagnoses Malignant Neoplasm Of Esophagus Lower Third (HCC) Sulaiman Ackerman M.D. [address] [place] [address] [facility] Referral ID Status Reason Start Date Expiration Date V isits Requested Visits Authorized [id number] Authorized 01/27/2024 07/28/2025 10 10 Encounter Details Date Type Department Care Team (Latest Contact Info) Description 02/24/2024 8:43 AM CDT - 02/24/2024 11:59 PM CDT Hospital Encounter Department of Radiation Oncology in [place], [place] [address] [place] [address] Sulaiman Ackerman M.D. [address] [place] [address] Reva Sahu R.N. [address] [place] [address] Malignant Neoplasm Of Esophagus Lower Third (HCC) Discharge Disposition: Home or Self Care Social History Tobacco Use Types Packs/Day Years Used Date Smoking Tobacco: Former Cigarettes 1 18 1 967 - 1984 Smokeless Tobacco: Never Alcohol Use Standard Drinks/Week Comments Yes 0 (1 standard drink = 0.6 oz pur e alcohol) [facility] Utilities Answer Date Recorded In the past [...] living situation today? 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
--- OUTSIDE RECORDS SUMMARY | 2024-05-07 13:16 | XMS_ITS | Clinical Summary ---
Author Organization [facility] Address [place], [place] [address] Care Team Providers Care Dye House Worker Name Role Phone Nancy Perez Primary Care Provider Mary Tafoya MD Unavailable Keven Aguilar MD Unavailable [phone] Liz Quinteros MD Unavailable [phone] Allergies No known active allergies Medications Medication Sig Dispensed Refills Start Date End Date Status capecitabine (XELODA) 500 mg tablet Take 3 Tablets by mouth two times daily after meals 07/07/2021 Active cyanocobalamin (Vitamin B-12) 1,000 mcg tablet Take 1 Tablet (1,000 mcg) by mouth once daily. 90 Tablet 3 04/12/2023 Active atorvastatin (LIPITOR) 10 mg tabletIndications:Hy percholesteremia Take 1 Tablet (10 mg) by mouth once daily. 90 Tablet 3 02/27/2024 Active mupirocin (BACTROBAN) 2 % ointment Apply topically to affected area(s) three times daily. 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 02/08/2017 Elevated PSA 10/27/2015 Colon cancer 02/10/2011 Overview (04/11/2020): Colonoscopy 12/2013 polyp repeat in 3 years Colonoscopy 12/2016 multiple polyps repeat in 3 years Colonoscopy 04/2020 polyp, repeat in 5 years Resolved Problems Problem Noted Date Diagnosed Date Resolved Date Febrile neutropenia 11/12/2022 02/10/20 24 Encounters Date Type Department Care Team Description 05/01/[address] [phone] Daya Dunaway MD Results (Lab) 04/26/2024 Orders Only [facility] Scanner 1 scan: (1-Ord) [facility], PET/CT EYES TO THIGHS, CANCER RESTAGING, 04/26/2024 04/23/2024 Travel 04/18/2024 Orders Only [address] [phone] Daya Dunaway MD Lab (Need new orders/) 04/09/2024 Orders Only [facility] Scanner 1 scan: (1-Ord) [place], CHEST ABDOMEN PELV W/, 04/09/2024 03/27/2024 Telephone [facility] [address] [place] [address] Kacie Poole MS, CGC Results (Cancer genetic testing) 03/15/2024 1:00 PM CDT Office Visit [address] [address] Daya Dunaway MD Consult (elevated PSA) 03/15/2024 Travel 03/13/2024 9:00 AM CDT Telemedicine [facility] [address] [place] [address] Kacie Poole MS, CGC Counseling (Cancer genetic counseling) 03/05/2024 Telephone [facility] [address] [place] [address] Jane Love [facility] 03/02/2024 Telephone [facility] [address] [place] [address] Nancy Perez PA Follow Up 02/29/2024 2:15 PM CDT Office Visit [facility] [address] [facility] [place] [address] Ladonna Garcia MD Follow Up (Right chin abscess- Bx result) 02/29/[address] [place] [address] Nancy Perez PA Appointment (made appt) 02/29/2024 Travel 02/28/[address] [facility] [address] UrologyLali Nurse Appointment Request 02/27/2024 1:20 PM CDT Office Visit [place] [address] [facility] [place] [address] Nancy Perez PA Medicare ANNUAL (subsequent) Visit (73 years old); Follow Up (Recheck chin - took last pills this morning) 02/27/2024 Travel 02/24/2024 12:20 PM CDT Orders Only [address] [phone] Lali Cowart Lab 02/24/2024 Travel 02/22/2024 4:30 PM CDT Ancillary Procedure [address] [address] 02/22/2024 4:00 PM CDT Ancillary Procedure [address] [address] 02/22/2024 3:10 PM CDT Office Visit [address] [address] Ladonna Garcia MD Consult (Right chin bump) 02/22/2024 2:20 PM CDT Office Visit [facility] [address] [place] [address] Nancy Perez PA Derm Problem (Follow up spot on chin. Less redness now but it still hurts per Bill) 02/22/2024 Travel 02/17/2024 9:20 AM CDT Office Visit [facility] [address] [place] [phone] Carolyn Carcamo OD Follow Up (Conjunctivitis ) 02/16/2024 2:05 PM CDT Office Visit [facility] [address] [place] [address] Kati Chua PA Derm Problem 02/16/2024 Travel 02/14/2024 Telephone [facility] [address] [place] [address] Nancy Perez PA Follow Up 02/10/2024 2:00 PM CDT Office Visit [facility] [address] [place] [address] Nancy Perez PA Derm Problem (Check spot on chin - been there x 1 month, been getting bigger); Arm Pain/problem (R pain started after radiation started - ) 02/10/2024 Travel 02/08/2024 9:20 AM CDT Office Visit [facility] [address] [place] [phone] Carolyn Carcamo OD Eye Problem (Watery/Mattery eyes) 02/08/2024 Travel from Last 3 Months Immunizations Name Administration Dates Next Due AMB INFLUENZA IIV3 (AGE 65+ YRS) PF (Flu Clinic Only) 05/15/2018,05/15/2018 AMB Influenza, IIV4 PF (=>6 mos Flulaval,Fluzone Fluarix)(Flu Clinic Only) 04/23/2014 COVID-19 VACCINE SPIKEVAX (M ODERNA 50MCG/0.5ML) 12YO+ PFS 10/27/2023 COVID-19 vaccine (Moderna 100mcg/0.5mL) PF, MDV 09/21/2020,08/24/2020 [...] 11/19/2016 Pneumococcal conj 13-Valent (Prevnar 13) 11/13/2014 RSV, Bivalent Vaccine Recons tituted (Abrysvo 120MCG/0.5mL) 06/13/2023 TD, UNSPECIFIED 02/14/2018 Td (Age >=7 Years) 02/14/2018, 9,01/20/1994,11/02 Tdap 08/01/2008 Zoster (Shingrix-RZV, recombinant) 05/02/2018, Family [...] Answer Date Recorded PHQ-2 TOTAL SCORE 0 02/27/2024 Social Connections Answer Date Recorded Frequency of Communication with Friends and Fami ly Not on file 06/23/2023 Alcohol Use Answer Date Recorded How often do you have a drink containing alcohol ? 4 02/22/2024 How many drinks containing a lcohol do you have on a typical day when you are drinking? 0 02/22/2024 How often do you have five or more drinks on one occasion? 0 02/22/2024 Financial Resource Strain Answer Date R ecorded [...] Sign Reading Time Taken Comments Blood Pressure 134/80 03/15/2024 1:14 PM CDT Pulse 74 03/15/2024 1:14 PM CDT Temperature 36.8 ??C (98.3 ??F) 02/22/2024 2:16 PM CD T Respiratory Rate 14 12/23/2023 12:44 PM CDT Oxygen Saturation 99% 03/15/2024 1:14 PM CDT Inhaled Oxygen Concentration - - Weight 83.5 kg (184 lb) 03/15/2024 1:14 PM CDT Height 176 cm (5' 9.29) 02/27/2024 1:18 PM CDT Body Mass Index 26.94 02/27/2024 1:18 PM CDT Plan of Treatment Upcoming Encounters Date Type Department Care Team (Late st Contact Info) Description 05/07/2024 3:00 PM CDT Ancillary Procedure [facility] [address] [place] [address] Arrived Health Maintenance Due Date Last Done Comments COVID-19 vaccine series ( season) 2024 10/27/2023, 05/06/2022, 11/10/2021, Additional history exists Influenza for age 65+ 04/01/2024 05/06/2022 , 05/09/2021, 05/22/2020, Additional history exists BMI (ht and wt on same day) for age 18+ 02/26/2025 02/27/2024, 11/12/2022, 03/04/2021, Additional history exists Medicare Wellness for age 65+ 02/27/2025, 11/12/2022, 11/10/2020, Additional history exists Depression screening for age 12+ 03/02/2025 03/02/2024, 02/29/2024, 02/29/2024, Additional history exists Colonoscopy through age 75 04/09/202504/09, 04/09/2020, 01/25/2017, Additional history exists Tetanus booster 02/15/2028 02/14/2018, 01/29, 08/01/2008, Additional history exists Lipids for age 45-75 02/23/2029 02/24/2024, 06/22/2022, 11/07/2020, Additional history exists Tdap Completed 08/01/2008 Hepatitis C screening for ag e 18-79 Completed 11/18/2015 Pneumococcal series for age 65+ Completed 7, 11/13/2014 Zoster (shingles) series for age 50+ Completed 05/02/2018, 02/14/2018 RSV vaccine for adults or Completed 06/13/2023 Procedures Procedure Name Priority Date/Time Associated Diagnosis Comments SCAN-PET SCAN 04/26/2024 12:00 AM CDT PSA (TOTAL) (QUEST) Routine 04/23/2024 9 :42 AM CDT Elevated PSA SCAN-CT INTERPRETATION 12:00 AM CDT PSA TOTAL SCREEN Routine 02/24/2024 10:5 5 AM CDT Prostate cancer screening LIPID PANEL W REFLEX MEASURED LDL Add On 02/24/2024 10:55 AM CDT Hypercholesteremia CREATININE Routine 02/24/2024 10:55 AM CDT Facial abscess PATH TISSUE EXAM Routine 02/22/2024 4:10 PM CDT Facial abscess CT NECK SOFT TISSUE W STAT 02/22/2024 3:39 PM CDT Facial abscess Adenocarcinoma of esophagus (HC) US NECK OR HEAD SOFT TISSUE Routine 02/22/2024 3:15 PM CDT Facial abscess COLONOSCOPY 04/09/2020 9:19 AM CDT History of colon polyps Polyp of colon, unspecified part of colon, unspecified type Personal history of colon cancer ANTI HCV Routine 11/18/2015 9:17 AM CDT Need for hepatitis C screening test from Last 3 Months or Most Recently Relevant to Health Maintenance Results * SCAN-PET SCAN (04/26/2024 12:00 AM CDT) Anatomical Region Laterality Modality Other Scanner OTHER * PSA (TOTAL) (QUEST) (04/23/2024 9:42 AM CDT) PSA, TOTAL 2.40 < OR = 4.00 ng/mL [employer] Comment: The total PSA value from this assay system is standardized against the WHO standard. The test result will be approximately 20% lower when compared to the equimolar-standardized total PSA (Samson Pawlet). Comparison of serial PSA results should be interpreted with this fact in mind. This test was performed using the Siemens chemiluminescent method. Values obtained from different assay methods cannot be used interchangeably. PSA levels, regardless of value, should not be interpreted as absolute evidence of the presence or absence of disease. Blood BLOOD SPECIMEN / Unknown 04/23/2024 9:42 AM CDT 04/24/2024 5:06 AM CDT Daya Dunaway MD SEND OUTS [employer] [facility] [address] [place] [address], [facility] [address] [place] [address] * SCAN-CT INTERPRETATION (04/09/2024 12:00 AM CDT) Anatomical Region Laterality Modality Other Scanner OTHER * LIPID PANEL W REFLEX MEASURED LDL (02/24/2024 10:55 AM CDT) CHOLESTEROL,TOTAL 158 100 - 199 mg/dL 02/27/2024 3:27 PM T [facility] Comment: Cholesterol, Total Reference Ranges Desirable <200 mg/dL Borderline 200-239 mg/dL High >=240 mg/dL TRIGLYCERIDES 96 <150 mg/dL 02/27/2024 3:27 PM T [facility] HDL CHOLESTEROL 56 >40 mg/dL 3:27 PM T [facility] NON-HDL CHOLESTEROL 102 <145 mg/dl 02/27/2024 3:27 PM [facility] CHOL/HDL RATIO 2.82 <4.50 02/27/2024 3:27 PM [facility] LDL CHOLESTEROL 83 <=130 mg/dL 02/27/2024 3:27 PM [facility] VLDL CHOLESTEROL 19 <=30 mg/dL 02/27/2024 3:27 PM [facility] PROVIDER ORDERED STATUS NOT GIVEN 02/27/2024 3:27 PM [facility] Blood BLOOD SPECIMEN / Unknown Venipuncture / Unknown 02/24/2024 10:55 AM CDT 02/24/2024 10:57 AM CDT Nancy LESLIE CHEMISTRY Performing Organization Address City/[facility]/ZIP Co de Phone Number [facility] [address] [place] [phone] * (ABNORMAL) CREATININE (02/24/2024 10:55 AM CDT) eGFR 61(L) >90 mL/min/1.7 3m2 02/24/2024 11:45 AM T [facility] Comment:As of 2021, eG FR is calculated by the CKD-EPI creatinine equation without race adjustment. ??eGFR can be influenced by muscle mass, exercise, and diet. ??The reported eGFR is an estimation only and is only applicable if the renal function is stable. CREATININE 1.23(H) 0.70 - 1.20 mg/dL 02/24/2024 11:45 AM CDT [facility] Blood BLOOD SPECIMEN / Unknown Venipuncture / Unknown 02/24/2024 10:55 AM CDT 02/24/2024 10:57 AM CDT Ladonna Garcia MD CHEMISTRY Performing Organization Address [facility]/ZIP Co de Phone Number [facility] [address] [place] [address] * (ABNORMAL) PSA TOTAL SCREEN - Dx Auto-associated (02/24/2024 10:55 AM CDT) PSA TOTAL (SCREEN) 11.70(H) <4.00 ng/mL 02/28/2024 11:11 AM CDT [facility] Blood BLOOD SPECIMEN / Unknown Venipuncture / Unknown 02/24/2024 10:55 AM CDT 02/24/2024 10:57 AM CDT Narrative [facility] - 02/28/2024 11:11 AM CDT The test method changed on 01/25/2023. If this test has been used for serial monitoring, rebaselining is recommended. Rebaselining consists of 2 measurements, collected 3-6 weeks apart. The Lori Elecsys total PSA assay is an electrochemiluminescence immunoassay ECLIA performed on the Lori Corrina e immunoassay analyzers. Values obtained with different assay methods may be different and cannot be used interchangeably. Nancy LESLIE LABORATORY Performing Organization Address City/[facility]/ZIP Co de Phone Number [facility] [address] [place] [address], * PATH TISSUE EXAM (02/22/2024 4:10 PM CDT) Case Report Pathology Report ?Case: [id number] ? Authorizing Provider: ??Ladonna Garcia MD ??Collected: ? 02/22/2024 1610 ? Ordering Location: ? [facility] ?? Received: ?02/22/2024 1722 ? Clinic ? Pathologist: ? Aleyda Raymond MD ? Specimen: ?Chin, right chin abcess ? 4 12:05 PM CDT [facility] Amendment 02/29/2024 - Report updated to incorporate DNA mismatch repair enzyme immunohistochemistry, see final diagnosis and comment sections. KP 02/29/2024 - Report updated to incorporate PD-L1 immunohistochemistry, see final diagnosis. 4 12:05 PM CDT [facility] Final Diagnosis SKIN, RIGHT CHIN, BIOPSY: Moderately differentiated adenocarcinoma with necrosis, forming a subcutaneous mass extending to tissue margins See comment -Ancillary testing added 02/29/2024 -DNA mismatch repair enzymes show loss of MLH1 and PMS2; see comment regarding potential genetic testing -Gastric/Gastroesophag eal PD-L1 Combined Positive Score (CPS): 0 (negative) 4 12:05 PM [facility] Amendment electronically signed by Izzy North MD on 02/29/2024 at 12:05 PM Amendment electronically signed by Gomez Edward MD on 02/29/2024 at 11:20 AM Comment The results are discussed with Dr. Garcia. 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 ?? 02/29/24 -DNA mismatch repair enzyme immunohistochemistry shows lack of staining for MLH1 and PMS2 and intact staining with MSH2 and MSH6. 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 Given the history of both esophageal and colonic adenocarcinomas, consideration for genetic counseling and germline testing to evaluate for potential Patrick syndrome is reasonable. Secure chat sent to MARIAMA Singh, on 02/29/2024. Prior testing on the original esophageal adenocarcinoma (01/10/2019) showed 3+ immunostaining for HER2/helder. TEST PERFORMED: PD-L1 (SP263) ANALYSIS BY IMMUNOHISTOCHEMISTRY ?? MATERIALS AND METHODS: ?? - Adequate number of tumor cells are present on the re-cut H&E stain section. Minimum number of tumor cells required is 100 viable tumor cells - The positive and negative control tissue demonstrate appropriate staining ?? TESTING INFORMATION FOR PD-L1 ANALYSIS: ?? PD-L1 assayed by immunohistochemistry with microscopy, following tissue fixation in 10% neutral buffered formalin. Tissue sections are incubated with a PD-L1 rabbit monoclonal antibody ([place] PD-L1 SP263 assay), performed on the [employer] BenchMark ULTRA instrument and visualized with OptiView DAB IHC Detection kit and OptiView amplification kit. ?? PD-L1 22C3 Combined Positive Score (CPS): Interpretation Guidelines for gastric/gastroesophage al adenocarcinoma Combined Positive Score is determined by manual morphometry evaluating the number of PD-L1 staining cells (tumor cells, lymphocytes, macrophages) divided by the total number of viable tumor cells, multiplied by 100. This [place] SP263 immunohistochemical antibody assay is a laboratory developed test which has been validated against the 22C3 assay. ?? The performance of this assay has not been validated on decalcified specimens. Results on decalcified specimens should be interpreted with caution, given the likelihood of a false negative result on decalcified specimens. Reference ?? Applied Immunohistochemistry & Molecular Morphology, 29(6) https://doi.[email or web address] [email or web address]/[email or web address] Disclaimer ?? Support for the interpretation of this case may have included the use of immunohistochemistry and/or in situ hybridization tests that were performed by [facility] and whose performance characteristics were evaluated by pathologists from [facility]. These tests have not been cleared or approved by the U.S. Food and Drug Administration. These tests are used for clinical purposes and should not be regarded as investigational or for research. This laboratory is certified under the Clinical Laboratory Improvement Amendments of 1988 (CLIA) as qualified to perform high complexity clinical laboratory testing. 12:05 PM CDT [facility] Clinical Information Facial abscess 12:05 PM CDT [facility] Gross Description A) Received in formalin, labeled with the patient's name and Rt chin, is a 0.5 x 0.5 x 0.3 cm skin punch biopsy. The skin surface is remarkable for a 0.5 x 0.5 cm depressed lesion. Also in the container is a 0.5 x 0.4 x 0.3 cm aggregate of howard-brown soft tissue. The specimen is inked yellow, bisected and entirely submitted in two cassettes. SJM 02/23/2024 12:05 PM CDT [facility] Microscopic Description The final diagnosis is based on microscopic examination of appropriate sections of all specimens. Immunohistochemical stains were performed on the tumor and show: CK7: Strongly diffusely positive CK20: Scattered positive CDX2: Positive TTF1: Negative 12:05 PM CDT [facility] Additional Information Interpreted at [facility] - [address], [place] [address] Immunohistochemistry controls were reviewed and approved by the pathologist during this examination. 12:05 PM CDT [facility] Other (Chin) Non-Blood / Unknown 02/22/2024 4:10 PM CDT 02/22/2024 5:22 PM CDT Ladonna Garcia MD PATHOLOGY/CYTOLO GY [facility] [address] [place] [address], [place] * CT NECK SOFT TISSUE W (02/22/2024 3:39 PM CDT) Anatomical Region Laterality Modality NECK Computed Tomogra phy 02/22/2024 3:54 PM CDT Narrative 02/22/2024 3:54 PM CDT For Patients: ??As a result of the Cures Act, medical imaging exams and procedure reports are released immediately into your electronic medical record. ??You may view this report before your referring provider. ??If you have questions, please contact your health [...] by Dr. Garcia. Discussed with Dr. Garcia [id number] 02.22.24. Please note that all CT scans at this facility use dose modulation, iterative reconstruction, and/or weight-based dosing when appropriate to reduce radiation dose to as low as reasonably achievable. Dictated by Rodger Romo MD @ 02/22/2024 3:54:16 PM (Electronically Signed) Procedure Note Rodger Romo MD - 02/22/2024 For Patients: As a result of the Century Cures Act, medical imagingexams and procedure reports are released immediately into your electronicmedical record. You may view this report before your referring provider.If you have questions, please contact your health care provider. Indication: Facial abscess, adenocarcinoma of the esophagus Technique: CT NECK SOFT TISSUE W Omnipaque 350 100 ML Please note that all CT scans at this facility use dose modulation,iterative reconstruction, and/or weight-based dosing when appropriate toreduce radiation dose to as low as reasonably achievable. Comparison: Ultrasound same day, CT PET 04/22/2023 Findings: Postop changes of esophagogastrectomy with gastric pull up noted. Noenlarged lymph nodes within the visualized thorax. Stable small rightthyroid lobe nodule measuring 1.1 cm. Scarring in the right lung apex ispresent. The salivary glands are normal. Subcutaneous circumscribed lesionis present in the right lower face at the level of the mandible measuring1.8 cm corresponding with the clinical area of concern and correspondingwith the ultrasound. No surrounding adenopathy. The pharynx and larynx aresimilar to the prior study. Visualized brain parenchyma is unremarkable.Sinuses are clear. Degenerative disc disease mid and lower cervical spine.No fracture. Impression: Circumscribed 1.8 cm lesion located just beneath the skin within the rightlower face superficial to the mandible. This is likely infectious andpercutaneous biopsy will be performed by Dr. Garcia. Discussed with [id number] 02.22.24. Please note that all CT scans at this facility use dose modulation,iterative reconstruction, and/or weight-based dosing when appropriate toreduce radiation dose to as low as reasonably achievable. Dictated by Rodger Romo MD @ 02/22/2024 3:54:16 PM (Electronically Signed) Nancy LESLIE CT * US NECK OR HEAD SOFT TISSUE (02/22/2024 3:15 PM CDT) Anatomical Region Laterality Modality NECK Ultrasound 02/22/2024 3:48 PM CDT Narrative 02/22/2024 3:48 PM CDT For Patients: ??As a result of the Cures Act, medical imaging exams and procedure reports are released immediately into your electronic medical record. ??You may view this report before your referring provider. ??If you have questions, please contact your health [...] MD @ 02/22/2024 3:48:52 PM (Electronically Signed) Procedure Note Rodger Romo MD - 02/22/2024 For Patients: As a result of the Cures Act, medical imagingexams and procedure reports are released immediately into your electronicmedical record. You may view this report before your referring provider.If you have questions, please contact your health care provider. Indication: Facial abscess Technique: Grayscale and color Doppler ultrasound of the right side of lower face. Comparison: CT PET 04/22/2023 Findings: There is a complex solid and cystic mass within the subcutaneous tissuesof the right lower face at the level of the mandible measuring 1.8 x 1.5 x1.9 cm. Central hypoechoic fluid noted. No internal vascularity. Impression: Subcutaneous solid/cystic mass measuring 1.8 x 1.5 x 1.9 cm with centralfluid or necrosis. CT will be performed subsequently. Dictated by Rodger Romo MD @ 02/22/2024 3:48:52 PM (Electronically Signed) Nancy ALICEA * COLONOSCOPY (04/09/2020 9:19 AM CDT) 04/09/2020 [...] reponse to care. [facility] and nursing notes for moderate sedation details. Total physician intraservice time was 21 minutes. Segundo Menendez MD 04/09/2020 10:15:58 AM This report has been signed electronically. Note Initiated On: 04/09/2020 9:19 AM Procedure Code(s): --- Professional --- 32860, Colonoscopy, flexible; with removalof tumor(s), polyp(s), or other lesion(s) bysnare technique Diagnosis Code(s): --- Professional --- Z86.010, Personal history of colonicpolyps Z85.038, Personal history of other malignant neoplasm of large intestine K63.5, Polyp of colon Z98.0, Intestinal bypass and anastomosisstatus CPT copyright 2019 [employer]. All rights reserved. The codes documented in this report are preliminary and upon acid tender reviewmay be revised to meet current compliance requirements. Scope In: 9:50:19 AM Scope Withdrawal Time 0 hours 13 minutes 47 seconds Scope Out: 10:09:58 AM Segundo Menendez MD PROCEDURE ORD * ANTI HCV [54631.2] (11/18/2015 9:17 AM CDT) HEPATITIS C ANTIBODY Non-Reacti ve Non-Reacti ve 11/18/2015 3:34 PM CDT [facility] Blood specimen (specimen) BLOOD SPECIMEN / Unknown Venipuncture / Unknown 11/18/2015 9:17 AM CDT 11/18/2015 9:17 AM CDT Narrative [facility] - 11/18/2015 3:34 PM CDT Antibodies to HCV not detected; does not exclude the possibility of exposure to HCV. Nancy LESLIE SEND [facility] 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
[2024-05-07] MEDS: PERFLUTREN LIPID MICROSPHERES 2 ML VIAL IV (14:44)
== END 2024-05-07 13:12 | disposition home or self-care (01) ==
LOC: RAD 13:12
PROVIDERS: PCP Physician Assistant Medical; Visit Provider Internal Medicine Hematology & Oncology
DX: Z51.81 Encounter for therapeutic drug level monitoring (principal); I51.7 Cardiomegaly
CPT/HCPCS: 93308; 93321; 93325; Q9957

== ENCOUNTER 2024-07-19 13:49 | Outpatient (CLI) | payer MEDICARE, BC, SELFPAY ==
--- NOTE | 2024-07-19 14:30 | PE_ITS ---
[facility] [address] [facility] [address] Phone:?[phone] Fax:?[phone] Referring Physician Information: Liz Quinteros M.D. [address] [facility] [address] Phone:?[phone] Fax:?[phone] Patient:Cait Archuleta D.O.B:?1950 Sex:?Male Phone:?[phone] [facility] MRN:?[id number] Exam Date:?07/19/2024 EXAM: PET/CT EYES TO THIGHS, CANCER RESTAGING CLINICAL INFORMATION: Esophageal cancer, restaging. TECHNICAL INFORMATION: Helical acquisition of data was obtained from the orbits to the upper thighs with reconstruction of 3.75 mm thick images at 3.[address] data was used for attenuation correction. PET scanning was performed through the same anatomic range 57 minutes following administration of 11.65 mCi of 18-FDG delivered intravenously. The patient's glucose at the time of the injection was 120 mg/dL. PET, CT and PET/CT fusion images are interpreted using a computer viewing workstation. PET, CT and PET/CT fusion images were archived and saved in the patient's permanent medical record. COMPARISON: PET-CT from 04/26/2024. 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 The known cutaneous lesion overlying the right mandibular body (Se 2 Im 57) has a maximum SUV of 12.43, previously 9.12; it has developed central necrosis. Previously indexed right submandibular node (Se 2 Im 62) now measures 1.2 x 1.2 cm with maximum SUV of 5.7, previously 0.7 x 0.7 maximum SUV of 7.07. At least three new right lower cervical and supraclavicular lymph nodes are nonenlarged but markedly hypermetabolic (SUVmax = 15.92). The patient's right thyroid lesion has increased in size and metabolic rate (SUVmax = 15.43). Chest: Several new tiny lung nodules have developed, most of which are too small to resolve by PET. A left upper lobe nodule (Se 2 Im 97) is obscured by an adjacent vessel on CT but has a maximum SUV of 7.68, consistent with metastasis. No subpleural metastasis in the right lung base has a maximum SUV of 11.11, stable. Background mediastinal blood pool uptake has a maximum SUV of 2.34. 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 These are very subtly visible on the nonenhanced CT. Upper Trimmer lesion in the left lobe (Se 2 Im 148) has a maximum SUV of 15.01. Upper Trimmer lesion in the central liver (Se 2 Im 159) has a maximum SUV of 12.4. New mesenteric ramez metastasis (Se 2 Im 192) measures 2.6 x 1.4 cm with maximum SUV of 18.06. New centrally necrotic lymph node in the right external iliac station (Se 2 Im 237) measures 2.8 x 2.2 cm with peripheral maximum SUV of 14.31. New left inguinal ramez metastasis (Se 2 Im 253) measures 1.4 x 1.4 cm with maximum SUV of 10.4. Background hepatic parenchymal uptake has a maximum SUV of 3.26. There is physiologic excretion of radiotracer in the urine and bowel. Skeleton, Musculature, and Integument: New subtle lesion in the left femoral neck (Se 2 Im 262) has a maximum SUV of 5.79. New subtle lesion in the right femoral neck (Se 2 Im 264) has a maximum SUV of 9.44. New subtle lesion in the left iliac bone (Se 2 Im 213) has a maximum SUV of 12.03. Known right first rib lesion has a maximum SUV of 7.93, previously 6.78. No right humeral head lesion has a maximum SUV of 11.06, previously 13.77. Known intramuscular implant in the left gluteal region has a maximum SUV of 8.6, previously 9.38. CONCLUSION: Since April 2024, dozens of new lesions have developed, including within the skeleton, brain, lungs, liver, and lymphatics. The known lesions are either stable or generally worsened. Index lesions provided above. Electronically signed on 07/20/2024 3:32:00 PM by Efrain Hicks M.D.
== END 2024-07-19 13:50 | disposition home or self-care (01) ==
PROVIDERS: PCP Physician Assistant Medical; Visit Provider Internal Medicine Hematology & Oncology
DX: C15.5 Malignant neoplasm of lower third of esophagus (principal)
CPT/HCPCS: 78815; A9552

== ENCOUNTER 2024-07-24 10:23 | Emergency (ER) | payer MEDICARE, BC, SELFPAY ==
[2024-07-24] VITALS (19 sets, daily range): BP systolic 96–119; BP diastolic 50–76; PULSE 85–106; RESP 16–22; TEMP 36.6–36.8; O2SAT 93–96
--- NOTE | 2024-07-24 10:29 | ED_ITS ---
HPI - Weakness General Time Seen by Provider: 10: Date Seen: 07/24/24 Chief complaint: Weakness Stated complaint: Weakness Time Seen by Provider: 07/24/24 10:29 Source: patient and family Mode of arrival: other (from [facility]) Limitations: no limitations History of Present Illness HPI Narrative: Virgie is a very pleasant 73-year-old gentleman with a history of end-stage esophageal cancer according to IC with history of radiation 2 weeks ago to the right jaw who is [facility] for evaluation for weakness shortness of breath and abdominal pain. The patient had presented to I see and at that time they thought he was likely dehydrated as he had orthostatic vital signs. Shortness of breath is confirmed to have started before the fluids but is somewhat worse since 1 L of fluid was given. Laboratory values were drawn at that time. I do receive a call from the Director of IC who is worried because virgie has worsening abdominal pain starting today associated with significant flatulence and loose stools as well as shortness of breath. He also has significant pain in his mouth and it is very hard for him to eat. Patient's pain has been managed with morphine orally at home but he is having increased pain especially in his mouth today. His has also noticed some white on his tongue. He has not had any nausea or vomiting. He has not had fever or chills and he has had no note ill contacts. The grand children did visit over the past few days but they were not sick. Related Data Home Medications ?Medication ?Instructions ?Recorded ?Confirmed atorvastatin 10 mg tablet 10 mg PO DAILY 02/08/22 07/24/24 mecobalamin (vitamin B12) 1,000 1,000 mcg PO QDAY PRN 10/04/22 07/24/24 mcg chewable tablet (B12 Active) multivitamin 1 tab PO DAILY PRN 03/07/24 07/24/24 Previous Rx's ?Medication ?Instructions ?Recorded prochlorperazine maleate 10 mg 10 mg PO TID PRN nausea #45 tabs 10/07/23 tablet lidocaine HCl 4 % topical ointment 1 ea topical .q 4 hours PRN right 02/10/24 (AsperFlex (lidocaine HCl)) arm nerve pain #30 grams prednisolone acetate 1 % eye 1 drp ophthalmic (eye) TID #10 mL 10/29/24 drops,suspension (Pred Forte) morphine 30 mg tablet,extended 30 mg PO Q12H #60 tabs 06/19/24 release ondansetron HCl 4 mg tablet 4 mg PO Q6H PRN nausea and 06/25/24 vomiting #40 tabs Allergies Allergy/AdvReac Type Severity Reaction Status Date / Time No Known Drug Allergies Allergy Verified 07/24/24 11:53 Review of Systems Status of ROS: Reports: 10 or more systems reviewed and unremarkable except as noted in History and below Const: Reports: fatigue; Denies: fever or chills Eyes: Denies: change in vision ENMT: Reports: throat pain, mouth pain, dry mouth and nasal discharge (Persistent and chronic); Denies: neck pain Cardio: Reports: lightheadedness and shortness of breath with exertion; Denies: chest pain Resp: Reports: shortness of breath; Denies: cough GI: Reports: abdominal pain and diarrhea; Denies: nausea, vomiting or blood in stool Musculo: Denies: neck pain Endo: Reports: fatigue PFSH PFSH Medical History (Updated 07/24/24 @ 11:29 by Gwendolyn Thurman, [employer]IST) Fissure in skin of both hands ?R23.4 - Changes in skin texture (ICD-10) Mattery eye ?H57.9 - Unspecified disorder of eye and adnexa (ICD-10) High prostate specific antigen (PSA) (10/27/15) ?R97.20 - Elevated prostate specific antigen [PSA] (ICD-10) GERD (gastroesophageal reflux disease) ?K21.9 - Gastro-esophageal reflux disease without esophagitis (ICD-10) Central venous catheter in place ?Z78.9 - Other specified health status (ICD-10) Hyperlipidemia ?E78.5 - Hyperlipidemia, unspecified (ICD-10) HTN (hypertension) ?I10 - Essential (primary) hypertension (ICD-10) Hypoalbuminemia ?E88.09 - Other disorders of plasma-protein metabolism, not elsewhere cla ssified (ICD-10) Anemia associated with chemotherapy ?D64.81 - Anemia due to antineoplastic chemotherapy (ICD-10) ?T45.1X5A - Adverse effect of antineoplastic and immunosuppressive drugs, initial encounter (ICD-10) Hypomagnesemia ?E83.42 - Hypomagnesemia (ICD-10) Palmar plantar erythrodysaesthesia ?L27.1 - Localized skin eruption due to drugs and medicaments taken internally (ICD-10) Malignant neoplasm of colon (02/10/11) ?C18.9 - Malignant neoplasm of colon, unspecified (ICD-10) Hyponatremia ?E87.1 - Hypo-osmolality and hyponatremia (ICD-10) Hypokalemia due to excessive gastrointestinal loss of potassium ?E87.6 - Hypokalemia (ICD-10) Febrile neutropenia ?D70.9 - Neutropenia, unspecified (ICD-10) ?R50.81 - Fever presenting with conditions classified elsewhere (ICD-10) Encounter for counseling regarding advance directives (07/31/98) ?Z71.89 - Other specified counseling (ICD-10) Diarrhea ?R19.7 - Diarrhea, unspecified (ICD-10) Dehydration ?E86.0 - Dehydration (ICD-10) Adenocarcinoma of gastroesophageal junction ?C16.0 - Malignant neoplasm of cardia (ICD-10) Surgical History S/P vasectomy ?Z98.52 - Vasectomy status (ICD-10) H/O esophagectomy ?Z98.890 - Other specified postprocedural states (ICD-10) ?Z90.49 - Acquired absence of other specified parts of digestive tract (ICD- 10) Social History Smoking Status: Former smoker Exam Narrative: Exam Narrative: Virgie is lying on his side in room 3. He has some tachypnea but is able to speak in complete sentences. He has a GCS of 15. Oral cavity is dry and does have small white spots on the tongue. He has a bandage on a area of the right jaw which is currently being radiated. Neck is supple. Heart with a regular rate and rhythm. Lungs are with crackles in the bases right greater than left. Abdomen is with decreased bowel sounds. Rather diffuse discomfort with palpation. Lower extremities without edema. Const: Vital Signs, click to edit/add: Vital Signs - 24 hr 07/24/24 10:24 07/24/24 10:34 07/24/24 12:03 Temperature 98.3 F Pulse Rate 97 99 Pulse Rate [Pulse Oximeter] 92 Respiratory Rate 22 16 Blood Pressure 96/50 L 104/60 Blood Pressure [Ri ght Upper Arm] 96/50 L Pulse Oximetry 95 93 95 Oxygen Delivery Me thod Room Air 07/24/24 12:31 07/24/24 13:34 07/24/24 13:42 Temperature Pulse Rate 95 106 H 104 H Pulse Rate [Pulse Oximeter] Respiratory Rate 18 Blood Pressure 116/68 119/76 Blood Pressure [Ri ght Upper Arm] Pulse Oximetry 96 96 95 Oxygen Delivery Me thod 07/24/24 14:01 07/24/24 14:15 07/24/24 14:31 Temperature Pulse Rate 100 94 94 Pulse Rate [Pulse Oximeter] Respiratory Rate Blood Pressure 114/74 109/66 Blood Pressure [Ri ght Upper Arm] Pulse Oximetry 95 94 95 Oxygen Delivery Me thod 07/24/24 15:01 07/24/24 15:31 07/24/24 16:01 Temperature Pulse Rate 96 91 87 Pulse Rate [Pulse Oximeter] Respiratory Rate 20 16 Blood Pressure 110/74 112/67 106/68 Blood Pressure [Ri ght Upper Arm] Pulse Oximetry 95 95 95 Oxygen Delivery Me thod 07/24/24 16:31 07/24/24 17:01 07/24/24 17:45 Temperature Pulse Rate 89 87 88 Pulse Rate [Pulse Oximeter] Respiratory Rate 18 Blood Pressure 106/66 105/69 Blood Pressure [Ri ght Upper Arm] Pulse Oximetry 94 94 95 Oxygen Delivery Me thod 07/24/24 18:16 07/24/24 18:39 07/24/24 19:00 Temperature 97.8 F Pulse Rate 90 90 Pulse Rate [Pulse Oximeter] Respiratory Rate 16 Blood Pressure 115/72 Blood Pressure [Ri ght Upper Arm] Pulse Oximetry 96 96 Oxygen Delivery Me thod 07/24/24 19:41 Temperature 97.8 F Pulse Rate Pulse Rate [Pulse Oximeter] 85 Respiratory Rate 16 Blood Pressure Blood Pressure [Ri ght Upper Arm] 113/74 Pulse Oximetry 96 Oxygen Delivery Me thod Room Air Documenting provider has reviewed patient's vital signs: yes Course Course ED Course: Patient noted to have increased weakness, drop in hemoglobin, shortness of breath worsened with IV fluids, abdominal pain and diarrhea in the last 24-36 hours. Laboratory values were done by [facility] with normal white count, hemoglobin of 8.8-previous 10.0, mild hyponatremia at 0128 and mild hypokalemia at 3.3 with normal kidney function. Patient did have elevation of LFTs verses previous with an AST of 99, ALT of 85, alkaline phosphatase of 152 and normal bilirubin. At this time patient does need imaging of the abdomen but I am questioning the need for chest as well. Will start with chest x-ray, add labs to include troponin, CRP, lipase, lactate, urinalysis, proBNP. Will also order EKG, cardiac monitoring, guaiac of stool and C diff. Will use Dilaudid 0.5 mg IV for pain, Zofran 4 mg IV to prevent nausea. Will hold off any further fluids until we can better ascertain fluid status. Reevaluation(s) Reevaluation #1: Patient notes that he feels much better after Dilaudid and Zofran. We did not give any additional fluids here. Blood pressure is improved to 112 systolic. Shortness of breath has resolved. I do discuss with patient and his that he has pneumonia, extensive metastases that have were more prominent since April as well as ischemic bowel. I received a phone call from the radiologist in regards to the impressive in extension oil portal venous gas and mesenteric gas as well. Thickened small bowel especially in the right lower quadrant is noted. At this time I do discuss with them the probability of ischemic bowel and necrotic bowel as well as sepsis. While up-to-date quotes a 15% rate of ischemic bowel becoming necrotic, his rate is actually higher given his comorbidities. I do also note that emergency surgery carries a 25% chance of within 1 month after surgery. Alternatively we discuss nonsurgical treatment with antibiotics and pain control and staying here knowing that the progression to necrotic bowel and would be quite high. However, I do note that he likely has limited time perhaps a matter of months as his cancer is quite wide spread at this time. After discussion with hospitalist, and family a 2nd time, bill would like to have everything done possible and would like to go to a [facility]. They are hoping that [facility] has availability as that is where he has had surgery in the past. Zosyn 3.375 g IV is started. Reevaluation #2: Patient's 2nd dose of Zosyn is ordered 3.375 g IV. We have receive confirmation that we are able to transfer patient in a currently awaiting EMS arrival. Patient is noted to have stable vital signs and blood pressure during his hours in the ED. An ultrasound of his right lower extremity shows what appears to be tumor infiltrating part of the femoral vein. There is also a short segment of true thrombus as well. I spoke with the hospitalist at [facility] after pushing the images and results to them. At this time will hold off on any anticoagulation and reassessed upon his arrival at [facility]. Consultations Consultation #1: I spoke with Dr. Salomon, surgeon at [facility]. She does view the CT and together we go over results by Radiology. She feels at this time that bill does not need to go immediately to the OR. Does suggest lower extremity Doppler on the right for possible DVT noted on CT. Also recommends fluid resuscitation as needed. Blood pressure for this gentleman is now 112 systolic. He is feeling much better. There is a 4-8 hour wait for transfer to [facility]. At this time will recheck his lactate at 1530 hours. If it has worsened substantially will contact [facility] for expedited transfer. Family is aware of these findings and this discussion. Consultation #2: I had the pleasure of speaking with Dr. Blanc, hospitalist. He accepts patient to the floor. Vital Signs Vital signs: Initial Vital Signs Temperature 98.3 F 07/24/24 10:24 Temperature Source Temporal Artery Scan 07/24/24 10:24 Pulse Rate 92 07/24/24 10:24 Respiratory Rate 22 07/24/24 10:24 Blood Pressure 96/50 L 07/24/24 10:24 Blood Pressure Mean 65 L 07/24/24 10:24 Blood Pressure Position Left Lateral 07/24/24 10:24 Pulse Oximetry 95 07/24/24 10:24 Oxygen Delivery Method Room Air 07/24/24 10:24 Vital Signs Temperature 98.3 F 07/24/24 10:24 Pulse Rate 92 07/24/24 10:24 Respiratory Rate 22 07/24/24 10:24 Blood Pressure 96/50 L 07/24/24 10:24 Pulse Oximetry 95 07/24/24 10:24 Oxygen Delivery Method Room Air 07/24/24 10:24 Temperature 97.8 F 07/24/24 19:41 Pulse Rate 85 07/24/24 19:41 Respiratory Rate 16 07/24/24 19:41 Blood Pressure 113/74 07/24/24 19:41 Pulse Oximetry 96 07/24/24 19:41 Oxygen Delivery Method Room Air 07/24/24 19:41 Medications Administered Medications: Discontinued Medications Generic Name Dose Route Start Last Admin Trade Name Hectorq PRN Reason Stop Dose Admin Hydromorphone HCl 0.5 mg 07/24/24 10:41 07/24/24 12:07 Hydromorphone 0.5 Mg/0.5 Ml Inj IVP 07/24/24 10:42 0.5 mg ONCE ONE Administration Magnesium Sulfate 2 gm in 50 mls @ 25 mls/hr 07/24/24 12:45 07/24/24 15:47 Magnesium Iv IVPB 07/24/24 14:44 Infused ONCE ONE Infusion Piperacillin Sod/Tazobactam 100 mls @ 200 mls/hr 07/24/24 12:57 07/24/24 14: 00 Sod 3.375 gm/ Sodium Chloride IVPB 07/24/24 12:58 Infused ONCE ONE Infusion Sodium Chloride 1,000 mls @ 75 mls/hr 07/24/24 13:55 07/24/24 14:01 0.9 % Sodium Chloride 1000 Ml IV 75 mls/hr .[id number] CASSANDRA Administration Piperacillin Sod/Tazobactam 100 mls @ 200 mls/hr 07/24/24 19:19 07/24/24 19:27 Sod 3.375 gm/ Sodium Chloride IVPB 07/24/24 19:20 200 mls/hr ONCE ONE Administration Ondansetron HCl 4 mg 07/24/24 10:41 07/24/24 12:04 Ondansetron 2 Mg/Ml Inj IVP 07/24/24 10:42 4 mg ONCE ONE Administration MDM - Weakness MDM Narrative Medical decision making narrative: 1. Ischemic bowel-patient noted to have elevated lactate 2.9, positive fecal occult test and hemoglobin of 8.8, diarrhea and a CT suggestive of a bowel ischemia. Patient was started on Zosyn 3.375 g IV, a L of fluid had been given as well as IV Dilaudid and Zofran. He is feeling much better. Blood pressure improved. Keeping him NPO at this time as he will be going to [facility] for specialty consultation. I specifically spoke to surgeon Dr. Salomon as well as hospitalist Dr. Silva. Have started maintenance fluids and a 2nd dose of Zosyn will be given at this time. 2. Right lower lobe pneumonia-covering with IV Zosyn. O2 saturations within normal limits. Patient has tested negative for COVID/influenza/RSV. 3. Hypomagnesemia-2 g IV magnesium given for a initial magnesium level of 1.4. 4. Metastatic esophageal adenocarcinoma -new metastases noted on CT today. Did discuss with family that this is very concerning. Oncology set to meet with patient next week for a new plan. Last chemotherapy was July 08. Radiation last on the jaw 2 weeks ago. 5. DVT- patient noted to have a necrotic mass near the right from femoral vein that appears to be infiltrating and causing tumor thrombus but there is also concerns regarding true thrombus. Will speak to hospitalist regarding use of heparin at this time. Addendum: No anticoagulation at this time. Will reassess upon arrival at [facility]. 6. Disposition-transfer to [facility] pending. Initial wait time 4-8 hours Medical Records Attestation: I reviewed the patient's medical records. Lab Data Attestation: I reviewed the patient's lab results. Labs: Lab Results 07/24/24 07/24/24 07/24/24 Range/Units 10:49 11:02 11:20 Lactate (0.5-1.9) mmol/L Magnesium (1.5-2.6) mg/dL C-Reactive Protein (0.5-1.0) mg/dL NT-Pro-B Natriuret Pep pg/mL Lipase (23-300) U/L Stool Occult Blood Positive (Negative) Stl C. diff Tox B Gene Negative (Negative) Stl C. diff [id number] PRESUMPTIVE NEGATIVE (Negative) SARS-CoV-2 (PCR) Negative SARS-CoV-2 (Negative) Influenza Type A (PCR) Negative PCR FLU A (Negative) Influenza Type B (PCR) Negative PCR FLU B (Negative) RSV (PCR) Negative PCR RSV (Negative) POC Troponin I 0.02 (0.01-0.04) ng/ml 07/24/24 07/24/24 Range/Units 11:25 15:34 Lactate 2.9 H 1.6 (0.5-1.9) mmol/L Magnesium 1.4 L (1.5-2.6) mg/dL C-Reactive Protein 3.0 H (0.5-1.0) mg/dL NT-Pro-B Natriuret Pep 163 pg/mL Lipase 31 (23-300) U/L Stool Occult Blood (Negative) Stl C. diff Tox B Gene (Negative) Stl C. diff [id number] (Negative) SARS-CoV-2 (PCR) (Negative) Influenza Type A (PCR) (Negative) Influenza Type B (PCR) (Negative) RSV (PCR) (Negative) POC Troponin I (0.01-0.04) ng/ml Imaging Data Chest x-ray: Attestation: I have reviewed the pertinent imaging results. My impression: increased lung markings Radiologist's impression: here is a right-sided Port-A-Cath in satisfactory position. There are somewhat increased interstitial markings with developing airspace opacity in the peripheral right lung base. There is no pneumothorax or pleural effusion. The cardiomediastinal silhouette is within normal limits. The bony thorax is grossly intact. Impression: Diffusely increased interstitial markings likely representing mild pulmonary edema with developing airspace opacity in the right lung base which may represent infiltrate. CT Chest/Ab/Pelvis: Attestation: I have reviewed the pertinent imaging results. Radiologist's impression: ngs and pleura: Increased consolidation within the right lower lobe. Patchy ground-glass opacities within the upper lobes. New and increased size of multiple noncalcified pulmonary nodules, for example a 1.1 cm lingular nodule, previously punctate nodules. No pleural effusion or pneumothorax. Heart and great vessels: Right IJ port tip is at the superior cavoatrial junction. The heart is normal in size. No pericardial effusion. Aorta and pulmonary artery are normal in caliber. Pulmonary artery opacification is adequate. No evidence of pulmonary embolism. Thyroid and mediastinum: Increased size of a right pulmonary nodule measuring 2.7 cm, previously 1.5 cm. No mediastinal lymphadenopathy by size criteria. Status post esophagectomy and gastric pull-through. Hiatal hernia containing a loop of transverse colon Chest wall: Unremarkable. Visualized upper abdomen: Please see separate same day dictation for additional details including findings of extensive portal venous gas. Bones: Multilevel degenerative disc disease. Impression: 1. No evidence of pulmonary embolism. 2. New consolidation within the right lower lobe concerning for pneumonia. 3. Progression of pulmonary metastatic disease with new/increased bilateral pulmonary nodules. 4. Increased size of a right thyroid nodule measuring 2.7 cm. 5. Extensive portal venous gas, as detailed on same day CT of the abdomen and pelvis. Liver: Extensive portal venous gas throughout both hepatic lobes. New innumerable hypodense hepatic lesions, the largest in segment 2 measuring 1.9 cm. The majority of these lesions are less than 1 cm in short axis. Gallbladder is unremarkable. No biliary ductal dilation Pancreas: Unremarkable. Spleen: Unremarkable. Adrenals: Subcentimeter left adrenal nodule appears increased in size. Right adrenal is normal. Kidneys: Bilateral renal cysts. No hydronephrosis. Aorta/IVC: Mild atherosclerotic aortic calcifications without aneurysmal dilation. The portal venous and mesenteric venous gas is seen within predominantly SMV branches in the lower abdomen. Additional venous gas is seen within the SMV, main portal vein and intrahepatic portal vein branches. Lymph nodes: New heterogeneous right external iliac lymphadenopathy measuring up to 4.3 x 2.6 cm. Soft tissue density nodule within the left inguinal region, possibly an enlarged inguinal lymph node, measures 1.5 cm in short axis. Bowel: Small bowel wall thickening is seen within the lower abdomen and pelvis. No definite pneumatosis or large volume pneumoperitoneum postoperative changes following esophagectomy and gastric pull-through. A hiatal hernia is present containing a portion of the transverse colon. There is increased distention of the cecum and ascending colon upstream from the hiatal hernia. Pelvis: Prostatomegaly with dystrophic prostate calcifications. Bones/body wall: Increased size of a heterogeneous soft tissue lesion adjacent to the right iliopsoas tendon measuring 5.3 x 5.1 cm, previously 2 cm. There is loss of normal fat plane between this mass and the right common femoral vein with possible filling defect in the common femoral vein and femoral vein on the right. Additional lesion within the left gluteus medius muscle measures up to 3.9 cm, previously 2.5 cm. Multilevel degenerative disc disease. Impression: 1. Extensive mesenteric venous and portal venous gas concerning for bowel ischemia. There is bowel wall thickening involving several loops of small bowel in the lower abdomen/pelvis concerning for source of bowel ischemia/portal venous gas. Emergent surgical consultation is recommended for further evaluation and management. Findings were discussed via telephone with Dr. Ramachandran on 07/24/2024 at 12:02 p.m. 2. Hiatal hernia containing a loop of transverse colon. There is mild upstream dilation the ascending/transverse colon. 3. Disease progression with new hepatic lesions, lymphadenopathy, left adrenal nodule and increased size of soft tissue metastases. Notably, a right inguinal metastatic deposit abuts the right common femoral vein and there may be a nonocclusive deep venous thrombosis in the right common femoral vein/femoral vein. Lower extremity venous duplex is recommended for further evaluation. 4. Please refer to separate chest CT. Venous US: Attestation: I have reviewed the pertinent imaging results. Radiologist's impression: Deep veins: Acute short segment filling defect involving the right common femoral vein. Remaining visualized deep veins appear patent. No left lower extremity DVT. Superficial veins: Greater saphenous vein are fully compressible. Large heterogeneous mass in the right inguinal region, measuring 5.4 x 5.0 x 4.2 centimeters, better demonstrated on recent CT scan. Additional smaller but similar appearing mass measuring 2.3 x 1.0 x 1.0 centimeters which appears to be between the femoral vein and femoral artery. No popliteal cyst. IMPRESSION: Acute short-segment DVT involving the right common femoral vein, adjacent to previously seen large 5.4 heterogeneous mass in the right inguinal region. Proximity to aforementioned mass raises concern for combined tumor and bland thrombus. Additional subtle mass effect on a short-segment right femoral vein, also adjacent to smaller but similar appearing 2.3 centimeter heterogeneous mass located between the right femoral artery and vein. There does not appear to be intraluminal clot here at this time. No left lower extremity DVT. ECG Data Attestation: I personally reviewed and interpreted this ECG as follows: ECG interpretation date: 07/24/24 Interpretation: By my read sinus rhythm at a rate of [address] or T-wave changes. QT and WV intervals within normal limits. Critical Care Time Critical Care Time Critical Care Time: Yes Attestation: The patient required my highest level preparedness to intervene emergently and I personally spent this critical care time directly and personally managing the patient. This critical care time included: Obtaining a history; Examining the patient; Pulse oximetry; Ordering and reviewing of studies; Arranging urgent treatment with development of a management plan; Evaluation of patients response to treatment; Frequent reassessment discussions with other providers. This critical care time was performed to assess and manage the high probability of imminent life-threatening deterioration that could result in multiorgan failure. It was exclusive of separate billable procedures and treating other patients and teaching time. Total Critical Care Time in Minutes: 75 Discharge Plan Discharge Prescriptions: No Action prednisolone acetate [Pred Forte] 1 % drops,suspension 1 drp ophthalmic (eye) TID Qty: 10 0RF B12 Active 1,000 mcg tablet,chewable 1,000 mcg PO QDAY PRN AsperFlex (lidocaine HCl) 4 % ointment 1 ea topical .q 4 hours PRN (Reason: right arm nerve pain) Qty: 30 0RF Rx Instructions: Apply 1 dose every 4 hours as needed to right solar plexus area as needed for mild to moderate right forearm pain. morphine 30 mg tablet extended release 30 mg PO Q12H Qty: 60 0RF atorvastatin 10 mg tablet 10 mg PO DAILY Patient Comments: TAKE ONE TABLET BY MOUTH EVERY DAY multivitamin Tablet 1 tab PO DAILY PRN prochlorperazine maleate 10 mg tablet 10 mg PO TID PRN (Reason: nausea) Qty: 45 1RF Rx Instructions: Take 1 tab up to 3 times per day if needed for nausea. ondansetron HCl 4 mg tablet 4 mg PO Q6H PRN (Reason: nausea and vomiting) Qty: 40 1RF Rx Instructions: Take starting 24 hours after chemotherapy, if needed for nausea not controlled with prochlorperazine (compazine) Follow Up/Referrals: Nancy Perez PA-C [Primary Care Provider] -
--- NOTE | 2024-07-24 10:49 | CRLHL7_ITS ---
For Patients: As a result of the Century Cures Act, medical imaging exams and procedure reports are released immediately into your electronic medical record. You may view this report before your referring provider. If you have questions, please contact your health care provider. Indication: Shortness of breath Comparison: Two-view chest September 12, 2023 Technique: Single AP view chest Findings: There is a right-sided Port-A-Cath in satisfactory position. There are somewhat increased interstitial markings with developing airspace opacity in the peripheral right lung base. There is no pneumothorax or pleural effusion. The cardiomediastinal silhouette is within normal limits. The bony thorax is grossly intact. Impression: Diffusely increased interstitial markings likely representing mild pulmonary edema with developing airspace opacity in the right lung base which may represent infiltrate. Dictated by Marquis Vela MD @ 07/24/2024 11:26:19 AM (Electronically Signed)
--- NOTE | 2024-07-24 11:18 | CRLHL7_ITS ---
For Patients: As a result of the Century Cures Act, medical imaging exams and procedure reports are released immediately into your electronic medical record. You may view this report before your referring provider. If you have questions, please contact your health care provider. Indication: Shortness of breath, abdominal pain, elevated LFTs. Technique: CT pulmonary arteriography of the chest was performed following the administration of 95 mL Isovue 370. Comparison: 04/09/2024. Findings: Lungs and pleura: Increased consolidation within the right lower lobe. Patchy ground-glass opacities within the upper lobes. New and increased size of multiple noncalcified pulmonary nodules, for example a 1.1 cm lingular nodule, previously punctate nodules. No pleural effusion or pneumothorax. Heart and great vessels: Right IJ port tip is at the superior cavoatrial junction. The heart is normal in size. No pericardial effusion. Aorta and pulmonary artery are normal in caliber. Pulmonary artery opacification is adequate. No evidence of pulmonary embolism. Thyroid and mediastinum: Increased size of a right pulmonary nodule measuring 2.7 cm, previously 1.5 cm. No mediastinal lymphadenopathy by size criteria. Status post esophagectomy and gastric pull-through. Hiatal hernia containing a loop of transverse colon Chest wall: Unremarkable. Visualized upper abdomen: Please see separate same day dictation for additional details including findings of extensive portal venous gas. Bones: Multilevel degenerative disc disease. Impression: 1. No evidence of pulmonary embolism. 2. New consolidation within the right lower lobe concerning for pneumonia. 3. Progression of pulmonary metastatic disease with new/increased bilateral pulmonary nodules. 4. Increased size of a right thyroid nodule measuring 2.7 cm. 5. Extensive portal venous gas, as detailed on same day CT of the abdomen and pelvis. Please note that all CT scans at this facility use dose modulation, iterative reconstruction, and/or weight-based dosing when appropriate to reduce radiation dose to as low as reasonably achievable. Dictated by Precious Garcia MD @ 07/24/2024 12:29:27 PM (Electronically Signed)
--- NOTE | 2024-07-24 11:18 | CRLHL7_ITS ---
For Patients: As a result of the Century Cures Act, medical imaging exams and procedure reports are released immediately into your electronic medical record. You may view this report before your referring provider. If you have questions, please contact your health care provider. Indication: Abdominal pain, elevated LFTs. Technique: CT of the abdomen and pelvis was performed following the administration of 95 mL Isovue 370. Comparison: 04/09/2024, 06/14/2022. Findings: Visualized lung bases: Please refer to separate chest CT. Liver: Extensive portal venous gas throughout both hepatic lobes. New innumerable hypodense hepatic lesions, the largest in segment 2 measuring 1.9 cm. The majority of these lesions are less than 1 cm in short axis. Gallbladder is unremarkable. No biliary ductal dilation Pancreas: Unremarkable. Spleen: Unremarkable. Adrenals: Subcentimeter left adrenal nodule appears increased in size. Right adrenal is normal. Kidneys: Bilateral renal cysts. No hydronephrosis. Aorta/IVC: Mild atherosclerotic aortic calcifications without aneurysmal dilation. The portal venous and mesenteric venous gas is seen within predominantly SMV branches in the lower abdomen. Additional venous gas is seen within the SMV, main portal vein and intrahepatic portal vein branches. Lymph nodes: New heterogeneous right external iliac lymphadenopathy measuring up to 4.3 x 2.6 cm. Soft tissue density nodule within the left inguinal region, possibly an enlarged inguinal lymph node, measures 1.5 cm in short axis. Bowel: Small bowel wall thickening is seen within the lower abdomen and pelvis. No definite pneumatosis or large volume pneumoperitoneum postoperative changes following esophagectomy and gastric pull-through. A hiatal hernia is present containing a portion of the transverse colon. There is increased distention of the cecum and ascending colon upstream from the hiatal hernia. Pelvis: Prostatomegaly with dystrophic prostate calcifications. Bones/body wall: Increased size of a heterogeneous soft tissue lesion adjacent to the right iliopsoas tendon measuring 5.3 x 5.1 cm, previously 2 cm. There is loss of normal fat plane between this mass and the right common femoral vein with possible filling defect in the common femoral vein and femoral vein on the right. Additional lesion within the left gluteus medius muscle measures up to 3.9 cm, previously 2.5 cm. Multilevel degenerative disc disease. Impression: 1. Extensive mesenteric venous and portal venous gas concerning for bowel ischemia. There is bowel wall thickening involving several loops of small bowel in the lower abdomen/pelvis concerning for source of bowel ischemia/portal venous gas. Emergent surgical consultation is recommended for further evaluation and management. Findings were discussed via telephone with Dr. Ramachandran on 07/24/2024 at 12:02 p.m. 2. Hiatal hernia containing a loop of transverse colon. There is mild upstream dilation the ascending/transverse colon. 3. Disease progression with new hepatic lesions, lymphadenopathy, left adrenal nodule and increased size of soft tissue metastases. Notably, a right inguinal metastatic deposit abuts the right common femoral vein and there may be a nonocclusive deep venous thrombosis in the right common femoral vein/femoral vein. Lower extremity venous duplex is recommended for further evaluation. 4. Please refer to separate chest CT. Please note that all CT scans at this facility use dose modulation, iterative reconstruction, and/or weight-based dosing when appropriate to reduce radiation dose to as low as reasonably achievable. Dictated by Precious Garcia MD @ 07/24/2024 12:20:24 PM (Electronically Signed)
[2024-07-24 11:21] LABS: Fecal Occult Blood* Positive (Negative)
[2024-07-24 11:44] LABS: Troponin, Point-of-Care* 0.02 ng/ml (0.01-0.04)
[2024-07-24 11:52] LABS: Lipase* 31 U/L (23-300)
[2024-07-24 11:53] LABS: Magnesium* 1.4 mg/dL (1.5-2.6)
[2024-07-24 11:57] LABS: Lactate* 2.9 mmol/L (0.5-1.9)
[2024-07-24 12:00] LABS: C.Difficile Negative (Negative); CDIFFEPI 027 PRESUMPTIVE NEGATIVE (Negative)
[2024-07-24] MEDS: ONDANSETRON 2 MG/ML inj 4 MG IVP (12:04)
[2024-07-24 12:07] LABS: NT Pro B Type NatriureticPept* 163 pg/mL
[2024-07-24] MEDS: HYDROmorphone 0.5 mg/0.5 ml inj IVP (12:07)
[2024-07-24 12:16] LABS: PCR FLU A Negative PCR FLU A (Negative); PCR FLU B Negative PCR FLU B (Negative); PCR RSV Negative PCR RSV (Negative); SARS PCR* Negative SARS-CoV-2 (Negative)
[2024-07-24] MEDS: PIPERACILLIN/TAZOBACTAM 3.375 GM in 0.9 % SODIUM CHLORIDE Mini-bag 100 ML IVPB ×2 (13:19→19:27)
--- NOTE | 2024-07-24 13:40 | CRLHL7_ITS ---
For Patients: As a result of the Century Cures Act, medical imaging exams and procedure reports are released immediately into your electronic medical record. You may view this report before your referring provider. If you have questions, please contact your health care provider. INDICATION: Leg pain and swelling. TECHNIQUE: Ultrasound venous duplex bilateral lower extremity. Compression venous exam was performed using romero-scale, color Doppler, and spectral Doppler analysis. COMPARISON: CT, July 24, 2024. FINDINGS: Deep veins: Acute short segment filling defect involving the right common femoral vein. Remaining visualized deep veins appear patent. No left lower extremity DVT. Superficial veins: Greater saphenous vein are fully compressible. Large heterogeneous mass in the right inguinal region, measuring 5.4 x 5.0 x 4.2 centimeters, better demonstrated on recent CT scan. Additional smaller but similar appearing mass measuring 2.3 x 1.0 x 1.0 centimeters which appears to be between the femoral vein and femoral artery. No popliteal cyst. IMPRESSION: Acute short-segment DVT involving the right common femoral vein, adjacent to previously seen large 5.4 heterogeneous mass in the right inguinal region. Proximity to aforementioned mass raises concern for combined tumor and bland thrombus. Additional subtle mass effect on a short-segment right femoral vein, also adjacent to smaller but similar appearing 2.3 centimeter heterogeneous mass located between the right femoral artery and vein. There does not appear to be intraluminal clot here at this time. No left lower extremity DVT. Case discussed with Jeny Ramachandran at 4:56 p.m. on 07/24/2024. Dictated by Harshil Olivas MD @ 07/24/2024 4:48:52 PM (Electronically Signed)
[2024-07-24] MEDS: 0.9 % SODIUM CHLORIDE 1000 ml 1,000 ML 75 ML IV (14:01)
[2024-07-24] MEDS: MAGNESIUM IV 2 GM/50 ML PIGGYBACK IVPB (14:01)
[2024-07-24 15:39] LABS: Lactate* 1.6 mmol/L (0.5-1.9)
== END 2024-07-24 19:49 | disposition short-term general hospital (02) ==
PROVIDERS: Emergency Provider Family Medicine; PCP Physician Assistant Medical
DX: K55.9 Vascular disorder of intestine, unspecified (principal); J18.9 Pneumonia, unspecified organism; E83.42 Hypomagnesemia; C15.9 Malignant neoplasm of esophagus, unspecified; I82.411 Acute embolism and thrombosis of right femoral vein
CPT/HCPCS: 36415; 71045; 71275; 74177; 81001; 82270; 83605; 83690; 83735; 83880; 84484; 86140; 87040; 87493; 87631; 93005; 93970; 94761; 99285; 99291; J1171; J2405; J2543; J3475; J7030; Q9967

== ENCOUNTER 2024-07-24 19:27 | Outpatient (CLI) | payer MEDICARE, BC, SELFPAY | END 2024-07-24 19:28 | disposition home or self-care (01) | LOC: AMB 07-26 02:52 | PROVIDERS: PCP Physician Assistant Medical; Visit Provider Family Medicine | DX: R10.9 Unspecified abdominal pain (principal); R53.1 Weakness; I82.411 Acute embolism and thrombosis of right femoral vein; R06.02 Shortness of breath | CPT/HCPCS: A0425; A0429 ==

== ENCOUNTER 2024-08-03 07:44 | Outpatient (CLI) | payer MEDICARE, BC, SELFPAY ==
--- OUTSIDE RECORDS SUMMARY | 2024-08-02 16:33 | XMS_ITS | Clinical Summary ---
Author Organization [facility] Address [place], [place] [address] Care Team Providers Care Missile Inspector Preflight Name Role Phone Ana Nancy LESLIE Primary Care Provider Mary Tafoya MD Unavailable Unavai Keven Rojas MD Unavailable [phone] Romaine Chen MD Unavailable [phone] Allergies No known active allergies Medications atorvastatin (LIPITOR) 10 mg tabletIndicati ons:Hyperchole steremia Take 1 Tablet (10 mg) by mouth once daily. 90 Tablet 3 02/27/20 24 Active morphine CONTROLLED RELEASE (MS CONTIN) 30 mg CR tablet Take 30 mg by mouth every 12 hours. Active morphine IMMEDIATE RELEASE 15 mg tablet Take 15 mg by mouth every 4 hours if needed for Pain. 07/17/20 24 Active prochlorperazi ne (COMPAZINE) 10 mg tablet Take 10 mg by mouth every 8 hours if needed. Active magic mouthwash 1:1:1 (diphen 12.5mg/5mL-lid ocaine 2%-maalox [phone]/5 ml) (AMB MIX) Swish and spit 5-10 mL by mouth 4 times daily if needed. 07/23/20 24 Active ondansetron (ZOFRAN) 4 mg tablet Take 4 mg by mouth every 6 hours if needed. Active polyethylene glycoL (MIRALAX) 17 gram/scoop powderIndicati ons:Adenocarci noma of esophagus (HC) Take 1 scoop (17 g) by mouth or nasogastric tube once daily if needed for Constipation for up to 10 doses. 238 g 07/28/20 24 Active sennosides (SENNA) 8.6 mg tabletIndicati ons:Adenocarci noma of esophagus (HC) Take 1-2 Tablets (8.6-17.2 mg) by mouth 2 times daily if needed for Constipation. 15 Tablet 07/28/20 24 Active dexAMETHasone 4 mg tabletIndicati ons:Metastasis to brain (HC) Take 1 tablet by mouth 3 times a day X5 days, then 1 tablet 2 times day X 5 days, then one-half tablet twice per day X5 days, then one-half tablet once per day X 5 days, then stop. There will be half a tablet left over. 33 Tablet 4 5:00 PM STORE ASSISTANT 07/29/20 24 Active enoxaparin (LOVENOX) 60 mg/0.6 mL injectionIndic ations:Acute deep vein thrombosis (DVT) of femoral vein of right lower extremity (HC) Inject 60 mg subcutaneous every 12 hours. 18 mL 4 5:00 PM STORE ASSISTANT 07/29/20 24 Active furosemide (LASIX) 20 mg tabletIndicati ons:Edema, unspecified type Take 1 Tablet (20 mg) by mouth once daily in the morning. 15 Tablet 4 5:00 PM STORE ASSISTANT 07/29/20 24 Active capecitabine (XELODA) 500 mg tablet Take 3 Tablets by mouth two times daily after meals 07/07/20 21 024 Discontinued( Pharmacist change per medication history (E-cancel not sent)) cyanocobalamin (Vitamin B-12) 1,000 mcg tablet Take 1 Tablet (1,000 mcg) by mouth once daily. 90 Tablet 3 04/12/20 23 024 Discontinued( Pharmacist change per medication history (E-cancel not sent)) mupirocin (BACTROBAN) 2 % ointment Apply topically to affected area(s) three times daily. 024 Discontinued( Pharmacist change per medication history (E-cancel not sent)) apixaban (ELIQUIS) 5 mg tabletIndicati ons:deep venous thrombosis Take 1 Tablet (5 mg) by mouth two times daily. 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 02/08/2017 Elevated PSA 10/27/2015 Colon cancer 02/10/2011 Overview (04/11/2020): Colonoscopy 12/2013 polyp repeat in 3 years Colonoscopy 12/2016 multiple polyps repeat in 3 years Colonoscopy 04/2020 polyp, repeat in 5 years Resolved Problems Problem Noted Date Diagnosed Date Resolved Date Febrile neutropenia 11/12/2022 02/10/20 24 Encounters Date Type Department Care Team Description 07/31/2024 Nurse Triage [facility] [address] [place] [address] Nancy Perez PA 07/30/2024 9:50 AM STORE ASSISTANT Office Visit [facility] [address] [place] [address] Nancy Perez PA Hospital F/U (Post hospital - ) 07/30/2024 Travel 07/30/2024 Patient Outreach [facility] [address] [place] [address] Celeste Balderas, RN Primary RN Care Management; Hospital F/U (LACE 74) 07/24/2024 8:53 PM STORE ASSISTANT - 07/29/2024 5:06 PM STORE ASSISTANT Hospital Encounter [facility] [address] [place] [address] [facility] Hospitalists Of Aubrey Miller MD Fredrickson, Bradley Thomas, MD Adenocarcinoma of esophagus (HC) (Primary Dx); Metastasis to brain (HC); Acute deep vein thrombosis (DVT) of femoral vein of right lower extremity (HC); Edema, unspecified type; Ischemic bowel disease (HC) Discharge Disposition: Home Self Care 07/24/2024 Orders Only [facility] SERVICES Scanner 1 scan: (1-Ord) [facility], ADDENDUM-CT ABDOMEN PELVIS W/, 07/24/2024 07/24/2024 Orders Only [facility] Scanner 1 scan: (1-Ord) [facility], CT ABD PELVIS W, 07/24/2024 07/24/2024 Orders Only [facility] Scanner 1 scan: (1-Ord) [facility], US VENOUS LR BI, 07/24/2024 07/24/2024 Orders Only [facility] Scanner 1 scan: (1-Ord) [facility], CT ANGIO CHEST PE PROTOCOL, 07/24/2024 07/24/2024 Orders Only [facility] Scanner 1 scan: (1-Ord) [facility], XR CHEST 1V, 07/24/2024 07/24/2024 Travel 07/19/2024 Orders Only [facility] Scanner 1 scan: (1-Ord) [facility], PET EYE TO THIGHS, CANCER RESTAGING, 07/19/2024 07/05/2024 8:20 AM STORE ASSISTANT Office Visit [facility] [address] [place] [phone] Carolyn Carcamo, GLORIA Follow Up (IOP check) 07/05/2024 Travel 07/02/2024 Telephone [facility] [address] [place] [address] Nancy Perez PA Medication Management (Paxlovid) 06/22/2024 8:20 AM STORE ASSISTANT Office Visit [facility] [address] [place] [address] [place] [phone] Carolyn Carcamo, GLORIA Eye Exam 06/22/2024 Travel 06/21/2024 Telephone [facility] [address] [place] [address] [place] [phone] Carolyn Carcamo, GLORIA Appointment 05/07/2024 3:00 PM CDT Ancillary Procedure [facility] [address] [place] [address] from Last 3 Months Immunizations Name Administration [...] oz pur e alcohol) couple stiff drinks/day [facility] Utilities Answer Date Recorded Do you have trouble paying f or utilities (for example, heat, electricity, water, phone)? Yes 07/24/2024 PHQ-2 Answer Date Recorded PHQ-2 TOTAL SCORE 0 02/27/2024 Social Connections Answer Date Recorded Do you often feel lonely or isolated from those around you? 0 07/24/2024 Alcohol Use Answer Date Recorded How often do you have a drink containing alcohol ? 4 02/22/2024 How many drinks containing a lcohol do you have on a typical day when you are drinking? 0 02/22/2024 How often do you have five or more drinks on one occasion? 0 02/22/2024 Financial Resource Strain Answer Date R ecorded Difficulty of Paying Living Expenses 3 07/24/2024 Difficulty of Paying Living Expenses Not on file 07/24/2024 Food Insecurity Answer Date Recorded Do you worry your food will run out before you are able to buy more? 1 07/24/2024 Transportation Needs Answer Date Record ed Does lack of transportation keep you from medica l appointments? 1 07/24/2024 Does lack of transportation keep you from work, meetings or getting things that you need? 1 07/24/2024 Housing Stability Answer Date Recorded What is your housing situation today? 1 07/24/2024 Interpersonal Safety Answer Date Record ed Are you being hit, kicked, p ushed or yelled at (see row info)? No 07/24/2024 Interpersonal Safety Abuse 12 - 18 Not on file 07/24/2024 Interpersonal Safety Ambulatory Vulnerability No t on file 07/24/2024 Sex and Gender Information Value Date Recorded Sex Assigned at Not on file Legal Sex Male 7:27 AM STORE ASSISTANT Gender Identity Not on file Sexual Orientation Not on file Occupation Industry Job Start Date Job End Date [employer] Not on file Not on file Not on file Obstetrics History Last Filed Vital Signs Vital Sign Reading Time Taken Comments Blood Pressure 119/66 07/30/2024 9:52 AM STORE ASSISTANT Pulse 79 07/30/2024 9:52 AM STORE ASSISTANT Temperature 36.9 C (98.5 F) 07/30/2024 9:52 AM STORE ASSISTANT Respiratory Rate 18 07/29/2024 8:00 AM STORE ASSISTANT Oxygen Saturation 97% 07/30/2024 9:52 AM STORE ASSISTANT Inhaled Oxygen Concentration - - Weight 83.8 kg (184 lb 12.8 oz) 024 10:51 AM STORE ASSISTANT Height 178 cm (5' 10.08) 07/24/2024 11 :00 PM STORE ASSISTANT Body Mass Index 26.46 07/24/2024 11:00 PM STORE ASSISTANT Plan of Treatment Upcoming Encounters Date Type Department Care Team (Late st Contact Info) Description 08/06/2024 2:00 PM STORE ASSISTANT Office Visit [facility] [address] [place] [address] Nancy Perez PA [address] [place] [address] Health Maintenance Due Date Last Done Comments Influenza for age 65+ 04/01/2024 05/06/2022 , 05/09/2021, 05/22/2020, Additional history exists COVID-19 vaccine series ( season) 2024 05/02/2024, 10/27/2023, 05/06/2022, Additional history exists BMI (ht and wt [...] 18-79 Completed 11/18/2015 Pneumococcal series for age 50+ Completed 7, 11/13/2014 Zoster (shingles) series for age 50+ Completed 05/02/2018, 02/14/2018 RSV vaccine for adults or Completed 06/13/2023 Procedures Procedure Name Priority Date/Time Associated Diagnosis Comments CBC W PLT NO DIFF Routine 07/30/2024 10: 58 AM STORE ASSISTANT Adenocarcinoma of esophagus (HC) BASIC METABOLIC PANEL Routine 07/30/2024 10:58 AM STORE ASSISTANT Low sodium levels CBC W PLT NO DIFF STAT 07/29/2024 2:0 8 PM STORE ASSISTANT APTT Timed 07/29/2024 7:18 AM STORE ASSISTANT BASIC METABOLIC PANEL Early AM 07/29/2024 7:18 AM STORE ASSISTANT CBC W PLT NO DIFF Early AM 07/29/2024 7:1 8 AM STORE ASSISTANT APTT Timed 07/28/2024 9:58 PM STORE ASSISTANT MR HEAD BRAIN WWO Routine 07/28/2024 6:2 1 PM STORE ASSISTANT APTT Timed 07/28/2024 11:45 AM STORE ASSISTANT HEMOGLOBIN Early AM 07/28/2024 8:32 AM STORE ASSISTANT CREATININE Early AM 07/28/2024 8:32 AM STORE ASSISTANT HEMOGLOBIN LATONIA 07/28/2024 7:24 AM STORE ASSISTANT WHITE BLOOD COUNT Early AM 07/28/2024 7:2 4 AM STORE ASSISTANT ELECTROLYTE PANEL Early AM 07/28/2024 7:2 4 AM STORE ASSISTANT APTT Timed 07/28/2024 4:42 AM STORE ASSISTANT APTT Timed 07/27/2024 10:15 PM STORE ASSISTANT HEMOGLOBIN Timed 07/27/2024 1:36 PM STORE ASSISTANT TRANSFUSE RBC (NURSE COMMUNICATION ORDER) STAT 07/27/2024 9:53 AM STORE ASSISTANT RBC W TYPE AND SCREEN STAT 07/27/2024 8:31 AM STORE ASSISTANT RED BLOOD CELLS EA UNIT STAT 07/27/2024 8:12 AM STORE ASSISTANT CBC W PLT NO DIFF Early AM 07/27/2024 6:4 1 AM STORE ASSISTANT CREATININE Early AM 07/27/2024 6:41 AM STORE ASSISTANT ELECTROLYTE PANEL Early AM 07/27/2024 6:4 1 AM STORE ASSISTANT APTT Early AM 07/27/2024 6:41 AM STORE ASSISTANT HEMOGLOBIN Timed 07/26/2024 2:58 PM STORE ASSISTANT SCAN CORRESP-EKG RESULTS 07/26/2024 9:39 AM STORE ASSISTANT SCAN CORRESP-IMAGING 07/26/2024 9:39 AM STORE ASSISTANT APTT Early AM 07/26/2024 6:23 AM STORE ASSISTANT BASIC METABOLIC PANEL Early AM 07/26/2024 6:23 AM STORE ASSISTANT CBC W PLT NO DIFF Early AM 07/26/2024 6:2 3 AM STORE ASSISTANT LACTATE VENOUS Early AM 07/26/2024 6:23 AM STORE ASSISTANT APTT Timed 07/26/2024 12:34 AM STORE ASSISTANT LACTATE VENOUS Timed 07/25/2024 5:24 PM STORE ASSISTANT APTT Today 07/25/2024 5:24 PM STORE ASSISTANT LACTATE VENOUS Timed 07/25/2024 3:[address] ABDOMEN PELVIS W LATONIA 07/25/2024 1 :54 PM STORE ASSISTANT LACTATE VENOUS Today 07/25/2024 11:12 AM STORE ASSISTANT CBC W PLT NO DIFF Today 07/25/2024 8:5 9 AM STORE ASSISTANT MAGNESIUM Today 07/25/2024 8:59 AM STORE ASSISTANT BASIC METABOLIC PANEL Timed 07/25/2024 8:59 AM STORE ASSISTANT APTT Timed 07/25/2024 8:59 AM STORE ASSISTANT APTT Timed 07/25/2024 6:45 AM STORE ASSISTANT APTT LATONIA 07/24/2024 11:32 PM STORE ASSISTANT PROTIME-INR LATONIA 07/24/2024 11:32 PM STORE ASSISTANT HEPATIC FUNCTION PANEL Today 4 10:14 PM STORE ASSISTANT BASIC METABOLIC PANEL Timed 07/24/2024 10:14 PM STORE ASSISTANT CBC W PLT NO DIFF Today 07/24/2024 10: 14 PM STORE ASSISTANT SCAN-CT INTERPRETATION 4 12:00 AM STORE ASSISTANT SCAN-CT INTERPRETATION 4 12:00 AM STORE ASSISTANT SCAN-ULTRASOUND REPORT 4 12:00 AM STORE ASSISTANT SCAN-CT INTERPRETATION 12:00 AM STORE ASSISTANT SCAN-RADIOLOGY REPORT 07/24/2024 12:00 AM STORE ASSISTANT SCAN-PET SCAN 07/19/2024 12:00 AM STORE ASSISTANT ECHO TTE LIMITED W CONTRAST Routine 05/07/2024 2:03 PM CDT Encounter for therapeutic drug level monitoring LIPID PANEL W REFLEX MEASURED LDL Add On 02/24/2024 10:55 AM CDT Hypercholesteremia COLONOSCOPY 04/09/2020 9:19 AM CDT History of colon polyps Polyp of colon, unspecified part of colon, unspecified type Personal history of colon cancer ANTI HCV Routine 11/18/2015 9:17 AM CDT Need for hepatitis C screening test from Last 3 Months or Most Recently Relevant to Health Maintenance Results * (ABNORMAL) CBC (07/30/2024 10:58 AM STORE ASSISTANT) Only the most recent of7 resultswithin the time period is included. WHITE BLOOD CELL COUNT 9.2 3.8 - 10.8 Thousand/u L [facility] RED BLOOD CELL COUNT 2.22(L) 4.20 - 5.80 Million/uL [facility] HEMOGLOBIN 8.0(L) 13.2 - 17.1 g/dL [facility] HEMATOCRIT 23.8(L) 38.5 - 50.0 % [facility] MCV 107.2(H) 80.0 - 100.0 fL [facility] MCH 36.0(H) 27.0 - 33.0 pg [facility] MCHC 33.6 32.0 - 36.0 g/dL [facility] Comment: For adults, a slight decrease in the calculated MCHC value (in the range of 30 to 32 g/dL) is most likely not clinically significant; however, it should be interpreted with caution in correlation with other red cell parameters and the patient's clinical condition. RDW 18.2(H) 11.0 - 15.0 % [facility] PLATELET COUNT 351 140 - 400 Thousand/u L [facility] MPV 11.1 7.5 - 12.5 fL [facility] Blood BLOOD SPECIMEN / Unknown 07/30/2024 10:58 AM STORE ASSISTANT 07/30/2024 10:58 AM STORE ASSISTANT us Anibal Alicea MD HEMATOLOGY nal Result [employer] [facility] [address] [place] [address], [employer] [address] [place] [address] * (ABNORMAL) BASIC METABOLIC PANEL (07/30/2024 10:58 AM STORE ASSISTANT) Only the most recent of5 resultswithin the time period is included. Pathologist [facility] GLUCOSE 135(H) 65 - 99 mg/dL [facility] Comment: Fasting reference interval For someone without known diabetes, a glucose value >125 mg/dL indicates that they may have diabetes and this should be confirmed with a follow-up test. UREA NITROGEN (BUN) 25 7 - 25 mg/dL [facility] CREATININE 0.85 0.70 - 1.28 mg/dL [facility] EGFR 91 > OR = 60 mL/min/1. 73m2 [facility] BUN/CREATININE RATIO SEE NOTE: 6 - 22 (calc) [facility] Comment: Not Reported: BUN and Creatinine are within reference range. SODIUM 137 135 - 146 mmol/L [facility] POTASSIUM 3.7 3.5 - 5.3 mmol/L [facility] CHLORIDE 103 98 - 110 mmol/L [facility] CARBON DIOXIDE 24 20 - 32 mmol/L [facility] ELECTROLYTE BALANCE 10 7 - 17 mmol/L (calc) [facility] CALCIUM 8.7 8.6 - 10.3 mg/dL [facility] Blood BLOOD SPECIMEN / Unknown 07/30/2024 10:58 AM STORE ASSISTANT 07/30/2024 10:58 AM STORE ASSISTANT Nanyc LESLIE CHEMISTRY Final R esult [facility] [address] [place] [address], [facility] [address] [place] [address] * (ABNORMAL) APTT (07/29/2024 7:18 AM STORE ASSISTANT) Only the most recent of12 resultswithin the time period is included. APTT 83(H) 25 - 36 sec 07/29/2024 7:36 AM STORE ASSISTANT [facility] Blood BLOOD SPECIMEN / Unknown Non-Lab Venipuncture / Unknown 07/29/2024 7:18 AM STORE ASSISTANT 07/29/2024 7:24 AM STORE ASSISTANT Narrative [facility] - 07/29/2024 7:36 AM STORE ASSISTANT Therapeutic Range: 59-89 seconds Anibal Alicea MD HEMATOLOGY Fi nal Result [facility] [address] [address], * MR BRAIN W/WO CONTRAST (07/28/2024 6:21 PM STORE ASSISTANT) Anatomical Region Laterality Modality BRAIN, HEAD Magnetic Resonan ce 07/28/2024 8:10 PM STORE ASSISTANT Narrative 07/28/2024 8:10 PM STORE ASSISTANT For Patients: As a result of the Century Cures Act, medical imaging exams and procedure reports are released immediately into your electronic medical record. You may view this report before your referring provider. If you have questions, please contact your health care provider. Indication: Neuro deficit, acute stroke suspected, mental status change, unknown cause, follow-up brain metastases Technique: Multiplanar, multisequence MRI of the brain obtained without and with contrast. A total of 15 mL of Clariscan IV contrast was administered. Comparison: PET-CT 04/22/2023, MRI brain 12/01/2021 Findings: There is a new, extra-axial appearing mass overlying the left tentorial leaflet, measuring approximately 2.9 x 2.6 x 2.3 cm AP/TR/CC. It is predominantly T2 hypointense with susceptibility artifact. However, there is a central cystic area containing a fluid-fluid level suspicious for blood products of mixed age. Patchy enhancement is present throughout the non cystic portion of this mass, greatest along its base where it abuts the tentorial leaflet. The left tentorial leaflet is smoothly thickened and hyperenhancing, however a discrete dural tail is not identified. There is significant mass effect upon the posterior basal left temporal lobe, with confluent surrounding parenchymal edema, as well as partial effacement of the left temporal horn. No evidence of temporal horn trapping, hydrocephalus, midline shift or herniation. No acute/subacute ischemia. Mild generalized cerebral volume loss and mild chronic microangiopathy changes, with a chronic lacunar infarct at the right bain radiata. Major intracranial vasculature is unremarkable for technique. No obstructive paranasal sinus disease or mastoid effusion. Unremarkable orbits. Impression: 1. New 2.9 cm extra-axial mass overlying the left tentorial leaflet, with central cystic area containing a fluid-fluid level suggestive of mixed blood products, as well as patchy enhancement and underlying dural thickening. Given the history of malignancy, this is suspicious for metastatic disease. This does not have the typical appearance of a meningioma, which is felt much less likely. 2. Significant mass effect upon the posterior basal left temporal lobe, and associated parenchymal edema, with partial effacement of the left temporal horn of the lateral ventricle. Dictated by Agustina Berry MD @ 07/28/2024 8:10:31 PM (Electronically Signed) Procedure Note Agustina Berry, - 07/28/2024 For Patients: As a result of the Century Cures Act, medical imagingexams and procedure reports are released immediately into your electronicmedical record. You may view this report before your referring provider.If you have questions, please contact your health care provider. Indication: Neuro deficit, acute stroke suspected, mental status change, unknowncause, follow-up brain metastases Technique: Multiplanar, multisequence MRI of the brain obtained without and withcontrast. A total of 15 mL of Clariscan IV contrast was administered. Comparison: PET-CT 04/22/2023, MRI brain 12/01/2021 Findings: There is a new, extra-axial appearing mass overlying the left tentorialleaflet, measuring approximately 2.9 x 2.6 x 2.3 cm AP/TR/CC. It ispredominantly T2 hypointense with susceptibility artifact. However, thereis a central cystic area containing a fluid-fluid level suspicious forblood products of mixed age. Patchy enhancement is present throughout thenon cystic portion of this mass, greatest along its base where it abutsthe tentorial leaflet. The left tentorial leaflet is smoothly thickenedand hyperenhancing, however a discrete dural tail is not identified. Thereis significant mass effect upon the posterior basal left temporal lobe,with confluent surrounding parenchymal edema, as well as partialeffacement of the left temporal horn. No evidence of temporal horn trapping, hydrocephalus, midline shift orherniation. No acute/subacute ischemia. Mild generalized cerebral volumeloss and mild chronic microangiopathy changes, with a chronic lacunarinfarct at the right bain radiata. Major intracranial vasculature isunremarkable for technique. No obstructive paranasal sinus disease ormastoid effusion. Unremarkable orbits. Impression: 1. New 2.9 cm extra-axial mass overlying the left tentorial leaflet, withcentral cystic area containing a fluid-fluid level suggestive of mixedblood products, as well as patchy enhancement and underlying duralthickening. Given the history of malignancy, this is suspicious formetastatic disease. This does not have the typical appearance of ameningioma, which is felt much less likely. 2. Significant mass effect upon the posterior basal left temporal lobe,and associated parenchymal edema, with partial effacement of the lefttemporal horn of the lateral ventricle. Dictated by Agustina Berry MD @ 07/28/2024 8:10:31 PM (Electronically Signed) us Ubaldo Winchester MD MR Final Result * (ABNORMAL) Hemoglobin AM (07/28/2024 8:32 AM STORE ASSISTANT) Only the most recent of4 resultswithin the time period is included. Pathologist [facility] HEMOGLOBIN 7.7(L) 13.5 - 17.5 g/dL 07/28/2024 8:52 AM STORE ASSISTANT [facility] MCV 103(H) 80 - 100 fL 07/28/2024 8:52 AM STORE ASSISTANT [facility] Blood BLOOD SPECIMEN / Unknown Non-Lab Venipuncture / Unknown 07/28/2024 8:32 AM STORE ASSISTANT 07/28/2024 8:42 AM STORE ASSISTANT Anibal Alicea MD HEMATOLOGY Fi nal Result Performing Organization Address City/[facility] Co de Phone Number [facility] [address] [place] [address], [place] * (ABNORMAL) Creatinine AM (07/28/2024 8:32 AM STORE ASSISTANT) Only the most recent of2 resultswithin the time period is included. [facility] eGFR >90 >90 mL/min/1.7 3m2 07/28/2024 9:17 AM STORE ASSISTANT [facility] Comment:As of 2021, eG FR is calculated by the CKD-EPI creatinine equation without race adjustment. eGFR can be influenced by muscle mass, exercise, and diet. The reported eGFR is an estimation only and is only applicable if the renal function is stable. CREATININE 0.68(L) 0.70 - 1.20 mg/dL 07/28/2024 9:17 AM STORE ASSISTANT [facility] Blood BLOOD SPECIMEN / Unknown Non-Lab Venipuncture / Unknown 07/28/2024 8:32 AM STORE ASSISTANT 07/28/2024 8:42 AM STORE ASSISTANT Anibal Alicea MD CHEMISTRY Fi nal Result Performing Organization Address City/[facility]/ZIP Co de Phone Number [facility] [address] [place] [address], [place] * WBC AM (07/28/2024 7:24 AM STORE ASSISTANT) [facility] WHITE BLOOD COUNT 8.0 4.5 - 11.0 thou/cu mm 07/28/2024 7:38 AM STORE ASSISTANT [facility] NRBC 2.9 % 07/28/2024 7:38 AM STORE ASSISTANT [facility] ABS NRBC 0.2 thou /cu mm 07/28/2024 7:38 AM [facility] Blood BLOOD SPECIMEN / Unknown Non-Lab Venipuncture / Unknown 07/28/2024 7:24 AM STORE ASSISTANT 07/28/2024 7:33 AM STORE ASSISTANT Anibal Alicea MD HEMATOLOGY Fi nal Result Performing Organization Address [facility] Co de Phone Number [facility] [address] [address], [place] * (ABNORMAL) Electrolyte panel AM (07/28/2024 7:24 AM STORE ASSISTANT) Only the most recent of2 resultswithin the time period is included. [facility] SODIUM 137 136 - 145 mmol/L 07/28/2024 8:00 AM [facility] POTASSIUM 3.3(L) 3.5 - 5.1 mmol/L 07/28/2024 8:00 AM STORE ASSISTANT [facility] CHLORIDE 107 98 - 107 mmol/L 07/28/2024 8:00 AM [facility] CO2,TOTAL 22 22 - 29 mmol/L 07/28/2024 8:00 AM [facility] ANION GAP 8 5 - 18 07/28/2024 8:00 AM STORE ASSISTANT [facility] Blood BLOOD SPECIMEN / Unknown Non-Lab Venipuncture / Unknown 07/28/2024 7:24 AM STORE ASSISTANT 07/28/2024 7:33 AM STORE ASSISTANT Anibal Alicea MD CHEMISTRY Fi nal Result Performing Organization Address [facility]/ZIP Co de Phone Number [facility] [address] [address], [place] * TRANSFUSE RBC (NURSE COMMUNICATION ORDER) (07/27/2024 12:24 PM STORE ASSISTANT) Blood BLOOD SPECIMEN / Unknown us Wilmar Tabares MD NURSING BLOOD BANK Final Res ult * RBC W TYPE AND SCREEN, 1 unit (07/27/2024 8:31 AM STORE ASSISTANT) ABORH O Rh Positive 07/27/2024 9:10 AM STORE ASSISTANT [facility] ANTIBODY SCREEN Negative Negative 07/27/2024 9:10 AM STORE ASSISTANT [facility] SPECIMEN EXPIRATION DATE/TIME 07/30/24 23:59 07/27/2024 9:10 AM STORE ASSISTANT [facility] Blood BLOOD SPECIMEN / Unknown Non-Lab Venipuncture / Unknown 07/27/2024 8:31 AM STORE ASSISTANT 07/27/2024 8:31 AM STORE ASSISTANT us Wilmar Tabares MD BLOOD BANK Final Result [facility] [address] [place] [address], [place] [phone] * RED BLOOD CELLS EA UNIT (07/27/2024 8:12 AM STORE ASSISTANT) CROSSMATCH Compatible Compatible [facility] PRODUCT BLOOD TYPE O Rh Positive [facility] PRODUCT ID NUMBER [id number] [facility] PRODUCT STATUS Transfused [facility] PRODUCT DESCRIPTION RBC -1 LR [facility] PRODUCT CODE [id number] [facility] ISSUE DATE/TIME 07/27/24 09:41 [facility] us Wilmar Tabares MD BLOOD BANK Edited Resul t - Final [facility] [address] [place] [address], [place] [phone] * SCAN CORRESP-EKG RESULTS (07/26/2024 9:39 AM STORE ASSISTANT) Narrative 07/26/2024 9:39 AM STORE ASSISTANT Ordered by an unspecified provider. us Other Clinical Staff OTHER Final Resul t * SCAN CORRESP-IMAGING (07/26/2024 9:39 AM STORE ASSISTANT) Anatomical Region Laterality Modality Other Narrative 07/26/2024 9:39 AM STORE ASSISTANT Ordered by an unspecified provider. us Other Clinical Staff OTHER Final Resul t * LACTATE VENOUS (07/26/2024 6:23 AM STORE ASSISTANT) Only the most recent of4 resultswithin the time period is included. LACTATE,VENOUS 1.0 0.5 - 2.0 mmol/L 07/26/2024 7:27 AM STORE ASSISTANT [facility] Blood BLOOD SPECIMEN / Unknown Line/Port / Unknown 07/26/2024 6:23 AM STORE ASSISTANT 07/26/2024 6:31 AM STORE ASSISTANT Anibal Alicea MD CHEMISTRY Fi nal Result [facility] [address] [place] [address], [place] * CT ABDOMEN PELVIS W (07/25/2024 1:54 PM STORE ASSISTANT) Anatomical Region Laterality Modality Abdomen, Pelvis, AORTA, LIVER, SPLEEN Computed Tomography 07/25/2024 2:50 PM STORE ASSISTANT Narrative 07/25/2024 2:50 PM STORE ASSISTANT For Patients: As a result of the Century Cures Act, medical imaging exams and procedure reports are released immediately into your electronic medical record. You may view this report before your referring provider. If you have questions, please contact your health care provider. INDICATION: Acute diffuse abdominal pain; presented to the outside hospital with portal venous gas or large hiatus hernia with colon; status post esophagectomy; known metastatic esophageal cancer; overnight benign clinical exam ;now with focal right periumbilical pain COMPARISON: PET-CT April 22, 2023 and January 20, 2023; CT abdomen and pelvis January 28, 2020; CT chest, abdomen and pelvis April 16, 2019. TECHNIQUE: CT abdomen and pelvis with intravenous contrast; coronal and sagittal reformats. FINDINGS: Status post esophagectomy. Larger hernia through the esophageal hiatus with small and large bowel as its content. Nodules through the lung bases noncalcified; highly concerning for metastatic disease until proven otherwise; suggest obtaining a dedicated chest CT for further assessment. Small left-sided pleural effusion. Loculated enhancing fluid/metastatic deposit involving the right lower pleura. Diffuse metastatic liver disease; new since April 2023 PET-CT. These are amenable for CT guided biopsy for histologic diagnosis. Small amount of gas identified within the portal venous system. No splenic pathology. Small amount of abdominal ascites. No pancreatic pathology. A 2.9 x 2.2 cm soft tissue density identified in the small bowel mesentery slice 33 series 2; was not present on the previous study and highly concerning for metastatic deposit. Distended gallbladder. No adrenal pathology. Cortical cysts both kidneys. No retroperitoneal lymphadenopathy. Marked thickening of the wall of the small bowel throughout; highly concerning for ischemia/infarction. A 4.1 x 3.7 cm metastatic deposit in the left gluteus muscle. A 5.1 x 5.1 cm enhancing soft tissue mass in the right inguinal area just posterior to the femoral vessels highly concerning for a metastatic deposit. Right pelvic lymphadenopathy. Impression : 1. Evidence of abdominopelvic ascites with marked thickening of the small bowel wall throughout and possible peritoneal carcinomatosis and are ischemia infarction of this small-bowel with associated portal venous gas. 2. Metastatic deposits diffusely involving the liver as well as mesenteric and left buttock and right inguinal area as well as right pelvic lymphadenopathy. 3. PET-CT suggested for further assessment. 4. Status post esophagectomy with herniation of bowel through the esophageal hiatus into the left lower chest. 5. Nodules through the lung bases concerning for metastatic disease. 6. Dr. Felipe was paged at 2:49 p.m. Please note that all CT scans at this facility use dose modulation, iterative reconstruction, and/or weight-based dosing when appropriate to reduce radiation dose to as low as reasonably achievable. Dictated by João Liu MD @ Jul 25 2024 2:50PM (Electronically Signed) [email or web address] Procedure Note João Liu MBKHARI - 07/25/2024 For Patients: As a result of the Century Cures Act, medical imagingexams and procedure reports are released immediately into your electronicmedical record. You may view this report before your referring provider.If you have questions, please contact your health care provider. INDICATION: Acute diffuse abdominal pain; presented to the outside hospital withportal venous gas or large hiatus hernia with colon; status postesophagectomy; known metastatic esophageal cancer; overnight benignclinical exam ;now with focal right periumbilical pain COMPARISON: PET-CT April 22, 2023 and January 20, 2023; CT abdomen and pelvis 2019; CT chest, abdomen and pelvis April 16, 2019. TECHNIQUE: CT abdomen and pelvis with intravenous contrast; coronal and sagittalreformats. FINDINGS: Status post esophagectomy. Larger hernia through the esophageal hiatuswith small and large bowel as its content. Nodules through the lung basesnoncalcified; highly concerning for metastatic disease until provenotherwise; suggest obtaining a dedicated chest CT for further assessment.Small left-sided pleural effusion. Loculated enhancing fluid/metastaticdeposit involving the right lower pleura. Diffuse metastatic liverdisease; new since April 2023 PET-CT. These are amenable for CT guidedbiopsy for histologic diagnosis. Small amount of gas identified within theportal venous system. No splenic pathology. Small amount of abdominalascites. No pancreatic pathology. A 2.9 x 2.2 cm soft tissue densityidentified in the small bowel mesentery slice 33 series 2; was not presenton the previous study and highly concerning for metastatic deposit.Distended gallbladder. No adrenal pathology. Cortical cysts both kidneys.No retroperitoneal lymphadenopathy. Marked thickening of the wall of thesmall bowel throughout; highly concerning for ischemia/infarction. A 4.1 x3.7 cm metastatic deposit in the left gluteus muscle. A 5.1 x 5.1 cmenhancing soft tissue mass in the right inguinal area just posterior tothe femoral vessels highly concerning for a metastatic deposit. Rightpelvic lymphadenopathy. Impression : 1. Evidence of abdominopelvic ascites with marked thickening of the smallbowel wall throughout and possible peritoneal carcinomatosis and areischemia infarction of this small-bowel with associated portal venousgas. 2. Metastatic deposits diffusely involving the liver as well as mesentericand left buttock and right inguinal area as well as right pelviclymphadenopathy. 3. PET-CT suggested for further assessment. 4. Status post esophagectomy with herniation of bowel through theesophageal hiatus into the left lower chest. 5. Nodules through the lung bases concerning for metastatic disease. 6. Dr. Felipe was paged at 2:49 p.m. Please note that all CT scans at this facility use dose modulation,iterative reconstruction, and/or weight-based dosing when appropriate toreduce radiation dose to as low as reasonably achievable. Dictated by João Liu MD @ Jul 25 2024 2:50PM (Electronically Signed) [email or web address] us Robbi Felipe MD CT Final Result * Magnesium TODAY (07/25/2024 8:59 AM STORE ASSISTANT) MAGNESIUM 1.8 1.6 - 2.4 mg/dL 07/25/2024 9:46 AM STORE ASSISTANT [facility] Blood BLOOD SPECIMEN / Unknown Line/Port / Unknown 07/25/2024 8:59 AM STORE ASSISTANT 07/25/2024 9:08 AM STORE ASSISTANT Anibal Alicea MD CHEMISTRY Fi nal Result [facility] [address] [place] [address], * PROTIME-INR (07/24/2024 11:32 PM STORE ASSISTANT) INR 1.1 <1.3 07/24/2024 11:52 PM STORE ASSISTANT [facility] PROTIME 12.2 10.6 - 12.4 sec 07/24/2024 11:52 PM STORE ASSISTANT [facility] Blood BLOOD SPECIMEN / Unknown Butterfly / Unknown 07/24/2024 11:32 PM STORE ASSISTANT 07/24/2024 11:39 PM STORE ASSISTANT Narrative [facility] - 07/24/2024 11:52 PM STORE ASSISTANT Therapeutic Range 2.0-3.0 for most anticoagulated patients 2.5-3.5 or 4.0 for high risk patients The INR is only used for patients on stable oral anticoagulant therapy. It makes no significant contribution to the diagnosis or treatment of patients whose Protime is prolonged for other reasons. INR results are increased when heparin levels exceed 1.0 U/mL, which corresponds to an aPTT >125 seconds if the patient is on UFH. Aubrey Miller MD HEMATOLOGY Teagan l Result [facility] [address] [place] [address], * (ABNORMAL) Hepatic function panel TODAY (07/24/2024 10:14 PM STORE ASSISTANT) Pathologist [facility] ALBUMIN 2.7(L) 4.0 - 4.9 g/dL 07/24/2024 10:44 PM STORE ASSISTANT [facility] PROTEIN,TOTAL 5.3(L) 6.0 - 8.0 g/dL 07/24/2024 10:44 PM STORE ASSISTANT [facility] BILIRUBIN,TOTAL 1.0 0.0 - 1.2 mg/dL 07/24/2024 10:44 PM STORE ASSISTANT [facility] BILIRUBIN,DIRECT 0.5(H) 0.0 - 0.2 mg/dL 07/24/2024 10:44 PM STORE ASSISTANT [facility] BILIRUBIN,INDIRE CT 0.5 0.2 - 0.8 mg/dL 07/24/2024 10:44 PM STORE ASSISTANT [facility] ALK PHOSPHATASE 160(H) 40 - 129 IU/L 07/24/2024 10:44 PM STORE ASSISTANT [facility] ALT (SGPT) 66(H) 10 - 50 IU/L 07/24/2024 10:44 PM STORE ASSISTANT [facility] AST (SGOT) 80(H) 10 - 50 IU/L 07/24/2024 10:44 PM STORE ASSISTANT [facility] Blood BLOOD SPECIMEN / Unknown Venipuncture / Unknown 07/24/2024 10:14 PM STORE ASSISTANT 07/24/2024 10:20 PM STORE ASSISTANT us Aubrey Miller MD CHEMISTRY Teagan l Result [facility] [address] [place] [address], [place] * SCAN-RADIOLOGY REPORT (07/24/2024 12:00 AM STORE ASSISTANT) Anatomical Region Laterality Modality Other us Scanner OTHER Final Result * SCAN-ULTRASOUND REPORT (07/24/2024 12:00 AM STORE ASSISTANT) Anatomical Region Laterality Modality Other us Scanner OTHER Final Result * SCAN-CT INTERPRETATION (07/24/2024 12:00 AM STORE ASSISTANT) Only the most recent of3 resultswithin the time period is included. Anatomical Region Laterality Modality Other us Scanner OTHER Final Result * SCAN-PET SCAN (07/19/2024 12:00 AM STORE ASSISTANT) Anatomical Region Laterality Modality Other us Scanner OTHER Final Result * ECHO TTE LIMITED W CONTRAST (05/07/2024 2:03 PM CDT) EJECTION FRACTION 76 % PEAK TR VELOCITY 3.1 m/s EJECTION FRACTION 65 - 70% Anatomical Region Laterality Modality Ultrasound 05/07/2024 1:30 PM CDT Narrative 05/07/2024 2:13 PM CDT ECHOCARDIOGRAM MATTHEW CRUZ : 1950 73 years Study Date: 05/07/2024 1:30:46 PM Gender: M BP: 157/74 mmHg Height: 175.00 cm BSA: 2.00 m Weight: 84.00 kg Tech: VIVIAN Referring MD: ROMAINE CHEN Site: [facility] Reading Location: Mobile OP Patient Location: Outpatient. Procedure: Limited 2D , Limited Echo w/ Contrast, Color Doppler and Limited Spectral Doppler. Indication for study: Encounter for therapeutic drug level monitoring Cardiac Rhythm: Regular.Study quality: Good. Final Impressions: Limited Echocardiogram performed 1. Normal LV size, normal wall thickness, normal function with an estimated EF of 65 - 70%. 2. Right ventricular cavity size is normal, global systolic RV function is normal. 3. Mildly enlarged left atrium. 4. No significant valve disease detected. 5. Echo contrast was administered to enhance visualization of all left ventricular segments. Comparison Compared to prior exam of 01/25/2024, there has been no significant change. Chamber Sizes and Function Normal left ventricular size, normal wall thickness, normal global systolic function with an estimated EF of 65 - 70%. Left atrial size is mildly enlarged. Right ventricular cavity size is normal, global systolic RV function is normal. RV wall thickness is normal. Valves, RV Pressures and Diastolic Function The aortic valve is normal in structure and trileaflet, no stenosis and no regurgitation. The mitral valve is normal in structure, no mitral regurgitation. The tricuspid valve is normal in structure. Tricuspid regurgitation is mild. The tricuspid regurgitant velocity is 3.1 m/s, the estimated right ventricular systolic pressure is 38 mmHg plus right atrial pressure. Masses, Effusion, Shunts The inferior vena cava is normal sized, respiratory size variation greater than 50%. MEASUREMENTS AND CALCULATIONS 2-D Measurements and LV Function: HR 64 bpm Tricuspid Valve and estimated PA pressures: TR Vmax 3.1 m/s TR maxG 38 mmHg Contrast documentation: 2 ml diluted Definity, lot #[id number], [facility]# [id number] was administered peripherally to enhance visualization of all left ventricular segments. . This study was interpreted by an IAC accredited facility. CC: [facility] ([facility]) [facility]. Final Procedure Note Yasmani Winn MD - 05/07/2024 ECHOCARDIOGRAM MATTHEW CRUZ : 1950 73 years Study Date: 05/07/2024 1:30:46 PM Gender: M BP: 157/74 mmHg Height: 175.00 cm BSA: 2.00 m Weight: 84.00 kg Tech: [facility] Referring MD: ROMAINE CHEN Site: [facility] Reading Location: Mobile OP Patient Location: Outpatient. Procedure: Limited 2D , Limited Echo w/ Contrast, Color Doppler andLimited Spectral Doppler. Indication for study: Encounter for therapeutic drug level monitoring Cardiac Rhythm: Regular.Study quality: Good. Final Impressions: Limited Echocardiogram performed 1. Normal LV size, normal wall thickness, normal function with anestimated EF of 65 - 70%. 2. Right ventricular cavity size is normal, global systolic RV functionis normal. 3. Mildly enlarged left atrium. 4. No significant valve disease detected. 5. Echo contrast was administered to enhance visualization of all leftventricular segments. Comparison Compared to prior exam of 01/25/2024, there has been no significantchange. Chamber Sizes and Function Normal left ventricular size, normal wall thickness, normal globalsystolic function with an estimated EF of 65 - 70%. Left atrial size ismildly enlarged. Right ventricular cavity size is normal, global systolicRV function is normal. RV wall thickness is normal. Valves, RV Pressures and Diastolic Function The aortic valve is normal in structure and trileaflet, no stenosis and noregurgitation. The mitral valve is normal in structure, no mitralregurgitation. The tricuspid valve is normal in structure. Tricuspidregurgitation is mild. The tricuspid regurgitant velocity is 3.1 m/s, theestimated right ventricular systolic pressure is 38 mmHg plus right atrialpressure. Masses, Effusion, Shunts The inferior vena cava is normal sized, respiratory size variation greaterthan 50%. MEASUREMENTS AND CALCULATIONS 2-D Measurements and LV Function: HR 64 bpm Tricuspid Valve and estimated PA pressures: TR Vmax 3.1 m/s TR maxG 38 mmHg Contrast documentation: 2 ml diluted Definity, lot #[id number], [facility]#[id number] was administered peripherally to enhance visualization of allleft ventricular segments. . This study was interpreted by an IAC accredited facility. CC: [facility] (med records) [facility]. Final Romaine Chen MD ECHO ORD Final Result * LIPID PANEL W REFLEX MEASURED LDL (02/24/2024 10:55 AM CDT) CHOLESTEROL,TOTAL 158 100 - 199 mg/dL 02/27/2024 3:[address] [facility] Comment: Cholesterol, Total Reference Ranges Desirable <200 mg/dL Borderline 200-239 mg/dL High >=240 mg/dL TRIGLYCERIDES 96 <150 mg/dL 02/27/2024 3:[address] [facility] HDL CHOLESTEROL 56 >40 mg/dL 3:27 PM [facility] NON-HDL CHOLESTEROL 102 <145 mg/dl 02/27/2024 3:[address] [facility] CHOL/HDL RATIO 2.82 <4.50 02/27/2024 3:27 PM [facility] LDL CHOLESTEROL 83 <=130 mg/dL 02/27/2024 3:[address] [facility] VLDL CHOLESTEROL 19 <=30 mg/dL 02/27/2024 3:27 PM [facility] PROVIDER ORDERED STATUS NOT GIVEN 02/27/2024 3:27 PM [facility] Blood BLOOD SPECIMEN / Unknown Venipuncture / Unknown 02/24/2024 10:55 AM CDT 02/24/2024 10:57 AM CDT Nancy LESLIE CHEMISTRY Final R esult Performing Organization Address City/State/[facility] Co de Phone Number [facility] [address] [place] [address] * COLONOSCOPY (04/09/2020 9:19 AM CDT) 04/09/2020 9:19 AM CDT Narrative Transcriptions Segundo Menendez MD - 04/09/2020 10:16 AM CDT Patient Name: Matthew Cruz Procedure Date: 04/09/2020 Gender: Male Date of [...] reponse to care. Please refer to the patien'ts medical record flowsheets and nursing notes for moderate sedation details. Total physician intraservice time was 21 minutes. Segundo Menendez MD 04/09/2020 10:15:58 AM This report has been signed electronically. Note Initiated On: 04/09/2020 9:19 AM Procedure Code(s): --- Professional --- 63802, Colonoscopy, flexible; with removalof tumor(s), polyp(s), or other lesion(s) bysnare technique Diagnosis Code(s): --- Professional --- Z86.010, Personal history of colonicpolyps Z85.038, Personal history of other malignant neoplasm of large intestine K63.5, Polyp of colon Z98.0, Intestinal bypass and anastomosisstatus CPT copyright 2019 [employer] [place] [employer]. All rights reserved. The codes documented in this report are preliminary and upon physician coder reviewmay be revised to meet current compliance requirements. Scope In: 9:50:19 AM Scope Withdrawal Time 0 hours 13 minutes 47 seconds Scope Out: 10:09:58 AM us Segundo Menendez MD PROCEDURE ORD Final Res ult * ANTI HCV [30874.2] (11/18/2015 9:17 AM CDT) HEPATITIS C ANTIBODY Non-Reacti ve Non-Reacti ve 11/18/2015 3:34 PM CDT [facility] Blood specimen (specimen) BLOOD SPECIMEN / Unknown Venipuncture / Unknown 11/18/2015 9:17 AM CDT 11/18/2015 9:17 AM CDT Narrative [facility] - 11/18/2015 3:34 PM CDT Antibodies to HCV not detected; does not exclude the possibility of exposure to HCV. Nancy LESLIE SEND OUTS Final R esult [facility] 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 Healthcare Directive 02/25/2020 020 Healthcare Directive 02/16/2011 * Full Code (Latest Code Status on File) Date Activated Date Inactivated Comments 07/24/2024 9:23 PM 07/29/2024 7:11 PM Question Answer Comments Code Status Discussion: Reviewed Preferences * Full Code Date Activated Date Inactivated Comments 03/17/2021 9:41 AM 03/18/2021 2:34 AM Question Answer Comments Code Status Discussion: Not Discussed * Full Code Date Activated Date Inactivated Comments 09/18/2019 8:38 AM 09/18/2019 1:49 PM * Full Code Date Activated Date Inactivated Comments 07/20/2019 11:12 AM 07/20/2019 6:06 PM * Full Code Date Activated Date Inactivated Comments 07/06/2019 7:38 AM 07/06/2019 12:16 PM Care Teams Missile Inspector Preflight Relationship Specialty Start Date End Date Nancy Perez PA [address] [place] [address] PCP - General Family Practice 06/09/15 Mary Tafoya MD [address] [place] [address] General Surgery Surgery - Oncology 01/12/19 Keven Hammonds MD [address] [place] [address] Gastroenterology Gastroenterology 01/17/19 Romaine Chen MD [address] [place] [phone] Oncology 11/12/22
--- OUTSIDE RECORDS SUMMARY | 2024-08-02 16:34 | XMS_ITS | Clinical Summary ---
Author Organization [facility] Address [address] [place] [address] Care Team Providers Care Private Equity Associate Name Role Phone Unavailable Primary Care Provider Unavailabl e Source Comments Patient records contain information from all sites at [facility]. For routine questions regarding patient records, call [phone] during business hours, M-F 8:00 AM - 5:00 PM Central Time. Record requests for emergency care only can be directed to [phone] at any time.[facility] Allergies No known active allergies Medications atorvastatin (LIPITOR) 10 mg tablet Take 10 mg by mouth. 11/25/19 19 Active multivitamin tablet Take 1 tablet by mouth. 10/11/19 12 Active acetaminophen (TylenoL) 500 mg capsule Take 500 mg by mouth every 6 (six) hours as needed for pain. Active mometasone (Elocon) 0.1 % cream Apply 1 Application topically daily. Apply to skin within the treatment field. 45 g 1 05/30/20 24 Active ondansetron (Zofran) 4 mg tablet Take 4 mg by mouth every 6 (six) hours as needed for nausea or vomiting. 06/05/20 24 Active prednisoLONE acetate (Pred Forte) 1 % ophthalmic suspension Administer 1 drop into both eyes 3 (three) times a day. 05/29/20 24 Active LORazepam (Ativan) 0.5 mg tablet Take 0.5 mg by mouth every 6 (six) hours as needed (nausea). Active bisacodyL (Dulcolax) 5 mg EC tablet Take 5 mg by mouth daily as needed for constipation. Active cyanocobalamin (Vitamin B-12) 500 mcg tablet Take 500 mcg by mouth as needed (Neuropathy). Active calcium carbonate 1000 mg (400 mg calcium) chewable tablet Chew 1 tablet as needed for indigestion or heartburn. Active naloxone (Narcan) 4 mg/actuation nasal spray Administer 1 spray (4 mg total) into one nostril as needed for reversal. Use 1 spray in 1 nostril. Repeat with second device in other nostril after 2-3 minutes if no or minimal response. 2 each 06/25/20 24 Active doxepin (SINEquan) 10 mg/mL concentrated solution Mix 2.5 mL solution with 2.5 mL of water. Swish medication in mouth. May use every six hours as needed for pain. 118 mL 1 07/02/20 24 Active diphenhydramine- lidocaine 2 %-antacid (mw) Take 5-10 mL by mouth 4 (four) times a day before meals and bedtime. Swish in mouth for 1 minute and then spit out solution.Do not eat or drink for 15-30 minutes after use. 480 mL 1 07/02/20 24 Active morphine (MS Contin) 30 mg ER tabletIndication s:Prolonged Acute Pain/Traumatic Injury Take 1 tablet (30 mg total) by mouth 2 (two) times a day Indication: Prolonged Acute Pain/Traumatic Injury. 60 tablet 07/09/20 24 025 Active prochlorperazine (Compazine) 10 mg tablet Take 1 tablet (10 mg total) by mouth every 6 (six) hours as needed for nausea or vomiting. 30 tablet 07/09/20 24 Active morphine (MSir) 15 mg tabletIndication s:Prolonged Acute Pain/Traumatic Injury Take 0.5 tablets (7.5 mg total) by mouth every 4 (four) hours as needed for pain Indication: Prolonged Acute Pain/Traumatic Injury. 30 tablet 07/17/20 24 Active potassium chloride (K-Tab) 20 mEq ER tablet 07/30/20 24 Active polyethylene glycol (Miralax) 17 gram/dose oral powder 17 g by Nasogastric route at bedtime as needed. 07/28/20 24 Active furosemide (Lasix) 20 mg tablet Take 20 mg by mouth. 07/29/20 24 Active enoxaparin (Lovenox) 60 mg/0.6 mL injection Inject 60 mg under the skin every 12 (twelve) hours. 07/29/20 24 Active dexAMETHasone (Decadron) 4 mg tablet Take 1 tablet by mouth 3 times a day X5 days, then 1 tablet 2 times day X 5 days, then one-half tablet twice per day X5 days, then one-half tablet once per day X 5 days, then stop. There will be half a tablet left over. 07/29/20 24 Active sennosides (Senokot) 8.6 mg tablet Take 8.6-17.2 mg by mouth 2 (two) times a day as needed. 07/28/20 24 Active prochlorperazine (Compazine) 10 mg tablet Take 10 mg by mouth 3 (three) times a day as needed for nausea or vomiting. 10/07/19 24 024 Discontin ued(Reord er) morphine (MSir) 15 mg tabletIndication s:Prolonged Acute Pain/Traumatic Injury Take 0.5 tablets (7.5 mg total) by mouth every 4 (four) hours as needed for pain Indication: Prolonged Acute Pain/Traumatic Injury. 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 on 01/29/2019 Encounters Date Type Department Care Team Description 08/02/2024 2:00 PM [facility] Hospital Encounter Department of Radiation Oncology in [place], [place] [address] [place] [phone] Sulaiman Ackerman M.D. Malignant Neoplasm Of Esophagus Lower Third (HCC); Secondary Malignant Neoplasm Brain (HCC) 08/02/2024 1:15 PM [facility] Hospital Encounter Department of Radiation Oncology in [place], [place] [address] [place] [address] Sulaiman Ackerman M.D. 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 Malignant Neoplasm Of Esophagus Lower Third (HCC) (Primary Dx); Secondary Malignant Neoplasm Brain (HCC) 07/23/2024 9:19 AM [employer]ING MACHINE [employer] - 07/23/2024 12:35 PM [employer] Hospital Encounter Department of Radiation Oncology in [address] [address] Corinne Aguillon M.D. Malignant Neoplasm Of Esophagus Lower Third (HCC) (Primary Dx) 07/23/2024 Refill Department of Radiation Oncology in [address] [address] Sulaiman Ackerman M.D. [facility] Refill 07/23/2024 Clinical Communication Department of Radiation Oncology in [address] [address] Luann De La Fuente P.A.-C., M.S. 07/20/2024 Orders Only Department of Radiation Oncology in [address] [address] Cyndie Kitchen APRN, C.N.P., D.N.P. Malignant Neoplasm Of Esophagus Lower Third (HCC) (Primary Dx); Secondary Malignant Neoplasm Bone (HCC); Secondary Malignant Neoplasm Soft Tissue (HCC) 07/17/2024 Orders Only Department of Radiation Oncology in [address] [address] Sulaiman Ackerman M.D. 07/16/2024 8:46 AM [employer]ING M[employer]INE [employer] - 07/16/2024 11:31 AM [employer] Hospital Encounter Department of Radiation Oncology in [address] [address] Sulaiman Ackerman M.D. Secondary Malignant Neoplasm Skin Face (HCC) (Primary Dx) 07/16/2024 Orders Only Department of Radiation Oncology in [address] [address] Sulaiman Ackerman M.D. Malignant Neoplasm Of Esophagus Lower Third (HCC) (Primary Dx); Secondary Malignant Neoplasm Skin Face (HCC) 07/09/2024 12:37 PM [employer]ING [employer]INE [employer] - 07/09/2024 4:06 PM [employer] Hospital Encounter Department of Radiation Oncology in [address] [address] Corinne Aguillon M.D. Leenstra, James L, M.D. Secondary Malignant Neoplasm Skin Face (HCC) (Primary Dx) 07/04/2024 2:05 PM [employer] Hospital Encounter Department of Radiation Oncology in [address] [address] Sulaiman Ackerman M.D. 07/04/2024 7:47 AM [employer]INE [employer] Hospital Encounter Department of Radiation Oncology in [address] [address] Sulaiman Ackerman M.D. 07/04/2024 Documentation Department of Radiation Oncology in [address] [address] Sulaiman Ackerman M.D. 07/04/2024 Orders Only Department of Radiation Oncology in [address] [address] Luann De La Fuente P.A.-C., M.S. 07/03/2024 2:14 PM [employer] - 07/03/2024 3:57 PM [employer] Hospital Encounter Department of Radiation Oncology in [address] [address] Sulaiman Ackerman M.D. Secondary Malignant Neoplasm Skin Face (HCC) 07/03/2024 2:14 PM [employer] Hospital Encounter Department of Radiation Oncology in [address] [address] Sulaiman Ackerman M.D. 07/03/2024 7:53 AM [employer]INE [employer] Hospital Encounter Department of Radiation Oncology in [address] [address] Sulaiman Ackerman M.D. 07/02/2024 9:49 AM CONT[employer]UOUS [employer]ING M[employer]INE [employer] - 07/02/2024 1:19 PM [employer] Hospital Encounter Department of Radiation Oncology in [address] [address] Sulaiman Ackerman M.D. Secondary Malignant Neoplasm Skin Face (HCC) 06/25/2024 11:00 AM [employer] M[employer]INE [employer] - 06/27/2024 5:18 PM [employer]INE [employer] Hospital Encounter Department of Radiation Oncology in [address] [address] Sulaiman Ackerman M.D. Secondary Malignant Neoplasm Skin Face (HCC) 06/25/2024 10:01 AM [employer]ING M[employer]INE [employer] - 06/27/2024 6:03 PM [employer] Hospital Encounter Department of Radiation Oncology in [address] [address] Sulaiman Ackerman M.D. Secondary Malignant Neoplasm Skin Face (HCC) (Primary Dx) 06/13/2024 2:14 PM [employer] - 06/13/2024 11:59 PM [employer]ING [employer]INE [employer] Hospital Encounter Department of Radiation Oncology in [address] [address] Sulaiman Ackerman M.D. Discharge Disposition: Home or Self Care 06/13/2024 8:39 AM CONT[employer]ING [employer]INE [employer] - 06/19/2024 2:29 PM [employer] Hospital Encounter Department of Radiation Oncology in [address] [address] Sulaiman Ackerman M.D. Secondary Malignant Neoplasm Skin Face (HCC) 06/13/2024 8:20 AM [employer]ING MACHINE [employer] - 06/13/2024 8:38 AM [employer]ING M[employer]INE [employer] Hospital Encounter Department of Radiation Oncology in [address] [address] Sulaiman Ackerman M.D. Discharge Disposition: Home or Self Care 06/12/2024 2:37 PM [employer] - 06/12/2024 11:59 PM [employer]INE [employer] Hospital Encounter Department of Radiation Oncology in [address] [address] Sulaiman Ackerman M.D. Discharge Disposition: Home or Self Care 06/12/2024 8:39 AM [employer]INE [employer] - 06/12/2024 11:21 AM [employer]INE [employer] Hospital Encounter Department of Radiation Oncology in [address] [address] Sulaiman Ackerman M.D. Secondary Malignant Neoplasm Skin Face (HCC) (Primary Dx); Secondary Malignant Neoplasm Bone (HCC) 06/12/2024 7:50 AM [employer]ING M[employer]INE [employer] - 06/12/2024 8:38 AM [employer]INE [employer] Hospital Encounter Department of Radiation Oncology in [address] [address] Sulaiman Ackerman M.D. Discharge Disposition: Home or Self Care 05/31/2024 2:33 PM CDT - 05/31/2024 4:15 PM CDT Hospital Encounter Department of Radiation Oncology in [address] [address] Sulaiman Ackerman M.D. Eby, Courtney C, CAMI Secondary Malignant Neoplasm Skin Face (HCC) 05/31/2024 2:33 PM CDT - 05/31/2024 11:59 PM CDT Hospital Encounter Department of Radiation Oncology in [address] [address] Sulaiman Ackerman M.D. Discharge Disposition: Home or Self Care 05/31/2024 7:13 AM CDT - 05/31/2024 2:32 PM CDT Hospital Encounter Department of Radiation Oncology in [address] [address] Sulaiman Ackerman M.D. Discharge Disposition: Home or Self Care 05/30/2024 2:35 PM CDT - 05/30/2024 5:38 PM CDT Hospital Encounter Department of Radiation Oncology in [address] [address] Sulaiman Ackerman M.D. Secondary Malignant Neoplasm Skin Face (HCC) 05/30/2024 2:35 PM CDT - 05/30/2024 11:59 PM CDT Hospital Encounter Department of Radiation Oncology in [address] [address] Sulaiman Ackerman M.D. Discharge Disposition: Home or Self Care 05/30/2024 7:23 AM CDT - 05/30/2024 2:34 PM CDT Hospital Encounter Department of Radiation Oncology in [address] [address] Sulaiman Ackerman M.D. Discharge Disposition: Home or Self Care 05/23/2024 2:08 PM CDT - 05/25/2024 11:52 AM CDT Hospital Encounter Department of Radiation Oncology in [address] [address] Sulaiman Ackerman M.D. Secondary Malignant Neoplasm Skin Face (HCC) 05/23/2024 2:00 PM CDT - 05/24/2024 4:08 PM CDT Hospital Encounter Department of Radiation Oncology in [address] [address] Sulaiman Ackerman M.D. RetKatie mckinnon, RCindiN. Secondary Malignant Neoplasm Skin Face (HCC) (Primary Dx) 05/23/2024 12:44 PM CDT - 05/25/2024 11:47 AM CDT Hospital Encounter Department of Radiation Oncology in [address] [address] Sulaiman Ackerman M.D. Secondary Malignant Neoplasm Skin Face (HCC) (Primary Dx) 05/16/2024 9:00 AM CDT Ancillary Procedure Department of Oncology 05/16/2024 8:33 AM CDT - 05/23/2024 11:54 AM CDT Hospital Encounter Department of Radiation Oncology in [address] [address] Sulaiman Ackerman M.D. Secondary Malignant Neoplasm Skin Face (HCC) (Primary Dx) 05/14/2024 Clinical Communication Department of Radiation Oncology in [address] [address] Sulaiman Ackerman M.D. 05/07/2024 12:01 PM CDT - 05/07/2024 11:59 PM CDT Hospital Encounter Department of Radiation Oncology in [address] [address] Sulaiman Ackerman M.D. Discharge Disposition: Home or Self Care 05/07/2024 11:28 AM CDT - 05/07/2024 12:00 PM CDT Hospital Encounter Department of Radiation Oncology in [address] [address] Sulaiman Ackerman M.D. Secondary Malignant Neoplasm Bone (HCC) 05/07/2024 Documentation Department of Radiation Oncology in [address] [address] Sulaiman Ackerman M.D. 05/04/2024 12:22 PM CDT - 05/04/2024 11:59 PM CDT Hospital Encounter Department of Radiation Oncology in [address] [address] Sulaiman Ackerman M.D. Discharge Disposition: Home or Self Care 05/03/2024 1:47 PM CDT - 05/03/2024 11:59 PM CDT Hospital Encounter Department of Radiation Oncology in [address] [address] Sulaiman Ackerman M.D. Discharge Disposition: Home or Self Care 05/01/2024 10:32 AM CDT - 05/07/2024 11:27 AM CDT Hospital Encounter Department of Radiation Oncology in [place], [place] [address] [place] [phone] Sulaiman Ackerman M.D. Secondary Malignant Neoplasm Bone (HCC) 05/01/2024 9:33 AM CDT - 05/02/2024 10:31 AM CDT Hospital Encounter Department of Radiation Oncology in [place], [place] [address] [place] [phone] Sulaiman Ackerman M.D. Secondary Malignant Neoplasm Bone (HCC) (Primary Dx); Malignant Neoplasm Of Esophagus Lower Third (HCC) from Last 3 Months Immunizations Name [...] 0.6 oz pur e alcohol) [facility] Utilities Answer Date Recorded In the past 12 months has e [employer], gas, oil, or water [employer] threatened to shut off services in your [...] your living situation today? I have a [facility] place to live 10/02/2023 Sex and Gender Information Value Date Recorded Sex Assigned at Male 10/02/2023 7:37 AM [employer] Legal Sex Male 2:40 PM [employer] Gender Identity Male 10/02/2023 7:37 AM [employer] Sexual Orientation Straight 10/02/2023 7: 37 AM [employer]ING MACHINE [employer] Last Filed Vital Signs Vital Sign Reading Time Taken Comments Blood Pressure 116/61 08/02/2024 1:25 PM [employer] Pulse 93 08/02/2024 1:25 PM [employer] Temperature 37.4 C (99.4 F) 08/02/2024 1:25 PM [employer]INE [employer] Respiratory Rate - - Oxygen Saturation - - Inhaled Oxygen Concentration - - Weight 76.3 kg (168 lb 3.4 oz) 08/02/2024 1:25 P M [employer] Height 175 cm (5' 8.9) 01/30/2019 9:45 AM CDT Body Mass Index 24.91 01/30/2019 9:45 AM CDT Plan of Treatment Upcoming Encounters Date Type Department Care Team (Late st Contact Info) Description 08/07/2024 3:00 PM [employer] Appointment Department of Radiation Oncology in [place], [place] [address] [place] [phone] Sulaiman Ackerman M.D. [address] [place] [address] 08/08/2024 12:45 PM [employer] Appointment Department of Radiation Oncology in [place], [place] [address] [place] [phone] Sulaiman Ackerman M.D. [address] [place] [address] Health Maintenance Due Date Last Done Comments CT Colonography 1950 Cologuard 1950 Generalized Anxiety (STEPHEN-7) 1950 Hepatitis C Screening 1950 COVID-19 Vaccine ( season) 2024 10/27/2023, 05/06/2022, 11/10/2021, Additional history exists Influenza Vaccine (#1) 2024 , 05/09/2021, 05/22/2020, Additional history exists Controlled Substance Agreement 06/13/2024 Controlled Substance Monitoring (PHQ-9) 06/13/2024 Controlled Substance Monitoring 06/13/2024 Opioid Risk Tool (ORT) 06/13/2024 PEG assessment for Opioid therapy 06/13/2024 Depression Screening (Annual PHQ-2) 08/01/2024 Fall Risk Screen (Annual) 08/01/2024 Colonoscopy 04/09/2025 04/09/2020, 01/25/2011 Colorectal Cancer Surveillance 04/09/2025 Creatinine Level (Kidney Function Test) 07/29/2025 07/29/2024, 07/28/2024, 07/27/2024, Additional history exists Potassium Level 07/29/2025 07/29/2024, 07/02, 07/27/2024, Additional history exists Sodium Level 07/29/2025 07/29/2024, 07/02, 07/27/2024, Additional history exists Fasting Glucose for Diabetes Screening 07/29/2027 07/29/2024, 07/26/2024, 07/25/2024, Additional history exists DTaP,Tdap,and Td Vaccines (3 - Td or Tdap) 02/15/2028 02/14/2018, 08/01/2008, 10/21/1998, Additional history exists Pneumococcal vaccine (50+ years) Completed 11/19/2016, 11/13/2014 Zoster Vaccines Completed 05/02/2018, 02/14/2018 RSV vaccine - (32-36 weeks) or 60+ years Completed 06/13/2023 Abdominal Aortic Aneurysm (AAA) Screen Completed 07/25/2024, 07/25/2024, 01/28/2020, Additional history exists HPV Vaccines Aged Out No longer eligi ble based on patient's age to complete this topic IPV Vaccines Aged Out No longer eligi ble based on patient's age to complete this topic Procedures Procedure Name Priority Date/Time Associated Diagnosis Comments INITIAL RAD ONC TREATMENT PLANNING CT SIMULATION Routine 08/02/2024 2:00 PM [employer] Malignant Neoplasm Of Esophagus Lower Third (HCC) Secondary Malignant Neoplasm Brain (HCC) OUTSIDE MR NEURO Routine 07/28/2024 5:30 PM [employer] OUTSIDE CT BODY Routine 07/25/2024 1:30 PM [employer] OUTSIDE NM PET Routine 07/19/2024 3:15 PM [employer] ARIA COURSE COMPLETE TREATMENT INFORMATION Routine 07/04/2024 2:49 PM [employer] M[employer] ARIA DAILY TREATMENT INFORMATION Routine 07/04/2024 2:49 PM [employer] M[employer]INE [employer] ARIA DAILY TREATMENT INFORMATION Routine 07/04/2024 8:05 AM CONTINU[employer] M[employer]INE [employer] ARIA DAILY TREATMENT INFORMATION Routine 07/03/2024 2:44 PM [employer] M[employer]INE [employer] ARIA DAILY TREATMENT INFORMATION Routine 07/03/2024 8:23 AM [employer] VERIFICATION/RE-SIM Routine 06/25/2024 1 1:20 AM [employer] Secondary Malignant Neoplasm Skin Face (HCC) ARIA DAILY TREATMENT INFORMATION Routine 06/13/2024 2:45 PM [employer] M[employer]INE [employer] ARIA DAILY TREATMENT INFORMATION Routine 06/13/2024 8:34 AM CONTINU[employer]ING MACHINE [employer] ARIA DAILY TREATMENT INFORMATION Routine 06/12/2024 3:16 PM [employer] MACHINE [employer] ARIA DAILY TREATMENT INFORMATION Routine 06/12/2024 8:51 AM CONT[employer] M[employer]INE [employer] ARIA DAILY TREATMENT INFORMATION Routine 05/31/2024 2:54 PM CDT ARIA DAILY TREATMENT INFORMATION Routine 05/31/2024 7:41 AM CDT ARIA DAILY TREATMENT INFORMATION Routine 05/30/2024 3:09 PM CDT ARIA DAILY TREATMENT INFORMATION Routine 05/30/2024 7:41 AM CDT INITIAL RAD ONC TREATMENT PLANNING CT SIMULATION Routine 05/23/2024 2:30 PM CDT Secondary Malignant Neoplasm Skin Face (HCC) ONCOLOGY IMAGE EXAM Routine 05/16/2024 9 :00 AM CDT ARIA COURSE COMPLETE TREATMENT INFORMATION Routine 05/07/2024 12:32 PM CDT ARIA COURSE COMPLETE TREATMENT INFORMATION Routine 05/07/2024 12:32 PM CDT ARIA DAILY TREATMENT INFORMATION Routine 05/07/2024 12:32 PM CDT ARIA DAILY TREATMENT INFORMATION Routine 05/04/2024 12:57 PM CDT ARIA DAILY TREATMENT INFORMATION Routine 05/03/2024 2:27 PM CDT ARIA COURSE COMPLETE TREATMENT INFORMATION Routine 05/02/2024 11:54 AM CDT from Last 3 Months Results * MR HEAD BRAIN WWO-Outside MR Neuro (07/28/2024 5:30 PM [employer]) Narrative [facility] - 07/30/2024 9:20 AM [employer] This order has been created and auto-finalized to support the import of outside images. If available, original interpretation can be found on the Media Tab in Chart Review, in Document Viewer, as an image in QREADS or as an Addendum. If a re-interpretation or overread is required please follow defined workflow. us Provider Not In System IMG MRI PROCEDURES Final Result Performing Organization Address [facility] de Phone Number [facility] NA * CT Abdomen Pelvis W-Outside CT Body (07/25/2024 1:30 PM CONT[employer]ING MACHINE [employer]) Narrative [facility] - 07/26/2024 8:40 AM CONT[employer]UOUS [employer]ING MACHINE [employer] This order has been created and auto-finalized to support the import of outside images. If available, original interpretation can be found on the Media Tab in Chart Review, in Document Viewer, as an image in QREADS or as an Addendum. If a re-interpretation or overread is required please follow defined workflow. us Provider Not In System IMG CT PROCEDURES Final R esult Performing Organization Address [facility] de Phone Number IIMS NA * PET skull to mid thigh-Outside NM Pet (07/19/2024 3:15 PM [employer]ING MACHINE [employer]) 07/19/2024 3:13 PM [employer]ING [employer]INE [employer] Narrative [facility] - 07/19/2024 5:41 PM CONT[employer]UOUS [employer]ING MACHINE [employer] This order has been created and auto-finalized to support the import of outside images. If available, original interpretation can be found on the Media Tab in Chart Review, in Document Viewer, as an image in QREADS or as an Addendum. If a re-interpretation or overread is required please follow defined workflow. us Provider Not In System IMG NM PROCEDURES Final R esult Performing Organization Address [facility] de Phone Number IIMS NA * Aria Course Complete Treatment Information (07/04/2024 2:49 PM CONT[employer]OUS [employer]ING MACHINE [employer]) Only the most recent of4 resultswithin the time period is included. Course ID [id number] te CARDONA ARIA Course Start Date 4 08:39 CONT[employer]UOUS [employer] M[employer]INE [employer] CARDONA ARIA Course End Date 4 14:52 [employer]OUS [employer] M[employer]INE [employer] CARDONA ARIA First Treatment Date 4 07:39 [employer]UOUS [employer]INE [employer] CARDONA ARIA Last Treatment Date 4 14:49 [employer]UOUS [employer] MACHINE [employer]ER CARDONA ARIA Treatment Elapsed Days 35 CARDONA ARIA Reference Point [id number] CARDONA ARIA Dosage Given to Date cGy 4440 CARDONA ARIA Plan ID [id number] hest CARDONA ARIA Fractions Treated to Date 12 CARDONA ARIA Planned Total Fractions 12 CARDONA ARIA Prescribed Dose Per Fraction 370 CARDONA ARIA Prescription Dose in cGy 4440 CARDONA ARIA Plan Primary Reference Point [id number] CARDONA ARIA 07/04/2024 2:49 PM CONT[employer]OUS [employer]ING [employer]INE [employer] us Provider Not In System RADIATION ONCOLOGY ORDERA BLES Final Result BRENDAN GARCIA na * Aria Daily Treatment Information (07/04/2024 2:49 PM CONTINUOUS MINING MACHINE [employer]) Only the most recent of15 resultswithin the time period is included. 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 CARDONA ARIA Last Treatment Date 4 14:49 CONTINUOUS MINING MACHINE COAL MINER CARDONA ARIA Treatment Elapsed Days 35 CARDONA ARIA Reference Point [id number] CARDONA ARIA Dosage Given to Date cGy 4440 CARDONA ARIA Session Dosage Given 370 CARDONA ARIA Plan ID [id number] hest CARDONA ARIA Fractions Treated to Date 12 CARDONA ARIA Planned Total Fractions 12 CARDONA ARIA Prescribed Dose Per Fraction 370 CARDONA ARIA Prescription Dose in cGy 4440 CARDONA ARIA Plan Primary Reference Point [id number] CARDONA ARIA 07/04/2024 2:49 PM CONTINUOUS MINING MACHINE COAL MINER us Provider Not In System RADIATION ONCOLOGY ORDERA BLES Final Result BRENDAN GARCIA na * Verification/Re-Sim (06/25/2024 11:20 AM CONTINUOUS MINING MACHINE COAL MINER) Narrative CARDONA ARIA - 06/25/2024 11:20 AM CONTINUOUS MINING MACHINE COAL MINER This exam does not require a oncologist review or interpretation. Please refer to the patient s medical record on this date for clinical details. us Sulaiman L Leenstra M.D. RADIATION ONCOLOGY ORDERAB LES Final Result BRENDAN GARCIA na * Initial Rad Onc Treatment Planning CT Simulation (05/23/2024 2:30 PM CDT) Narrative BRENDAN GARCIA - 05/23/2024 2:30 PM CDT Mary Ann Figueroa, RTT 05/23/2024 3:53 PM Initial Rad Onc Treatment Planning CT Simulation Performed by: Sulaiman Ackerman M.D. Authorized by: Sulaiman Ackerman M.D. us Sulaiman Ackerman M.D. RADIATION ONCOLOGY ORDERAB LES Final Result Performing Organization Address City/[facility] Co de Phone Number BRENDAN GARCIA na * Face 507-Oncology Image Exam (05/16/2024 9:00 AM CDT) 05/16/2024 9:00 AM CDT Narrative [facility] - 05/16/2024 9:54 AM CDT This order has been created and auto-finalized to support the import of images acquired without order. The clinical documentation to support these images can be found on the encounter that produced images. us Provider Not In System IMG NON RAD IMAGING PROCE DURES Final Result KERI NA from Last 3 Months Insurance MEDICARE [facility]
--- OUTSIDE RECORDS SUMMARY | 2024-08-02 16:34 | XMS_ITS ---
Author Organization [facility] Address [address] [place] [address] Care Team Providers Care Diagnostic Technician Name Role Phone Unavailable Unavailable Unavailable Surgery Details Not on file Complications Check Surgery Details section. Procedure Estimated Blood Loss Check Surgery Details section. Procedure Findings Check Surgery Details section. Procedure Specimens Taken Check Surgery Details section.
--- OUTSIDE RECORDS SUMMARY | 2024-08-02 16:34 | XMS_ITS | Encounter Summary ---
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 [address] [place] [address] Phone: tel: fax: [facility] Referral ID Status Reason Start Date Expiration Date V isits Requested Visits Authorized [id number] Authorized 08/02/2024 08/02/2025 1 1 MOBILE INSPECTOR * Outpatient (Routine) - Closed Specialty Diagnoses / Procedures Referred By Contac t Referred To Contact Radiation Oncology Luann De La Fuente P.A.-C., M.S. [address] [place] [address] Phone: tel: fax: Corinne Aguillon M.D. [address] [place] [address] Phone: tel: fax: Referral ID Status Reason Start Date Expiration Date Visits Re quested Visits Authorized [id number] Closed 07/23/2024 01/22/2026 1 1 Scheduling Instructions Can be scheduled with any MD, depending on availability. MOBILE INSPECTOR Reason for Visit * Outpatient (Routine) - Closed Specialty Diagnoses / Procedures Referred By Alex vergara Referred To Contact Radiation Oncology Luann De La Fuente P.A.-C., M.S. [address] [place] [phone] Phone: tel: fax: Corinne Aguillon M.D. [address] [place] [address] Phone: tel: fax: Referral ID Status Reason Start Date Expiration Date Visits Re quested Visits Authorized [id number] Closed 07/23/2024 01/22/2026 1 1 Encounter Details Date Type Department Care Team (Latest Contact Info) Description 08/02/2024 1:15 PM AUTOMOBILE INSPECTOR Hospital Encounter Department of Radiation Oncology in [place], [place] [address] [place] [phone] Sulaiman Ackerman M.D. [address] [place] [phone] Secondary Malignant Neoplasm Bone (HCC) (Primary Dx); Secondary Malignant Neoplasm Intrapelvic Lymph Node (HCC) Social History Tobacco Use Types Packs/Day Years Used Date Smoking Tobacco: Former Cigarettes 1 18 1 967 - 1984 Smokeless Tobacco: Never Alcohol Use Standard Drinks/Week Comments Yes 0 (1 standard drink = 0.6 oz pur e alcohol) [facility] Utilities Answer Date Recorded In the past 12 months has [employer] electric, gas, oil, or water company threatened [...] your living situation today? I have a [facility] to live 10/02/2023 Sex and Gender Information Value Date Recorded Sex Assigned at Male 10/02/2023 7:37 AM AUTOMOBILE INSPECTOR Legal Sex Male 2:40 PM AUTOMOBILE INSPECTOR Gender Identity Male 10/02/2023 7:37 AM AUTOMOBILE INSPECTOR Sexual Orientation Straight 10/02/2023 7: 37 AM AUTOMOBILE INSPECTOR documented as of this encounter Last Filed Vital Signs Vital Sign Reading Time Taken Comments Blood Pressure 116/61 08/02/2024 1:25 PM AUTOMOBILE INSPECTOR Pulse 93 08/02/2024 1:25 PM AUTOMOBILE INSPECTOR Temperature 37.4 C (99.4 F) 08/02/2024 1:25 PM AUTOMOBILE INSPECTOR Respiratory Rate - - Oxygen Saturation - - Inhaled Oxygen Concentration - - Weight 76.3 kg (168 lb 3.4 oz) 08/02/2024 1:25 P M AUTOMOBILE INSPECTOR Height - - Body Mass Index 24.91 01/30/2019 9:45 AM CDT documented in this encounter Plan of Treatment Upcoming Encounters Date Type Department Care Team (Late st Contact Info) Description 08/07/2024 3:00 PM AUTOMOBILE INSPECTOR Appointment Department of Radiation Oncology in [place] [address] [place] [address] Sulaiman Ackerman M.D. [address] [place] [address] 08/08/2024 12:45 PM AUTOMOBILE INSPECTOR Appointment Department of Radiation Oncology in [place], [place] [address] [place] [address] Sulaiman Ackerman M.D. 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
--- OUTSIDE RECORDS SUMMARY | 2024-08-02 16:34 | XMS_ITS | Encounter Summary ---
Author Organization [facility] Address [address] [place] [address] Care Team Providers Care Stenotype Operator Name Role Phone Unavailable Primary Care Provider Unavailabl e Reason for Visit * Reason Comments Med Refill Encounter Details Date Type Department Care Team (Late st Contact Info) Description 07/23/2024 Refill Department of Radiation Oncology in [place], [place] [address] [place] [phone] Sulaiman Ackerman M.D. [address] [place] [address] Med Refill Social History Tobacco Use Types Packs/Day Years Used Date Smoking Tobacco: Former Cigarettes 1 18 1 967 - 1984 Smokeless Tobacco: Never Alcohol Use Standard Drinks/Week Comments Yes 0 (1 standard drink = 0.6 oz pur e alcohol) [facility] Utilities Answer Date Recorded In the past 12 months has e [employer], gas, oil, or water [employer] threatened to shut off services in your [...] your living situation today? I have a [facility] place to live 10/02/2023 Sex and Gender Information Value Date Recorded Sex Assigned at Male 10/02/2023 7:37 AM MANAGER CREDIT RISK Legal Sex Male 2:40 PM MANAGER CREDIT RISK Gender Identity Male 10/02/2023 7:37 AM MANAGER CREDIT RISK Sexual Orientation Straight 10/02/2023 7: 37 AM MANAGER CREDIT RISK documented as of this encounter Plan of Treatment Upcoming Encounters Date Type Department Care Team (Late st Contact Info) Description 08/07/2024 3:00 PM MANAGER CREDIT RISK Appointment Department of Radiation Oncology in [place], [place] [address] [place] [phone] Sulaiman Ackerman M.D. [address] [place] [address] 08/08/2024 12:45 PM MANAGER CREDIT RISK Appointment Department of Radiation Oncology in [place], [place] [address] [place] [address] Sulaiman Ackerman M.D. [address] [place] [address] documented as of this encounter Visit Diagnoses Not on filedocumented in this encounter
--- OUTSIDE RECORDS SUMMARY | 2024-08-02 16:34 | XMS_ITS | Encounter Summary ---
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 [address] [place] [address] Phone: tel: fax: 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 [address] [place] [address] Phone: tel: fax: 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 [address] [place] [address] Phone: tel: fax: [facility] Referral ID Status Reason Start Date Expiration Date V isits Requested Visits Authorized [id number] Authorized 07/30/2024 07/30/2025 1 1 NT BABYSITTER Encounter Details Date Type Department Care Team (Late st Contact Info) Description 07/30/2024 Orders Only Department of Radiation Oncology in [place], [place] [address] [place] [phone] Luann De La Fuente P.A.-C., M.S. 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) (Primary Dx); Secondary Malignant Neoplasm Brain (HCC) Social History Tobacco Use Types Packs/Day Years Used Date Smoking Tobacco: Former Cigarettes 1 18 1 967 - 1984 Smokeless Tobacco: Never Alcohol Use Standard Drinks/Week Comments Yes 0 (1 standard drink = 0.6 oz pur e alcohol) [facility] Utilities Answer Date Recorded In the [...] Sex Assigned at Male 10/02/2023 7:37 AM INFANT BABYSITTER Legal Sex Male 2:40 PM INFANT BABYSITTER Gender Identity Male 10/02/2023 7:37 AM INFANT BABYSITTER Sexual Orientation Straight 10/02/2023 7: 37 AM INFANT BABYSITTER documented as of this encounter Plan of Treatment Upcoming Encounters Date Type Department Care Team (Late st Contact Info) Description 08/07/2024 3:00 PM INFANT BABYSITTER Appointment Department of Radiation Oncology in [place] [id number] [place] [address] Sulaiman Ackerman M.D. [address] [place] [address] 08/08/2024 12:45 PM INFANT BABYSITTER Appointment Department of Radiation Oncology in [place], [place] [address] [place] [address] Sulaiman Ackerman M.D. 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
--- OUTSIDE RECORDS SUMMARY | 2024-08-02 16:34 | XMS_ITS ---
Author Organization [facility] Address [address] [place] [address] Care Team Providers Care Clearance Representative Name Role Phone Unavailable Primary Care Provider [...] Cam M.D. on 01/29/2019 Current Oncology Plans Vascular Access Patency - Implanted Vascular Access Device (IVAD) Venous Non-Valved* Plan Start Date:05/23/2024 Plan Provider:Sulaiman Ackerman M.D. Linked Problems Secondary Malignant Neoplasm Skin Face (HCC) Treatment Medications No medications scheduled. Past Plans No past plan information found. Radiation Treatments * Plan Last Treated On Days Fractions Treated Prescribed Fraction Dose Prescribed Total Dose [id number] 07/04/2024 35 12 of 12 370 cGy 4,440 cGy [id number] 05/07/2024 4 3 of 3 1,000 cGy 3,000 cGy [id number] 03/09/2024 4 5 of 5 500 cGy 2,500 cGy [id number] 02/01/2024 20 15 of 15 300 cGy 4,500 cG y [id number] 05/25/2023 9 5 of 5 1,000 cGy 5,000 c Gy F1 Esophagus 03/13/2019 34 25 of 25 200 cGy 5,000 c Gy Reference Point Last Treated On Elapsed Days Session Dose Total Dose [id number] 07/04/2024 35 370 cGy 4,440 cGy [id number] 05/07/2024 4 1,000 cGy 3,000 cGy [id number] 03/09/2024 4 500 cGy 2,500 cGy [id number] RUL 02/01/2024 20 300 cGy 4,500 cGy [id number] RLL 05/25/2023 9 1,000 cGy 5,000 cGy [id number] 03/13/2019 34 200 cGy 5,000 cGy
--- OUTSIDE RECORDS SUMMARY | 2024-08-02 16:34 | XMS_ITS | Referral Summary ---
Author Organization [facility] Address [address] [place] [address] Care Team Providers Care Spray Blender Name Role Phone Unavailable Primary Care Provider Unavailabl e Source Comments Patient records contain information from all sites at [facility]. For routine questions regarding patient records, call [phone] during business hours, M-F 8:00 AM - 5:00 PM Central Time. Record requests for emergency care only can be directed to [phone] at any time.[facility] Encounters Date Type Department Care Team Description 08/02/2024 2:00 PM PRODUCT SAFETY ENGINEER Hospital Encounter Department of Radiation Oncology in [address] [address] Sulaiman Ackerman M.D. 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 Secondary Malignant Neoplasm Bone (HCC) (Primary Dx); Secondary Malignant Neoplasm Intrapelvic Lymph Node (HCC) 07/30/2024 Orders Only Department of Radiation Oncology in [address] [address] Luann De La Fuente P.A.-C., M.S. Malignant Neoplasm Of Esophagus Lower Third (HCC) (Primary Dx); Secondary Malignant Neoplasm Brain (HCC) 07/23/2024 Refill Department of Radiation Oncology in [address] [address] Sulaiman Ackerman M.D. Med Refill 07/23/2024 Clinical Communication Department of Radiation Oncology in [address] [address] Luann De La Fuente P.A.-C., M.S. 07/23/2024 9:19 AM PRODUCT SAFETY ENGINEER - 07/23/2024 12:35 PM PRODUCT SAFETY ENGINEER Hospital Encounter Department of Radiation Oncology in [address] [address] Corinne Aguillon M.D. Malignant Neoplasm Of Esophagus Lower Third (HCC) (Primary Dx) 07/20/2024 Orders Only Department of Radiation Oncology in [address] [address] Cyndie Kitchen APRN, C.N.P., D.N.P. Malignant Neoplasm Of Esophagus Lower Third (HCC) (Primary Dx); Secondary Malignant Neoplasm Bone (HCC); Secondary Malignant Neoplasm Soft Tissue (HCC) 07/17/2024 Orders Only Department of Radiation Oncology in [address] [address] Sulaiman Ackerman M.D. 07/16/2024 Orders Only Department of Radiation Oncology in [address] [address] Sulaiman Ackerman M.D. Malignant Neoplasm Of Esophagus Lower Third (HCC) (Primary Dx); Secondary Malignant Neoplasm Skin Face (HCC) 07/16/2024 8:46 AM PRODUCT SAFETY ENGINEER - 07/16/2024 11:31 AM PRODUCT SAFETY ENGINEER Hospital Encounter Department of Radiation Oncology in [address] [address] Sulaiman Ackerman M.D. Secondary Malignant Neoplasm Skin Face (HCC) (Primary Dx) 07/09/2024 12:37 PM PRODUCT SAFETY ENGINEER - 07/09/2024 4:06 PM PRODUCT SAFETY ENGINEER Hospital Encounter Department of Radiation Oncology in [address] [address] Corinne Aguillon M.D. Leenstra, James L, M.D. Secondary Malignant Neoplasm Skin Face (HCC) (Primary Dx) 07/04/2024 Documentation Department of Radiation Oncology in [address] [address] Sulaiman Ackerman M.D. 07/04/2024 Orders Only Department of Radiation Oncology in [address] [address] Luann De La Fuente P.A.-C., M.S. 07/04/2024 2:05 PM PRODUCT SAFETY ENGINEER Hospital Encounter Department of Radiation Oncology in [address] [address] Sulaiman Ackerman M.D. 07/04/2024 7:47 AM PRODUCT SAFETY ENGINEER Hospital Encounter Department of Radiation Oncology in [address] [address] Sulaiman Ackerman M.D. 07/03/2024 2:14 PM PRODUCT SAFETY ENGINEER - 07/03/2024 3:57 PM PRODUCT SAFETY ENGINEER Hospital Encounter Department of Radiation Oncology in [address] [address] Sulaiman Ackerman M.D. Secondary Malignant Neoplasm Skin Face (HCC) 07/03/2024 7:53 AM PRODUCT SAFETY ENGINEER Hospital Encounter Department of Radiation Oncology in [address] [address] Sulaiman Ackerman M.D. 07/03/2024 2:14 PM PRODUCT SAFETY ENGINEER Hospital Encounter Department of Radiation Oncology in [address] [address] Sulaiman Ackerman M.D. 07/02/2024 9:49 AM PRODUCT SAFETY ENGINEER - 07/02/2024 1:19 PM PRODUCT SAFETY ENGINEER Hospital Encounter Department of Radiation Oncology in [address] [address] Sulaiman Ackerman M.D. Secondary Malignant Neoplasm Skin Face (HCC) 06/25/2024 11:00 AM PRODUCT SAFETY ENGINEER - 06/27/2024 5:18 PM PRODUCT SAFETY ENGINEER Hospital Encounter Department of Radiation Oncology in [address] [address] Sulaiman Ackerman M.D. Secondary Malignant Neoplasm Skin Face (HCC) 06/25/2024 10:01 AM PRODUCT SAFETY ENGINEER - 06/27/2024 6:03 PM PRODUCT SAFETY ENGINEER Hospital Encounter Department of Radiation Oncology in [address] [address] Sulaiman Ackerman M.D. Secondary Malignant Neoplasm Skin Face (HCC) (Primary Dx) 06/13/2024 8:39 AM PRODUCT SAFETY ENGINEER - 06/19/2024 2:29 PM PRODUCT SAFETY ENGINEER Hospital Encounter Department of Radiation Oncology in [address] [address] Sulaiman Ackerman M.D. Secondary Malignant Neoplasm Skin Face (HCC) 06/13/2024 2:14 PM PRODUCT SAFETY ENGINEER - 06/13/2024 11:59 PM PRODUCT SAFETY ENGINEER Hospital Encounter Department of Radiation Oncology in [address] [address] Sulaiman Ackerman M.D. Discharge Disposition: Home or Self Care 06/13/2024 8:20 AM PRODUCT SAFETY ENGINEER - 06/13/2024 8:38 AM PRODUCT SAFETY ENGINEER Hospital Encounter Department of Radiation Oncology in [address] [address] Sulaiman Ackerman M.D. Discharge Disposition: Home or Self Care 06/12/2024 8:39 AM PRODUCT SAFETY ENGINEER - 06/12/2024 11:21 AM PRODUCT SAFETY ENGINEER Hospital Encounter Department of Radiation Oncology in [address] [address] Sulaiman Ackerman M.D. Secondary Malignant Neoplasm Skin Face (HCC) (Primary Dx); Secondary Malignant Neoplasm Bone (HCC) 06/12/2024 7:50 AM PRODUCT SAFETY ENGINEER - 06/12/2024 8:38 AM PRODUCT SAFETY ENGINEER Hospital Encounter Department of Radiation Oncology in [address] [address] Sulaiman Ackerman M.D. Discharge Disposition: Home or Self Care 06/12/2024 2:37 PM PRODUCT SAFETY ENGINEER - 06/12/2024 11:59 PM PRODUCT SAFETY ENGINEER Hospital Encounter Department of Radiation Oncology in [address] [address] Sulaiman Ackerman M.D. Discharge Disposition: Home or Self Care 05/31/2024 2:33 PM CDT - 05/31/2024 4:15 PM CDT Hospital Encounter Department of Radiation Oncology in [address] [address] Sulaiman Ackerman M.D. Eby, Courtney C, RDN Secondary Malignant Neoplasm Skin Face (HCC) 05/31/2024 7:13 AM CDT - 05/31/2024 2:32 PM CDT Hospital Encounter Department of Radiation Oncology in [address] [address] Sulaiman Ackerman M.D. Discharge Disposition: Home or Self Care 05/31/2024 2:33 PM CDT - 05/31/2024 11:59 PM CDT Hospital Encounter Department of Radiation Oncology in [address] [address] Sulaiman Ackerman M.D. Discharge Disposition: Home or Self Care 05/30/2024 2:35 PM CDT - 05/30/2024 5:38 PM CDT Hospital Encounter Department of Radiation Oncology in [address] [address] Sulaiman Ackerman M.D. Secondary Malignant Neoplasm Skin Face (HCC) 05/30/2024 7:23 AM CDT - 05/30/2024 2:34 PM CDT Hospital Encounter Department of Radiation Oncology in [address] [address] Sulaiman Ackerman M.D. Discharge Disposition: Home or Self Care 05/30/2024 2:35 PM CDT - 05/30/2024 11:59 PM CDT Hospital Encounter Department of Radiation Oncology in [address] [address] Sulaiman Ackerman M.D. Discharge Disposition: Home or Self Care 05/23/2024 2:08 PM CDT - 05/25/2024 11:52 AM CDT Hospital Encounter Department of Radiation Oncology in [address] [address] Sulaiman Ackerman M.D. Secondary Malignant Neoplasm Skin Face (HCC) 05/23/2024 12:44 PM CDT - 05/25/2024 11:47 AM CDT Hospital Encounter Department of Radiation Oncology in [address] [address] Sulaiman Ackerman M.D. Secondary Malignant Neoplasm Skin Face (HCC) (Primary Dx) 05/23/2024 2:00 PM CDT - 05/24/2024 4:08 PM CDT Hospital Encounter Department of Radiation Oncology in [address] [address] Sulaiman Ackerman M.D. RetterathKatie, RCindiNCindi Secondary Malignant Neoplasm Skin Face (HCC) (Primary Dx) 05/16/2024 8:33 AM CDT - 05/23/2024 11:54 AM CDT Hospital Encounter Department of Radiation Oncology in [address] [address] Sulaiman Ackerman M.D. Secondary Malignant Neoplasm Skin Face (HCC) (Primary Dx) 05/16/2024 9:00 AM CDT Ancillary Procedure Department of Oncology 05/14/2024 Clinical Communication Department of Radiation Oncology in [address] [address] Sulaiman Ackerman M.D. 05/07/2024 Documentation Department of Radiation Oncology in [address] [address] Sulaiman Ackerman M.D. 05/07/2024 11:28 AM CDT - 05/07/2024 12:00 PM CDT Hospital Encounter Department of Radiation Oncology in [address] [address] Sulaiman Ackerman M.D. Secondary Malignant Neoplasm Bone (HCC) 05/07/2024 12:01 PM CDT - 05/07/2024 11:59 PM CDT Hospital Encounter Department of Radiation Oncology in [address] [address] Sulaiman Ackerman M.D. Discharge Disposition: Home or Self Care 05/01/2024 10:32 AM CDT - 05/07/2024 11:27 AM CDT Hospital Encounter Department of Radiation Oncology in [address] [address] Sulaiman Ackerman M.D. Secondary Malignant Neoplasm Bone (HCC) 05/04/2024 12:22 PM CDT - 05/04/2024 11:59 PM CDT Hospital Encounter Department of Radiation Oncology in [address] [address] Sulaiman Ackerman M.D. Discharge Disposition: Home or Self Care 05/03/2024 1:47 PM CDT - 05/03/2024 11:59 PM CDT Hospital Encounter Department of Radiation Oncology in [address] [address] Sulaiman Ackerman M.D. Discharge Disposition: Home or Self Care 05/01/2024 9:33 AM CDT - 05/02/2024 10:31 AM CDT Hospital Encounter Department of Radiation Oncology in [address] [address] Sulaiman Ackerman M.D. Secondary Malignant Neoplasm Bone (HCC) (Primary Dx); Malignant Neoplasm Of Esophagus Lower Third (HCC) from Last 3 Months Allergies No known active allergies Medications atorvastatin [...] has e electric, gas, oil, or water Level threatened to shut off services in your [...] your living situation today? I have a [facility] place to live 10/02/2023 Sex and Gender Information Value Date Recorded Sex Assigned at Male 10/02/2023 7:37 AM PRODUCT SAFETY ENGINEER Legal Sex Male 2:40 PM PRODUCT SAFETY ENGINEER Gender Identity Male 10/02/2023 7:37 AM PRODUCT SAFETY ENGINEER Sexual Orientation Straight 10/02/2023 7: 37 AM PRODUCT SAFETY ENGINEER Last Filed Vital Signs Vital Sign Reading Time Taken Comments Blood Pressure 116/61 08/02/2024 1:25 PM PRODUCT SAFETY ENGINEER Pulse 93 08/02/2024 1:25 PM PRODUCT SAFETY ENGINEER Temperature 37.4 C (99.4 F) 08/02/2024 1:25 PM PRODUCT SAFETY ENGINEER Respiratory Rate - - Oxygen Saturation - - Inhaled Oxygen Concentration - - Weight 76.3 kg (168 lb 3.4 oz) 08/02/2024 1:25 P M PRODUCT SAFETY ENGINEER Height 175 cm (5' 8.9) 01/30/2019 9:45 AM CDT Body Mass Index 24.91 01/30/2019 9:45 AM CDT Plan of Treatment Upcoming Encounters Date Type Department Care Team (Late st Contact Info) Description 08/07/2024 3:00 PM PRODUCT SAFETY ENGINEER Appointment Department of Radiation Oncology in [address] [phone] Sulaiman Ackerman M.D. [address] [place] [address] 08/08/2024 12:45 PM PRODUCT SAFETY ENGINEER Appointment Department of Radiation Oncology in [address] [address] Sulaiman Ackerman M.D. [address] [place] [address] [phone] (work) Procedures Procedure Name Priority Date/Time Associated Diagnosis Comments INITIAL RAD ONC TREATMENT PLANNING CT SIMULATION Routine 08/02/2024 2:00 PM PRODUCT SAFETY ENGINEER Malignant Neoplasm Of Esophagus Lower Third (HCC) Secondary Malignant Neoplasm Brain (HCC) OUTSIDE MR NEURO Routine 07/28/2024 5:30 PM PRODUCT SAFETY ENGINEER OUTSIDE CT BODY Routine 07/25/2024 1:30 PM PRODUCT SAFETY ENGINEER OUTSIDE NM PET Routine 07/19/2024 3:15 PM PRODUCT SAFETY ENGINEER ARIA COURSE COMPLETE TREATMENT INFORMATION Routine 07/04/2024 2:49 PM PRODUCT SAFETY ENGINEER ARIA DAILY TREATMENT INFORMATION Routine 07/04/2024 2:49 PM PRODUCT SAFETY ENGINEER ARIA DAILY TREATMENT INFORMATION Routine 07/04/2024 8:05 AM PRODUCT SAFETY ENGINEER ARIA DAILY TREATMENT INFORMATION Routine 07/03/2024 2:44 PM PRODUCT SAFETY ENGINEER ARIA DAILY TREATMENT INFORMATION Routine 07/03/2024 8:23 AM PRODUCT SAFETY ENGINEER VERIFICATION/RE-SIM Routine 06/25/2024 1 1:20 AM PRODUCT SAFETY ENGINEER Secondary Malignant Neoplasm Skin Face (HCC) ARIA DAILY TREATMENT INFORMATION Routine 06/13/2024 2:45 PM PRODUCT SAFETY ENGINEER ARIA DAILY TREATMENT INFORMATION Routine 06/13/2024 8:34 AM PRODUCT SAFETY ENGINEER ARIA DAILY TREATMENT INFORMATION Routine 06/12/2024 3:16 PM PRODUCT SAFETY ENGINEER ARIA DAILY TREATMENT INFORMATION Routine 06/12/2024 8:51 AM PRODUCT SAFETY ENGINEER ARIA DAILY TREATMENT INFORMATION Routine 05/31/2024 2:54 [...] BRAIN WWO-Outside MR Neuro (07/28/2024 5:30 PM PRODUCT SAFETY ENGINEER) Narrative [facility] - 07/30/2024 9:20 AM PRODUCT SAFETY ENGINEER This order has been created and auto-finalized to support the import of outside images. If available, original interpretation can be found on the Media Tab in Chart Review, in Document Viewer, as an image in QREADS or as an Addendum. If a re-interpretation or overread is required please follow defined workflow. us Provider Not In System IMG MRI PROCEDURES Final Result [facility] NA * CT Abdomen Pelvis W-Outside CT Body (07/25/2024 1:30 PM PRODUCT SAFETY ENGINEER) Narrative [facility] - 07/26/2024 8:40 AM PRODUCT SAFETY ENGINEER This order has been created and auto-finalized [...] PROCEDURES Final R esult Performing Organization Address City/[facility] Co de Phone Number [facility] NA * PET skull to mid thigh-Outside NM Pet (07/19/2024 3:15 PM PRODUCT SAFETY ENGINEER) 07/19/2024 3:13 PM PRODUCT SAFETY ENGINEER Narrative [facility] - 07/19/2024 5:41 PM PRODUCT SAFETY ENGINEER This order has been created and auto-finalized [...] PROCEDURES Final R esult Performing Organization Address [facility] de Phone Number [facility] NA * Aria Course Complete Treatment Information (07/04/2024 2:49 PM PRODUCT SAFETY ENGINEER) Only the most recent of4 resultswithin the time period is included. Course ID 6xMultiSi te [facility]ARD[facility]A Course Start Date 4 08:39 PRODUCT SAFETY ENGINEER [facility] Course End Date 4 14:52 PRODUCT SAFETY ENGINEER [facility]A First Treatment Date 4 07:39 PRODUCT SAFETY ENGINEER [facility]A Last Treatment Date 4 14:49 PRODUCT SAFETY ENGINEER [facility]A Treatment Elapsed Days 35 CARD[facility] ARIA Reference Point [id number] [facility] Dosage Given to Date cGy 4440 CARDONA ARIA Plan ID [id number]_C hest [facility] Fractions Treated to Date 12 [facility] ARIA Planned Total Fractions 12 [facility]A Prescribed Dose Per Fraction 370 [facility]A Prescription Dose in cGy 4440 CARDONA ARIA Plan Primary Reference Point [id number] [facility] ARIA 07/04/2024 2:49 PM PRODUCT SAFETY ENGINEER us Provider Not In System RADIATION ONCOLOGY ORDERA BLES Final Result BRENDAN GARCIA na * Aria Daily Treatment Information (07/04/2024 2:49 PM PRODUCT SAFETY ENGINEER) Only the most recent of15 resultswithin the time period is included. Course ID 6xMultiSi te [facility] ARIA Course Start Date 4 08:39 PRODUCT SAFETY ENGINEER [facility] ARIA First Treatment Date 4 07:39 PRODUCT SAFETY ENGINEER [facility]ONA ARIA Last Treatment Date 4 14:49 PRODUCT SAFETY ENGINEER [facility] ARIA Treatment Elapsed Days 35 CARDONA ARIA Reference Point [id number] [facility]A Dosage Given to Date cGy 4440 CARDONA ARIA Session Dosage Given 370 CARDONA ARIA Plan ID [id number]_C hest [facility] ARIA Fractions Treated to Date 12 CARDONA ARIA Planned Total Fractions 12 CARDONA ARIA Prescribed Dose Per Fraction 370 CARDONA ARIA Prescription Dose in cGy 4440 CARDONA ARIA Plan Primary Reference Point [id number] [facility]ARDONA ARIA 07/04/2024 2:49 PM PRODUCT SAFETY ENGINEER us Provider Not In System RADIATION ONCOLOGY ORDERA BLES Final Result Performing Organization Address [facility] Co de Phone Number BRENDAN GARCIA na * Verification/Re-Sim (06/25/2024 11:20 AM PRODUCT SAFETY ENGINEER) Narrative [facility] - 06/25/2024 11:20 AM PRODUCT SAFETY ENGINEER This exam does not require a oncologist review or interpretation. Please refer to the patient s medical record on this date for clinical details. us Sulaiman Ackerman M.D. RADIATION ONCOLOGY ORDERAB LES Final Result Performing Organization Address City/[facility]/ZIP Co de Phone Number BRENDAN GARCIA na * Initial Rad Onc Treatment Planning CT Simulation (05/23/2024 2:30 PM CDT) Narrative [facility] - 05/23/2024 2:30 PM CDT Mary Ann Figueroa, RTT 05/23/2024 3:53 PM Initial Rad Onc Treatment Planning CT Simulation Performed by: Sulaiman Ackerman M.D. Authorized by: Sulaiman Ackerman M.D. Sulaiman Ackerman M.D. RADIATION ONCOLOGY ORDERAB LES Final Result BRENDAN GARCIA na * Face 507-Oncology Image Exam (05/16/2024 9:00 AM CDT) 05/16/2024 9:00 AM CDT Narrative [facility] - 05/16/2024 9:54 AM CDT This order has been created and auto-finalized to support the import of images acquired without order. The clinical documentation to support these images can be found on the encounter that produced images. Provider Not In System IMG NON RAD IMAGING PROCE DURES Final Result Performing Organization Address City/[facility] Co de Phone Number IIDE NA from Last 3 Months Insurance MEDICARE [facility]
--- OUTSIDE RECORDS SUMMARY | 2024-08-02 16:34 | XMS_ITS | Encounter Summary ---
Author Organization [facility] Address [address] [place] [address] Care Team Providers Care Ssis Architect Name Role Phone Unavailable Primary Care Provider Unavailabl e Reason for Referral * Radiation Therapy (Routine) - Closed Specialty Diagnoses / Procedures Referred By Alex vergara Referred To Contact Diagnoses Malignant Neoplasm Of Esophagus Lower Third (HCC) Secondary Malignant Neoplasm Brain (HCC) Procedures Initial Rad Onc Treatment Planning CT Simulation Sulaiman Ackerman M.D. [address] [place] [address] Phone: tel: fax: [facility] Region Referral ID Status Reason Start Date Expiration Date Visits Re quested Visits Authorized [id number] Closed 07/30/2024 07/30/2025 1 1 RISK MANAGEMENT CONSULTANT Reason for Visit * Radiation Therapy (Routine) - Closed Specialty Diagnoses / Procedures Referred By Alex vergara Referred To Contact Diagnoses Malignant Neoplasm Of Esophagus Lower Third (HCC) Secondary Malignant Neoplasm Brain (HCC) Procedures Initial Rad Onc Treatment Planning CT Simulation Sulaiman Ackerman M.D. [address] [place] [address] Phone: tel: fax: [facility] Region Referral ID Status Reason Start Date Expiration Date Visits Re quested Visits Authorized [id number] Closed 07/30/2024 07/30/2025 1 1 Encounter Details Date Type Department Care Team (Latest Contact Info) Description 08/02/2024 2:00 PM SR RISK MANAGEMENT CONSULTANT Hospital Encounter Department of Radiation Oncology in [place], [place] [address] [place] [address] Sulaiman Ackerman M.D. [address] [place] [address] Malignant Neoplasm Of Esophagus Lower Third (HCC); Secondary Malignant Neoplasm Brain (HCC) Social History Tobacco Use Types Packs/Day Years Used Date Smoking Tobacco: Former Cigarettes 1 18 1 967 - 1984 Smokeless Tobacco: Never Alcohol Use Standard Drinks/Week Comments Yes 0 (1 standard drink = 0.6 oz pur e alcohol) [facility] Utilities Answer Date Recorded In the [...] Sex Assigned at Male 10/02/2023 7:37 AM SR RISK MANAGEMENT CONSULTANT Legal Sex Male 2:40 PM SR RISK MANAGEMENT CONSULTANT Gender Identity Male 10/02/2023 7:37 AM SR RISK MANAGEMENT CONSULTANT Sexual Orientation Straight 10/02/2023 7: 37 AM SR RISK MANAGEMENT CONSULTANT documented as of this encounter Plan of Treatment Upcoming Encounters Date Type Department Care Team (Late st Contact Info) Description 08/07/2024 3:00 PM SR RISK MANAGEMENT CONSULTANT Appointment Department of Radiation Oncology in [place], [place] [address] [place] [address] Sulaiman Ackerman M.D. [address] [place] [address] 08/08/2024 12:45 PM SR RISK MANAGEMENT CONSULTANT Appointment Department of Radiation Oncology in [address] [address] Sulaiman Ackerman M.D. [address] [place] [address] Pending Results Name Type Priority Associated Diagnoses Date/Time Initial Rad Onc Treatment Planning CT Simulation Procedural Imaging Routine Malignant Neoplasm Of Esophagus Lower Third (HCC) Secondary Malignant Neoplasm Brain (HCC) 08/02/2024 2:00 PM SR RISK MANAGEMENT CONSULTANT documented as of this encounter Procedures Procedure Name Priority Date/Time Associated Diagnosis Comments INITIAL RAD ONC TREATMENT PLANNING CT SIMULATION Routine 08/02/2024 2:00 PM SR RISK MANAGEMENT CONSULTANT Malignant Neoplasm Of Esophagus Lower Third (HCC) Secondary Malignant Neoplasm Brain (HCC) documented in this encounter Visit Diagnoses Diagnosis Malignant Neoplasm Of Esophagus Lower Third (HCC) Secondary Malignant Neoplasm Brain (HCC) documented in this encounter
--- OUTSIDE RECORDS SUMMARY | 2024-08-02 16:35 | XMS_ITS | Encounter Summary ---
Author Organization [facility] Address [address] [place] [address] Care Team Providers Care Service Clerk Name Role Phone Unavailable Primary Care Provider Unavailabl e Reason for Referral * Outpatient (Routine) - Closed Specialty Diagnoses / Procedures Referred By Alex vergara Referred To Contact Radiation Oncology Sulaiman Ackerman M.D. [address] [place] [address] Phone: tel: [facility] Referral ID Status Reason Start Date Expiration Date Visits Re quested Visits Authorized [id number] Closed 07/09/2024 01/08/2026 1 1 NCIAL SPECIALIST Reason for Visit * Outpatient (Routine) - Closed Specialty Diagnoses / Procedures Referred By Alex vergara Referred To Contact Radiation Oncology Sulaiman Ackerman M.D. [address] [place] [address] Phone: tel: fax: [facility] Referral ID Status Reason Start Date Expiration Date Visits Re quested Visits Authorized [id number] Closed 07/09/2024 01/08/2026 1 1 Encounter Details Date Type Department Care Team (Latest Contact Info) Description 07/16/2024 8:46 AM FINANCIAL SPECIALIST - 07/16/2024 11:31 AM FINANCIAL SPECIALIST Hospital Encounter Department of Radiation Oncology in [place], [place] [address] [place] [phone] Sulaiman Ackerman M.D. [address] [place] [address] Secondary Malignant Neoplasm Skin Face (HCC) (Primary Dx) Social History Tobacco Use Types Packs/Day Years Used Date Smoking Tobacco: Former Cigarettes 1 18 1 967 - 1984 Smokeless Tobacco: Never Alcohol Use Standard Drinks/Week Comments Yes 0 (1 standard drink = 0.6 oz pur e alcohol) [facility] Utilities Answer Date Recorded In the past 12 months has e [employer], gas, oil, or water [employer] threatened to shut off services in your [...] your living situation today? I have a [facility] place to live 10/02/2023 Sex and Gender Information Value Date Recorded Sex Assigned at Male 10/02/2023 7:37 AM FINANCIAL SPECIALIST Legal Sex Male 2:40 PM FINANCIAL SPECIALIST Gender Identity Male 10/02/2023 7:37 AM FINANCIAL SPECIALIST Sexual Orientation Straight 10/02/2023 7: 37 AM FINANCIAL SPECIALIST documented as of this encounter Last Filed Vital Signs Vital Sign Reading Time Taken Comments Blood Pressure 133/66 07/16/2024 10:19 AM FINANCIAL SPECIALIST Pulse 71 07/16/2024 10:19 AM FINANCIAL SPECIALIST Temperature 36.8 C (98.2 F) 07/16/2024 8:56 AM FINANCIAL SPECIALIST Respiratory Rate - - Oxygen Saturation - - Inhaled Oxygen Concentration - - Weight 77.1 kg (169 lb 15.6 oz) 07/16/2024 8:56 AM FINANCIAL SPECIALIST Height - - Body Mass Index 25.18 01/30/2019 9:45 AM CDT documented in this encounter Medications at Time of Discharge acetaminophen (TylenoL) 500 mg capsule Take 500 mg by mouth every 6 (six) hours as needed for pain. atorvastatin (LIPITOR) 10 mg tablet Take 10 mg by mouth. 11/24/2018 bisacodyL (Dulcolax) 5 mg EC tablet Take 5 mg by mouth daily as needed for constipation. calcium carbonate 1000 mg (400 mg calcium) chewable tablet Chew 1 tablet as needed for indigestion or heartburn. cyanocobalamin (Vitamin B-12) 500 mcg tablet Take 500 mcg by mouth as needed (Neuropathy). diphenhydramine-li docaine 2 %-antacid (mw) Take 5-10 mL by mouth 4 (four) times a day before meals and bedtime. Swish in mouth for 1 minute and then spit out solution.Do not eat or drink for 15-30 minutes after use. 480 mL 1 07/02/2024 doxepin (SINEquan) 10 mg/mL concentrated solution Mix 2.5 mL solution with 2.5 mL of water. Swish medication in mouth. May use every six hours as needed for pain. 118 mL 1 07/02/2024 LORazepam (Ativan) 0.5 mg tablet Take 0.5 mg by mouth every 6 (six) hours as needed (nausea). mometasone (Elocon) 0.1 % cream Apply 1 Application topically daily. Apply to skin within the treatment field. 45 g 1 05/30/2024 morphine (MS Contin) 30 mg ER tabletIndications: Prolonged Acute Pain/Traumatic Injury Take 1 tablet (30 mg total) by mouth 2 (two) times a day Indication: Prolonged Acute Pain/Traumatic Injury. 60 tablet 07/09/2024 5 multivitamin tablet Take 1 tablet by mouth. 10/11/2011 naloxone (Narcan) 4 mg/actuation nasal spray Administer 1 spray (4 mg total) into one nostril as needed for reversal. Use 1 spray in 1 nostril. Repeat with second device in other nostril after 2-3 minutes if no or minimal response. 2 each 06/25/2024 ondansetron (Zofran) 4 mg tablet Take 4 mg by mouth every 6 (six) hours as needed for nausea or vomiting. 06/05/2024 prednisoLONE acetate (Pred Forte) 1 % ophthalmic suspension Administer 1 drop into both eyes 3 (three) times a day. 05/29/2024 prochlorperazine (Compazine) 10 mg tablet Take 1 tablet (10 mg total) by mouth every 6 (six) hours as needed for nausea or vomiting. 30 tablet 07/09/2024 morphine (MSir) 15 mg tabletIndications: Prolonged Acute Pain/Traumatic Injury Take 0.5 tablets (7.5 mg total) by mouth every 4 (four) hours as needed for pain Indication: Prolonged Acute Pain/Traumatic Injury. 30 tablet 06/25/2024 4 documented as of this encounter Progress Notes * Sulaiman Ackerman M.D. - 07/16/2024 9:00 AM CST SUBJECTIVE DIAGNOSIS 1. Secondary Malignant Neoplasm Skin Face (HCC) HISTORY OF PRESENT ILLNESS Mr. Te Archuleta is a 73-year-old male with metastatic adenocarcinoma of the esophagus. He completed palliative quad shot radiation therapy to lesions of the right chin and right suprasternal notch on July 04, 2024. His oncologic history is as follows: Oncology [...] was performed by Dr. Keven Hammonds, from [facility]. [place] and tumor was seen in [...] Oncology consultation with Dr. Xavier Brown at [facility] who discussed weekly Taxol and carboplatin chemotherapy concurrent with radiation as an initial strategy. Referral to Radiation Oncology. 8. January 29, 2019: Port placement performed at [facility]. 9. February 07, 2019 through March [...] of Dr. Brown on Tuesdays at the [facility]. 04/16/2019 Critical Imaging PET/CT IMPRESSION: 1. [...] Other PET-CT findings as detailed above. CT Chest/Abdomen/Pelvis IMPRESSION: Persistent mild circumferential thickening distal esophagus. This is presumably the primary site ofcancer. No local or distant metastatic disease. Previous tiny periesophageal lymph node is significantly diminished and indistinct. 05/07/2019 Surgery and Procedures Robotic assisted transhiatal total esophagectomy with partial gastrectomy with jejunostomy tube placement. Pathology: 1. Negative for residual neoplasm: -Status [...] with colonic interposition. No evidence of metastatic disease. 12/31/[address] chest abdomen and pelvis demonstrated stable postoperative changes of total esophagectomy with no evidence of metastatic disease. 03/31/[address] chest abdomen and [...] abdomen or pelvis. Launch changes from prior exam. 10/08/[address] chest abdomen and pelvis demonstrated stable 3 mm nodule in the right lower lobe with no other evidence of metastatic disease. 02/09/[address] chest abdomen and pelvis demonstrated no evidence of metastatic disease 06/19/[address] chest abdomen and pelvis demonstrated interval development of multiple right hemithorax pleural-based masses measuring up to 3.3 cm, suspicious for metastatic lesions. Recommended biopsies. Stablepostoperative changes of total esophagectomy and distal colonic resection. 07/01/2021 Biopsy/Pathology Final Diagnosis A) RIGHT PLEURA, IMAGE GUIDED NEEDLE CORE BIOPSY WITH CYTOLOGIC TOUCH IMPRINTS: 1. Adenocarcinoma consistent with metastasis from esophageal primary 2. See comment 07/22/2021 - 04/2023 Chemotherapy Under the care of Dr. Na Romano, [facility]. July 2021: Initiated Xeloda, cisplatin, Herceptin, and Keytruda. August 2021: Continued with Xeloda, cisplatin, and Herceptin only. Removed Keytruda after reviewing NextGen sequencing results. December 2021: continued with Xeloda and Herceptin [...] measuring 1.4 cm 10/15/2021 Critical Imaging PET-CT Impression: 1. Largely resolved or nearly resolved multiple [...] air/stool filled colon extend into the diaphragmatic hiatus. 3. Otherwise no tracer avid sites of distant metastatic disease in the neck, abdomen/pelvis, or bony structures. 12/24/2021 Critical Imaging PET-CT Impression: 1. Overall [...] or metastatic disease 01/20/2023 Critical Imaging PET-CT Impression: 1. Cluster of centrilobular and tree-in-bud opacities in the left upper lobe with associated mild uptake, likely infectious/inflammatory bronchiolitis. 2. Otherwise no evidence of tracer avid metastases. 04/12/2023 Other Patient fell in tomato garden [...] aspect, 1.3 x 0.8 cm in the midportion. 05/16/2023 - 05/25/2023 Radiation Therapy Stereotactic radiotherapy to the right lower lobe pleura to a total dose of 5000 cGy in 5 fractions; treatment administered every other day. 06/24/[address] chest abdomen and [...] sites of hypermetabolic disease at this time. 10/07/2023 - 04/30/2024 Chemotherapy Xeloda, Herceptin, and Oxaliplatin initiated with Dr. Quinteros [facility]. 12/31/23 - 01/20/24: oxaliplatin held while receiving RT to persistent right apical lesion, Xeloda reduced. Discontinued April 2024 due to progression of disease. 12/22/2023 Critical Imaging PET/CT CONCLUSION: 1. Significant [...] 4500 cGy in 15 fractions to right apex. 02/22/2024 Critical Imaging Ultrasound neck/head Impression: Subcutaneous solid/cystic mass measuring 1.8 x 1.5 x 1.9 cm with central fluid or necrosis. CT willbe performed subsequently. CT neck soft tissue Impression: Circumscribed 1.8 cm lesion located just beneath the skin within the right lower face superficial to the mandible. This is likely infectious and percutaneous biopsy will be performed. 02/22/2024 Biopsy/Pathology Final Diagnosis SKIN, RIGHT CHIN, [...] total dose of 2500 cGy in 5 fractions. 04/09/[address] CAP IMPRESSION: 1. [...] hypermetabolic right thyroid nodule. Recommend dedicated ultrasound. 05/03/2024 - 05/07/2024 Radiation Therapy 3 fractions of radiation therapy to the right humerus for a total of 3000 cGy. 05/08/2024 - Chemotherapy Initiated [facility] under the care of Dr. Quinteros. Secondary Malignant Neoplasm Skin Face (HCC) 05/30/2024 - 07/04/2024 Radiation Therapy Radiation Therapy Treatment Details (05/30/2024 - 07/04/2024) Site: Right Chin Fractions: 12 Technique: IMRT Dose: 4440 cGy Goal: Palliative Planned Treatment Start Date: 05/30/2024 INTERVAL HISTORY The patient reports increased fatigue and nausea, difficulty with sleep, and pain in his right arm and left hip since last week. He is taking morphine ER 30 mg twice daily. He is also taking morphineIR 7.5 mg as needed for breakthrough pain, but only taking it fairly sparingly. We reviewed my painscale and it seems that he is having more episodes of 6 to 8/10 pain then we may have appreciated. Last week he had 4 days of no bowel movements. Now he is taking Senokot-S with benefit. The pain in his left hip is making it difficult for him to sleep on his left side. Pain in his right shoulder comes and goes. He is trying to get in good oral intake but is having more difficulty with this. He isalso experiencing nausea which does seem to respond to Compazine. He has Zofran available was well but has not been taking it. He is also not taking any Tylenol. He is continuing good skin care with use of Aquaphor, Xeroform, and Telfa gauze. REVIEW OF SYSTEMS Review of systems was negative except as documented above. OBJECTIVE BP 133/66 (BP Location: Right arm, Patient Position: Sitting) Pulse 71 Temp 36.8 ??C (Temporal) Wt 77.1 kg BMI 25.18 kg/m?? Blood pressure sitting 133/66, pulse 77. Blood pressure standing 118/69, pulse 81. PHYSICAL EXAMINATION General: Patient is alert and oriented and in no apparent distress. He looks tired. The patient is here today with his . ENT: Mucositis of the right lower gum is present. His right lower lip is swollen as well. No signs of thrush. Skin: Erythematous skin of the right chin. Lesion of the right chin with overlying eschar with somesurrounding moist desquamation. The skin on his neck and suprasternal notch is now healed. 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 #2 Radiation therapy with concurrent chemotherapy to the lower esophagus and surrounding lymph nodes completed March 2019 #3 Total esophagectomy May 2019 #4 Progression of disease with right lower pleural masses biopsy-proven July 2021 #5 Initiated on Xeloda, CISplatin, Herceptin, and Keytruda July 2021; continued with [...] humeral head #13 Initiated [place] May 2024 #14 Stereotactic body radiation therapy to the right humeral head initiated on May 03, 2024; completed on May 07, 2024 #15 Quad shot radiation therapy to the right chin and right suprasternal notch lesions initiated onMay 30, 2024; completed on July 04, 2024 I reassured the patient and his that all of his side effects are anticipated and that it will take another few weeks for him to noticed marked improvement. He agreed to a schedule that includes morphine 30 mg extended release every 12 hours, more scheduled immediate release morphine 7.5 mg every 6 hours, acetaminophen a 1000 mg every 6 hours, and alternating Zofran and ibuprofen every 6 hours while he is awake. We reviewed the fact that he should not exceed 4000 mg of acetaminophen in a 24hour period. He will also take scheduled Senokot-S 2 tablets at 6:00 p.m. He will also take melatonin at night if he is having difficulty with sleep. He is mildly orthostatic, and I think this may becontributing to some of his nausea. I ordered 0.9 normal saline 500 mg or 30 minutes x2 doses at the [facility] this morning. We gave him more supplies for dressing changes which he will continue. [facility] The patient is scheduled for a PET/CT scan on July 19, 2024, as ordered by Medical Oncology. I will review these images on Tuesday and contact the patient by phone to see if her areas in his left hip and/or right shoulder that may need treatment to help alleviate his pain. I am away next week, but our nursing staff will meet with him on Tuesday if necessary. I discussed his care with Sadia Thurman APRN, and Cyndie Kitchen CNP. He is also scheduled for a follow-up visit with Jena Dickey P.A.-C. in Medical Oncology on July 31, 2024. The patient will contact us with questions or concerns. He verbally expressed his understanding of the plan. EDUCATION: Ready to learn, no apparent learning barriers were identified; learning preferences include listening. Explained diagnosis and treatment plan; patient expressed understanding of the content. I personally spent 60 minutes in care of the patient today. Time includes both non face to face andface to face patient care. Signed by: Sulaiman Ackerman M.D. 07/16/2024 11:30 AM FINANCIAL SPECIALIST [facility] [address] [place] [address] NCIAL SPECIALIST documented in this encounter Miscellaneous Notes * Addendum Note - Christiane Anderson, C.N.A. - 07/16/2024 9:00 AM CSTEncounter addended by: Christiane Anderson C.N.A. on: 07/16/2024 12:17 PM Actions taken: Letter saved NCIAL SPECIALIST documented in this encounter Plan of Treatment Upcoming Encounters Date Type Department Care Team (Late st Contact Info) Description 08/07/2024 3:00 PM FINANCIAL SPECIALIST Appointment Department of Radiation Oncology in [address] [phone] Sulaiman Ackerman M.D. [address] [place] [address] 08/08/2024 12:45 PM FINANCIAL SPECIALIST Appointment Department of Radiation Oncology in [address] [phone] Sulaiman Ackerman M.D. [address] [place] [address] Scheduled Referrals Name Type Priority Associated Diagnoses Order Schedule Radiation Oncology office visit (clinic) Outpatient Referral Routine Once for 1 Occurrences starting 07/16/2024 until 07/16/2024 documented as of this encounter Visit Diagnoses Diagnosis Secondary Malignant Neoplasm Skin Face (HCC)- Primary documented in this encounter
--- OUTSIDE RECORDS SUMMARY | 2024-08-02 16:35 | XMS_ITS | Encounter Summary ---
Author Organization [facility] Address [address] [place] [address] Care Team Providers Care Administrative Services Officer Name Role Phone Unavailable Primary Care Provider Unavailabl e Reason for Referral * Outpatient (Routine) - Closed Specialty Diagnoses / Procedures Referred By Alex t Referred To Contact Radiation Oncology Luann De La Fuente P.A.-C., M.S. [address] [place] [phone] Phone: tel: fax: Corinne Aguillon M.D. [address] [place] [phone] Phone: tel: fax: Referral ID Status Reason Start Date Expiration Date Visits Re quested Visits Authorized [id number] Closed 07/23/2024 01/22/2026 1 1 Scheduling Instructions Can be scheduled with any MD, depending on availability. ING MACHINE OPERATOR Encounter Details Date Type Department Care Team (Late st Contact Info) Description 07/23/2024 Clinical Communication Department of Radiation Oncology in [place], [place] [address] [place] [phone] Luann De La Fuente P.A.-C., M.S. [address] [place] [phone] Social History Tobacco Use Types Packs/Day Years Used Date Smoking Tobacco: Former Cigarettes 1 18 1 967 - 1984 Smokeless Tobacco: Never Alcohol Use Standard Drinks/Week Comments Yes 0 (1 standard drink = 0.6 oz pur e alcohol) [facility] Utilities Answer Date Recorded In the past [...] your living situation today? I have a [facility] place to live 10/02/2023 Sex and Gender Information Value Date Recorded Sex Assigned at Male 10/02/2023 7:37 AM MARKING MACHINE OPERATOR Legal Sex Male 2:40 PM MARKING MACHINE OPERATOR Gender Identity Male 10/02/2023 7:37 AM MARKING MACHINE OPERATOR Sexual Orientation Straight 10/02/2023 7: 37 AM MARKING MACHINE OPERATOR documented as of this encounter Miscellaneous Notes * Telephone Encounter - Luann De La Fuente P.A.-C., M.S. - 07/23/2024 1:09 PM MARKING MACHINE OPERATOR I called the patient and spoke to him directly. I explained that we just received the PET-CT reportand that the radiologist did comment on a suspected brain metastasis in the left temporal lobe. would like the patient to proceed with a diagnostic and radiation treatment planning MRI scan at the [facility]. The patient was in agreement and an order will be placed. We will alsoorder for a return visit to be scheduled here after the imaging to review the results. The patient will contact us with questions or concerns. He verbally expressed his understanding of the plan. Luann De La Fuente P.A.-C., M.S. ING MACHINE OPERATOR documented in this encounter Plan of Treatment Upcoming Encounters Date Type Department Care Team (Late st Contact Info) Description 08/07/2024 3:00 PM MARKING MACHINE OPERATOR Appointment Department of Radiation Oncology in [address] [phone] Sulaiman Ackerman M.D. [address] [place] [phone] 08/08/2024 12:45 PM MARKING MACHINE OPERATOR Appointment Department of Radiation Oncology in [address] [address] Sulaiman Ackerman M.D. [address] [place] [phone] Scheduled Referrals Name Type Priority Associated Diagnoses Orde r Schedule Radiation Oncology office visit (clinic) Outpatient Referral Routine Expected: 07/23/2024, Expires: 10/21/2025 documented as of this encounter Visit Diagnoses Diagnosis 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
--- OUTSIDE RECORDS SUMMARY | 2024-08-02 16:35 | XMS_ITS | Encounter Summary ---
Author Organization [facility] Address [address] [place] [address] Care Team Providers Care Composite Assembler Name Role Phone Unavailable Primary Care Provider Unavailabl e Reason for Referral * Radiation Therapy (Routine) - Authorized Specialty Diagnoses / Procedures Referred By Contac t Referred To Contact Diagnoses Secondary Malignant Neoplasm Skin Face (HCC) Procedures Management Visit Sulaiman Ackerman M.D. [address] [place] [address] Phone: tel: fax: [facility] Region Referral ID Status Reason Start Date Expiration Date V isits Requested Visits Authorized [id number] Authorized 05/16/2024 05/16/2025 10 10 SON WORKER Reason for Visit * Radiation Therapy (Routine) - Authorized Specialty Diagnoses / Procedures Referred By Contac t Referred To Contact Diagnoses Secondary Malignant Neoplasm Skin Face (HCC) Procedures Management Visit Sulaiman Ackerman M.D. [address] [place] [address] Phone: tel: fax: [facility] Region Referral ID Status Reason Start Date Expiration Date V isits Requested Visits Authorized [id number] Authorized 05/16/2024 05/16/2025 10 10 Encounter Details Date Type Department Care Team (Latest Contact Info) Description 07/02/2024 9:49 AM CAISSON WORKER - 07/02/2024 1:19 PM CAISSON WORKER Hospital Encounter Department of Radiation Oncology in [address] [phone] Sulaiman Ackerman M.D. [address] [place] [address] Secondary Malignant Neoplasm Skin Face (HCC) Social History Tobacco Use Types Packs/Day Years Used Date Smoking Tobacco: Former Cigarettes 1 18 1 967 - 1984 Smokeless Tobacco: Never Alcohol Use Standard Drinks/Week Comments Yes 0 (1 standard drink = 0.6 oz pur e alcohol) [facility] Utilities Answer Date Recorded In the past 12 months has th e electric, gas, oil, or water [employer] threatened to shut off services in your [...] Sex Assigned at Male 10/02/2023 7:37 AM CAISSON WORKER Legal Sex Male 2:40 PM CAISSON WORKER Gender Identity Male 10/02/2023 7:37 AM CAISSON WORKER Sexual Orientation Straight 10/02/2023 7: 37 AM CAISSON WORKER documented as of this encounter Last Filed Vital Signs Vital Sign Reading Time Taken Comments Blood Pressure 129/60 07/02/2024 10:04 AM CAISSON WORKER Pulse 63 07/02/2024 10:04 AM CAISSON WORKER Temperature 36.7 C (98.1 F) 07/02/2024 10:04 AM CAISSON WORKER Respiratory Rate - - Oxygen Saturation - - Inhaled Oxygen Concentration - - Weight 77.8 kg (171 lb 8.3 oz) 07/02/2024 10:04 AM CAISSON WORKER Height - - Body Mass Index 25.4 01/30/2019 9:45 AM CDT documented in this [...] the treatment field. 45 g 1 05/30/2024 multivitamin tablet Take 1 tablet by mouth. [...] eyes 3 (three) times a day. 05/29/2024 morphine (MS Contin) 30 mg ER tabletIndications: Prolonged Acute Pain/Traumatic Injury Take 1 tablet (30 mg total) by mouth 2 (two) times a day for 14 days Indication: Prolonged Acute Pain/Traumatic Injury. 28 tablet 06/25/2024 4 morphine (MSir) 15 mg tabletIndications: Prolonged Acute Pain/Traumatic Injury Take 0.5 tablets (7.5 mg total) by mouth every 4 (four) hours as needed for pain Indication: Prolonged Acute Pain/Traumatic Injury. 30 tablet 06/25/2024 4 prochlorperazine (Compazine) 10 mg tablet Take 10 mg by mouth 3 (three) times a day as needed for nausea or vomiting. 10/07/2023 4 documented as of this encounter Progress Notes * Sulaiman Ackerman M.D. - 07/02/2024 10:15 AM CST SUBJECTIVE CHIEF COMPLAINT/REASON FOR VISIT Evaluation for side effects while receiving radiation treatment for 1. Secondary Malignant Neoplasm Skin Face (HCC) SUPERVISED BY: Sulaiman Ackerman M.D. ([id number]) HISTORY OF PRESENT ILLNESS Mr. Te Archuleta is a 73-year-old male with metastatic adenocarcinoma of the esophagus. He iscurrently receiving palliative quad shot radiation therapy to lesions of the right chin and right suprasternal notch. Treatment Course: 6xMultiSite Plan ID Fractions Dose / Fraction (cGy) Dose Treated (cGy) Dose Planned (cGy) First Treatment Last Treatment Elapsed Days [id number] 8 / 12 [phone] 05/30/2024 06/13/2024 14 Course Summary 05/30/2024 06/13/2024 14 The patient was seen and examined today with Dr. Ackerman The patient reports doing well overall. Patient reports his pain has been well managed with the useof 30 mg ER morphine twice daily. He has only taken the 7.5 mg IR morphine twice since receiving the prescription last week. He is using Magic Mouthwash more than prescribed - roughly six times per day before and after meals. He is completing baking soda rinses roughly four times per day. He notes he never feels hungry or wants to eat - however he is maintaining his weight. He is supplementing his soft diet with high calorie Boosts and Beneprotein supplements as needed. He is currently applying Aquaphor roughly four times per day. At bedtime - he is applying Aquaphor,Xeroform, and gauze. He is applying Band-Aids intermittently over the area - however notes that a Band-Aid pulled a scab off and bleeding occurred last week. Of note - he reports his suprasternal lesion feels like it has decreased in size. OBJECTIVE BP 129/60 (BP Location: Right arm, Patient Position: Sitting, Cuff Size: Regular) Pulse 63 Temp36.7 ??C (Temporal) Wt 77.8 kg BMI 25.40 kg/m?? PHYSICAL EXAMINATION General: Alert and oriented, in no apparent distress. Oral cavity: There is some whitish exudate in the lower gumline consistent with mucositis. No bleeding. No clear signs of thrush. Skin: Erythematous, raised lesion of the right chin with a central concave lesion. Visible raised lesion in the right suprasternal notch is less apparent and with mild erythema. ASSESSMENT / PLAN #1 Stage III (cT3, [...] disease to right humeral head #13 Initiated EnhMay 2024 #14 Stereotactic body radiation therapy to the right humeral head initiated on May 03, 2024; completed on May 07, 2024 #15 Quad shot radiation therapy to the right chin and right suprasternal notch lesions initiated onMay 30, 2024; anticipated completion on July 04, 2024 The patient will resume his fourth quad shot tomorrow, 07/03. A prescription was given to patient for Doxepin oral rinse. Patient was instructed to mix the solution in the syringe following instructions on the prescription. He was instructed to trial its use in place of the Magic Mouthwash rinses. He will continue to log his pain in his pain diary daily. Dr. Ackerman was in for any questions or concerns. He will continue with treatment as planned. He can contact our care team with any questions or concerns. Signed by: Elle Morris R.N. 07/02/24 10:[address] [facility] [place] I saw and evaluated the patient and participated in the greene portions of the service. I reviewed thedocumentation of Elle Morris R.N. and agree with the findings and plan. The patient appears well on exam. He has healing mucositis in his right lower or cavity it is much better than last week. He also has erythema and healing eschars over his right chin. His pain is well controlled with long-a cting morphine. He is only taking short-acting morphine sporadically and his utilizing magic mouthwash. I also prescribed doxepin oral rinse to be use 4 times daily as needed. He is not currently taking tramadol. He agreed not to take tramadol while taking doxepin due to an interaction between the 2 medications. He will return tomorrow for his last quad shot cycle. The patient and his verbalized satisfaction with this plan. Signed by: Sulaiman Ackerman M.D. 07/02/2024 1:18 PM CAISSON WORKER [facility] [address] [place] [id number] SON WORKER documented in this encounter Plan of Treatment Upcoming Encounters Date Type Department Care Team (Late st Contact Info) Description 08/07/2024 3:00 PM CAISSON WORKER Appointment Department of Radiation Oncology in [address] [address] Sulaiman Ackerman M.D. [address] [place] [phone] 08/08/2024 12:45 PM CAISSON WORKER Appointment Department of Radiation Oncology in [address] [address] Sulaiman Ackerman M.D. [address] [place] [phone] Scheduled Orders Name Type Priority Associated Diagnoses Orde r Schedule Management Visit Radiation Oncology Routine Secondary Malignant Neoplasm Skin Face (HCC) Once for 1 Occurrences starting 07/02/2024 until 07/02/2024 documented as of this encounter Visit Diagnoses Diagnosis Secondary Malignant Neoplasm Skin Face (HCC) documented in this encounter
--- OUTSIDE RECORDS SUMMARY | 2024-08-02 16:35 | XMS_ITS | Encounter Summary ---
Author Organization [facility] Address [address] [place] [address] Care Team Providers Care Tearer Press Clipping Name Role Phone Unavailable Primary Care Provider Unavailabl e Encounter Details Date Type Department Care Team (Late st Contact Info) Description 07/04/2024 2:05 PM [facility] Hospital Encounter Department of Radiation Oncology in [place], [place] [address] [place] [phone] Sulaiman Ackerman M.D. [address] [place] [address] Social History Tobacco Use Types Packs/Day Years Used Date Smoking Tobacco: Former Cigarettes 1 18 1 967 - 1984 Smokeless Tobacco: Never Alcohol Use Standard Drinks/Week Comments Yes 0 (1 standard drink = 0.6 oz pur e alcohol) [facility] Utilities Answer Date Recorded In the past 12 months has [facility] [employer], gas, oil, or water [employer] threatened to shut off services in your [...] living situation today? I have a [facility] place to live 10/02/2023 Sex and Gender Information Value Date Recorded Sex Assigned at Male 10/02/2023 7:37 AM SUSPENSION CORD TIER Legal Sex Male 2:40 PM SUSPENSION CORD TIER Gender Identity Male 10/02/2023 7:37 AM SUSPENSION CORD TIER Sexual Orientation Straight 10/02/2023 7: 37 AM SUSPENSION CORD TIER documented as of this encounter Plan of Treatment Upcoming Encounters Date Type Department Care Team (Late st Contact Info) Description 08/07/2024 3:00 PM SUSPENSION CORD TIER Appointment Department of Radiation Oncology in [place], [place] [address] [place] [address] Sulaiman Ackerman M.D. [address] [place] [address] 08/08/2024 12:45 PM SUSPENSION CORD TIER Appointment Department of Radiation Oncology in [place], [place] [address] [place] [address] Sulaiman Ackerman M.D. [address] [place] [address] documented as of this encounter Visit Diagnoses Not on filedocumented in this encounter
--- OUTSIDE RECORDS SUMMARY | 2024-08-02 16:35 | XMS_ITS | Encounter Summary ---
Author Organization [facility] Address [address] [place] [address] Care Team Providers Care Rn Cardiovascular Icu Name Role Phone Unavailable Primary Care Provider Unavailabl e Reason for Referral * Outpatient (Routine) - Closed Specialty Diagnoses / Procedures Referred By Contac t Referred To Contact Radiation Oncology Sulaiman Ackerman M.D. [address] [place] [address] Phone: tel: fax: [facility] Referral ID Status Reason Start Date Expiration Date Visits Re quested Visits Authorized [id number] Closed 07/09/2024 01/08/2026 1 1 SEATER * Outpatient (Routine) - Closed Specialty Diagnoses / Procedures Referred By Alex vergara Referred To Contact Radiation Oncology Luann De La Fuente P.A.-C., M.S. [address] [place] [address] Phone: tel: fax: Sulaiman Ackerman M.D. [address] [place] [address] Phone: tel: fax: Referral ID Status Reason Start Date Expiration Date Visits Re quested Visits Authorized [id number] Closed 07/04/2024 01/03/2026 1 1 Scheduling Instructions Luann to see; patient can cancel visit if doing well SEATER Reason for Visit * Outpatient (Routine) - Closed Specialty Diagnoses / Procedures Referred By Alex vergara Referred To Contact Radiation Oncology Luann De La Fuente P.A.-C., M.SCindi [address] [place] [phone] Phone: tel: fax: Sulaiman Ackerman M.D. [address] [place] [phone] Phone: tel: fax: Referral ID Status Reason Start Date Expiration Date Visits Re quested Visits Authorized [id number] Closed 07/04/2024 01/03/2026 1 1 Encounter Details Date Type Department Care Team (Latest Contact Info) Description 07/09/2024 12:37 PM RUSH SEATER - 07/09/2024 4:06 PM RUSH SEATER Hospital Encounter Department of Radiation Oncology in [place], [place] [address] [place] [phone] Corinne Aguillon M.D. [address] [place] [phone] Sulaiman Ackerman M.D. [address] [place] [phone] Secondary Malignant Neoplasm Skin Face (HCC) (Primary Dx) Social History Tobacco Use Types Packs/Day Years Used Date Smoking Tobacco: Former Cigarettes 1 18 1 967 - 1984 Smokeless Tobacco: Never Alcohol Use Standard Drinks/Week Comments Yes 0 (1 standard drink = 0.6 oz pur e alcohol) [facility] Utilities Answer Date Recorded In the past 12 months has [employer], gas, oil, or water [employer] threatened to shut off services in your [...] your living situation today? I have a [facility] place to live 10/02/2023 Sex and Gender Information Value Date Recorded Sex Assigned at Male 10/02/2023 7:37 AM RUSH SEATER Legal Sex Male 2:40 PM RUSH SEATER Gender Identity Male 10/02/2023 7:37 AM RUSH SEATER Sexual Orientation Straight 10/02/2023 7: 37 AM RUSH SEATER documented as of this encounter Last Filed Vital Signs Vital Sign Reading Time Taken Comments Blood Pressure 126/55 07/09/2024 12:53 PM RUSH SEATER Pulse 67 07/09/2024 12:53 PM RUSH SEATER Temperature 37 C (98.6 F) 07/09/2024 12:53 PM RUSH SEATER Respiratory Rate - - Oxygen Saturation - - Inhaled Oxygen Concentration - - Weight 79.1 kg (174 lb 6.1 oz) 07/09/2024 12:53 PM RUSH SEATER Height - - Body Mass Index 25.83 01/30/2019 9:45 AM CDT documented in this [...] Prolonged Acute Pain/Traumatic Injury. 30 tablet 06/25/2024 documented as of this encounter Progress Notes * Luann De La Fuente P.A.-C., M.S. - 07/09/2024 1:00 PM CST SUBJECTIVE DIAGNOSIS 1. Secondary Malignant Neoplasm Skin Face (HCC) SUPERVISED BY: Sulaiman Ackerman M.D. ([id number]) HISTORY OF PRESENT ILLNESS Mr. Te Archuleta [...] was performed by Dr. Keven Hammonds, from [facility]. Barretts and tumor was seen in [...] Oncology consultation with Dr. Xavier Brown at [facility] who discussed weekly Taxol and carboplatin chemotherapy concurrent with radiation as an initial strategy. Referral to Radiation Oncology. 8. January 29, 2019: Port placement performed at [facility]. 9. February 07, 2019 through [...] of Dr. Brown on Tuesdays at the [facility]. 04/16/2019 Critical Imaging PET/CT IMPRESSION: [...] Under the care of Dr. Na Romano, [facility]. July 2021: Initiated Xeloda, cisplatin, Herceptin, and [...] Herceptin, and Oxaliplatin initiated with Dr. Quinteros [facility]. 12/31/23 - 01/20/24: oxaliplatin held while receiving [...] of 3000 cGy. 05/08/2024 - Chemotherapy Initiated Enhertu under the care of Dr. Quinteros. Secondary Malignant Neoplasm Skin Face (HCC) 05/29/2024 - Radiation Therapy Palliative quad shot radiotherapy to lesions of the right chin and right suprasternal notch to a dose of 4440 cGy in 12 fractions. Radiation Therapy Treatment Details (Noted on 05/16/2024) Site: Chin Technique: IMRT Goal: Curative Planned Treatment Start Date: 05/29/2024 INTERVAL HISTORY: The patient was seen and examined today with Dr. Ackerman. The patient reports increased fatigue since last week. He reports experiencing increased pain of his right shoulder yesterday that caused difficulty for him to take a nap. He is taking morphine ER 30mg twice daily. He is also taking morphine IR 7.5 mg as needed for breakthrough pain. He took threetablets of the morphine IR total over the weekend. He currently rates his pain as 2/10 in severity. He reports increased pain of 3-4/10 in severity prior to taking morphine IR. He reports good benefit with taking the pain medications and states that his pain is overall well controlled. He is also using Magic Mouthwash along the lower gumline. He denies fever or chills, but did comment on feelingmore cold. He is continuing to work on good nutritional intake. He is eating soft foods as well as supplementing with a high-calorie Boost and a Boost clear daily. He is taking Compazine as needed for nausea with good benefit. He is continuing good skin care with use of Aquaphor, Xeroform, and Telfa gauze. REVIEW OF SYSTEMS Review of systems was negative except as documented above. OBJECTIVE BP 126/55 (BP Location: Right arm, Patient Position: Sitting, Cuff Size: Regular) Pulse 67 Temp37 ??C (Temporal) Wt 79.1 kg BMI 25.83 kg/m?? PHYSICAL EXAMINATION General: Patient is alert and oriented and in no apparent distress. The patient is here today with his . ENT: Increased mucositis of the right lower gum. Skin: Erythematous skin of the right chin. Lesion of the right chin with overlying eschar with somesurrounding moist desquamation. Erythematous skin over the right suprasternal notch region without desquamation. ASSESSMENT / PLAN #1 Stage III (cT3, [...] 30, 2024; completed on July 04, 2024 The patient is managing well overall, now 5 days from treatment completion. He had some increased episodes of pain this weekend, but overall his pain has been well-controlled with use of morphine ER 30 mg twice daily. He also has morphine 7.5 mg IR to take one tablet for breakthrough pain and he isusing Magic Mouthwash. We also discussed the option of taking Tylenol if he has increased pain, butnot enough pain to take a morphine IR tablet. He is continuing with good nutritional intake and hasgained weight since last week. He is aware of his calorie and protein goals as provided by our dietitian. He will continue with his current skin care regimen. He requested a refill of Compazine whichwill be sent to his pharmacy today. He reports that he has enough morphine 7.5 mg IR tablets available. He also has approximately one week of morphine 30 mg ER tablets left and Dr. Ackerman already sent another 30 day supply to his pharmacy. We discussed that as his pain improves following treatment he will need to be tapered down on morphine. We will order for a return visit to be scheduled herenext week for re-assessment of his pain. If the patient notices pain improvement prior to the scheduled visit, he was asked to contact us so that we can re-evaluate his pain medication usage. He is scheduled for lab work and Enhertu tomorrow through Medical Oncology. The patient is scheduled for a P ET-CT scan on July 19, 2024, as ordered by Medical Oncology. He is also scheduled for a follow-up [...] understanding of the content. I personally spent 25 minutes in care of the patient today. Time includes both non face to face andface to face patient care. Signed by: Luann De La Fuente P.A.-C., M.S. 07/09/2024 2:46 PM RUSH SEATER [facility] [address] [place] [address] Cosigned by Sulaiman Ackerman M.D. at 07/09/2024 4:05 PM RUSH SEATER SEATER SEATER Associated attestation - Sulaiman Ackerman M.D. - 07/09/2024 4:05 PM RUSH SEATER I saw and evaluated the patient and participated in the greene portions of the service. I reviewed thedocumentation of Luann De La Fuente P.A.-C. and agree with the findings and plan. Mr. Te Archuleta is a 73-year-old male with metastatic adenocarcinoma of the esophagus. He completed palliative quad shot radiation therapy to lesions of the right chin and right suprasternal notch on July 04, 2024. The patient appears well on exam. He has healing dermatitis and mucositis in the treatment areas. He is here with his Margaret. The patient is doing well now 5 days out from treatment. His pain is well- controlled with the extended release morphine 30 mg twice daily. He also has immediate release 7.5 mg of morphine available. We will see him again next week to check on his progress. He and his know they can contact us in the interim with questions or concerns. They verbalized satisfaction with this plan. I have spent 7 minutes caring for this patient including [id number] and zly-wcun-vt-face time. Signed by: Sluaiman Ackerman M.D. 07/09/24 4:05 PM RUSH SEATER [facility] [place] documented in this encounter Miscellaneous Notes * Addendum Note - Christiane Anderson CCindiNCindiACindi - 07/09/2024 1:00 PM CSTEncounter addended by: Christiane Anderson C.N.ACindi on: 07/10/2024 6:57 AM Actions taken: Letter saved SEATER documented in this encounter Plan of Treatment Upcoming Encounters Date Type Department Care Team (Late st Contact Info) Description 08/07/2024 3:00 PM RUSH SEATER Appointment Department of Radiation Oncology in [place] [id number] [place] [phone] Sulaiman Ackerman M.D. [address] [place] [address] 08/08/2024 12:45 PM RUSH SEATER Appointment Department of Radiation Oncology in [place], [place] [address] [place] [address] Sulaiman Ackerman M.D. [address] [place] [address] Scheduled Referrals Name Type Priority Associated Diagnoses Order Schedule Radiation Oncology office visit (clinic) Outpatient Referral Routine Once for 1 Occurrences starting 07/09/2024 until 07/09/2024 Radiation Oncology office visit (clinic) Outpatient Referral Routine Expected: (Approximate), Expires: 07/09/2025 documented as of this encounter Visit Diagnoses Diagnosis Secondary Malignant Neoplasm Skin Face (HCC)- Primary documented in this encounter
--- OUTSIDE RECORDS SUMMARY | 2024-08-02 16:35 | XMS_ITS | Encounter Summary ---
Author Organization [facility] Address [address] [place] [address] Care Team Providers Care Shoes Salesperson Name Role Phone Unavailable Primary Care Provider Unavailabl e Encounter Details Date Type Department Care Team (Late st Contact Info) Description 07/04/2024 7:47 AM [facility] Hospital Encounter Department of Radiation Oncology in [place], [place] [address] [place] [phone] Sulaiman Ackerman M.D. [address] [place] [address] Social History Tobacco Use Types Packs/Day Years Used Date Smoking Tobacco: Former Cigarettes 1 18 1 967 - 1984 Smokeless Tobacco: Never Alcohol Use Standard Drinks/Week Comments Yes 0 (1 standard drink = 0.6 oz pur e alcohol) [facility] Utilities Answer Date Recorded In the past 12 months has [facility] [employer], gas, oil, or water [employer] threatened to shut off services in your [...] your living situation today? I have a [facility] place to live 10/02/2023 Sex and Gender Information Value Date Recorded Sex Assigned at Male 10/02/2023 7:37 AM PRIMARY SUBSTANCE ABUSE COUNSELOR Legal Sex Male 2:40 PM PRIMARY SUBSTANCE ABUSE COUNSELOR Gender Identity Male 10/02/2023 7:37 AM PRIMARY SUBSTANCE ABUSE COUNSELOR Sexual Orientation Straight 10/02/2023 7: 37 AM PRIMARY SUBSTANCE ABUSE COUNSELOR documented as of this encounter Plan of Treatment Upcoming Encounters Date Type Department Care Team (Late st Contact Info) Description 08/07/2024 3:00 PM PRIMARY SUBSTANCE ABUSE COUNSELOR Appointment Department of Radiation Oncology in [place], [place] [address] [place] [address] Sulaiman Ackerman M.D. [address] [place] [address] 08/08/2024 12:45 PM PRIMARY SUBSTANCE ABUSE COUNSELOR Appointment Department of Radiation Oncology in [place], [place] [address] [place] [address] Sulaiman Ackerman M.D. [address] [place] [address] documented as of this encounter Visit Diagnoses Not on filedocumented in this encounter
--- OUTSIDE RECORDS SUMMARY | 2024-08-02 16:35 | XMS_ITS | Encounter Summary ---
Author Organization [facility] Address [address] [place] [address] Care Team Providers Care Rubber Compounder Formulator Name Role Phone Unavailable Primary Care Provider Unavailabl e Reason for Referral * Outpatient (Routine) - Closed Specialty Diagnoses / Procedures Referred By Alex vergara Referred To Contact Radiation Oncology Corinne Aguillon M.D. [address] [place] [address] Phone: tel: fax: Corinne Aguillon M.D. 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 [address] [place] [phone] Phone: tel: fax: 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 [address] [place] [phone] Phone: tel: fax: [facility] Referral ID Status Reason Start Date Expiration Date V isits Requested Visits Authorized [id number] Authorized 07/20/2024 07/20/2025 1 1 JAILER Encounter Details Date Type Department Care Team (Late st Contact Info) Description 07/20/2024 Orders Only Department of Radiation Oncology in [place], [place] [address] [place] [phone] Cyndie Kitchen APRN, C.N.P., D.N.P. [address] [place] [phone] Malignant Neoplasm Of Esophagus Lower Third (HCC) (Primary Dx); Secondary Malignant Neoplasm Bone (HCC); Secondary Malignant Neoplasm Soft Tissue (HCC) Social History Tobacco Use Types Packs/Day Years Used Date Smoking Tobacco: Former Cigarettes 1 18 1 967 - 1984 Smokeless Tobacco: Never Alcohol Use Standard Drinks/Week Comments Yes 0 (1 standard drink = 0.6 oz pur e alcohol) [facility] Utilities Answer Date Recorded In the past 12 months has [employer], gas, oil, or water company threatened to [...] your living situation today? I have a [facility] place to live 10/02/2023 Sex and Gender Information Value Date Recorded Sex Assigned at Male 10/02/2023 7:37 AM CITY JAILER Legal Sex Male 2:40 PM CITY JAILER Gender Identity Male 10/02/2023 7:37 AM CITY JAILER Sexual Orientation Straight 10/02/2023 7: 37 AM CITY JAILER documented as of this encounter Plan of Treatment Upcoming Encounters Date Type Department Care Team (Late st Contact Info) Description 08/07/2024 3:00 PM CITY JAILER Appointment Department of Radiation Oncology in [place], [place] [address] [place] [address] Sulaiman Ackerman M.D. [address] [place] [address] 08/08/2024 12:45 PM CITY JAILER Appointment Department of Radiation Oncology in [place], [place] [address] [place] [address] Sulaiman Ackerman M.D. 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
--- OUTSIDE RECORDS SUMMARY | 2024-08-02 16:35 | XMS_ITS | Encounter Summary ---
Author Organization [facility] Address [address] [place] [address] Care Team Providers Care Board Attendant Name Role Phone Unavailable Primary Care Provider Unavailabl e Reason for Referral * Outpatient (Routine) - Closed Specialty Diagnoses / Procedures Referred By Alex t Referred To Contact Radiation Oncology Corinne Aguillon M.D. [address] [place] [address] Phone: tel: fax: Corinne Aguillon M.D. [address] [place] [address] Phone: tel: fax: Referral ID Status Reason Start Date Expiration Date Visits Re quested Visits Authorized [id number] Closed 07/20/2024 01/19/2026 1 1 Scheduling Instructions 10 am on 07/23 LAPPER HAND Reason for Visit * Outpatient (Routine) - Closed Specialty Diagnoses / Procedures Referred By Alex t Referred To Contact Radiation Oncology Corinne Aguillon M.D. [address] [place] [phone] Phone: tel: fax: Corinne Aguillon M.D. [address] [place] [phone] Phone: tel: fax: Referral ID Status Reason Start Date Expiration Date Visits Re quested Visits Authorized [id number] Closed 07/20/2024 01/19/2026 1 1 Encounter Details Date Type Department Care Team (Latest Contact Info) Description 07/23/2024 9:19 AM TOOL LAPPER HAND - 07/23/2024 12:35 PM TOOL LAPPER HAND Hospital Encounter Department of Radiation Oncology in [place], [place] [address] [place] [address] Corinne Aguillon M.D. [address] [place] [address] Malignant Neoplasm Of Esophagus Lower Third (HCC) (Primary Dx) Social History Tobacco Use Types Packs/Day Years Used Date Smoking Tobacco: Former Cigarettes 1 18 1 7 1984 Smokeless Tobacco: Never Alcohol Use Standard Drinks/Week Comments Yes 0 (1 standard drink = 0.6 oz pur e alcohol) [facility] Utilities Answer Date Recorded In the past 12 months has e [employer] gas, oil, or water [employer] threatened to shut off services in your [...] your living situation today? I have a [facility] place to live 10/02/2023 Sex and Gender Information Value Date Recorded Sex Assigned at Male 10/02/2023 7:37 AM TOOL LAPPER HAND Legal Sex Male 2:40 PM TOOL LAPPER HAND Gender Identity Male 10/02/2023 7:37 AM TOOL LAPPER HAND Sexual Orientation Straight 10/02/2023 7: 37 AM TOOL LAPPER HAND documented as of this encounter Last Filed Vital Signs Vital Sign Reading Time Taken Comments Blood Pressure 129/68 07/23/2024 9:46 AM TOOL LAPPER HAND Pulse 80 07/23/2024 9:46 AM TOOL LAPPER HAND Temperature 37.3 C (99.1 F) 07/23/2024 9:46 AM TOOL LAPPER HAND Respiratory Rate - - Oxygen Saturation - - Inhaled Oxygen Concentration - - Weight 77.3 kg (170 lb 6.7 oz) 07/23/2024 9:46 A M TOOL LAPPER HAND Height - - Body Mass Index 25.24 01/30/2019 9:45 AM CDT documented in this encounter Discharge Instructions * Patient Instructions* Luann De La Fuente P.A.-C., M.S. - 07/23/2024 10:00 AM TOOL LAPPER HAND 25 LAPPER HAND documented in this encounter Medications at Time [...] Prolonged Acute Pain/Traumatic Injury. 60 tablet 07/09/2024 morphine (MSir) 15 mg tabletIndications: Prolonged Acute Pain/Traumatic Injury Take 0.5 tablets (7.5 mg total) by mouth every 4 (four) hours as needed for pain Indication: Prolonged Acute Pain/Traumatic Injury. 30 tablet 07/17/2024 multivitamin tablet Take 1 tablet by mouth. [...] for nausea or vomiting. 30 tablet 07/09/2024 documented as of this encounter Progress Notes * Luann De La Fuente P.A.-C., M.S. - 07/23/2024 10:00 AM CST SUBJECTIVE DIAGNOSIS 1. Malignant Neoplasm Of Esophagus Lower Third (HCC) SUPERVISED BY: Corinne Aguillon M.D. HISTORY OF PRESENT ILLNESS Mr. Te Archuleta is a 73-year-old male with metastatic adenocarcinoma of the esophagus. His oncologic history is as follows: Oncology [...] was performed by Dr. Keven Hammonds, from [facility]. Barretts and tumor was seen in [...] Oncology consultation with Dr. Xavier Brown at [facility] who discussed weekly Taxol and carboplatin chemotherapy concurrent with radiation as an initial strategy. Referral to Radiation Oncology. 8. January 29, 2019: Port placement performed at [facility]. 9. February 07, 2019 through [...] of Dr. Brown on Tuesdays at the [facility]. 04/16/2019 Critical Imaging PET/CT IMPRESSION: [...] Under the care of Dr. Na Romano, [facility]. July 2021: Initiated Xeloda, cisplatin, [...] Herceptin, and Oxaliplatin initiated with Dr. Quinteros, [facility]. 12/31/23 - 01/20/24: oxaliplatin held while receiving [...] of 3000 cGy. 05/08/2024 - Chemotherapy Initiated Enhert under the care of Dr. Quinteros. 07/19/2024 Critical Imaging PET/CT was performed. Report is pending. 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 Aguillon. The patient reports continued recovery following his recent radiation treatment to the right chin. He has persistent pain of the right lower gum as well as of the skin of the right chin, which continues to improve. He reports that he is able to eat soft foods and he is supplementing with Boost. He is taking morphine ER 30 mg twice daily and using Magic Mouthwash for the right lower gum pain with benefit. He has also been taking Compazine twice daily. He reports discontinuing use of morphine IR as he wasn't noticing any benefit. He denies recent nausea. He reports that his bowels are managed with taking Imodium. He reports persistent fatigue. He reports pain of his right shoulder if he sleeps with the right arm up. If he sleeps with the arm down, then he denies pain. He also reports pain of the lateral hips/upper thighs bilaterally. He notices this pain with sitting or laying, but reports that the pain resolves with movement of the legs. He reports that this is not new pain and has been present for over a year. He denies other areas of pain or other concerns at this time. REVIEW OF SYSTEMS Review of systems was negative except as documented above. OBJECTIVE BP 129/68 (BP Location: Right arm, Patient Position: Sitting, Cuff Size: Regular) Pulse 80 Temp37.3 ??C (Temporal) Wt 77.3 kg BMI 25.24 kg/m?? PHYSICAL EXAMINATION General: Patient is alert and oriented and in no apparent distress. The patient is here today with his . Heart: Regular rate and rhythm. Lungs: Clear to auscultation bilaterally. Musculoskeletal: Bilateral hips/pelvis are non-tender to palpation. ASSESSMENT / PLAN #1 Stage III (cT3, [...] February 22, 2024 #11 Radiation therapy to the right chin initiated on March 05, 2024; completed March 09, 2024 #12 PET-CT April 26, 2024 demonstrated progression of disease to right humeral head #13 Initiated Enhertu May 2024 #14 Stereotactic body radiation therapy to the right humeral head initiated on May 03, 2024; completed on May 07, 2024 #15 Quad shot radiation therapy to the right chin and right suprasternal notch lesions; completed on July 04, 2024 #16 Progressive bone and soft tissue metastases in the pelvis, noted on PET/CT from July 19, 2024 The patient returns today following his recent PET-CT scan. The PET-CT scan images were reviewed byDrs. Gómez and demonstrate widespread and progressive bony metastases, particularly in the pelvis and buttock. The report is still pending. We discussed the risks, benefits, and alternatives of radiotherapy in this setting. The patient reports chronic, intermittent lateral hip/thigh pain and intermittent right shoulder pain. His right humerus has already been treated with SBRT. If radiation was to be delivered to areas of disease in the hip/pelvis region, I discussed the logistics as well as the acute and chronic side effects of treatment in detail. The acute side effects are common and include, but are not limited to, fatigue, radiation dermatitis, possible pain flare, and increased frequency of bowel movements and/or urination. Long-term side effects could include, but are not limited to, bone arthritis/fracture and nerve damage. His questions were answered to his verbalized satisfaction. Dr. Aguillon also met with the patient today, please see her attestation for details. After their discussion, Dr. Aguillon did not recommend radiation therapy at this time. The patient is scheduled for an appointment with Danielle Herring in Medical Oncology on July 31, 2024 and further discussion of systemic therapy can be addressed at that visit. The patient's pain following his radiation therapy to the right chin is continuing to improve. He is taking morphine ER 30 mg twice daily and using Magic Mouthwash with benefit. He plans to decrease use of Compazine as he is not experiencing nausea at this time. We discussed that as his pain improves further, his pain medications will need to be tapered. The patient and his were educated on side effects/sedative effects of pain medications. We will defer to Medical Oncology for continued pain and medication management for the patient as he will continue to be followed closely by their team for ongoing treatment. We will not order for a return visit to be scheduled here at this time, but the patient can be referred back to Radiation Oncology if needed in the future. He will contact uswith questions or concerns. He verbally expressed his [...] Signed by: Luann De La Fuente P.A.-C., M.SCindi 07/23/2024 11:55 AM TOOL LAPPER HAND [facility] [address] [place] [address] Cosigned by Corinne Aguillon M.D. at 07/23/2024 12:34 PM TOOL LAPPER HAND LAPPER HAND LAPPER HAND Associated attestation - Corinne Aguillon I., M.D. - 07/23/2024 12:34 PM TOOL LAPPER HAND RADIATION ONCOLOGY FOLLOW-UP VISIT I saw and evaluated the patient and participated in the greene portions of the service. I reviewed thedocumentation of Ms. Luann De La Fuente PA-C, and agree with the findings and plan. Please see Ms. De La Fuente's detailed note for the patient's initial presentation and work-up. Briefly, Mr. Te Archuleta is a 73 y.o. male with metastatic adenocarcinoma of the esophagus. He recently completed repeat radiation treatment to a recurrent right chin metastasis lesion on July 04, 2024. He returns to discuss the role of radiation treatment widespread and progressive bony metastasis particularly in his pelvis and buttock after undergoing a PET/CT scan. The PET/CT final report is notavailable, but we have the images for our review. The show progressive, persistent and new disease (by my review) in the pelvis, inguinal, buttock, live and bones. I have independently reviewed her im aging, operative and pathology reports. On exam, he appears well. See Ms. De La Fuente's note for details. I do palpate a left inguinal soft mobilemass. No skin involvement. I do not palpate any adenopathy on the right inguinal region. He has no pain in either of these areas. He also showed me a small eschar on his right ear. It is slightly raised and about 1cm on the pinna. We discussed the findings above and below in this note with the patient and his . We discussed his treatment alternatives. I'm concerned that his disease is becoming radioresistant. We discussed various palliative radiation options. I offered to treat him with 2500 cGy in 5 fractions and give SIB to the GTVs to 3000 cGy to the symptomatic sites; however, he really does not have any pelvic symptomatic sites by history or exam. I told them that we could be available to offer radiation at any time if he develops symptoms. He does have an appointment with Medical Oncology next week; hopefully, they have more systemic options for him. Again, if no systemic therapy is offered or he becomes symptomatic from any sites we would be happy to see him back for re-evaluation. I told them that Luann or I would call him once we have the final PET/CT report. He will apply aquaphor ro the right ear lesion. He knows that radiation effects could last 4-6 weeks and to continue with the Magic mouth wash and supplements until his radiation effects improve. We discussed the rationale, risks, side effects and palliative goals of radiation therapy. We discussed the acute as well as meterman risks, including, but not limited to fatigue, skin erythema, bowel/bladder changes (if we would include bowel which we will limit with IMRT), bone health, and risk of bone fracture in the future. My thanks to Drs. Quinteros, Ms. Dickey and Ms. Mederos for the opportunity to [...] the right chin and right suprasternal notch lesions; completed on July 04, 2024 #16 Progressive bone and soft tissue metastases in the pelvis, noted on PET/CT from July 19, 2024 Signed by: Corinne Aguillon M.D., 07/23/2024 documented in this encounter Plan of Treatment Upcoming Encounters Date Type Department Care Team (Late st Contact Info) Description 08/07/2024 3:00 PM TOOL LAPPER HAND Appointment Department of Radiation Oncology in [place], [place] [address] [place] [phone] Sulaiman Ackerman M.D. [address] [place] [address] 08/08/2024 12:45 PM TOOL LAPPER HAND Appointment Department of Radiation Oncology in [address] [phone] Sulaiman Ackerman M.D. [address] [place] [address] Scheduled Referrals Name Type Priority Associated Diagnoses Order Schedule Radiation Oncology office visit (clinic) Outpatient Referral Routine Once for 1 Occurrences starting 07/23/2024 until 07/23/2024 documented as of this encounter Visit Diagnoses Diagnosis Malignant Neoplasm Of Esophagus Lower Third (HCC)- Primary documented in this encounter
--- OUTSIDE RECORDS SUMMARY | 2024-08-02 16:35 | XMS_ITS | Encounter Summary ---
Author Organization [facility] Address [address] [place] [address] Care Team Providers Care Senior Research Executive Name Role Phone Unavailable Primary Care Provider Unavailabl e Reason for Referral * Outpatient (Routine) - Authorized Specialty Diagnoses / Procedures Referred By Alex t Referred To Contact Diagnoses Malignant Neoplasm Of Esophagus Lower Third (HCC) Secondary Malignant Neoplasm Skin Face (HCC) Sulaiman Ackerman M.D. [address] [place] [address] Phone: tel: fax: [facility] [address] [place] [address] Phone: tel: fax: Referral ID Status Reason Start Date Expiration Date Visits Requested Visits Authorized [id number] Authorized Patient Preference 4 01/15/2026 1 1 ER MANAGER Encounter Details Date Type Department Care Team (Late st Contact Info) Description 07/16/2024 Orders Only Department of Radiation Oncology in [place], [place] [address] [place] [phone] Sulaiman Ackerman M.D. [address] [place] [phone] Malignant Neoplasm Of Esophagus Lower Third (HCC) (Primary Dx); Secondary Malignant Neoplasm Skin Face (HCC) Social History Tobacco Use Types Packs/Day Years Used Date Smoking Tobacco: Former Cigarettes 1 18 1 967 - 1984 Smokeless Tobacco: Never Alcohol Use Standard Drinks/Week Comments Yes 0 (1 standard drink = 0.6 oz pur e alcohol) [facility] Utilities Answer Date Recorded In the [...] your living situation today? I have a [facility] place to live 10/02/2023 Sex and Gender Information Value Date Recorded Sex Assigned at Male 10/02/2023 7:37 AM CAREER MANAGER Legal Sex Male 2:40 PM CAREER MANAGER Gender Identity Male 10/02/2023 7:37 AM CAREER MANAGER Sexual Orientation Straight 10/02/2023 7: 37 AM CAREER MANAGER documented as of this encounter Plan of Treatment Upcoming Encounters Date Type Department Care Team (Late st Contact Info) Description 08/07/2024 3:00 PM CAREER MANAGER Appointment Department of Radiation Oncology in [place], [place] [address] [place] [address] Sulaiman Ackerman M.D. [address] [place] [address] 08/08/2024 12:45 PM CAREER MANAGER Appointment Department of Radiation Oncology in [place], [place] [address] [place] [address] Sulaiman Ackerman M.D. [address] [place] [address] documented as of this encounter Visit Diagnoses Diagnosis Malignant Neoplasm Of Esophagus Lower Third (HCC)- Primary Secondary Malignant Neoplasm Skin Face (HCC) documented in this encounter
--- OUTSIDE RECORDS SUMMARY | 2024-08-02 16:35 | XMS_ITS | Encounter Summary ---
Author Organization [facility] Address [address] [place] [address] Care Team Providers Care Building Contractor Name Role Phone Unavailable Primary Care Provider Unavailabl e Encounter Details Date Type Department Care Team (Late st Contact Info) Description 07/04/2024 Documentation Department of Radiation Oncology in [place], [place] [address] [place] [phone] Sulaiman Ackerman M.D. [address] [place] [address] Social History Tobacco Use Types Packs/Day Years Used Date Smoking Tobacco: Former Cigarettes 1 18 1 967 - 1984 Smokeless Tobacco: Never Alcohol Use Standard Drinks/Week Comments Yes 0 (1 standard drink = 0.6 oz pur e alcohol) [facility] Utilities Answer Date Recorded In the past 12 months has [facility] electric, gas, oil, or water company threatened [...] your living situation today? I have a [facility] place to live 10/02/2023 Sex and Gender Information Value Date Recorded Sex Assigned at Male 10/02/2023 7:37 AM FARM MANAGEMENT PROFESSOR Legal Sex Male 2:40 PM FARM MANAGEMENT PROFESSOR Gender Identity Male 10/02/2023 7:37 AM FARM MANAGEMENT PROFESSOR Sexual Orientation Straight 10/02/2023 7: 37 AM FARM MANAGEMENT PROFESSOR documented as of this encounter Miscellaneous Notes * Radiation Completion Notes - Seth Corona R.N. - 07/04/2024 11:59 PM FARM MANAGEMENT PROFESSOR DIAGNOSIS: Malignant Neoplasm Skin Face Attending Physician: Sulaiman Ackerman M.D. ([id number]) Treatment Intent: Palliative Concomitant Therapy: None Single Plan Treatment Course: 6xMultiSite Plan ID Fractions Dose / Fraction (cGy) Dose Treated (cGy) Dose Planned (cGy) First Treatment Last Treatment Elapsed Days F1ChinR_Chest 370 [id number] 05/30/2024 07/04/2024 35 Course Summary 05/30/2024 07/04/2024 35 Radiation Modality: Photons CLINICAL SUMMARY Mr. Te Archuleta completed radiation treatment as planned without interruptions. The course of treatment was tolerated moderately well. The patient experienced toxicities of grade 2 radiation dermatitis, grade 1 fatigue, and grade 1 oral mucositis during radiation treatment. TREATMENT RESPONSE: Response to treatment will be determined by post-treatment imaging and/or laboratory work. RECOMMENDED FOLLOW UP: Radiation Oncologist - Dr. Ackerman Signed by: Angelica Corona R.N., 07/10/2024 11:40 AM FARM MANAGEMENT PROFESSOR [facility] [address] [place] [address] Cosigned by Sulaiman Ackerman M.D. at 07/11/2024 10:38 PM FARM MANAGEMENT PROFESSOR MANAGEMENT PROFESSOR MANAGEMENT PROFESSOR MANAGEMENT PROFESSOR documented in this encounter Plan of Treatment Upcoming Encounters Date Type Department Care Team (Late st Contact Info) Description 08/07/2024 3:00 PM FARM MANAGEMENT PROFESSOR Appointment Department of Radiation Oncology in [address] [phone] Sulaiman Ackerman M.D. [address] [place] [phone] 08/08/2024 12:45 PM FARM MANAGEMENT PROFESSOR Appointment Department of Radiation Oncology in [place] [address] [place] [phone] Sulaiman Ackerman M.D. [address] [place] [phone] documented as of this encounter Visit Diagnoses Not on filedocumented in this encounter
--- OUTSIDE RECORDS SUMMARY | 2024-08-02 16:35 | XMS_ITS | Encounter Summary ---
Author Organization [facility] Address [address] [place] [address] Care Team Providers Care Mechanical Technologist Name Role Phone Unavailable Primary Care Provider Unavailabl e Encounter Details Date Type Department Care Team (Late st Contact Info) Description 07/03/2024 2:14 PM [facility] Hospital Encounter Department of Radiation Oncology in [place], [place] [address] [place] [phone] Sulaiman Ackerman M.D. [address] [place] [address] Social History Tobacco Use Types Packs/Day Years Used Date Smoking Tobacco: Former Cigarettes 1 18 1 967 - 1984 Smokeless Tobacco: Never Alcohol Use Standard Drinks/Week Comments Yes 0 (1 standard drink = 0.6 oz pur e alcohol) [facility] Utilities Answer Date Recorded In the past 12 months has [facility] [employer], gas, oil, or water [employer] threatened to shut off services in your [...] your living situation today? I have a [facility] place to live 10/02/2023 Sex and Gender Information Value Date Recorded Sex Assigned at Male 10/02/2023 7:37 AM MANAGER STRATEGIC PARTNERSHIPS Legal Sex Male 2:40 PM MANAGER STRATEGIC PARTNERSHIPS Gender Identity Male 10/02/2023 7:37 AM MANAGER STRATEGIC PARTNERSHIPS Sexual Orientation Straight 10/02/2023 7: 37 AM MANAGER STRATEGIC PARTNERSHIPS documented as of this encounter Plan of Treatment Upcoming Encounters Date Type Department Care Team (Late st Contact Info) Description 08/07/2024 3:00 PM MANAGER STRATEGIC PARTNERSHIPS Appointment Department of Radiation Oncology in [place], [place] [address] [place] [address] Sulaiman Ackerman M.D. [address] [place] [address] 08/08/2024 12:45 PM MANAGER STRATEGIC PARTNERSHIPS Appointment Department of Radiation Oncology in [place], [place] [address] [place] [address] Sulaiman Ackeramn M.D. [address] [place] [address] documented as of this encounter Visit Diagnoses Not on filedocumented in this encounter
--- OUTSIDE RECORDS SUMMARY | 2024-08-02 16:35 | XMS_ITS | Encounter Summary ---
Author Organization [facility] Address [address] [place] [address] Care Team Providers Care Taxicab Starter Name Role Phone Unavailable Primary Care Provider Unavailabl e Reason for Referral * Outpatient (Routine) - Closed Specialty Diagnoses / Procedures Referred By Alex vergara Referred To Contact Radiation Oncology Luann De La Fuente P.A.-C., M.S. [address] [place] [address] Phone: tel: fax: Sulaiman Ackerman M.D. [address] [place] [address] Phone: tel: fax: Referral ID Status Reason Start Date Expiration Date Visits Re quested Visits Authorized [id number] Closed 07/04/2024 01/03/2026 1 1 Scheduling Instructions Luann to see; patient can cancel visit if doing well SFER CLERK Encounter Details Date Type Department Care Team (Late st Contact Info) Description 07/04/2024 Orders Only Department of Radiation Oncology in [place], [place] [address] [place] [phone] Luann De La Fuente P.A.-C., M.S. [address] [place] [phone] Social History Tobacco Use Types Packs/Day Years Used Date Smoking Tobacco: Former Cigarettes 1 18 1 967 - 1985 Smokeless Tobacco: Never Alcohol Use Standard Drinks/Week Comments Yes 0 (1 standard drink = 0.6 oz pur e alcohol) [facility] Utilities Answer Date Recorded In [...] Assigned at Male 10/02/2023 7:37 AM TRANSFER CLERK Legal Sex Male 2:40 PM TRANSFER CLERK Gender Identity Male 10/02/2023 7:37 AM TRANSFER CLERK Sexual Orientation Straight 10/02/2023 7: 37 AM TRANSFER CLERK documented as of this encounter Plan of Treatment Upcoming Encounters Date Type Department Care Team (Late st Contact Info) Description 08/07/2024 3:00 PM TRANSFER CLERK Appointment Department of Radiation Oncology in [place], [place] [address] [place] [address] Sulaiman Ackerman M.D. [address] [place] [address] 08/08/2024 12:45 PM TRANSFER CLERK Appointment Department of Radiation Oncology in [place], [place] [address] [place] [address] Sulaiman Ackerman M.D. [address] [place] [address] Scheduled Referrals Name Type Priority Associated Diagnoses Orde r Schedule Radiation Oncology office visit (clinic) Outpatient Referral Routine Expected: 07/09/2024, Expires: 10/02/2025 documented as of this encounter Visit Diagnoses Not on filedocumented in this encounter
--- OUTSIDE RECORDS SUMMARY | 2024-08-02 16:35 | XMS_ITS | Encounter Summary ---
Author Organization [facility] Address [address] [place] [address] Care Team Providers Care Family Resource Management Specialist Name Role Phone Unavailable Primary Care Provider Unavailabl e Encounter Details Date Type Department Care Team (Late st Contact Info) Description 07/17/2024 Orders Only Department of Radiation Oncology in [place], [place] [address] [place] [phone] Sulaiman Ackerman M.D. [address] [place] [address] Social History Tobacco Use Types Packs/Day Years Used Date Smoking Tobacco: Former Cigarettes 1 18 1 967 - 1984 Smokeless Tobacco: Never Alcohol Use Standard Drinks/Week Comments Yes 0 (1 standard drink = 0.6 oz pur e alcohol) [facility] Utilities Answer Date Recorded In the past 12 months has [facility] electric, gas, oil, or water [email or web address] threatened to shut off services in your [...] your living situation today? I have a [facility] place to live 10/02/2023 Sex and Gender Information Value Date Recorded Sex Assigned at Male 10/02/2023 7:37 AM AIRCRAFT CLEANER Legal Sex Male 2:40 PM AIRCRAFT CLEANER Gender Identity Male 10/02/2023 7:37 AM AIRCRAFT CLEANER Sexual Orientation Straight 10/02/2023 7: 37 AM AIRCRAFT CLEANER documented as of this encounter Plan of Treatment Upcoming Encounters Date Type Department Care Team (Late st Contact Info) Description 08/07/2024 3:00 PM AIRCRAFT CLEANER Appointment Department of Radiation Oncology in [place], [place] [address] [place] [address] Sulaiman Ackerman M.D. [address] [place] [address] 08/08/2024 12:45 PM AIRCRAFT CLEANER Appointment Department of Radiation Oncology in [place], [place] [address] [place] [address] Sulaiman Ackerman M.D. [address] [place] [address] documented as of this encounter Visit Diagnoses Not on filedocumented in this encounter
--- OUTSIDE RECORDS SUMMARY | 2024-08-02 16:35 | XMS_ITS | Encounter Summary ---
Author Organization [facility] Address [address] [place] [address] Care Team Providers Care Bullard Operator Name Role Phone Unavailable Primary Care Provider Unavailabl e Reason for Referral * Radiation Therapy (Routine) - Authorized Specialty Diagnoses / Procedures Referred By Contac t Referred To Contact Diagnoses Secondary Malignant Neoplasm Skin Face (HCC) Procedures Management Visit Sulaiman Ackerman M.D. [address] [place] [address] Phone: tel: fax: [facility] Region Referral ID Status Reason Start Date Expiration Date V isits Requested Visits Authorized [id number] Authorized 05/16/2024 05/16/2025 10 10 ET SALES AGENT Reason for Visit * Radiation Therapy (Routine) - Authorized Specialty Diagnoses / Procedures Referred By Contac t Referred To Contact Diagnoses Secondary Malignant Neoplasm Skin Face (HCC) Procedures Management Visit Sulaiman Ackerman M.D. [address] [place] [address] Phone: tel: fax: [facility] Region Referral ID Status Reason Start Date Expiration Date V isits Requested Visits Authorized [id number] Authorized 05/16/2024 05/16/2025 10 10 Encounter Details Date Type Department Care Team (Latest Contact Info) Description 07/03/2024 2:14 PM TICKET SALES AGENT - 07/03/2024 3:57 PM TICKET SALES AGENT Hospital Encounter Department of Radiation Oncology in [address] [address] Sulaiman Ackerman M.D. [address] [place] [address] Secondary Malignant Neoplasm Skin Face (HCC) Social History Tobacco Use Types Packs/Day Years Used Date Smoking Tobacco: Former Cigarettes 1 18 1 967 - 1984 Smokeless Tobacco: Never Alcohol Use Standard Drinks/Week Comments Yes 0 (1 standard drink = 0.6 oz pur e alcohol) [facility] Utilities Answer Date Recorded In the past 12 months has th e electric, gas, oil, or water [employer] threatened to shut off services in your [...] your living situation today? I have a [facility] place to live 10/02/2023 Sex and Gender Information Value Date Recorded Sex Assigned at Male 10/02/2023 7:37 AM TICKET SALES AGENT Legal Sex Male 2:40 PM TICKET SALES AGENT Gender Identity Male 10/02/2023 7:37 AM TICKET SALES AGENT Sexual Orientation Straight 10/02/2023 7: 37 AM TICKET SALES AGENT documented as of this encounter Last Filed Vital Signs Vital Sign Reading Time Taken Comments Blood Pressure 126/66 07/03/2024 2:57 PM TICKET SALES AGENT Pulse 67 07/03/2024 2:57 PM TICKET SALES AGENT Temperature - - Respiratory Rate - - Oxygen Saturation - - Inhaled Oxygen Concentration - - Weight - - Height - - Body Mass Index - - documented in this encounter Medications at Time [...] 3 (three) times a day. 05/29/2024 morphine (MSir) 15 mg tabletIndications: Prolonged Acute [...] Progress Notes * Sulaiman Ackerman M.D. - 07/03/2024 3:15 PM CST SUBJECTIVE CHIEF COMPLAINT/REASON FOR VISIT Evaluation for side effects while receiving radiation treatment for 1. Secondary Malignant Neoplasm Skin Face (HCC) SUPERVISED BY: Sulaiman Ackerman M.D. ([id number]) HISTORY OF PRESENT ILLNESS Mr. Te Archuleta is a 73-year-old male with metastatic adenocarcinoma of the esophagus. He iscurrently receiving palliative quad shot radiation therapy to lesions of the right chin and right suprasternal notch. Treatment Course: 6xMultiSite Plan ID Fractions Dose / Fraction (cGy) Dose Treated (cGy) Dose Planned (cGy) First Treatment Last Treatment Elapsed Days F1ChinR_Chest 370 [id number] 05/30/2024 07/03/2024 34 Course Summary 05/30/2024 07/03/2024 34 The patient was seen and examined today with Dr. Ackerman The patient reports doing well overall. Patient reports his pain has been well managed with the useof 30 mg ER morphine twice daily. He is using Magic Mouthwash intermittently at meal times. He is completing baking soda rinses roughly four times per day. He notes he never feels hungry or wants to eat - however he is maintaining his weight. He is supplementing his soft diet with high calorie Boosts and Beneprotein supplements as needed. He is currently applying Aquaphor roughly four times per day. At bedtime - he is applying Aquaphor,Xeroform, and gauze. Of note - he reports his suprasternal lesion feels like it has decreased in size. Additionally - he requests a refill for his ER morphine tablets. PATIENT REPORTED SYMPTOM SCREEN FATIGUE (Scale: 0 = no fatigue; 10 = worst fatigue you can imagine): 7 PAIN (Scale: 0 = no pain; 10 = worst pain you can imagine): 1 OVERALL QUALITY OF LIFE (Scale: 0 = as bad as can be; 10 = as good as can be): 7 OBJECTIVE BP 126/66 (BP Location: Right arm, Patient Position: Sitting, Cuff Size: Regular) Pulse 67 PHYSICAL EXAMINATION General: Alert and oriented, in [...] on July 04, 2024 The patient will complete radiation treatment tomorrow. He was encouraged to continue with his skincare routine and rinses as much as needed. We discussed getting the Xeroform wet before removal of the product. He will continue to log his pain in his pain diary daily. Dr. Ackerman was in for any questions or concerns. He will continue with treatment as planned. He can contact our care team with any questions or concerns. FOLLOW UP - Visit with our office on Monday 07/09 - Dr. Quinteros will follow patient post radiation Signed by: Elle Morris R.N. 07/03/24 3:26 PM TICKET SALES AGENT [facility] [place] I saw and evaluated the patient and participated in the greene portions of the service. I reviewed thedocumentation of Elle Morris R.N. and agree with the findings and plan. The patient appears well on exam. He is tolerating treatment well. I refilled his long-acting morphine prescription for a full 30 days. He notes that he has a PET/CT scan coming up in a few weeks. We explained to him that this will likely show lots of FDG uptake in his face and neck because of his current treatment and that will not necessarily mean that his cancer is progressing there. Luann De La Fuente P.A.-C came in with me. She will see the patient in my absence next Tuesday. The patient can also contact us in the interim at any time with questions or concerns. He verbalized satisfaction with this plan. He will finish treatment as planned tomorrow. Signed by: Sulaiman Ackerman M.D. 07/03/2024 3:57 PM TICKET SALES AGENT [facility] [address] [place] [address] ET SALES AGENT documented in this encounter Plan of Treatment Upcoming Encounters Date Type Department Care Team (Late st Contact Info) Description 08/07/2024 3:00 PM TICKET SALES AGENT Appointment Department of Radiation Oncology in [address] [address] Sulaiman Ackerman M.D. [address] [place] [phone] 08/08/2024 12:45 PM TICKET SALES AGENT Appointment Department of Radiation Oncology in [address] [address] Sulaiman Ackerman M.D. [address] [place] [phone] Scheduled Orders Name Type Priority Associated Diagnoses Orde r Schedule Management Visit Radiation Oncology Routine Secondary Malignant Neoplasm Skin Face (HCC) Once for 1 Occurrences starting 07/03/2024 until 07/03/2024 documented as of this encounter Visit Diagnoses Diagnosis Secondary Malignant Neoplasm Skin Face (HCC) documented in this encounter
--- OUTSIDE RECORDS SUMMARY | 2024-08-02 16:35 | XMS_ITS | Encounter Summary ---
Author Organization [facility] Address [address] [place] [address] Care Team Providers Care Phonograph Mechanic Name Role Phone Unavailable Primary Care Provider Unavailabl e Encounter Details Date Type Department Care Team (Late st Contact Info) Description 07/03/2024 7:53 AM [facility] Hospital Encounter Department of Radiation Oncology in [place], [place] [address] [place] [phone] Sulaiman Ackerman M.D. [address] [place] [address] Social History Tobacco Use Types Packs/Day Years Used Date Smoking Tobacco: Former Cigarettes 1 18 1 967 - 1984 Smokeless Tobacco: Never Alcohol Use Standard Drinks/Week Comments Yes 0 (1 standard drink = 0.6 oz pur e alcohol) [facility] Utilities Answer Date Recorded In the past 12 months has [facility] [employer], gas, oil, or water [employer] threatened to shut off services in your [...] living situation today? I have a [facility] place to live 10/02/2023 Sex and Gender Information Value Date Recorded Sex Assigned at Male 10/02/2023 7:37 AM SENIOR COMMISSARY AGENT Legal Sex Male 2:40 PM SENIOR COMMISSARY AGENT Gender Identity Male 10/02/2023 7:37 AM SENIOR COMMISSARY AGENT Sexual Orientation Straight 10/02/2023 7: 37 AM SENIOR COMMISSARY AGENT documented as of this encounter Plan of Treatment Upcoming Encounters Date Type Department Care Team (Late st Contact Info) Description 08/07/2024 3:00 PM SENIOR COMMISSARY AGENT Appointment Department of Radiation Oncology in [place], [place] [address] [place] [address] Sulaiman Ackerman M.D. [address] [place] [address] 08/08/2024 12:45 PM SENIOR COMMISSARY AGENT Appointment Department of Radiation Oncology in [place], [place] [address] [place] [address] Sulaiman Ackerman M.D. [address] [place] [address] documented as of this encounter Visit Diagnoses Not on filedocumented in this encounter
--- OUTSIDE RECORDS SUMMARY | 2024-08-02 16:36 | XMS_ITS | Encounter Summary ---
Author Organization [facility] Address [address] [place] [address] Care Team Providers Care Uptwist Spinner Name Role Phone Unavailable Primary Care Provider Unavailabl e Reason for Referral * Radiation Therapy (Routine) - Authorized Specialty Diagnoses / Procedures Referred By Contac t Referred To Contact Diagnoses Secondary Malignant Neoplasm Skin Face (HCC) Procedures Management Visit Sulaiman Ackerman M.D. [address] [place] [address] Phone: tel: fax: [facility] Region Referral ID Status Reason Start Date Expiration Date V isits Requested Visits Authorized [id number] Authorized 05/16/2024 05/16/2025 10 10 GENERATION REPRESENTATIVE Reason for Visit * Radiation Therapy (Routine) - Authorized Specialty Diagnoses / Procedures Referred By Contac t Referred To Contact Diagnoses Secondary Malignant Neoplasm Skin Face (HCC) Procedures Management Visit Sulaiman Ackerman M.D. [address] [place] [address] Phone: tel: fax: [facility] Region Referral ID Status Reason Start Date Expiration Date V isits Requested Visits Authorized [id number] Authorized 05/16/2024 05/16/2025 10 10 Encounter Details Date Type Department Care Team (Latest Contact Info) Description 06/13/2024 8:39 AM LEAD GENERATION REPRESENTATIVE - 06/19/2024 2:29 PM LEAD GENERATION REPRESENTATIVE Hospital Encounter Department of Radiation Oncology in [address] [address] Sulaiman Ackerman M.D. [address] [place] [address] Secondary Malignant Neoplasm Skin Face (HCC) Social [...] th e electric, gas, oil, or water [employer] threatened to shut off services in your [...] your living situation today? I have a [facility] place to live 10/02/2023 Sex and Gender Information Value Date Recorded Sex Assigned at Male 10/02/2023 7:37 AM LEAD GENERATION REPRESENTATIVE Legal Sex Male 2:40 PM LEAD GENERATION REPRESENTATIVE Gender Identity Male 10/02/2023 7:37 AM LEAD GENERATION REPRESENTATIVE Sexual Orientation Straight 10/02/2023 7: 37 AM LEAD GENERATION REPRESENTATIVE documented as of this encounter Last Filed Vital Signs Vital Sign Reading Time Taken Comments Blood Pressure 131/62 06/13/2024 8:42 AM LEAD GENERATION REPRESENTATIVE Pulse 65 06/13/2024 8:42 AM LEAD GENERATION REPRESENTATIVE Temperature 36.6 C (97.8 F) 06/13/2024 8:42 AM LEAD GENERATION REPRESENTATIVE Respiratory Rate - - Oxygen Saturation - - Inhaled Oxygen Concentration - - Weight 78.8 kg (173 lb 11.6 oz) 06/13/2024 8:42 AM LEAD GENERATION REPRESENTATIVE Height - - Body Mass Index 25.73 01/30/2019 9:45 AM CDT documented in this [...] 500 mcg by mouth as needed (Neuropathy). LORazepam (Ativan) 0.5 mg tablet Take 0.5 mg by mouth every 6 (six) hours as needed (nausea). mometasone (Elocon) 0.1 % cream Apply 1 Application topically daily. Apply to skin within the treatment field. 45 g 1 05/30/2024 multivitamin tablet Take 1 tablet by mouth. 10/11/2011 ondansetron (Zofran) 4 mg tablet Take 4 mg by mouth every 6 (six) hours as needed for nausea or vomiting. 06/05/2024 prednisoLONE acetate (Pred Forte) 1 % ophthalmic suspension Administer 1 drop into both eyes 3 (three) times a day. 05/29/2024 diphenhydramine- lidocaine 2 %-antacid (mw) Take 5-10 mL by mouth 4 (four) times a day before meals and bedtime. Swish in mouth for 1 minute and then spit out solution.Do not eat or drink for 15-30 minutes after use. 480 mL 1 06/12/2024 4 morphine (MS Contin) 30 mg ER tablet Take 1 tablet by mouth 2 (two) times a day. 06/01/2024 4 prochlorperazine (Compazine) 10 mg tablet Take 10 mg by mouth 3 (three) times a day as needed for nausea or vomiting. 10/07/2023 4 traMADoL (Ultram) 50 mg tabletIndication s:Prolonged Acute Pain/Traumatic Injury Take 1 tablet (50 mg total) by mouth every 6 (six) hours as needed for pain Indications: Prolonged Acute Pain/Traumatic Injury. 60 tablet 05/16/2024 4 documented as of this encounter Progress Notes * Sulaiman Ackerman M.D. - 06/13/2024 9:00 AM CST SUBJECTIVE CHIEF COMPLAINT/REASON FOR VISIT Evaluation for side effects while receiving radiation treatment for 1. Secondary Malignant Neoplasm Skin Face (HCC) SUPERVISED BY: Sulaiman Ackerman M.D. ([phone]) HISTORY OF PRESENT ILLNESS Mr. Te Archuleta is a 73-year-old male with metastatic adenocarcinoma of the esophagus. He iscurrently receiving palliative quad shot radiation therapy to lesions of the right chin and right suprasternal notch. Treatment Course: 5xHumerusSBRT Plan ID Fractions Dose / Fraction (cGy) Dose Treated (cGy) Dose Planned (cGy) First Treatment Last Treatment Elapsed Days [id number] 1000 3000 3000 05/03/2024 05/07/2024 4 Course Summary 05/03/2024 05/07/2024 4 Treatment Course: 6xMultiSite Plan ID Fractions Dose / Fraction (cGy) Dose Treated (cGy) Dose Planned (cGy) First Treatment Last Treatment Elapsed Days [id number] 05/30/2024 06/13/2024 14 Course Summary 05/30/2024 06/13/2024 14 The patient was seen and examined today with Dr. Ackerman The patient reports doing well overall. Patient reports that he tried the Magic Mouthwash yesterdayand felt like it was beneficial. He rates the pain in his mouth a 2 out of 10 and his shoulder painhas resolved singe he started Morphine ER 30 mg every 12 hours. He is also taking Zofran 4 mg twicedaily for nausea management. He is eating small frequent meals throughout the day. He is managing dry mouth with baking soda swishes and Biotene spray. Patient is apply Mometasone to treatment field daily. . PATIENT REPORTED SYMPTOM SCREEN FATIGUE (Scale: 0 = no fatigue; 10 = worst fatigue you can imagine): 4 PAIN (Scale: 0 = no pain; 10 = worst pain you can imagine): 2 OVERALL QUALITY OF LIFE (Scale: 0 = as bad as can be; 10 = as good as can be): 8 OBJECTIVE BP 131/62 (BP Location: Right arm, Patient Position: Sitting, Cuff Size: Regular) Pulse 65 Temp36.6 ??C (Temporal) Wt 78.8 kg BMI 25.73 kg/m?? PHYSICAL EXAMINATION General: Alert and oriented, in no apparent distress. Oral cavity: There is some whitish exudate in the lower gumline consistent with mucositis. No bleeding. No clear signs of thrush. Skin: Erythematous, raised lesion of the right chin with a central eschar is flatter and less raised. Visible raised lesion in the right suprasternal notch is less apparent and without overlying erythema. ASSESSMENT / PLAN #1 Stage III [...] initiated onMay 30, 2024; anticipated completion on June 27, 2024 The patient tolerating treatment well overall with treatment related side effect. Reviewed and updated medication list at this visit. He can continue to use Magic Mouthwash for mucositis discomfort. Patient can continue to apply Mometasone twice daily to treatment field waiting 15 minutes in between lotion and Mometasone application. Patient will apply Aquaphor to the scabbed area on his right chin. He will continue with treatment as planned. He can contact our care team with any questions or concerns. Signed by: Katie Mitchell R.N. 06/13/24 11:44 AM [facility] I saw and evaluated the patient and participated in the greene portions of the service. I reviewed thedocumentation of Katie Mitchell R.N. and agree with the findings and plan. The patient appears well on exam. He is here with his Margaret. We reviewed the fact that his mucositis could get worse after treatment is completed. He agreed to contact us if his pain is not well controlled with his current regimen. He will continue with topical mometasone for the next week and then discontinue it until his next cycle. We will see him back on June 25, 2024 for a repeat simulation to see if wecan reduce the treatment volume. He will continue with treatment as planned. Signed by: Sulaiman Ackerman M.D. 06/19/2024 2:29 PM [facility] [address] [place] [address] GENERATION REPRESENTATIVE documented in this encounter Miscellaneous Notes * Addendum Note - Christiane Anderson C.NMacario - 06/13/2024 9:00 AM CSTEncounter addended by: Christiane Anderson C.NMacario on: 06/19/2024 2:37 PM Actions taken: Letter saved GENERATION REPRESENTATIVE documented in this encounter Plan of Treatment Upcoming Encounters Date Type Department Care Team (Late st Contact Info) Description 08/07/2024 3:00 PM LEAD GENERATION REPRESENTATIVE Appointment Department of Radiation Oncology in [address] [address] Sulaiman Ackerman M.D. [address] [place] [address] 08/08/2024 12:45 PM LEAD GENERATION REPRESENTATIVE Appointment Department of Radiation Oncology in [address] [address] Sulaiman Ackerman M.D. [address] [place] [address] Scheduled Orders Name Type Priority Associated Diagnoses Orde r Schedule Management Visit Radiation Oncology Routine Secondary Malignant Neoplasm Skin Face (HCC) Once for 1 Occurrences starting 06/13/2024 until 06/13/2024 documented as of this encounter Visit Diagnoses Diagnosis Secondary Malignant Neoplasm Skin Face (HCC) documented in this encounter
--- OUTSIDE RECORDS SUMMARY | 2024-08-02 16:36 | XMS_ITS | Encounter Summary ---
Author Organization [facility] Address [address] [place] [address] Care Team Providers Care Torch Operator Name Role Phone Unavailable Primary Care Provider Unavailabl e Reason for Referral * Radiation Therapy (Routine) - Closed Specialty Diagnoses / Procedures Referred By Contac t Referred To Contact Diagnoses Secondary Malignant Neoplasm Skin Face (HCC) Procedures Verification/Re-Sim Sulaiman Ackerman M.D. [address] [place] [address] Phone: tel: fax: [facility] Region Referral ID Status Reason Start Date Expiration Date Visits Re quested Visits Authorized [id number] Closed 05/25/2024 05/25/2025 1 1 [employer] Reason for Visit * Radiation Therapy (Routine) - Closed Specialty Diagnoses / Procedures Referred By Contac t Referred To Contact Diagnoses Secondary Malignant Neoplasm Skin Face (HCC) Procedures Verification/Re-Sim Sulaiman Ackerman M.D. [address] [place] [address] Phone: tel: fax: [facility] Region Referral ID Status Reason Start Date Expiration Date Visits Re quested Visits Authorized [id number] Closed 05/25/2024 05/25/2025 1 1 Encounter Details Date Type Department Care Team (Latest Contact Info) Description 06/25/2024 11:00 AM AVIATION [employer] - 06/27/2024 5:18 PM AVIATION BOATSWAIN'[employer] MATE Hospital Encounter Department of Radiation Oncology in [address] [address] Sulaiman Ackerman M.D. [address] [place] [address] Secondary Malignant Neoplasm Skin Face (HCC) Social History Tobacco Use Types Packs/Day Years Used Date Smoking Tobacco: Former Cigarettes 1 18 1 967 - 1984 Smokeless Tobacco: Never Alcohol Use Standard Drinks/Week Comments Yes 0 (1 standard drink = 0.6 oz pur e alcohol) [facility] Utilities Answer Date Recorded In the [...] your living situation today? I have a [facility] place to live 10/02/2023 Sex and Gender Information Value Date Recorded Sex Assigned at Male 10/02/2023 7:37 AM AVIATION BOATSWAIN'S MATE Legal Sex Male 2:40 PM AVIATION [employer]WA[employer] MATE Gender Identity Male 10/02/2023 7:37 AM AVIATION BOATSWAIN'S MATE Sexual Orientation Straight 10/02/2023 7: 37 AM AVIATION BOATSWA[employer] MATE documented as of this encounter Medications at [...] minutes after use. 480 mL 1 06/12/2024 morphine (MS Contin) 30 mg ER tabletIndication s:Prolonged Acute Pain/Traumatic Injury Take 1 tablet (30 mg total) by mouth 2 (two) times a day for 14 days Indication: Prolonged Acute Pain/Traumatic Injury. 28 tablet 06/25/2024 4 morphine (MSir) 15 mg tabletIndication s:Prolonged Acute [...] 05/16/2024 4 documented as of this encounter Procedure Notes * Nati Maher RTT - 06/25/2024 11:00 AM CST Procedures Simulation was performed under physician supervision based on physician order. Physician was immediately available to provide assistance and direction throughout the procedure. The patient was appropriately identified and placed in the treatment position using the necessary immobilization. Area scanned:Head, Neck, and Chest Contrast used for the simulation procedure: None Motion management: None Reason for Re-Sim:Anatomy change Immobilization:No changes made CT guidance: Following positioning of the patient, a series of slices was obtained to be utilized in treatment planning. CT images were transferred to the [employer] treatment planning system. Verification treatment planning will take place prior to treatment delivery as directed by physician. Patient set up and imaging was appropriate and completed without incident. Tour Agent use:No Cosigned by Sulaiman Ackerman M.D. at 06/27/2024 5:18 PM [employer]ATION [employer] T[employer]S [employer]ATE [employer] Associated attestation - Sulaiman Ackerman M.D. - 06/27/2024 5:18 PM [employer] I was available for the entirety of the procedure but only present for image review. Signed by: Sulaiman Ackerman M.D. 06/27/24 5:18 PM [employer] [facility] [place] documented in this encounter Plan of Treatment Upcoming Encounters Date Type Department Care Team (Late st Contact Info) Description 08/07/2024 3:00 PM [employer]ATION [employer] Appointment Department of Radiation Oncology in [place], [place] [address] [place] [address] Sulaiman Ackerman M.D. [address] [place] [address] 08/08/2024 12:45 PM [employer]ATION [employer] Appointment Department of Radiation Oncology in [place], [place] [address] [place] [address] Sulaiman Ackerman M.D. [address] [place] [address] documented as of this encounter Procedures Procedure Name Priority Date/Time Associated Diagnosis Comments VERIFICATION/RE-SIM Routine 06/25/2024 1 1:20 AM [employer]ATION [employer]ATE Secondary Malignant Neoplasm Skin Face (HCC) documented in this encounter Results * Verification/Re-Sim (06/25/2024 11:20 AM [employer]IATION [employer]ATE) Narrative BRENDAN GARCIA - 06/25/2024 11:20 AM [employer] This exam does not require a oncologist review or interpretation. Please refer to the patient s medical record on this date for clinical details. us Sulaiman Ackerman M.D. RADIATION ONCOLOGY ORDERAB LES Final Result BRENDAN GARCIA na documented in this encounter Visit Diagnoses Diagnosis Secondary Malignant Neoplasm Skin Face (HCC) documented in this encounter
--- OUTSIDE RECORDS SUMMARY | 2024-08-02 16:36 | XMS_ITS | Encounter Summary ---
Author Organization [facility] Address [address] [place] [address] Care Team Providers Care Carpentry Specialist Name Role Phone Unavailable Primary Care Provider Unavailabl e Reason for Referral * Outpatient (Routine) - Closed Specialty Diagnoses / Procedures Referred By Delisaac t Referred To Contact Radiation Oncology Sulaiman Ackerman M.D. [address] [place] [address] Phone: tel: [facility]: [facility] Referral ID Status Reason Start Date Expiration Date Visits Re quested Visits Authorized [id number] Closed 05/25/2024 11/24/2025 [address] Early if available INSPECTOR Reason for Visit * Outpatient (Routine) - Closed Specialty Diagnoses / Procedures Referred By Alex t Referred To Contact Radiation Oncology Sulaiman Ackerman M.D. [address] [place] [address] Phone: tel: fax: [facility] Referral ID Status Reason Start Date Expiration Date Visits Re quested Visits Authorized [id number] Closed 05/25/2024 11/24/2025 1 1 Encounter Details Date Type Department Care Team (Latest Contact Info) Description 06/25/2024 10:01 AM MINE INSPECTOR - 06/27/2024 6:03 PM MINE INSPECTOR Hospital Encounter Department of Radiation Oncology in [place], [place] [address] [place] [phone] Sulaiman Ackerman M.D. [address] [place] [address] Secondary Malignant Neoplasm Skin Face (HCC) (Primary Dx) Social History Tobacco Use Types Packs/Day Years Used Date Smoking Tobacco: Former Cigarettes 1 18 1 967 - 1984 Smokeless Tobacco: Never Alcohol Use Standard Drinks/Week Comments Yes 0 (1 standard drink = 0.6 oz pur e alcohol) [facility] Utilities Answer Date Recorded In the past 12 months has th e Smart GPS Backpack, gas, oil, or water PT PAL threatened to shut off services in your [...] living situation today? I have a [facility] place to live 10/02/2023 Sex and Gender Information Value Date Recorded Sex Assigned at Male 10/02/2023 7:37 AM MINE INSPECTOR Legal Sex Male 2:40 PM MINE INSPECTOR Gender Identity Male 10/02/2023 7:37 AM MINE INSPECTOR Sexual Orientation Straight 10/02/2023 7: 37 AM MINE INSPECTOR documented as of this encounter Last Filed Vital Signs Vital Sign Reading Time Taken Comments Blood Pressure 131/65 06/25/2024 10:18 AM MINE INSPECTOR Pulse 68 06/25/2024 10:18 AM MINE INSPECTOR Temperature 36.8 C (98.2 F) 06/25/2024 10:18 AM MINE INSPECTOR Respiratory Rate - - Oxygen Saturation - - Inhaled Oxygen Concentration - - Weight 77.9 kg (171 lb 11.8 oz) 024 10:18 AM MINE INSPECTOR Height - - Body Mass Index 25.44 01/30/2019 9:45 AM CDT documented in this [...] 4 morphine (MS Contin) 30 mg ER tabletIndication [...] as of this encounter Progress Notes * Stacy Early M.D. - 06/25/2024 10:30 AM CST RADIATION ONCOLOGY FOLLOW-UP VISIT Supervising Warp Changer: Dr. Ackerman Home address: [address] [place] [phone] [facility] Mr. Te Archuleta is a 73 y.o. male with metastatic esophageal cancer. He has completed two cycles of QUAD SHOT for re-irradiation of a painful chin metastasis and treatment of a suprasternal notchmetastasis. He is here for follow up and re-simulation prior to a 3rd cycle. The patient's oncologic history is as follows: Oncology History [...] was performed by Dr. Keven Hammonds, from [facility]. Barretts and tumor was seen in [...] Oncology consultation with Dr. Xavier Brown at [facility] who discussed weekly Taxol and carboplatin chemotherapy concurrent with radiation as an initial strategy. Referral to Radiation Oncology. 8. January 29, 2019: Port placement performed at [facility]. 9. February 07, 2019 through March 13, 2019: Intensity modulated radiotherapy to the lower esophageal tumor and nearby lymph nodes with a margin delivering 4500 cGy in 25 fractions with a simultaneous boost to 5000 cGy in 25 fractions to the gross tumor. The patient received concurrent chemotherapy with weekly Taxol and Carboplatin under the care of Dr. Brown on Tuesdays at the [facility]. 04/16/2019 Critical Imaging PET/CT IMPRESSION: 1. Overall [...] Chemotherapy Under the care of Dr. Na Romano [facility] July 2021: Initiated Xeloda, cisplatin, Herceptin, and [...] avid metastases 04/12/2023 Other Patient fell in [employer] garden and developed ongoing pain. He was [...] Herceptin, and Oxaliplatin initiated with Dr. Quinteros, [facility] 12/31/23 - 01/20/24: oxaliplatin held while receiving [...] 3000 cGy. 05/08/2024 - Chemotherapy Initiated Enhertu with Dr. Quinteros Secondary Malignant Neoplasm Skin Face (HCC) 05/29/2024 - Radiation Therapy Radiation Therapy Treatment Details (Noted on 05/16/2024) Site: Chin Technique: IMRT Goal: Curative Planned Treatment Start Date: 05/29/2024 Prior history of radiation Please see above history. Interval history Since the patient was last seen in radiation oncology on 06/13/24, he has been bothered by fatigue and mucositis on his inner right lip. He states he spends a lot of time on the couch watching TV, but is still able to get around the house okay, feed the cats outside, etc. He is taking 30 mg MS Contin BID for pain, as well as Magic Mouthwash at meals. With this regimen, his pain is 5/10 at baseline and 7-8/10 with eating. He has lost about 5 lbs due to pain with eating. He has traMADol availablebut says this is unhelpful. 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 He also has some constipation which is relieved by eating applesauce. Review of systems Review of systems as noted above. Past medical history Pertinent medications, allergies, past medical history, past surgical history, social history, and family history were reviewed. OBJECTIVE Vitals Weight: 77.9 kg Physical exam ECO Constitutional: Pleasant, in no acute distress, normal weight, ambulates without an assistive device. Skin: Erythema surrounding treated right chin. There is desquamating radiation mucositis of the inner right lip. ASSESSMENT / PLAN Metastatic esophageal cancer with right chin and right suprasternal notch metastases s/p 2 cycles QUAD SHOT Mr. Archuleta would like to proceed with the third cycle of QUAD SHOT. We will re- sim today to reassess treatment volumes. Mr. Archuleta is experiencing painful radiation mucositis of the right inner lip. He is currently taking MS contin 30 mg BID and magic mouthwash PRN for this. We will add short-acting morphine (7.5 mg q4h PRN) to this to be taken prior to meals for additional pain relief. Also counseled regarding Narcan use and bowel regimen. We will start the next cycle of treatment next week to allow for additional time to heal from his previous cycle. Upcoming oncologic appointments and tests CT simulation today Treatment 07/03 and 07/[address] Ackerman is the technical sales consultant; please see his attestation for details. Addendum: Re-sim demonstrated persistent disease at the previously treated sites, so we will continue treatment with the same plan. Cosigned by Sulaiman Ackerman M.D. at 06/27/2024 6:01 PM MINE INSPECTOR INSPECTOR INSPECTOR INSPECTOR INSPECTOR INSPECTOR Associated attestation - Sulaiman Ackerman M.D. - 06/27/2024 6:01 PM MINE INSPECTOR I saw and evaluated the patient and participated in the greene portions of the service. I reviewed thedocumentation of Stacy Early M.D. and agree with the findings and plan. Mr. Te Archuleta is a 73 y.o. male with metastatic esophageal cancer. He has completed two cycles of QUAD SHOT for re-irradiation of a painful chin metastasis and treatment of a suprasternal notchmetastasis. He is here for follow up and re-simulation prior to a 3rd cycle. The patient reports fatigue, difficulty eating, and pain in his right lower oral cavity and lips inhis exacerbated by eating. He is utilizing MS Contin 30 mg twice daily as well as magic mouthwash. He estimates that he has lost 5 pounds. He has been utilizing moisturizing lotion on his face and neck and also mometasone cream topically once daily. The patient appears tired. He is here with his Margaret. He has increasing erythema over the right chin and lip region. He has mucositis in his right lower lip and right lower gum area. No bleedingor signs of thrush. We will begin immediate release morphine 7.5 mg by mouth every 3-4 hours as needed for pain. He will begin Senokot-S to avoid narcotic induced constipation. He will complete a pain diary and bring itwith him upon his return visit. My recommendation is that we not proceed with his third cycle of the quad shot this week but that we give him another week of recovery time. He underwent a repeat CT simulation today but tumor volumes have not shrunk enough to warrant replanning. We will see him back on July 02 to see if we can proceed with his third cycle on July 03 and July 04, 2024. The patient and his verbalized satisfaction with this plan. I have spent 15 minutes caring for this patient including kydu-yo-hfos and jgo-yqhp-vw-face time. Signed by: Sulaiman Ackerman M.D. 06/27/24 6:01 PM MINE INSPECTOR [facility] [place] documented in this encounter Miscellaneous Notes * Addendum Note - Radha Chance - 06/25/2024 10:30 AM CSTEncounter addended by: Radha Chance on: 07/02/2024 8:25 AM Actions taken: Letter saved INSPECTOR documented in this encounter Plan of Treatment Upcoming Encounters Date Type Department Care Team (Late st Contact Info) Description 08/07/2024 3:00 PM MINE INSPECTOR Appointment Department of Radiation Oncology in [place], [place] [address] [place] [phone] Sulaiman Ackerman M.D. [address] [place] [address] 08/08/2024 12:45 PM MINE INSPECTOR Appointment Department of Radiation Oncology in [place], [place] [address] [place] [phone] Sulaiman Ackerman M.D. [address] [place] [address] Scheduled Referrals Name Type Priority Associated Diagnoses Order Schedule Radiation Oncology office visit (clinic) Outpatient Referral Routine Once for 1 Occurrences starting 06/25/2024 until 06/25/2024 documented as of this encounter Visit Diagnoses Diagnosis Secondary Malignant Neoplasm Skin Face (HCC)- Primary documented in this encounter
== END 2024-08-03 07:45 | disposition home or self-care (01) ==
LOC: MRI 07:44
PROVIDERS: PCP Physician Assistant Medical; Visit Provider Physician Assistant
DX: C15.5 Malignant neoplasm of lower third of esophagus (principal); J81.1 Chronic pulmonary edema; C79.31 Secondary malignant neoplasm of brain; R06.02 Shortness of breath
CPT/HCPCS: 70553; A9575

== ENCOUNTER 2024-08-06 13:00 | Outpatient (RCR) | payer MEDICARE, BC, SELFPAY ==
[2024-04-06 08:25] LABS: Basophils Absolute Auto 0.02 K/uL (0.00-0.30); Basophils Percent Auto 0.3 % (0.0-3.0); Eosinophils Percent Auto 1.6 % (0.0-7.0); Hemoglobin* 12.4 gm/dL (13.5-17.5); Immature Granulocytes Abs Auto 0.02 K/uL (0.00-0.30); Immature Granulocytes Pct Auto 0.3 %; Lymphocytes Percent Auto 8.8 % (20-44); Mean Corpuscular HGB Conc 34 gm/dL (32-36); Mean Corpuscular Hemoglobin 36 pg (26-34); Mean Corpuscular Volume 109 fL (80-100); Monocytes Percent Auto 10.7 % (0.0-11.0); Neutrophils Percent Auto 78.3 % (42.0-72.0); Platelet Count* 219 K/uL (140-440); RDW Coefficient of Variation % 14.1 % (11.5-15.5); Red Blood Count 3.41 m/uL (4.30-5.90); White Blood Count* 6.36 K/uL (4.50-11.00)
[2024-04-06 08:32] LABS: Albumin* 3.8 g/dL (3.3-5.0); Chloride* 104 mmol/L (96-114); Sodium* 135 mmol/L (135-149)
[2024-04-06 08:33] LABS: Potassium* 4.2 mmol/L (3.6-5.1)
[2024-04-06 08:35] LABS: Alkaline Phosphatase* 88 U/L (40-150); Anion Gap 5 mEq/L (7-15); Aspartate Amino Transferase* 40 U/L (12-35); Blood Urea Nitrogen* 24 mg/dL (7-30); Carbon Dioxide* 26 mmol/L (20-32); Creatinine* 0.8 mg/dL (0.5-1.5); Estimated Glomerular Filt Rate 92 ml/min; Glucose* 220 mg/dL (60-115); Total Protein* 6.5 g/dL (6.0-8.3)
[2024-04-06 08:36] LABS: Alanine Aminotransferase* 30 U/L (4-50); Calcium* 9.2 mg/dL (8.4-10.6)
[2024-04-06 08:39] LABS: Slide Review Reflex No
[2024-04-06 09:05] VITALS: BP 125/75; PULSE 62; RESP 16; TEMP 36.6; O2SAT 97
[2024-04-06] MEDS: PALONOSETRON 0.25 MG/5 ML inj IV (10:03)
[2024-04-06] MEDS: dexAMETHasone 20 MG in 0.9 % SODIUM CHLORIDE 100 ml 100 ML 408 MG IVPB (10:03)
[2024-04-06] MEDS: HEPARIN 500 UNIT/5 ML SYRINGE IVF (13:00)
[2024-04-06] MEDS: SODIUM CHLORIDE 0.9 % (FLUSH) 10 ML SYRINGE IVF (13:00)
[2024-04-06] MEDS: 0.9 % SODIUM CHLORIDE 250 ml IV (13:00)
[2024-04-06] MEDS: 5 % DEXTROSE 250 ML IV (13:46)
--- NOTE | 2024-04-06 15:53 | ONC.NURNOTE ---
Pt here for herceptin/oxaliplatin. Blood sugar this am 220. Pt did eat breakfast, this is more elevated than usual. Pt also c/o lower rib cage pain/upper abd. Pt stated it feels like I did abd situps, but I didn't. Discussed with Gwendolyn Negron APRN, pt agreed to return on 04/09/24 to check a fasting glucose and for nursing to assess abd pain. Okay for treatment today. Pt verbalized understanding of plan of care.
[2024-04-09 08:15] VITALS: BP 142/78; PULSE 68; RESP 16; TEMP 36.4; O2SAT 97
[2024-04-09 08:22] LABS: Glucose* 101 mg/dL (60-115)
[2024-04-09] MEDS: HEPARIN 500 UNIT/5 ML SYRINGE IVF (11:44)
[2024-04-09] MEDS: SODIUM CHLORIDE 0.9 % (FLUSH) 10 ML SYRINGE IVF (11:44)
[2024-04-26 14:10] LABS: Basophils Absolute Auto 0.01 K/uL (0.00-0.30); Basophils Percent Auto 0.2 % (0.0-3.0); Eosinophils Absolute Auto 0.14 K/uL (0.00-0.50); Eosinophils Percent Auto 2.2 % (0.0-7.0); Hematocrit 36.8 % (37.0-53.0); Hemoglobin* 12.1 gm/dL (13.5-17.5); Immature Granulocytes Abs Auto 0.03 K/uL (0.00-0.30); Immature Granulocytes Pct Auto 0.5 %; Lymphocytes Percent Auto 14.8 % (20-44); Mean Corpuscular HGB Conc 33 gm/dL (32-36); Mean Corpuscular Hemoglobin 36 pg (26-34); Mean Corpuscular Volume 109 fL (80-100); Monocytes Percent Auto 23.8 % (0.0-11.0); Neutrophils Absolute Auto 3.65 K/uL (1.7-7.0); Neutrophils Percent Auto 58.5 % (42.0-72.0); Platelet Count* 197 K/uL (140-440); RDW Coefficient of Variation % 15.5 % (11.5-15.5); Red Blood Count 3.39 m/uL (4.30-5.90); White Blood Count* 6.23 K/uL (4.50-11.00)
[2024-04-26 14:13] LABS: Slide Review Reflex No
[2024-04-26 14:25] LABS: Albumin* 3.9 g/dL (3.3-5.0); Chloride* 102 mmol/L (96-114); Sodium* 132 mmol/L (135-149)
[2024-04-26 14:26] LABS: Potassium* 4.3 mmol/L (3.6-5.1)
[2024-04-26 14:28] LABS: Alanine Aminotransferase* 32 U/L (4-50); Alkaline Phosphatase* 103 U/L (40-150); Anion Gap 5 mEq/L (7-15); Aspartate Amino Transferase* 56 U/L (12-35); Bilirubin Total* 1.1 mg/dL (0.1-1.5); Blood Urea Nitrogen* 20 mg/dL (7-30); Carbon Dioxide* 25 mmol/L (20-32); Creatinine* 0.9 mg/dL (0.5-1.5); Est. Creatinine Clearance* 63.83; Estimated Glomerular Filt Rate 89 ml/min; Glucose* 101 mg/dL (60-115); Total Protein* 6.7 g/dL (6.0-8.3)
[2024-04-26 14:29] LABS: Calcium* 9.4 mg/dL (8.4-10.6)
[2024-04-30 08:06] VITALS: BP 127/72; PULSE 56; RESP 16; TEMP 36.4; O2SAT 97
--- NOTE | 2024-04-30 16:28 | URNOTE ---
Request received for authorization for?Enhertu ([id number]) and Aloxi ([id number]). Prior authorization is not required as services are based on medical necessity and follow Medicare guidelines.
[2024-05-07] MEDS: SODIUM CHLORIDE 0.9 % (FLUSH) 10 ML SYRINGE IVF (14:11)
[2024-05-07] MEDS: HEPARIN 500 UNIT/5 ML SYRINGE IVF (14:11)
[2024-05-07 14:18] LABS: Basophils Absolute Auto 0.03 K/uL (0.00-0.30); Basophils Percent Auto 0.4 % (0.0-3.0); Eosinophils Absolute Auto 0.17 K/uL (0.00-0.50); Eosinophils Percent Auto 2.1 % (0.0-7.0); Hematocrit 35.7 % (37.0-53.0); Hemoglobin* 11.8 gm/dL (13.5-17.5); Immature Granulocytes Abs Auto 0.03 K/uL (0.00-0.30); Immature Granulocytes Pct Auto 0.4 %; Lymphocytes Percent Auto 10.5 % (20-44); Mean Corpuscular HGB Conc 33 gm/dL (32-36); Mean Corpuscular Hemoglobin 36 pg (26-34); Mean Corpuscular Volume 110 fL (80-100); Monocytes Percent Auto 14.8 % (0.0-11.0); Neutrophils Absolute Auto 5.79 K/uL (1.7-7.0); Neutrophils Percent Auto 71.8 % (42.0-72.0); Platelet Count* 187 K/uL (140-440); RDW Coefficient of Variation % 15.5 % (11.5-15.5); Red Blood Count 3.26 m/uL (4.30-5.90); White Blood Count* 8.06 K/uL (4.50-11.00)
[2024-05-07 14:24] LABS: Slide Review Reflex No
[2024-05-07 14:31] LABS: Chloride* 102 mmol/L (96-114)
[2024-05-07 14:32] LABS: Potassium* 4.3 mmol/L (3.6-5.1); Sodium* 133 mmol/L (135-149)
[2024-05-07 14:34] LABS: Bilirubin Total* 1.2 mg/dL (0.1-1.5); Est. Creatinine Clearance* 63.83; Estimated Glomerular Filt Rate 78 ml/min
[2024-05-07 14:35] LABS: Alanine Aminotransferase* 26 U/L (4-50); Alkaline Phosphatase* 93 U/L (40-150); Anion Gap 6 mEq/L (7-15); Aspartate Amino Transferase* 40 U/L (12-35); Blood Urea Nitrogen* 24 mg/dL (7-30); Calcium* 9.2 mg/dL (8.4-10.6); Carbon Dioxide* 25 mmol/L (20-32); Glucose* 159 mg/dL (60-115); Total Protein* 6.7 g/dL (6.0-8.3)
[2024-05-08 08:26] VITALS: BP 131/66; PULSE 60; RESP 16; TEMP 35.9; O2SAT 97
[2024-05-08] MEDS: ACETAMINOPHEN 325 MG TABLET 650 MG PO (08:53)
[2024-05-08] MEDS: diphenhydrAMINE 25 MG CAPSULE PO (08:54)
[2024-05-08] MEDS: PALONOSETRON 0.25 MG/5 ML inj IV (09:00)
[2024-05-08] MEDS: dexAMETHasone 20 MG in 0.9 % SODIUM CHLORIDE 100 ml 100 ML 408 MG IVPB (09:00)
[2024-05-08] MEDS: 0.9 % SODIUM CHLORIDE 250 ml IV (09:03)
[2024-05-08] MEDS: SODIUM CHLORIDE 0.9 % (FLUSH) 10 ML SYRINGE IVF (09:04)
[2024-05-08 11:46] VITALS: BP 133/79; PULSE 63; O2SAT 96
--- NOTE | 2024-05-08 13:48 | ONC.NURNOTE ---
Pt here for 1st cycle of Enhertu. Tolerated well without difficulty. Pt given calendar on when it is recommended to take antiemetics. Pt verbalized understanding of plan of care.
--- NOTE | 2024-05-09 14:45 | ONC.NURNOTE ---
Pt called today after 1st enhertu yesterday. Pt doing well, no concerns at this time. Pt instructed to call if he has any questions or concerns.
--- NOTE | 2024-05-15 09:42 | URNOTE ---
Request received for authorization for Zoledronic Acid (J3489). Prior authorization is not required as services are based on medical necessity and follow Medicare guidelines.
--- NOTE | 2024-05-24 09:02 | ONC.NURNOTE ---
Late entry: Pt arrived on 05/23/24 for port access for Radiation oncology. RN noticed some swelling and a dime sized hard nodule on his upper mid chest. Pt has an appt with Dr. Quinteros next week and pt just saw the Radiation oncologist prior to accessing port. Pt instructed to return to radiation oncology for simulation and mention to Dr. Ackerman the new bump on his chest. Pt verbalized understanding of plan of care.
--- NOTE | 2024-05-24 13:30 | ONC.NURNOTE ---
Sternal Lump Pt notified Dr. Ackerman about new palpable sternal lump at Radiation appt yesterday. Per pt, Dr. 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
[2024-05-24 14:02] LABS: Basophils Absolute Auto 0.02 K/uL (0.00-0.30); Basophils Percent Auto 0.4 % (0.0-3.0); Eosinophils Absolute Auto 0.12 K/uL (0.00-0.50); Eosinophils Percent Auto 2.3 % (0.0-7.0); Hematocrit 32.9 % (37.0-53.0); Hemoglobin* 10.9 gm/dL (13.5-17.5); Immature Granulocytes Abs Auto 0.02 K/uL (0.00-0.30); Immature Granulocytes Pct Auto 0.4 %; Lymphocytes Percent Auto 15.7 % (20-44); Mean Corpuscular HGB Conc 33 gm/dL (32-36); Mean Corpuscular Hemoglobin 37 pg (26-34); Mean Corpuscular Volume 111 fL (80-100); Monocytes Percent Auto 20.5 % (0.0-11.0); Neutrophils Absolute Auto 3.13 K/uL (1.7-7.0); Neutrophils Percent Auto 60.7 % (42.0-72.0); Platelet Count* 289 K/uL (140-440); RDW Coefficient of Variation % 15.6 % (11.5-15.5); Red Blood Count 2.97 m/uL (4.30-5.90); White Blood Count* 5.16 K/uL (4.50-11.00)
[2024-05-24 14:04] LABS: Slide Review Reflex No
[2024-05-24 14:23] LABS: Albumin* 3.8 g/dL (3.3-5.0)
[2024-05-24 14:24] LABS: Chloride* 102 mmol/L (96-114); Potassium* 4.1 mmol/L (3.6-5.1); Sodium* 135 mmol/L (135-149)
[2024-05-24 14:26] LABS: Bilirubin Total* 0.8 mg/dL (0.1-1.5); Creatinine* 0.9 mg/dL (0.5-1.5); Est. Creatinine Clearance* 63.83; Estimated Glomerular Filt Rate 89 ml/min
[2024-05-24 14:27] LABS: Alanine Aminotransferase* 27 U/L (4-50); Alkaline Phosphatase* 90 U/L (40-150); Anion Gap 9 mEq/L (7-15); Aspartate Amino Transferase* 36 U/L (12-35); Blood Urea Nitrogen* 23 mg/dL (7-30); Calcium* 9.1 mg/dL (8.4-10.6); Carbon Dioxide* 24 mmol/L (20-32); Glucose* 139 mg/dL (60-115); Total Protein* 6.7 g/dL (6.0-8.3)
[2024-05-30 08:13] VITALS: BP 118/76; PULSE 61; RESP 16; TEMP 36.4; O2SAT 96
[2024-05-30] MEDS: diphenhydrAMINE 25 MG CAPSULE PO ×2 (08:13→12:07)
[2024-05-30] MEDS: ACETAMINOPHEN 325 MG TABLET 650 MG PO ×2 (08:14→12:06)
[2024-05-30 12:09] VITALS: BP 116/71; PULSE 62; RESP 18; TEMP 37.1; O2SAT 96
[2024-05-30] MEDS: ZOLEDRONIC ACID 4 MG in 0.9 % SODIUM CHLORIDE 100 ml 100 ML 400 MG IVPB (12:21)
[2024-05-30] MEDS: PALONOSETRON 0.25 MG/5 ML inj IV (12:45)
[2024-05-30] MEDS: 0.9 % SODIUM CHLORIDE 250 ml IV (14:15)
[2024-05-30] MEDS: HEPARIN 500 UNIT/5 ML SYRINGE IVF (14:16)
--- NOTE | 2024-05-30 14:30 | ONC.NURNOTE ---
Pt here for C2D1 Enhertu at 0830. Med had been ordered yesterday but did not arrive by then. Pt had oral Tylenol/Benadryl premeds. Pt went home and returned ~ 12 noon. Per Gwendolyn, repeat oral Tylenol/Benadryl. Pt tolerated Enhertu over 30 min well; also had 1st Zometa with no issues.
--- NOTE | 2024-06-01 12:46 | ONC.NURNOTE ---
MS MARCUS LESLIE approved from 05/18/24-06/01/25 [facility] # [id number] [phone]
[2024-06-19 08:15] LABS: Basophils Absolute Auto 0.02 K/uL (0.00-0.30); Basophils Percent Auto 0.3 % (0.0-3.0); Eosinophils Absolute Auto 0.18 K/uL (0.00-0.50); Eosinophils Percent Auto 2.7 % (0.0-7.0); Hematocrit 31.5 % (37.0-53.0); Hemoglobin* 10.6 gm/dL (13.5-17.5); Immature Granulocytes Abs Auto 0.04 K/uL (0.00-0.30); Immature Granulocytes Pct Auto 0.6 %; Lymphocytes Percent Auto 5.9 % (20-44); Mean Corpuscular HGB Conc 34 gm/dL (32-36); Mean Corpuscular Hemoglobin 37 pg (26-34); Mean Corpuscular Volume 111 fL (80-100); Monocytes Percent Auto 22.2 % (0.0-11.0); Neutrophils Absolute Auto 4.51 K/uL (1.7-7.0); Neutrophils Percent Auto 68.3 % (42.0-72.0); Platelet Count* 306 K/uL (140-440); RDW Coefficient of Variation % 15.3 % (11.5-15.5); Red Blood Count 2.85 m/uL (4.30-5.90); White Blood Count* 6.61 K/uL (4.50-11.00)
[2024-06-19 08:22] LABS: Slide Review Reflex No
[2024-06-19 08:32] LABS: Albumin* 3.6 g/dL (3.3-5.0); Chloride* 103 mmol/L (96-114); Sodium* 132 mmol/L (135-149)
[2024-06-19 08:33] LABS: Potassium* 4.3 mmol/L (3.6-5.1)
[2024-06-19 08:35] LABS: Alkaline Phosphatase* 110 U/L (40-150); Anion Gap 6 mEq/L (7-15); Aspartate Amino Transferase* 41 U/L (12-35); Bilirubin Total* 0.7 mg/dL (0.1-1.5); Blood Urea Nitrogen* 19 mg/dL (7-30); Carbon Dioxide* 23 mmol/L (20-32); Creatinine* 0.8 mg/dL (0.5-1.5); Est. Creatinine Clearance* 63.83; Estimated Glomerular Filt Rate 92 ml/min; Total Protein* 6.5 g/dL (6.0-8.3)
[2024-06-19 08:36] LABS: Alanine Aminotransferase* 31 U/L (4-50); Calcium* 8.7 mg/dL (8.4-10.6); Glucose* 114 mg/dL (60-115)
[2024-06-19] MEDS: ACETAMINOPHEN 325 MG TABLET 650 MG PO (09:39)
[2024-06-19] MEDS: diphenhydrAMINE 25 MG CAPSULE PO (09:40)
[2024-06-19] MEDS: PALONOSETRON 0.25 MG/5 ML inj IV (09:45)
[2024-06-19] MEDS: SODIUM CHLORIDE 0.9 % (FLUSH) 10 ML SYRINGE IVF (11:15)
[2024-06-19] MEDS: HEPARIN 500 UNIT/5 ML SYRINGE IVF (11:15)
[2024-06-26 08:19] VITALS: BP 131/73; PULSE 79; RESP 16; TEMP 35.8; O2SAT 97
--- NOTE | 2024-06-26 11:36 | ONC.NURNOTE ---
Patient here for zometa infusion. Nursing questioned giving zometa with radiation to the jaw area. Discussed with oncologist and she was understanding of concern. With patient looking sore in the area, decision was made to hold the zometa and reassess with follow up after PET scan end of the month. Patient and spouse are understanding of this plan. PET scan was moved from 07/05-07/09 due to delay in trip to [place] and to allow for betting timing for the scan.
--- NOTE | 2024-07-02 15:14 | ONC.NURNOTE ---
Bills called to say his radiation is going to start up again tomorrow. pt request po med for covid if he gets it while traveling. enc them to call their primary.
[2024-07-10 08:06] LABS: Basophils Absolute Auto 0.03 K/uL (0.00-0.30); Basophils Percent Auto 0.4 % (0.0-3.0); Eosinophils Absolute Auto 0.16 K/uL (0.00-0.50); Eosinophils Percent Auto 2.3 % (0.0-7.0); Hematocrit 29.1 % (37.0-53.0); Immature Granulocytes Abs Auto 0.08 K/uL (0.00-0.30); Immature Granulocytes Pct Auto 1.2 %; Lymphocytes Percent Auto 5.2 % (20-44); Mean Corpuscular HGB Conc 34 gm/dL (32-36); Mean Corpuscular Hemoglobin 38 pg (26-34); Mean Corpuscular Volume 110 fL (80-100); Monocytes Percent Auto 27.3 % (0.0-11.0); Neutrophils Absolute Auto 4.37 K/uL (1.7-7.0); Neutrophils Percent Auto 63.6 % (42.0-72.0); Platelet Count* 354 K/uL (140-440); RDW Coefficient of Variation % 16.1 % (11.5-15.5); Red Blood Count 2.65 m/uL (4.30-5.90); White Blood Count* 6.88 K/uL (4.50-11.00)
[2024-07-10 08:10] LABS: Slide Review Reflex No
[2024-07-10 08:23] LABS: Albumin* 3.5 g/dL (3.3-5.0); Chloride* 100 mmol/L (96-114)
[2024-07-10 08:24] LABS: Potassium* 4.6 mmol/L (3.6-5.1); Sodium* 131 mmol/L (135-149)
[2024-07-10 08:26] LABS: Anion Gap 6 mEq/L (7-15); Aspartate Amino Transferase* 62 U/L (12-35); Bilirubin Total* 0.6 mg/dL (0.1-1.5); Blood Urea Nitrogen* 20 mg/dL (7-30); Carbon Dioxide* 25 mmol/L (20-32); Creatinine* 0.7 mg/dL (0.5-1.5); Est. Creatinine Clearance* 63.83; Estimated Glomerular Filt Rate 96 ml/min; Total Protein* 6.3 g/dL (6.0-8.3)
[2024-07-10 08:27] LABS: Alanine Aminotransferase* 42 U/L (4-50); Alkaline Phosphatase* 117 U/L (40-150); Calcium* 9.1 mg/dL (8.4-10.6); Glucose* 113 mg/dL (60-115)
[2024-07-10 08:59] VITALS: BP 121/65; PULSE 62; RESP 16; TEMP 37.3; O2SAT 97
[2024-07-10] MEDS: 5 % DEXTROSE 250 ML IV (09:12)
[2024-07-10] MEDS: PALONOSETRON 0.25 MG/5 ML inj IV (09:12)
[2024-07-10] MEDS: SODIUM CHLORIDE 0.9 % (FLUSH) 10 ML SYRINGE IVF ×2 (09:13→10:44)
[2024-07-10] MEDS: ACETAMINOPHEN 325 MG TABLET 650 MG PO (09:13)
[2024-07-10] MEDS: diphenhydrAMINE 25 MG CAPSULE PO (09:13)
[2024-07-10] MEDS: dexAMETHasone 20 MG in 0.9 % SODIUM CHLORIDE 100 ml 100 ML 306 MG IVPB (09:26)
[2024-07-10] MEDS: HEPARIN 500 UNIT/5 ML SYRINGE IVF (10:44)
[2024-07-16 11:14] VITALS: BP 131/80; PULSE 85; RESP 16; TEMP 36.2; O2SAT 96
[2024-07-16] MEDS: 0.9 % SODIUM CHLORIDE 500 ML 500 ML 1000 ML IV ×2 (11:20→11:51)
[2024-07-16] MEDS: SODIUM CHLORIDE 0.9 % (FLUSH) 10 ML SYRINGE IVF (11:27)
[2024-07-16] MEDS: HEPARIN 500 UNIT/5 ML SYRINGE IVF (11:51)
--- NOTE | 2024-07-16 11:53 | ONC.NURNOTE ---
Received a call from Radiation oncology stating patient has positive orthostatic hypotension at radiation and requested that patient receive fluids today. Okay to give them. Patient denies dizziness and light headedness. Stated he was a little nausous and not taking in a lot of fluids due to pain. States he drinks a lot of coffee and milk. Encouraged patient to drink more water especially with the fluids shortage. Patient understood and is drinking water here.
[2024-07-19] MEDS: SODIUM CHLORIDE 0.9 % (FLUSH) 10 ML SYRINGE IVF (15:34)
[2024-07-19] MEDS: HEPARIN 500 UNIT/5 ML SYRINGE IVF (15:34)
--- NOTE | 2024-07-23 12:24 | ONC.NURNOTE ---
Addendum entered by Precious Sweet RN 07/23/24 12:57: PA would like to discuss this case with Dr. Quinteros, who is available on . Therefore, patient's appointment will stay on Tuesday as scheduled. Patient's was notified of this and rationale of this. While talking with spouse, she notes that patient is feeling weak and nauseous. She was offered to have patient come in for fluids to help with this. Patient declined, he would like to stay home and drink ensure. Emphasized that if patient starts to feel worse, and is lightheaded when changing position he should really come in for fluids and to call by 1400, they were also notified that he can come in tomorrow morning - they just need to contact our office. If after hours, they were instructed to utilize the ER. Original Note: Patient called the office to state that he received his results from radiation oncology and wants to check his schedule. 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 Nursing to call patient if able to move appointment up to next week from Tuesday the .
[2024-07-24 08:30] VITALS: BP 92/64; PULSE 102; RESP 16; TEMP 36.7; O2SAT 96
[2024-07-24] MEDS: 0.9 % SODIUM CHLORIDE 500 ML 500 ML 1000 ML IV ×2 (08:45→09:15)
[2024-07-24 09:24] LABS: Albumin* 3.3 g/dL (3.3-5.0); Chloride* 101 mmol/L (96-114)
[2024-07-24 09:25] LABS: Potassium* 3.3 mmol/L (3.6-5.1); Sodium* 128 mmol/L (135-149)
[2024-07-24 09:27] LABS: Alkaline Phosphatase* 152 U/L (40-150); Anion Gap 6 mEq/L (7-15); Aspartate Amino Transferase* 99 U/L (12-35); Bilirubin Total* 1.1 mg/dL (0.1-1.5); Blood Urea Nitrogen* 29 mg/dL (7-30); Carbon Dioxide* 21 mmol/L (20-32); Creatinine* 0.8 mg/dL (0.5-1.5); Est. Creatinine Clearance* 63.83; Estimated Glomerular Filt Rate 92 ml/min; Total Protein* 6.2 g/dL (6.0-8.3)
[2024-07-24 09:28] LABS: Alanine Aminotransferase* 85 U/L (4-50); Calcium* 8.5 mg/dL (8.4-10.6); Glucose* 135 mg/dL (60-115)
[2024-07-24] MEDS: HEPARIN 500 UNIT/5 ML SYRINGE IVF (09:30)
[2024-07-24] MEDS: SODIUM CHLORIDE 0.9 % (FLUSH) 10 ML SYRINGE IVF (09:30)
[2024-07-24 09:36] LABS: Basophils Percent Auto 0.8 % (0.0-3.0); Eosinophils Percent Auto 1.5 % (0.0-7.0); Hematocrit 25.5 % (37.0-53.0); Hemoglobin* 8.8 gm/dL (13.5-17.5); Immature Granulocytes Pct Auto 0.8 %; Lymphocytes Percent Auto 7.8 % (20-44); Mean Corpuscular HGB Conc 35 gm/dL (32-36); Mean Corpuscular Hemoglobin 37 pg (26-34); Mean Corpuscular Volume 108 fL (80-100); Monocytes Percent Auto 22.7 % (0.0-11.0); Neutrophils Percent Auto 66.4 % (42.0-72.0); Platelet Count* 210 K/uL (140-440); RDW Coefficient of Variation % 15.8 % (11.5-15.5); Red Blood Count 2.36 m/uL (4.30-5.90)
[2024-07-24 10:30] LABS: Slide Review Reflex Yes
[2024-07-24 10:33] LABS: Slide Review Acceptable Review (Acceptable); White Blood Count* 4.76 K/uL (4.50-11.00)
[2024-07-24 10:34] LABS: Corrected White Blood Count 4.37 K/UL (4.50-11.00)
[2024-07-30 15:06] LABS: Basophils Absolute Auto 0.01 K/uL (0.00-0.30); Basophils Percent Auto 0.1 % (0.0-3.0); Hematocrit 22.5 % (37.0-53.0); Immature Granulocytes Abs Auto 0.15 K/uL (0.00-0.30); Immature Granulocytes Pct Auto 1.6 %; Mean Corpuscular HGB Conc 34 gm/dL (32-36); Mean Corpuscular Hemoglobin 36 pg (26-34); Mean Corpuscular Volume 105 fL (80-100); Monocytes Percent Auto 20.2 % (0.0-11.0); Neutrophils Percent Auto 74.1 % (42.0-72.0); Platelet Count* 300 K/uL (140-440); RDW Coefficient of Variation % 19.6 % (11.5-15.5); Red Blood Count 2.15 m/uL (4.30-5.90); White Blood Count* 9.11 K/uL (4.50-11.00)
[2024-07-30 15:28] LABS: Albumin* 2.7 g/dL (3.3-5.0)
[2024-07-30 15:29] LABS: Chloride* 102 mmol/L (96-114); Potassium* 3.2 mmol/L (3.6-5.1); Sodium* 133 mmol/L (135-149)
[2024-07-30 15:31] LABS: Anion Gap 7 mEq/L (7-15); Carbon Dioxide* 24 mmol/L (20-32); Creatinine* 0.6 mg/dL (0.5-1.5); Est. Creatinine Clearance* 63.83; Estimated Glomerular Filt Rate 101 ml/min
[2024-07-30 15:32] LABS: Alanine Aminotransferase* 42 U/L (4-50); Alkaline Phosphatase* 158 U/L (40-150); Aspartate Amino Transferase* 50 U/L (12-35); Blood Urea Nitrogen* 26 mg/dL (7-30); Calcium* 8.5 mg/dL (8.4-10.6); Glucose* 147 mg/dL (60-115); Total Protein* 5.3 g/dL (6.0-8.3)
[2024-07-30 15:44] LABS: Hemoglobin* 7.7 gm/dL (13.5-17.5); Slide Review Reflex Yes
[2024-07-30 19:39] LABS: Slide Review Acceptable Review (Acceptable)
[2024-08-03 08:14] LABS: Basophils Percent Auto 0.1 % (0.0-3.0); Hematocrit 22.3 % (37.0-53.0); Immature Granulocytes Pct Auto 5.2 %; Lymphocytes Percent Auto 7.1 % (20-44); Mean Corpuscular HGB Conc 35 gm/dL (32-36); Mean Corpuscular Hemoglobin 37 pg (26-34); Mean Corpuscular Volume 108 fL (80-100); Monocytes Percent Auto 20.3 % (0.0-11.0); Neutrophils Percent Auto 67.3 % (42.0-72.0); Platelet Count* 297 K/uL (140-440); RDW Coefficient of Variation % 20.1 % (11.5-15.5); Red Blood Count 2.07 m/uL (4.30-5.90); White Blood Count* 7.14 K/uL (4.50-11.00)
[2024-08-03 08:28] LABS: Albumin* 2.7 g/dL (3.3-5.0); Chloride* 97 mmol/L (96-114); Sodium* 131 mmol/L (135-149)
[2024-08-03 08:29] LABS: Potassium* 3.2 mmol/L (3.6-5.1)
[2024-08-03 08:31] LABS: Alanine Aminotransferase* 43 U/L (4-50); Alkaline Phosphatase* 146 U/L (40-150); Anion Gap 3 mEq/L (7-15); Aspartate Amino Transferase* 49 U/L (12-35); Blood Urea Nitrogen* 22 mg/dL (7-30); Carbon Dioxide* 31 mmol/L (20-32); Creatinine* 0.6 mg/dL (0.5-1.5); Est. Creatinine Clearance* 63.83; Estimated Glomerular Filt Rate 101 ml/min; Glucose* 114 mg/dL (60-115)
[2024-08-03 08:44] LABS: Corrected White Blood Count 6.55 K/UL (4.50-11.00)
[2024-08-03 08:45] LABS: Hemoglobin* 7.7 gm/dL (13.5-17.5); Slide Review Reflex Yes
[2024-08-03 08:46] LABS: Slide Review Acceptable Review (Acceptable)
--- NOTE | 2024-08-03 09:08 | ONC.NURNOTE ---
Reviewed labs with Gwendolyn Lee APRN. Hgb, Na, K stable; pt sees Dr. Quinteros Mon 08/06. Ca 8.0; corrects to 9.0 with Albumin 2.7.
[2024-08-06 10:58] LABS: Basophils Percent Auto 0.1 % (0.0-3.0); Hematocrit 25.1 % (37.0-53.0); Hemoglobin* 8.4 gm/dL (13.5-17.5); Immature Granulocytes Pct Auto 6.1 %; Lymphocytes Percent Auto 3.1 % (20-44); Mean Corpuscular HGB Conc 34 gm/dL (32-36); Mean Corpuscular Hemoglobin 37 pg (26-34); Mean Corpuscular Volume 110 fL (80-100); Monocytes Percent Auto 14.9 % (0.0-11.0); Neutrophils Percent Auto 75.8 % (42.0-72.0); Platelet Count* 290 K/uL (140-440); RDW Coefficient of Variation % 21.4 % (11.5-15.5); Red Blood Count 2.29 m/uL (4.30-5.90)
[2024-08-06 11:16] LABS: Albumin* 2.8 g/dL (3.3-5.0); Chloride* 96 mmol/L (96-114); Potassium* 3.7 mmol/L (3.6-5.1); Sodium* 130 mmol/L (135-149)
[2024-08-06 11:18] LABS: Anion Gap 3 mEq/L (7-15); Bilirubin Total* 1.1 mg/dL (0.1-1.5); Carbon Dioxide* 31 mmol/L (20-32); Creatinine* 0.7 mg/dL (0.5-1.5); Est. Creatinine Clearance* 63.83; Estimated Glomerular Filt Rate 96 ml/min
[2024-08-06 11:19] LABS: Alanine Aminotransferase* 42 U/L (4-50); Alkaline Phosphatase* 164 U/L (40-150); Aspartate Amino Transferase* 52 U/L (12-35); Blood Urea Nitrogen* 22 mg/dL (7-30); Calcium* 8.1 mg/dL (8.4-10.6); Glucose* 144 mg/dL (60-115); Total Protein* 5.1 g/dL (6.0-8.3)
[2024-08-06 12:26] LABS: Corrected White Blood Count 11.14 K/UL (4.50-11.00)
[2024-08-06 12:27] LABS: Slide Review Acceptable Review (Acceptable); Slide Review Reflex Yes
== END 2024-10-03 23:59 | disposition home or self-care (01) ==
LOC: CCIC 13:00
PROVIDERS: Clinical Nurse Specialist; Physician Assistant; PCP Physician Assistant Medical; Referring Provider Physician Assistant Medical; Visit Provider Internal Medicine Hematology & Oncology
DX: C16.0 Malignant neoplasm of cardia (principal); C15.4 Malignant neoplasm of middle third of esophagus; D64.81 Anemia due to antineoplastic chemotherapy; T45.1X5A Adverse effect of antineoplastic and immunosuppressive drugs, initial encounter; M21.371 Foot drop, right foot; L27.1 Localized skin eruption due to drugs and medicaments taken internally; Z51.81 Encounter for therapeutic drug level monitoring; Z79.899 Other long term (current) drug therapy; Z85.038 Personal history of other malignant neoplasm of large intestine
CPT/HCPCS: 36415; 36591; 71260; 74177; 78815; 80053; 82947; 85025; 96360; 96367; 96375; 96376; 96413; 96415; 96417; 99211; 99213; 99215; G0463; A9270; A9552; J1100; J1642; J2469; J3489; J7030; J7050; J9263; J9358; Q5114; Q9967